=== PATIENT | female | born 1955 | race Caucasian/White ===

== ENCOUNTER 2019-02-13 09:25 | Inpatient (IN) | payer MEDICARE, MEDICAID ==
[~2019-02-13] VITALS: Ht 170.2 cm; Wt 65.0 kg
[2019-02-13] VITALS (8 sets, daily range): BP systolic 107–163; BP diastolic 56–106
[~2019-02-13 09:25] MED LIST: ALBU8.5H2 IH; BUPR200T PO; BUPR200T2 PO; DIAZ10TA3 PO; FLUT1DIS26 IH; FLUT1DIS27 INH; GABA-490 PO; GBPN300C PO; IBP800T PO; IPRA3AMP IH; LOPE2CAP PO; MILK175C PO; PRD10T PO; THIO100T PO; VILA40TA PO; VILAZODONE 40 MG PO
--- OUTSIDE RECORDS SUMMARY | 2019-02-13 09:38 | XMS REPORT ---
Author Author Migration, Doctor Organization [facility] Address Unknown Phone Unavailable Care Team Providers Care Supervisor Lead Refinery Name Role Phone Migration, Doctor Unavailable Unavailable PROBLEMS Type Condition ICD9-CM Code KIC90-XC Code Onset Dates Condition Status SNOMED Code Problem Dependence on machine for supplemental oxygen V46.2 Active 478889338087 Problem Personal history of colonic polyps V12.72 Active 789233982 Problem Bipolar depression 296.50 Active 94311411 Problem Orthostatic hypotension 458.0 Active 54025190 Problem Chronic obstructive pulmonary disease, unspecified J44.9 Active 104688656 Problem Tremor, unspecified R25.1 Active 40820739 Problem Hep C w/o coma, chronic B18.2 Active 210020818 Problem Impingement syndrome of left shoulder M75.42 Active 037557072 Problem Actinic keratosis L57.0 Active 922364350 Problem 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 163466273 Problem Inflammatory polyneuropathy, unspecified G61.9 Active 55723378 Problem COPD exacerbation J44.1 Active 559516447 Problem Chronic hepatitis C without hepatic coma B18.2 Active 015764544 Problem Nasal congestion R09.81 Active 46242273 Problem Pain in right shoulder M25.511 Active 44571632 Problem 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 Active 384317444 Problem Bipolar depression F31.30 Active 06586408 Problem Cervicalgia M54.2 Active 17396909 Problem Irritable bowel syndrome with both constipation and diarrhea K58.2 Active 84829371 ALLERGIES No Information ENCOUNTERS Encounter Location Date Diagnosis [place] [address] [facility] [address] [id number] [place] [id number] Jan, Chronic obstructive pulmonary disease, unspecified J44.9 ; Irritable bowel syndrome with both constipation and diarrhea K58.2 and Neck muscle spasm M62.838 [facility] [address] [id number] [place] [id number] Dec, COPD exacerbation J44.1 and Irritable bowel syndrome with both constipation and diarrhea K58.2 [facility] [id number] [place] [address] [id number] Nov, COPD exacerbation J44.1 ; Chronic obstructive pulmonary disease, unspecified J44.9 ; Cough R05 and Fever, unspecified fever cause R50.9 [facility] [id number] [place] [address] [id number] Nov, [facility] [address] [id number] Oct, Nasal congestion R09.81 [facility] [id number] [place] [address] [id number] Sep, COPD exacerbation J44.1 ; Tremor, unspecified R25.1 and Nasal congestion R09.81 [facility] [id number] [place] [address] [id number] Sep, [facility] [id number] [place] [address] [id number] Sep, Acute hemorrhoid K64.9 [facility] [id number] [place] [address] [id number] Sep, [facility] [id number] [place] [address] [id number] Sep, [facility] [id number] [place] [address] [id number] Aug, Generalized abdominal pain R10.84 [facility] [address]00565[address] [address] Jul, Tremor, unspecified R25.1 [facility] [id number] [place] [address] [id number] Jul, Nasal congestion R09.81 [facility] [id number] [place] [address] [id number] Jun, COPD exacerbation J44.1 ; Acute nasopharyngitis J00 and Cervicalgia M54.2 [facility] [id number] [place] [address] [id number] May, Chronic obstructive pulmonary disease, unspecified J44.9 [facility] [place] [address] [id number] February, Chronic obstructive pulmonary disease, unspecified J44.9 [place] [id number] [place] [address] [id number] February, Tremor, unspecified R25.1 ; Chronic obstructive pulmonary disease, unspecified J44.9 ; Cervicalgia M54.2 and Irritable bowel syndrome with both constipation and diarrhea K58.2 [place] [id number] [place] [address] [id number] Dec, Chronic obstructive pulmonary disease, unspecified J44.9 ; Cervicalgia M54.2 and Irritable bowel syndrome with both constipation and diarrhea K58.2 [place] [id number] [place] [address] [id number] Nov, Chronic obstructive pulmonary disease, unspecified J44.9 and Cervicalgia M54.2 [place] [id number] [place] [address] [id number] Jul, Chronic obstructive pulmonary disease, unspecified J44.9 ; Impingement syndrome of left shoulder M75.42 and Tremor, unspecified R25.[address] [id number] [place] [address] Jun, Diarrhea, unspecified type R19.7 [place] [id number] [place] [address] [id number] Jun, Chronic obstructive pulmonary disease, unspecified J44.9 ; Encounter for immunization Z23 ; Tremor, unspecified R25.1 ; Diarrhea, unspecified type R19.7 ; Acute seasonal allergic rhinitis due to pollen J30.1 and Urinary frequency R35.0 [address] [place] [address] [id number] Jun, [place] [id number] [place] [address] [phone] Jun, [place] [address] [place] [address] [id number] May, Chronic obstructive pulmonary disease, unspecified J44.9 ; Tremor, unspecified R25.1 ; Hep C w/o coma, chronic B18.2 ; Bipolar depression F31.30 and 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 [facility] [id number] [place] [id number] May, [facility] [address]00565[address] [address] Apr, Hep C w/o coma, chronic B18.2 [facility] [place] [id number] [place] [phone] Jan, Chronic obstructive pulmonary disease, unspecified J44.9 ; 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 ; Tremor, unspecified R25.1 and 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 [facility] [address] [id number] [place] [address] Jan, [facility] [place] [id number] [place] [address] Dec, Chronic obstructive pulmonary disease, unspecified J44.9 [facility] [address] [id number] [place] [address] Dec, Hep C w/o coma, chronic B18.2 ; Chronic obstructive pulmonary disease, unspecified J44.9 ; Muscle weakness (generalized) M62.81 ; Inflammatory polyneuropathy, unspecified G61.9 and 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 [facility] [place] [id number] [place] [id number] Dec, Chronic hepatitis C without hepatic coma B18.2 [facility] [id number] [place] [id number] Nov, [facility] [place] [id number] [place] [address] Oct, Actinic keratosis L57.0 [facility] [id number] [place] [address] Oct, [facility] [id number] [place] [id number] Oct, Chronic obstructive pulmonary disease, unspecified J44.9 and Chronic hepatitis C without hepatic coma B18.2 [facility] [address] [id number] [place] [id number] Oct, Hep C w/o coma, chronic B18.2 [facility] [address]00565100[place] [address]- [address]88 Sep, Hep C w/o coma, chronic B18.2 [facility] [address]00565100[place], [place] [address] 2079 Sep, [facility] [id number] [place] [address] 40892- 8965 Sep, [facility] [address] [place] [address] [id number] [place] [address] [id number] Sep, Chronic hepatitis C without hepatic coma B18.2 and Encounter for immunization Z23 [facility] [id number] [place] [address] 39816- 7131 Aug, [facility] [address] [place] [address] AVE [id number] [place] [id number] Aug, Hep C w/o coma, chronic B18.2 [facility] [id number] [place] [address] 99525- 3018 Aug, Chronic hepatitis C without hepatic coma B18.2 [facility] [address] [place] [address] 27038- 2966 Jul, [facility] [id number] [place] [address] 92742- 3391 Jul, [facility] [id number] [place] [address] [id number] Jul, Hep C w/o coma, chronic B18.2 ; Chronic obstructive pulmonary disease, unspecified J44.9 and Pain in right shoulder M25.511 [facility] [id number] [place] [address] [id number] Jun, Chronic obstructive pulmonary disease, unspecified J44.9 [facility] [id number] [place] [address] [id number] Mar, Hep C w/o coma, chronic B18.2 and Chronic obstructive pulmonary disease, unspecified J44.9 [address] [place] [address] [id number] Mar, Chronic obstructive pulmonary disease, unspecified J44.9 ; Impingement syndrome of left shoulder M75.42 and Hep C w/o coma, chronic B18.2 [address] [place] [address] [id number] Dec, Chronic obstructive pulmonary disease, unspecified J44.9 and Impingement syndrome of left shoulder M75.42 [place] [id number] [place] [address] [id number] Sep, Chronic obstructive pulmonary disease, unspecified J44.9 ; Encounter for immunization Z23 and Tremor, unspecified R25.1 [place] [id number] [place] [address] [id number] Aug, Tremor, unspecified R25.1 and Chronic obstructive pulmonary disease, unspecified J44.9 [place] [address] [place] [address] [id number] Jul, Tremor 781.0 and COPD 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 [place] [address] [id number] Jun, COPD 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 and Tremor 781.0 [address] [place] [address] [id number] May, [place] [id number] [place] [address] [id number] May, Sinusitis 473.9 [facility] [place] [address] [facility] [id number] [place] [id number] May, Sinusitis 473.9 ; Tobacco abuse 305.1 ; Irregular heart rhythm 427.9 and Cough 786.2 [facility] [address]00565[address] [id number] May, [address] [place] [address] [id number] Apr, [place] [id number] [place] [address] [id number] Apr, COPD 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 [facility] [place] [address] [facility] [id number] [place] [id number] Apr, Respiratory distress 786.09 [facility] [place] [id number] [place] [id number] Mar, COPD 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 and Verruca 078.10 [facility] [id number] [place] [address] 19041- 6406 Mar, [facility] [place] [id number] [place] [address] [id number] Jan, [place] 078.10 and [place] (actinic keratosis) 702.0 [facility] [place] [id number] [place] [address] [id number] Jan, [facility] [address] [place] [address] 45538- 0346 Jan, [facility] [address] [place] [address] 80727- 1598 Jan, [facility] [place] [id number] [place] [address] [id number] Dec, [facility] [address] [place] [address] [id number]- 2070 Dec, [facility] [place] [address]00565100[place] [id number] Nov, [facility] [id number] [place] [address] 21016- 0826 Nov, [facility] [address] [place] [address] 09514- 8803 Nov, [facility] [place] [address] [place] [address] [id number] Oct, [facility] [address] [place] [address] 594924- 7687 Oct, [facility] [id number] [place] [address] 19491- 3321 Oct, [facility] [place] [address] [id number] [place] [id number] Oct, [facility] [place] [facility] [address] [id number] [place] [address]- 7160 Oct, [facility] [place] [address] [id number] [place] [id number] Oct, [facility] [place] [facility] [address] [facility] [id number] [address]- 3014 Oct, [facility] [place] [address] [id number] [place] [id number] Sep, [facility] [place] [facility] [address] [id number] [address]- 5717 Sep, [facility] [place] [address] [id number] [place] [id number] Aug, [facility] [place] [address] [id number] [place] [id number] Aug, [facility] [place] [facility] [address] [facility] [id number], [place] [address]- 1191 Aug, [facility] [place] [facility] [address] [facility] [id number], [place] [address]- 0054 Aug, [facility] [place] [address] [facility] [id number] [place] [id number] Jul, [facility] [place] [facility] [address] [facility] [id number], [place] [address]- 6300 Jul, [facility] [place] [address] [facility] [id number] [place] [id number] Apr, [facility] [place] [facility] [address] [facility] [id number] [place] [address]- 1124 Apr, [facility] [place] [facility] [address] [facility] [id number] [place] [address]- 5442 Apr, [facility] [place] [facility] [address] [facility] [id number], [place] [address]- 4491 Apr, [facility] [place] [address] [facility] [id number] [place] [id number] Apr, [facility] [place] [address] [id number] [place] [id number] Mar, [facility] [place] [facility] [address] [id number] [place] [address]- 2546 Mar, [facility] [place] [address] [id number] [place] [id number] February, [facility] [place] [facility] [address] [id number] [place] [address]- 2226 February, [facility] [place] [address] [id number] [place] [id number] February, [facility] [address] [id number] [place] [address]- 1286 February, [facility] [place] [address] [id number] [id number] February, [facility] [place] [facility] [address] [id number] [place] [address]- 7846 February, [facility] [place] [facility] [address] [id number] [place] [address]- 1142 February, [facility] [place] [facility] [address] [id number] [place] [address]- 8900 February, [facility] [place] [facility] [address] [id number] [place] [address]- 2942 February, [facility] [place] [facility] [address] [id number] [place] [address]- 1166 February, [facility] [place] [facility] [address] [id number] [place] [address]- 4956 February, [facility] [place] [facility] [address] [id number] [place] [address]- 1816 February, [facility] [place] [facility] [address] [id number] [place] [address]- 4816 Jan, [facility] [place] [facility] [address] [id number] [place] [address]- 7326 Jan, [facility] [place] [address] [id number] [place] [id number] Dec, [facility] [address] [facility] [id number][place] [address]- 8416 Dec, [facility] [place] [address] [id number] [place] [id number] Dec, [facility] [address] [facility] [id number], [place] [address]- 5500 Dec, [facility] [place] [address] [id number] [place] [id number] Nov, [facility] [address] [facility] [id number], [place] [address]- 7711 Nov, [facility] [place] [address] [facility] [id number] [place] 716422409 Sep, [facility] [address]00565[address], [place] [address]- 6055 Sep, [facility] [place] [address] [facility] [id number] [place] [id number] Sep, [facility] [address] [facility] [id number], [place] [address]- 4790 Sep, [facility] [place] [address] [facility] [id number] [place] [id number] Jul, [facility] [address] [facility] [id number], [place] [address]- 7114 Jul, [facility] [place] [address] [id number] [place] [id number] Jul, [facility] [place] [facility] [address] [facility] [id number], [place] [address]- 0576 Jul, [facility] [place] [address] [id number] [place] [id number] May, [facility] [place] [address] [id number] [place] [id number] Apr, [facility] [place] [address] [id number] [place] 597459475 Apr, [facility] [place] [address] [id number] [id number] Mar, [facility] [place] [address] [id number] [place] [id number] Mar, [facility] [place] [address] [id number] [place] [id number] February, [facility] [place] [address] [id number] [place] [id number] Jan, [facility] [place] [address] [id number] [place] 5508979[place] Dec, [facility] [place] [address] [id number] [place] [id number] Oct, [facility] [place] [address] [id number] [id number] Oct, [facility] [place] [address] [id number] [place] [address]37[address] Sep, [facility] [address]00565100[place], [place] [address]- 2406 Sep, [facility] [place] [address] [id number] [place] [id number] Aug, [facility] [address]00565100[place], [place] [address]- 3716 Aug, [facility] [place] [address] [id number] [place] [id number] Aug, [facility] [address]00565[address], [place] [address]- 9626 Aug, [facility] [place] [facility] [address] [facility] [id number], [place] [address]- 2546 May, [facility] [place] [address] [id number] [place] [id number] May, [facility] [place] [facility] [address] [id number], [place] [address]- 2546 Apr, [facility] [place] [facility] [address]00565100[place], [place] [address]- 4723 Mar, [facility] [place] [facility] [id number] [place] [address] [place] [address]- 2546 Mar, [facility] [place] [address] [id number] [place] [id number] Mar, [facility] [place] [address] [id number] [place] [id number] Jan, [facility] [place] [address] [id number] [place] 040945666 Dec, [facility] [place] [facility] [address] [facility] [id number] [place] [address] 87875- 2546 Nov, [facility] [place] [address] [id number] [place] [id number] Nov, [facility] [place] [facility] [id number] [place] [address] 58755- 5116 Sep, [facility] [place] [facility] [address] [id number] [address]- 5732 Sep, [facility] [place] [facility] [id number] [place] [address] 26690- 8018 Aug, [facility] [place] [facility] [address]00565100[place], [place] [address]- 9219 Jul, [facility] [place] [facility] [address] [place] [address] 32989- 8895 Jul, [facility] [place] [facility] [address]00565100[place], [place] [address]- 6800 Jul, [facility] [place] [facility] [address] [id number], [place] [address]- 8716 Jul, [facility] [place] [facility] [address] [facility] [id number], [place] [address]- 5743 Jun, [facility] [place] [facility] [address] [id number], [place] [address]- 9736 May, [facility] [place] [facility] [address] [facility] [id number], [place] [address]- 2546 Apr, [facility] [place] [facility] [address]00565[address], [place] [address]- 6256 February, [facility] [address] [id number], [place] [address]- 0285 Dec, [facility] [address]00565100[place], [place] [address]- 0406 Oct, [facility] [address]00565100[place], [place] [address]- 8738 Sep, [facility] [address]00565100[place], [place] [address]- 3301 Aug, [facility] [address]00565100[place], [place] [address]- 7053 Aug, [facility] [id number] [place] [address] 64420- 1779 Sep, [facility] [address] [place] [address] 98562- 4914 Sep, [facility] [address]00565100[place], [place] [address]- 7493 Aug, [facility] [address]00565[address], [place] 4196[place]- 2798 Aug, [facility] [address]00565100[place], [place] [address] Aug, [facility] [address] [id number], [place] [address] Aug, IMMUNIZATIONS No Known Immunizations SOCIAL HISTORY Never Assessed REASON FOR VISIT [facility] PLAN OF CARE VITAL SIGNS MEDICATIONS No Known Medications RESULTS No Results PROCEDURES No Known procedures INSTRUCTIONS MEDICATIONS ADMINISTERED No Known Medications MEDICAL (GENERAL) HISTORY Type Description Date Medical History chronic obstructive pulmonary disease (COPD)--DX: 2007 Medical History Arthritis Medical History mouth cancer--roof of mouth (2000) Medical History hepatitis C Medical History chronic pain Medical History bipolar disorder Medical History social anxiety disorder Medical History bowel disorders-due to Hepatitis Medical History emphysema (DX-02/28) Surgical History tonsillectomy age 3 Surgical History tubal ligation age 23 Surgical History Back surgery dissection & removal of L4 and L5 1986 Hospitalization History Syncope ([facility]) 02/2014 Hospitalization History was at [facility] for falling and confusion/ then went to a snf for 21days 04/2017
--- OUTSIDE RECORDS SUMMARY | 2019-02-13 09:38 | XMS REPORT ---
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 Name Role Phone Migration, Doctor Unavailable Unavailable PROBLEMS Type Condition ICD9-CM Code KAJ09-SM Code Onset Dates Condition Status SNOMED Code Problem Dependence on machine for supplemental oxygen V46.2 Active 345501681484 Problem Personal history of colonic polyps V12.72 Active 867610780 Problem Bipolar depression 296.50 Active 20713087 Problem Orthostatic hypotension 458.0 Active 79756376 Problem Chronic obstructive pulmonary disease, unspecified J44.9 Active 898377881 Problem Tremor, unspecified R25.1 Active 14302873 Problem Hep C w/o coma, chronic B18.2 Active 535238752 Problem Impingement syndrome of left shoulder M75.42 Active 058250868 Problem Actinic keratosis L57.0 Active 558629812 Problem 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 291570408 Problem Inflammatory polyneuropathy, unspecified G61.9 Active 59803635 Problem COPD exacerbation J44.1 Active 673480148 Problem Chronic hepatitis C without hepatic coma B18.2 Active 013895082 Problem Nasal congestion R09.81 Active 81839211 Problem Pain in right shoulder M25.511 Active 11752087 Problem 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 Active 655190925 Problem Bipolar depression F31.30 Active 40808060 Problem Cervicalgia M54.2 Active 69818978 Problem Irritable bowel syndrome with both constipation and diarrhea K58.2 Active [id number] ALLERGIES No Information ENCOUNTERS Encounter Location Date Diagnosis [facility] [place] [facility] Madeline0 [facility] [id number] [place] [id number] Jan, [facility] [place] [address] [id number] [place] [id number] Dec, COPD exacerbation J44.1 and Irritable bowel syndrome with both constipation and diarrhea K58.2 [facility] [address] [id number][place] [id number] Nov, COPD exacerbation J44.1 ; Chronic obstructive pulmonary disease, unspecified J44.9 ; Cough R05 and Fever, unspecified fever cause R50.9 [facility] [id number] [place] [address] [id number] Nov, [facility] [id number] [place] [address] [id number] Oct, Nasal congestion R09.81 [facility] [id number] [place] [address] [id number] Sep, COPD exacerbation J44.1 ; Tremor, unspecified R25.1 and Nasal congestion R09.81 [facility] [id number] [place] [address] [id number] Sep, [facility] [id number] [place] [address] [id number] Sep, Acute hemorrhoid K64.9 [facility] [id number] [place] [address] [id number] Sep, [facility] [id number] [place] [address] [phone] Sep, [facility] [id number] [place] [address] [id number] Aug, Generalized abdominal pain R10.84 [facility] [address]005[address] [address] Jul, Tremor, unspecified R25.1 [facility] [id number] [place] [address] [id number] Jul, Nasal congestion R09.81 [facility] [id number] [place] [address] [id number] Jun, COPD exacerbation J44.1 ; Acute nasopharyngitis J00 and Cervicalgia M54.2 [facility] [id number] [place] [address] [phone] May, Chronic obstructive pulmonary disease, unspecified J44.9 [facility] [id number] [place] [address] [id number] February, Chronic obstructive pulmonary disease, unspecified J44.9 [facility] [id number], [place] [id number] February, Tremor, unspecified R25.1 ; Chronic obstructive pulmonary disease, unspecified J44.9 ; Cervicalgia M54.2 and Irritable bowel syndrome with both constipation and diarrhea K58.2 [place] [id number] [place] [address] [id number] Dec, Chronic obstructive pulmonary disease, unspecified J44.9 ; Cervicalgia M54.2 and Irritable bowel syndrome with both constipation and diarrhea K58.2 [address] [place] [address] [id number] Nov, Chronic obstructive pulmonary disease, unspecified J44.9 and Cervicalgia M54.2 [place] [id number] [place] [address] [id number] Jul, Chronic obstructive pulmonary disease, unspecified J44.9 ; Impingement syndrome of left shoulder M75.42 and Tremor, unspecified R25.[address] [id number] [place] 24967[address] Jun, Diarrhea, unspecified type R19.7 [address] [place] [address] [id number] Jun, Chronic obstructive pulmonary disease, unspecified J44.9 ; Encounter for immunization Z23 ; Tremor, unspecified R25.1 ; Diarrhea, unspecified type R19.7 ; Acute seasonal allergic rhinitis due to pollen J30.1 and Urinary frequency R35.0 [address] [place] [address] [id number] Jun, [address] [place] [address] [id number] Jun, [address] [place] [address] [id number] May, Chronic obstructive pulmonary disease, unspecified J44.9 ; Tremor, unspecified R25.1 ; Hep C w/o coma, chronic B18.2 ; Bipolar depression F31.30 and 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 [place] [id number] [place] [address] [id number] May, [facility] [address] [id number] [address] Apr, Hep C w/o coma, chronic B18.2 [facility] [id number], [place] [id number] Jan, Chronic obstructive pulmonary disease, unspecified J44.9 ; 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 ; Tremor, unspecified R25.1 and 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 [facility] [address] [id number] [place] [id number] Jan, [facility] [id number], [place] [id number] Dec, Chronic obstructive pulmonary disease, unspecified J44.9 [facility] [address] [id number] [place] 56487[address] Dec, Hep C w/o coma, chronic B18.2 ; Chronic obstructive pulmonary disease, unspecified J44.9 ; Muscle weakness (generalized) M62.81 ; Inflammatory polyneuropathy, unspecified G61.9 and 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 [facility] [place] [id number], [place] [id number] Dec, Chronic hepatitis C without hepatic coma B18.2 [facility] [id number], [place] [id number] Nov, [facility] [id number], [place] [id number] Oct, Actinic keratosis L57.0 [facility] [id number], [place] [id number] Oct, [facility] [place] [id number], [place] [id number] Oct, Chronic obstructive pulmonary disease, unspecified J44.9 and Chronic hepatitis C without hepatic coma B18.2 [facility] [address] [id number] [place] [address]39[address]33[address] Oct, Hep C w/o coma, chronic B18.2 [facility] [place] [facility] [address]00565100[place], [place] [address] Sep, Hep C w/o coma, chronic B18.2 [facility] [address] [place] [address] 23954- 3777 Sep, [facility] [id number] [place] [address] 08096- 1429 Sep, [facility] [place] [address] [id number] [place] 4459[address]164 Sep, Chronic hepatitis C without hepatic coma B18.2 and Encounter for immunization Z23 [facility] [id number] [place] [address] 20532- 2830 Aug, [facility] [place] [facility] [address] [id number] [place] [id number] Aug, Hep C w/o coma, chronic B18.2 [facility] [id number] [place] [address] 70798- 6299 Aug, Chronic hepatitis C without hepatic coma B18.2 [facility] [id number] [place] [address] 33292- 1558 Jul, [facility] [id number] [place] [address] 89671- 5771 Jul, [address] [place] [address] [id number] Jul, Hep C w/o coma, chronic B18.2 ; Chronic obstructive pulmonary disease, unspecified J44.9 and Pain in right shoulder M25.511 [place] [id number] [place] [address] [id number] Jun, Chronic obstructive pulmonary disease, unspecified J44.9 [place] [id number] [place] [address] [id number] Mar, Hep C w/o coma, chronic B18.2 and Chronic obstructive pulmonary disease, unspecified J44.9 [place] [id number] [place] [address] [id number] Mar, Chronic obstructive pulmonary disease, unspecified J44.9 ; Impingement syndrome of left shoulder M75.42 and Hep C w/o coma, chronic B18.2 [place] [id number] [place] [address] [id number] Dec, Chronic obstructive pulmonary disease, unspecified J44.9 and Impingement syndrome of left shoulder M75.42 [facility] [place] [id number] [place] [address] [id number] Sep, Chronic obstructive pulmonary disease, unspecified J44.9 ; Encounter for immunization Z23 and Tremor, unspecified R25.[address] [id number] Aug, Tremor, unspecified R25.1 and Chronic obstructive pulmonary disease, unspecified J44.9 [place] [id number] [place] [address] [id number] Jul, Tremor 781.0 and COPD 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 [place] [address] [id number] Jun, COPD 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 and Tremor 781.0 [place] [id number] [place] [address] [id number] May, [place] [id number] [place] [address] [id number] May, Sinusitis 473.9 [facility] [address] [place] [address] AVE [id number] [place] [id number] May, Sinusitis 473.9 ; Tobacco abuse 305.1 ; Irregular heart rhythm 427.9 and Cough 786.2 [facility] [place] [address]00565100[place] [id number] May, [address] [place] [address] [id number] Apr, [address] [place] [address] [id number] Apr, COPD 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 [facility] [id number] [place] [address] [phone] Apr, Respiratory distress 786.09 [facility] [id number], [place] [id number] Mar, COPD 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 and Verruca 078.10 [facility] [id number] [place] [address] 04960- 8736 Mar, [facility] [id number] [place] [address] [id number] Jan, Verruca 078.10 and [place] (actinic keratosis) 702.0 [facility] [id number] [place] [address] [id number] Jan, [facility] [id number] [place] [address] 51200- 8546 Jan, [facility] [id number] [place] [address] 24087- 0803 Jan, [facility] [id number] [place] [address] [id number] Dec, [facility] [id number] [place] [address] [id number] 9828 Dec, [facility] [id number] [place] [address] [id number] Nov, [facility] [id number] [place] [address] [id number]- 2767 Nov, [facility] [id number] [place] [address] 72502- 7801 Nov, [facility] [id number], [place] [id number] Oct, [facility] [id number] [place] [address] 45922- 5123 Oct, [facility] [id number] [place] [address] 42043- 7401 Oct, [facility] [id number] [place] [address] [id number] Oct, [facility] [place] [facility] [address] [id number] [address] 1991 Oct, [facility] [address] [id number] [place] [id number] Oct, [facility] [place] [facility] [address] [id number] [address]- 2546 Oct, [facility] [address] [id number] [place] [id number] Sep, [facility] [place] [facility] [address] [id number] [address]- 6116 Sep, [facility] [address] [id number] [place] [id number] Aug, [facility] [address] [id number] [place] [id number] Aug, [facility] [place] [facility] [address] [facility] [id number], [place] [address]- 4411 Aug, [facility] [place] [facility] [address] [facility] [id number] [address]- 2388 Aug, [facility] [address] [id number], [place] [id number] Jul, [facility] [place] [facility] [address] [facility] [id number], [place] [address]- 6294 Jul, [facility] [address] [facility] [id number], [place] [id number] Apr, [facility] [place] [facility] [address] [facility] [id number], [place] [address]- 0352 Apr, [facility] [place] [facility] [address] [facility] [id number], [place] [address]- 5513 Apr, [facility] [place] [facility] [address] [facility] [id number], [place] [address]- 9036 Apr, [facility] [address] [id number] [place] [id number] Apr, [facility] [address] [id number], [place] [id number] Mar, [facility] [place] [facility] [address] [id number] [place] [address]- 3106 Mar, [facility] [address] [id number] [place] [id number] February, [facility] [place] [facility] [address] [id number] [place] [address]- 7266 February, [facility] [address] [id number] [place] [id number] February, [facility] [place] [facility] [address] [id number] [place] [address]- 6226 February, [facility] [address] [id number] [place] [id number] February, [facility] [place] [facility] [address] [id number] [place] [address]- 0966 February, [facility] [place] [facility] [address] [id number] [place] [address]- 2726 February, [facility] [place] [facility] [address] [id number] [place] [address]- 6916 February, [facility] [place] [facility] [address] [id number] [place] [address]- 5906 February, [facility] [place] [facility] [address] [id number] [place] [address]- 2816 February, [facility] [place] [facility] [address] [id number] [place] [address]- 8986 February, [facility] [place] [facility] [address] [id number] [place] [address]- 2626 February, [facility] [place] [facility] [address] [id number] [place] [address]- 8726 Jan, [facility] [place] [facility] [address] [id number] [place] [address]- 9026 Jan, [facility] [address] [id number] [place] [id number] Dec, [facility] [place] [facility] [address] [id number], [place] [address]- 0075 Dec, [facility] [address] [id number] [place] [id number] Dec, [facility] [address] [facility] [id number], [place] [address]- 1171 Dec, [facility] [address] [id number] [place] [id number] Nov, [facility] [address] [facility] [id number], [place] [address]- 8108 Nov, [facility] [address] [id number], [place] 140223861 Sep, [facility] [address] [facility] [id number], [place] [address]- 6911 Sep, [facility] [address] [id number], [place] [id number] Sep, [facility] [address] [facility] [id number], [place] [address]- 2475 Sep, [facility] [address] [id number], [place] [id number] Jul, [facility] [address] [facility] [id number], [place] [address]- 8486 Jul, [facility] [address] [id number], [place] 069891430 Jul, [facility] [address] [facility] [id number], [place] [address]- 7064 Jul, [facility] [address] [id number] [place] [id number] May, [facility] [address] [id number] [place] [id number] Apr, [facility] [address] [id number] [place] [id number] Apr, [facility] [address] [id number] [place] [id number] Mar, [facility] [address] [id number] [place] [id number] Mar, [facility] [address] [id number] [place] [id number] February, [facility] [address] [id number] [place] [id number] Jan, [facility] [address] [id number] [place] [id number] Dec, [facility] [address] [id number] [place] [id number] Oct, [facility] [address] [id number] [place] [id number] Oct, [facility] [address] [id number] [place] [id number] Sep, [facility] [place] [facility] [address] [facility] [id number], [place] [address]- 3086 Sep, [facility] [address] [id number] [place] [id number] Aug, [facility] [place] [facility] [address]00565100[place], [place] [address]- 7098 Aug, [facility] [address] [facility] [id number], [place] [id number] Aug, [facility] [place] [facility] [address]00565100[place], [place] [address]- 6608 Aug, [facility] [place] [facility] [address]00565100[place], [place] [address]- 1986 May, [facility] [address] [facility] [id number], [place] [id number] May, [facility] [place] [facility] [address] [facility] [id number], [place] [address]- 8029 Apr, [facility] [place] [facility] [address] [facility] [id number], [place] [address]- 0616 Mar, [facility] [place] [facility] [address] [facility] [id number], [place] [address]- 5887 Mar, [facility] [address] [facility] [id number], [place] [id number] Mar, [facility] [address] [facility] [id number] [place] [id number] Jan, [facility] [address] [facility] [id number] [place] [id number] Dec, [facility] [place] [facility] [address] [id number] [place] [address]- 2546 Nov, [facility] [address] [facility] [id number] [place] [id number] Nov, [facility] [place] [facility] [address] [id number] [place] [address]- 6657 Sep, [facility] [place] [facility] [id number] [place] [address], [place] [address]- 0482 Sep, [facility] [place] [facility] [address] [facility] [id number] [place] [address]- 9651 Aug, [facility] [place] [facility] [address] [id number] [place] [address]- 1657 Jul, [facility] [place] [facility] [address] [facility] [id number] [place] 8206 Jul, [facility] [place] [facility] [address] [facility] [id number], [place] 411763- 1309 Jul, [facility] [place] [facility] [address] [facility] [id number], [place] 945814- 0962 Jul, [facility] [place] [facility] [address] [facility] [id number], [place] [address]- 0353 Jun, [facility] [place] [facility] [address] [id number], [place] [address]- 5116 May, [facility] [place] [facility] [address] [facility] [id number] [place] [address]- 4696 Apr, [facility] [place] [facility] [address] [facility] [id number], [place] [address]- 4113 February, [facility] [place] [facility] [address] [facility] [id number], [place] [address]- 4584 Dec, [facility] [address] [id number], [place] [address]- 1984 Oct, [facility] [address]00565100[place], [place] [address]- 8576 Sep, [facility] [address]00565100[place], [place] [address]- 1044 Aug, [facility] [address]00565100[place], [place] [address]- 8885 Aug, [facility] [address]00565100[place], [place] [address]- 7331 Sep, [facility] [id number] [place] [address] 25132- 9876 Sep, [facility] [id number] [place] [address] 84596- 6757 Aug, [facility] [address]00565100[place], [place] [address]- 9944 Aug, [facility] [address]00565100[place], [place] [address]- 5069 Aug, [facility] [address], [place] [address] Aug, IMMUNIZATIONS No Known Immunizations SOCIAL HISTORY Never Assessed REASON FOR VISIT EMR-[facility] [place] PLAN OF CARE VITAL SIGNS MEDICATIONS Unknown Medications RESULTS No Results PROCEDURES No Known [...] L4 and L5 1986 Hospitalization History Syncope ([place]) 02/2014 Hospitalization History was at [place] for falling and confusion/ then went to a [facility] for 21days 04/2017
--- OUTSIDE RECORDS SUMMARY | 2019-02-13 09:39 | XMS REPORT ---
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 Name Role Phone Migration, Doctor Unavailable Unavailable PROBLEMS Type Condition ICD9-CM Code LWA69-VW Code Onset Dates Condition Status SNOMED Code Problem Dependence on machine for supplemental oxygen V46.2 Active [id number] Problem Personal history of colonic polyps V12.72 Active 991006298 Problem Bipolar depression 296.50 Active 15677506 Problem Orthostatic hypotension 458.0 Active 52496222 Problem Chronic obstructive pulmonary disease, unspecified J44.9 Active 256557724 Problem Tremor, unspecified R25.1 Active 74004413 Problem Hep C w/o coma, chronic B18.2 Active 264889606 Problem Impingement syndrome of left shoulder M75.42 Active 975141093 Problem Actinic keratosis L57.0 Active 741393570 Problem 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 021710416 Problem Inflammatory polyneuropathy, unspecified G61.9 Active 20677250 Problem COPD exacerbation J44.1 Active 744550456 Problem Chronic hepatitis C without hepatic coma B18.2 Active 766336781 Problem Nasal congestion R09.81 Active 20805327 Problem Pain in right shoulder M25.511 Active 50802154 Problem 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 Active 383091226 Problem Bipolar depression F31.30 Active 94321057 Problem Cervicalgia M54.2 Active 90774736 Problem Irritable bowel syndrome with both constipation and diarrhea K58.2 Active 58506847 ALLERGIES No Information ENCOUNTERS Encounter Location Date Diagnosis [facility] Madeline[address] [facility] [id number] [id number] Jan, [facility] [id number] [id number] Dec, COPD exacerbation J44.1 and Irritable bowel syndrome with both constipation and diarrhea K58.2 [facility] [address] [id number][place] [id number] Nov, COPD exacerbation J44.1 ; Chronic obstructive pulmonary disease, unspecified J44.9 ; Cough R05 and Fever, unspecified fever cause R50.9 [facility] [id number] [place] [address] [id number] Nov, [facility] [id number] [place] [address] [id number] Oct, Nasal congestion R09.81 [facility] [id number] [place] [address] [id number] Sep, COPD exacerbation J44.1 ; Tremor, unspecified R25.1 and Nasal congestion R09.81 [facility] [id number] [place] [address] [id number] Sep, [facility] [id number] [place] [address] [id number] Sep, Acute hemorrhoid K64.9 [facility] [id number] [place] [address] [id number] Sep, [facility] [id number] [place] [address] [phone] Sep, [facility] [id number] [place] [address] [id number] Aug, Generalized abdominal pain R10.84 [facility] [address]00565100[place], [place] [address] Jul, Tremor, unspecified R25.1 [facility] [id number] [place] [address] [id number] Jul, Nasal congestion R09.81 [facility] [id number] [place] [address] [id number] Jun, COPD exacerbation J44.1 ; Acute nasopharyngitis J00 and Cervicalgia M54.2 [facility] [id number] [place] [address] [id number] May, Chronic obstructive pulmonary disease, unspecified J44.9 [facility] [id number] [place] [address] [id number] February, Chronic obstructive pulmonary disease, unspecified J44.9 [facility] [id number], [place] [id number] February, Tremor, unspecified R25.1 ; Chronic obstructive pulmonary disease, unspecified J44.9 ; Cervicalgia M54.2 and Irritable bowel syndrome with both constipation and diarrhea K58.2 [place] [id number] [place] [address] [id number] Dec, Chronic obstructive pulmonary disease, unspecified J44.9 ; Cervicalgia M54.2 and Irritable bowel syndrome with both constipation and diarrhea K58.2 [address] [place] [address] [id number] Nov, Chronic obstructive pulmonary disease, unspecified J44.9 and Cervicalgia M54.2 [place] [id number] [place] [address] [id number] Jul, Chronic obstructive pulmonary disease, unspecified J44.9 ; Impingement syndrome of left shoulder M75.42 and Tremor, unspecified R25.[address] [id number][place] [id number] Jun, Diarrhea, unspecified type R19.7 [address] [place] [address] [id number] Jun, Chronic obstructive pulmonary disease, unspecified J44.9 ; Encounter for immunization Z23 ; Tremor, unspecified R25.1 ; Diarrhea, unspecified type R19.7 ; Acute seasonal allergic rhinitis due to pollen J30.1 and Urinary frequency R35.0 [address] [place] [address] [id number] Jun, [address] [place] [address] [id number] Jun, [address] [place] [address] [id number] May, Chronic obstructive pulmonary disease, unspecified J44.9 ; Tremor, unspecified R25.1 ; Hep C w/o coma, chronic B18.2 ; Bipolar depression F31.30 and 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 [place] [id number] [place] [address] [id number] May, [facility] [address] [id number] [address] Apr, Hep C w/o coma, chronic B18.2 [facility] [id number], [place] [id number] Jan, Chronic obstructive pulmonary disease, unspecified J44.9 ; 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 ; Tremor, unspecified R25.1 and 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 [facility] [address] [id number][place] [id number] Jan, [facility] [id number], [place] [id number] Dec, Chronic obstructive pulmonary disease, unspecified J44.9 [facility] [address] [facility] [address] [id number], [place] [id number] Dec, Hep C w/o coma, chronic B18.2 ; Chronic obstructive pulmonary disease, unspecified J44.9 ; Muscle weakness (generalized) M62.81 ; Inflammatory polyneuropathy, unspecified G61.9 and 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 [facility] [place] [id number], [place] [id number] Dec, Chronic hepatitis C without hepatic coma B18.2 [facility] [id number], [place] [id number] Nov, [facility] [id number], [place] [id number] Oct, Actinic keratosis L57.0 [facility] [id number], [place] [id number] Oct, [facility] [place] [id number], [place] [id number] Oct, Chronic obstructive pulmonary disease, unspecified J44.9 and Chronic hepatitis C without hepatic coma B18.2 [facility] [address] [id number], [place] [id number] Oct, Hep C w/o coma, chronic B18.2 [facility] [place] [facility] [address]00565100[place], [place] [address] Sep, Hep C w/o coma, chronic B18.2 [facility] [address] [place] [address]- 3930 Sep, [facility] [id number] [place] [address]- 8552 Sep, [facility] [address] [id number], [place] [id number] Sep, Chronic hepatitis C without hepatic coma B18.2 and Encounter for immunization Z23 [facility] [id number] [place] [address] 12796- 3276 Aug, [facility] [address] [facility] [address] [id number], [place] [id number] Aug, Hep C w/o coma, chronic B18.2 [facility] [id number] [place] [address] 30004- 6766 Aug, Chronic hepatitis C without hepatic coma B18.2 [facility] [id number] [place] [address] 57277- 0671 Jul, [facility] [id number] [place] [address] 72614- 2617 Jul, [address] [place] [address] [id number] Jul, Hep C w/o coma, chronic B18.2 ; Chronic obstructive pulmonary disease, unspecified J44.9 and Pain in right shoulder M25.511 [place] [id number] [place] [address] [id number] Jun, Chronic obstructive pulmonary disease, unspecified J44.9 [place] [id number] [place] [address] [id number] Mar, Hep C w/o coma, chronic B18.2 and Chronic obstructive pulmonary disease, unspecified J44.9 [place] [id number] [place] [address] [id number] Mar, Chronic obstructive pulmonary disease, unspecified J44.9 ; Impingement syndrome of left shoulder M75.42 and Hep C w/o coma, chronic B18.2 [place] [id number] [place] [address] [id number] Dec, Chronic obstructive pulmonary disease, unspecified J44.9 and Impingement syndrome of left shoulder M75.42 [facility] [place] [id number] [place] [address] [id number] Sep, Chronic obstructive pulmonary disease, unspecified J44.9 ; Encounter for immunization Z23 and Tremor, unspecified R25.[address] [id number] Aug, Tremor, unspecified R25.1 and Chronic obstructive pulmonary disease, unspecified J44.9 [place] [id number] [place] [address] [id number] Jul, Tremor 781.0 and COPD 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 [place] [address] [id number] Jun, COPD 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 and Tremor 781.0 [address] [id number] [place] [address] [id number] May, [place] [id number] [place] [address] [id number] May, Sinusitis 473.9 [facility] [address] [place] [address] AVE [id number], [place] [id number] May, Sinusitis 473.9 ; Tobacco abuse 305.1 ; Irregular heart rhythm 427.9 and Cough 786.2 [facility] [place] [address]00565[address] [id number] May, [address] [place] [address] [id number] Apr, [address] [place] [address] [id number] Apr, COPD 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 [facility] [id number] [place] [address] [id number] Apr, Respiratory distress 786.09 [facility] [id number], [place] [id number] Mar, COPD 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 and Verruca 078.10 [facility] [id number] [place] [address] 93228- 0216 Mar, [facility] [id number] [place] [address] [id number] Jan, Verruca 078.10 and [place] (actinic keratosis) 702.0 [facility] [id number] [place] [address] [id number] Jan, [facility] [id number] [place] [address] 10082- 1786 Jan, [facility] [id number] [place] [address] 22236- 4011 Jan, [facility] [id number] [place] [address] [id number] Dec, [facility] [id number] [place] [address] [id number] 0192 Dec, [facility] [id number] [place] [address] [id number] Nov, [facility] [id number] [place] [address] [id number] Nov, [facility] [id number] [place] [address] 07678- 8608 Nov, [facility] [id number], [place] [id number] Oct, [facility] [id number] [place] [address] 22952- 5731 Oct, [facility] [id number] [place] [address] 92458- 6993 Oct, [facility] [id number] [place] [address] [id number] Oct, [facility] [place] [facility] [address] [id number], [place] [address] Oct, [facility] [address] [id number] [place] [id number] Oct, [facility] [place] [facility] [address] [id number] [place] [address]- 2546 Oct, [facility] [address] [id number] [place] [id number] Sep, [facility] [place] [facility] [address] [id number] [place] [address]- 5766 Sep, [facility] [address] [id number] [place] [id number] Aug, [facility] [address] [id number] [place] [id number] Aug, [facility] [place] [facility] [address] [facility] [id number], [place] [address]- [address] Aug, [facility] [place] [facility] [address] [facility] [id number], [place] [address]- 0015 Aug, [facility] [address] [id number], [place] [id number] Jul, [facility] [place] [facility] [address] [facility] [id number], [place] [address]- 3441 Jul, [facility] [address] [facility] [id number][place] [id number] Apr, [facility] [place] [facility] [address] [facility] [id number], [place] [address]- 2389 Apr, [facility] [place] [facility] [address] [facility] [id number], [place] [address]- 4737 Apr, [facility] [place] [facility] [address] [facility] [id number], [place] [address]- 2466 Apr, [facility] [address] [id number] [place] [id number] Apr, [facility] [address] [id number], [place] [id number] Mar, [facility] [place] [facility] [address] [id number] [place] [address]- 2906 Mar, [facility] [address] [id number] [place] [id number] February, [facility] [place] [facility] [address] [id number] [place] [address]- 5946 February, [facility] [address] [id number] [place] 8741970[address] February, [facility] [place] [facility] [address] [id number] [place] [address]- 9846 February, [facility] [address] [id number] [place] [id number] February, [facility] [place] [facility] [address] [id number] [place] [address]- 8336 February, [facility] [place] [facility] [address] [id number] [place] [address]- 8036 February, [facility] [place] [facility] [address] [id number] [place] [address]- 0156 February, [facility] [place] [facility] [address] [id number] [place] [address]- 1546 February, [facility] [place] [facility] [address] [id number] [place] [address]- 1766 February, [facility] [place] [facility] [address] [id number] [place] [address]- 2426 February, [facility] [place] [facility] [address] [id number] [place] [address]- 1096 February, [facility] [place] [facility] [address] [id number] [place] [address]- 4146 Jan, [facility] [place] [facility] [address] [id number] [place] [address]- 0306 Jan, [facility] [address] [id number] [place] [id number] Dec, [facility] [place] [facility] [address] [id number], [place] [address]- 6004 Dec, [facility] [address] [id number] [place] [id number] Dec, [facility] [address] [facility] [id number], [place] [address]- 8748 Dec, [facility] [address] [id number] [place] [id number] Nov, [facility] [address] [facility] [id number], [place] [address]- 0723 Nov, [facility] [address] [id number], [place] [id number] Sep, [facility] [address] [facility] [id number], [place] [address]- 1253 Sep, [facility] [address] [id number], [place] [id number] Sep, [facility] [address] [facility] [id number], [place] [address]- 5610 Sep, [facility] [address] [id number], [place] [id number] Jul, [facility] [address] [facility] [id number], [place] [address]- 4846 Jul, [facility] [address] [id number], [place] 411692059 Jul, [facility] [address] [facility] [id number], [place] [address]- 2453 Jul, [facility] [address] [id number] [place] [id number] May, [facility] [address] [id number] [place] 6154286[address] Apr, [facility] [address] [id number] [place] 137443090 Apr, [facility] [address] [id number] [place] [id number] Mar, [facility] [address] [id number] [place] 585[address]152 Mar, [facility] [address] [id number] [place] 12687[address] February, [facility] [address] [id number] [place] 229875563 Jan, [facility] [address] [id number] [place] 492251338 Dec, [facility] [address] [id number] [place] [id number] Oct, [facility] [address] [id number] [place] 988599706 Oct, [facility] [address] [id number] [place] [id number] Sep, [facility] [place] [facility] [address] [facility] [id number], [place] [address]- 8866 Sep, [facility] [address] [id number] [place] [id number] Aug, [facility] [place] [facility] [address]005[address]100[place], [place] [address]- 2683 Aug, [facility] [address] [facility] [id number], [place] [id number] Aug, [facility] [place] [facility] [address], [place] [address]- 8887 Aug, [facility] [place] [facility] [address], [place] [address]- 6156 May, [facility] [address] [facility] [id number], [place] [id number] May, [facility] [place] [facility] [address] [facility] [id number], [place] [address]- 2531 Apr, [facility] [place] [facility] [address] [facility] [id number], [place] [address]- 7916 Mar, [facility] [place] [facility] [address] [facility] [id number], [place] [address]- 9004 Mar, [facility] [address] [facility] [id number], [place] 647987990 Mar, [facility] [address] [facility] [id number] [place] 715869758 Jan, [facility] [address] [facility] [id number] [place] [id number] Dec, [facility] [place] [facility] [address] [id number] [place] [address]- 2546 Nov, [facility] [address] [facility] [id number] [place] [id number] Nov, [facility] [place] [facility] [address] [id number] [place] [address]- 1953 Sep, [facility] [place] [facility] [id number] [place] [address], [place] [address]- 6215 Sep, [facility] [place] [facility] [address] [facility] [id number] [place] [address]- 8102 Aug, [facility] [place] [facility] [address] [id number] [place] [address]- 0889 Jul, [facility] [place] [facility] [address] [facility] [id number] [place] 0458 Jul, [facility] [place] [facility] [address] [facility] [id number], [place] 985522- 5815 Jul, [facility] [place] [facility] [address] [facility] [id number], [place] 883813- 0773 Jul, [facility] [place] [facility] [address] [facility] [id number], [place] [address]- 3765 Jun, [facility] [place] [facility] [address] [id number], [place] [address]- 9601 May, [facility] [place] [facility] [address] [facility] [id number] [place] [address]- 7976 Apr, [facility] [place] [facility] [address] [facility] [id number], [place] [address]- 1810 February, [facility] [place] [facility] [address] [facility] [id number], [place] [address]- 2388 Dec, [facility] [address] [id number], [place] [address]- 6373 Oct, [facility] [address]00565100[place], [place] [address]- 4336 Sep, [facility] [address]00565100[place], [place] [address]- 0883 Aug, [facility] [address]00565100[place], [place] [address]- 1238 Aug, [facility] [address]00565100[place], [place] [address]- 4058 Sep, [facility] [id number] [place] [address] 81056- 7252 Sep, [facility] [id number] [place] [address] 14605- 4209 Aug, [facility] [id number] [address] Aug, [facility] [id number] [address] Aug, [facility] [id number] [address] Aug, IMMUNIZATIONS No Known Immunizations SOCIAL HISTORY Never Assessed REASON FOR VISIT [facility] [place] VITAL SIGNS MEDICATIONS Unknown [...] L4 and L5 1986 Hospitalization History [facility] ([facility]) 02/2014 Hospitalization History was at [facility] for falling and confusion/ then went to a assisted for 21days 04/2017
--- OUTSIDE RECORDS SUMMARY | 2019-02-13 09:39 | XMS REPORT ---
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 Care Personal Development Coach Name Role Phone Migration, Doctor Unavailable Unavailable PROBLEMS Type Condition ICD9-CM Code FSQ40-VU Code Onset Dates Condition Status SNOMED Code Problem Dependence on machine for supplemental oxygen V46.2 Active 613579282252 Problem Personal history of colonic polyps V12.72 Active 296493906 Problem Bipolar depression 296.50 Active 46813936 Problem Orthostatic hypotension 458.0 Active 88068466 Problem Chronic obstructive pulmonary disease, unspecified J44.9 Active 514492511 Problem Tremor, unspecified R25.1 Active 62793327 Problem Hep C w/o coma, chronic B18.2 Active 221184423 Problem Impingement syndrome of left shoulder M75.42 Active 695009905 Problem Actinic keratosis L57.0 Active 651088504 Problem 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 334710750 Problem Inflammatory polyneuropathy, unspecified G61.9 Active 71069088 Problem COPD exacerbation J44.1 Active 362792311 Problem Chronic hepatitis C without hepatic coma B18.2 Active 069911956 Problem Nasal congestion R09.81 Active 25193282 Problem Pain in right shoulder M25.511 Active 90950118 Problem 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 Active 676170025 Problem Bipolar depression F31.30 Active 30321078 Problem Cervicalgia M54.2 Active 11191279 Problem Irritable bowel syndrome with both constipation and diarrhea K58.2 Active 22205941 ALLERGIES No Information ENCOUNTERS Encounter Location Date Diagnosis [facility] Madeline0 [facility] [id number] [id number] Jan, [facility] [id number][place] [id number] Dec, COPD exacerbation J44.1 and Irritable bowel syndrome with both constipation and diarrhea K58.2 [facility] [address] [id number][place] [id number] Nov, COPD exacerbation J44.1 ; Chronic obstructive pulmonary disease, unspecified J44.9 ; Cough R05 and Fever, unspecified fever cause R50.9 [facility] [id number] [place] [address] [id number] Nov, [facility] [id number] [place] [address] [phone] Oct, Nasal congestion R09.81 [facility] [id number] [place] [address] [id number] Sep, COPD exacerbation J44.1 ; Tremor, unspecified R25.1 and Nasal congestion R09.81 [facility] [id number] [place] [address] [id number] Sep, [facility] [id number] [place] [address] [phone] Sep, Acute hemorrhoid K64.9 [facility] [id number] [place] [address] [id number] Sep, [facility] [id number] [place] [address] [phone] Sep, [facility] [id number] [place] [address] [id number] Aug, Generalized abdominal pain R10.84 [facility] [address]00565100[place], [place] [address] Jul, Tremor, unspecified R25.1 [facility] [id number] [place] [address] [id number] Jul, Nasal congestion R09.81 [facility] [id number] [place] [address] [id number] Jun, COPD exacerbation J44.1 ; Acute nasopharyngitis J00 and Cervicalgia M54.2 [facility] [id number] [place] [address] [id number] May, Chronic obstructive pulmonary disease, unspecified J44.9 [facility] [id number] [place] [address] [phone] February, Chronic obstructive pulmonary disease, unspecified J44.9 [facility] [id number], [place] [id number] February, Tremor, unspecified R25.1 ; Chronic obstructive pulmonary disease, unspecified J44.9 ; Cervicalgia M54.2 and Irritable bowel syndrome with both constipation and diarrhea K58.2 [place] [id number] [place] [address] [phone] Dec, Chronic obstructive pulmonary disease, unspecified J44.9 ; Cervicalgia M54.2 and Irritable bowel syndrome with both constipation and diarrhea K58.2 [address] [place] [address] [phone] Nov, Chronic obstructive pulmonary disease, unspecified J44.9 and Cervicalgia M54.2 [place] [id number] [place] [address] [id number] Jul, Chronic obstructive pulmonary disease, unspecified J44.9 ; Impingement syndrome of left shoulder M75.42 and Tremor, unspecified R25.[address] [id number], [place] [id number] Jun, Diarrhea, unspecified type R19.7 [address] [place] [address] [id number] Jun, Chronic obstructive pulmonary disease, unspecified J44.9 ; Encounter for immunization Z23 ; Tremor, unspecified R25.1 ; Diarrhea, unspecified type R19.7 ; Acute seasonal allergic rhinitis due to pollen J30.1 and Urinary frequency R35.0 [address] [place] [address] [id number] Jun, [address] [place] [address] [id number] Jun, [address] [place] [address] [id number] May, Chronic obstructive pulmonary disease, unspecified J44.9 ; Tremor, unspecified R25.1 ; Hep C w/o coma, chronic B18.2 ; Bipolar depression F31.30 and 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 [place] [id number] [place] [address] [id number] May, [facility] [address] [id number] 54927[address]- [address]90 Apr, Hep C w/o coma, chronic B18.2 [facility] [place] [id number], [place] [id number] Jan, Chronic obstructive pulmonary disease, unspecified J44.9 ; 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 ; Tremor, unspecified R25.1 and 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 [facility] [address] [address] [id number], [place] [id number] Jan, [facility] [place] [id number], [place] [id number] Dec, Chronic obstructive pulmonary disease, unspecified J44.9 [facility] [address] [facility] [address] [id number], [place] [id number] Dec, Hep C w/o coma, chronic B18.2 ; Chronic obstructive pulmonary disease, unspecified J44.9 ; Muscle weakness (generalized) M62.81 ; Inflammatory polyneuropathy, unspecified G61.9 and 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 [facility] [place] [id number], [place] [id number] Dec, Chronic hepatitis C without hepatic coma B18.2 [facility] [place] [id number], [place] [id number] Nov, [facility] [place] [id number], [place] [id number] Oct, Actinic keratosis L57.0 [facility] [place] [id number], [place] [id number] Oct, [facility] [place] [id number], [place] [id number] Oct, Chronic obstructive pulmonary disease, unspecified J44.9 and Chronic hepatitis C without hepatic coma B18.2 [facility] [address] [id number], [place] [id number] Oct, Hep C w/o coma, chronic B18.2 [facility] [place] [facility] [address]00565100[place], [place] [address] 65[address] Sep, Hep C w/o coma, chronic B18.2 [facility] [address] [place] [address] 16243- 9145 Sep, [facility] [id number] [place] [address] 72530- 3795 Sep, [facility] [address] [id number], [place] [address]00587 Sep, Chronic hepatitis C without hepatic coma B18.2 and Encounter for immunization Z23 [facility] [id number] [place] [address] 55621- 9734 Aug, [facility] [address] [facility] [address] [id number], [place] [id number] Aug, Hep C w/o coma, chronic B18.2 [facility] [id number] [place] [address] 77795- 7308 Aug, Chronic hepatitis C without hepatic coma B18.2 [facility] [id number] [place] [address] 45253- 6906 Jul, [facility] [id number] [place] [address] 97072- 6630 Jul, [address] [place] [address] [id number] Jul, Hep C w/o coma, chronic B18.2 ; Chronic obstructive pulmonary disease, unspecified J44.9 and Pain in right shoulder M25.511 [place] [id number] [place] [address] [id number] Jun, Chronic obstructive pulmonary disease, unspecified J44.9 [place] [id number] [place] [address] [id number] Mar, Hep C w/o coma, chronic B18.2 and Chronic obstructive pulmonary disease, unspecified J44.9 [place] [id number] [place] [address] [phone] Mar, Chronic obstructive pulmonary disease, unspecified J44.9 ; Impingement syndrome of left shoulder M75.42 and Hep C w/o coma, chronic B18.2 [place] [id number] [place] [address] [id number] Dec, Chronic obstructive pulmonary disease, unspecified J44.9 and Impingement syndrome of left shoulder M75.42 [facility] [place] [id number] [place] [address] [id number] Sep, Chronic obstructive pulmonary disease, unspecified J44.9 ; Encounter for immunization Z23 and Tremor, unspecified R25.[address] [id number] Aug, Tremor, unspecified R25.1 and Chronic obstructive pulmonary disease, unspecified J44.9 [place] [id number] [place] [address] [id number] Jul, Tremor 781.0 and COPD 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 [place] [address] [id number] Jun, COPD 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 and Tremor 781.0 [place] [id number] [place] [address] [id number] May, [place] [id number] [place] [address] [id number] May, Sinusitis 473.9 [facility] [address] [place] [address] AVE [id number], [place] [phone] May, Sinusitis 473.9 ; Tobacco abuse 305.1 ; Irregular heart rhythm 427.9 and Cough 786.2 [facility] [place] [address]00565100[place] [id number] May, [address] [place] [address] [id number] Apr, [address] [place] [address] [id number] Apr, COPD 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 [facility] [id number] [place] [address] [id number] Apr, Respiratory distress 786.09 [facility] [place] [place] [id number], [place] [id number] Mar, COPD 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 and Verruca 078.10 [facility] [id number] [place] [address] 68767- 6506 Mar, [facility] [place] [id number] [place] [address] [phone] Jan, Verruca 078.10 and [place] (actinic keratosis) 702.0 [facility] [place] [id number] [place] [address] [phone] Jan, [facility] [id number] [place] [address] 82846- 2666 Jan, [facility] [id number] [place] [address] 24691- 4517 Jan, [facility] [place] [place] [id number] [place] [address] [id number] Dec, [facility] [id number] [place] [address] [id number] Dec, [facility] [place] [id number] [place] [address] [id number] Nov, [facility] [id number] [place] [address] [id number]- 1679 Nov, [facility] [id number] [place] [address] 93183- 8381 Nov, [facility] [place] [id number], [place] [id number] Oct, [facility] [id number] [place] [address] 66651- 2993 Oct, [facility] [id number] [place] [address] 28897- 1787 Oct, [facility] [place] [id number] [place] [address] [id number] Oct, [facility] [place] [facility] [address] [id number], [place] [address]- 8671 Oct, [facility] [address] [id number] [place] [id number] Oct, [facility] [place] [facility] [address] [id number] [place] [address]- 2546 Oct, [facility] [address] [id number] [place] 050783920 Sep, [facility] [place] [facility] [address] [id number] [place] [address]- 1816 Sep, [facility] [address] [id number] [place] [id number] Aug, [facility] [address] [id number] [place] [id number] Aug, [facility] [place] [facility] [address] [facility] [id number][place] [address]- 2619 Aug, [facility] [place] [facility] [address] [facility] [id number], [place] [address]- 3694 Aug, [facility] [address] [id number], [place] [id number] Jul, [facility] [place] [facility] [address] [facility] [id number], [place] [address]- 6646 Jul, [facility] [address] [facility] [id number], [place] [id number] Apr, [facility] [place] [facility] [address] [facility] [id number], [place] [address]- 6202 Apr, [facility] [place] [facility] [address] [facility] [id number], [place] [address]- 9056 Apr, [facility] [place] [facility] [address] [facility] [id number], [place] [address]- 8016 Apr, [facility] [address] [id number] [place] [id number] Apr, [facility] [address] [id number], [place] [id number] Mar, [facility] [place] [facility] [address] [id number] [place] [address]- 2396 Mar, [facility] [address] [id number] [place] [id number] February, [facility] [place] [facility] [address] [id number] [place] [address]- 4946 February, [facility] [place] [address] [id number] [place] [id number] February, [facility] [place] [facility] [address] [id number] [place] [address]- 9576 February, [facility] [address] [id number] [place] [id number] February, [facility] [place] [facility] [address] [id number] [place] [address]- 0276 February, [facility] [place] [facility] [address] [id number] [place] [address]- 0416 February, [facility] [place] [facility] [address] [id number] [place] [address]- 6766 February, [facility] [place] [facility] [address] [id number] [place] [address]- 9726 February, [facility] [place] [facility] [address] [id number] [place] [address]- 1746 February, [facility] [place] [facility] [address] [id number] [place] [address]- 0686 February, [facility] [place] [facility] [address] [id number] [place] [address]- 3006 February, [facility] [place] [facility] [address] [id number] [place] [address]- 9416 Jan, [facility] [place] [facility] [address] [id number] [place] [address]- 6416 Jan, [facility] [address] [id number] [place] 987[place]209 Dec, [facility] [place] [facility] [address] [id number], [place] [address]- 2849 Dec, [facility] [address] [id number] [place] 147421384 Dec, [facility] [address] [facility] [id number] [address]- 7736 Dec, [facility] [address] [id number] [place] [id number] Nov, [facility] [address] [facility] [id number], [place] [address]- 8430 Nov, [facility] [address] [id number], [place] 179821148 Sep, [facility] [address] [facility] [id number], [place] [address]- 4141 Sep, [facility] [address] [id number], [place] 210352420 Sep, [facility] [address] [facility] [id number], [place] [address]- 4475 Sep, [facility] [address] [id number], [place] [id number] Jul, [facility] [address] [facility] [id number], [place] [address]- 5548 Jul, [facility] [address] [id number], [place] 706762776 Jul, [facility] [address] [facility] [id number], [place] [address]- 3549 Jul, [facility] [address] [id number] [place] 489632383 May, [facility] [address] [id number] [place] 102118261 Apr, [facility] [address] [id number] [place] [id number] Apr, [facility] [address] [id number] [place] 221264455 Mar, [facility] [address] [id number] [place] 566275782 Mar, [facility] [address] [id number] [place] 410593373 February, [facility] [address] [id number] [place] 100223147 Jan, [facility] [address] [id number] [place] 620416036 Dec, [facility] [address] [id number] [place] 847795951 Oct, [facility] [address] [id number] [place] 7040[place] Oct, [facility] [address] [id number] [place] 611830500 Sep, [facility] [place] [facility] [address] [facility] [id number], [place] [address]- 5876 Sep, [facility] [address] [id number] [place] 542267228 Aug, [facility] [place] [facility] [address]00565100[place], [place] [address]- 6072 Aug, [facility] [address] [facility] [id number], [place] 809795365 Aug, [facility] [place] [facility] [address]00565100[place], [place] [address]- 5089 Aug, [facility] [place] [facility] [address]100[place], [place] [address]- 5596 May, [facility] [address] [facility] [id number], [place] 309459266 May, [facility] [place] [facility] [address] [facility] [id number], [place] [address]- 4094 Apr, [facility] [place] [facility] [address] [facility] [id number], [place] [address]- 0886 Mar, [facility] [place] [facility] [address] [facility] [id number], [place] [address]- 2927 Mar, [facility] [address] [facility] [id number], [place] [id number] Mar, [facility] [address] [facility] [id number] [place] 048383518 Jan, [facility] [address] [facility] [id number] [place] 844432354 Dec, [facility] [place] [facility] [address] [id number] [place] [address]- 2546 Nov, [facility] [address] [facility] [id number] [place] 273295153 Nov, [facility] [place] [facility] [address] [id number] [place] [address]- 4257 Sep, [facility] [place] [facility] [id number] [place] [address], [place] [address]- 5601 Sep, [facility] [place] [facility] [address] [facility] [id number] [place] [address]- 7566 Aug, [facility] [place] [facility] [address] [id number] [place] [address]- 7954 Jul, [facility] [place] [facility] [address] [facility] [id number] [place]- 9817 Jul, [facility] [place] [facility] [address] [facility] [id number], [place] 267234- 4710 Jul, [facility] [place] [facility] [address] [facility] [id number], [place] 863269- 3085 Jul, [facility] [place] [facility] [address] [facility] [id number], [place] [address]- 7294 Jun, [facility] [place] [facility] [address] [id number], [place] [address]- 1284 May, [facility] [place] [facility] [address] [facility] [id number] [place] [address]- 6006 Apr, [facility] [place] [facility] [address] [facility] [id number], [place] [address]- 1140 February, [facility] [place] [facility] [address] [facility] [id number], [place] [address]- 4954 Dec, [facility] [address] [id number], [place] [address]- 9987 Oct, [facility] [address]00565100[place], [place] [address]- 7596 Sep, [facility] [address]00565100[place], [place] [address]- 1158 Aug, [facility] [address]00565100[place], [place] [address]- 8752 Aug, [facility] [address]00565100[place], [place] [address]- 4287 Sep, [facility] [address]00565100[place], [place] 567[place]- 8533 Sep, [facility] [address]00565100[place], [place] [address]- 1598 Aug, [facility] [address]00565100[place], [place] [address]- 6035 Aug, [facility] [address]00565100[place], [place] [address]- 8432 Aug, [facility] [address] [id number], [place] [address] Aug, IMMUNIZATIONS No Known Immunizations SOCIAL HISTORY Never Assessed REASON FOR VISIT EMR-[facility] [place] PLAN OF CARE VITAL SIGNS MEDICATIONS Medication Instructions Dosage Frequency Start Date End Date Duration Status cetirizine 10 mg 1 tablet by Oral route 1 daily February, Active Advair Diskus 500-50 mcg/dose 1 puffs by Inhalation route 2 times per day February, Active Viibryd 40 mg take 1 tablet (40 mg) by oral route once daily with food Mar, Active Augmentin 875-125 mg 1 tablet by Oral route 2 times per day for 10 day(s) February, Active PredniSONE 20 mg 2 tablet by Oral route 1 time per day for 5 days Jan, Active Wellbutrin 1 Tablet by Oral route 1 time per dayin the morning Oct, Active Polytrim 0.1-10,000 %-unit/mL 1 drop by Ophthalmic route every 4 hours for 7 day(s) Aug, Active DuoNeb 0.5 mg-3 mg(2.5 mg base)/3 mL 3 mL by Inhalation route 4 times per day PRN DX: 496 Sep, Active Albuterol Sulfate 90 mcg/actuation 2 puffs by Inhalation route every 4-6 hours as needed PRN cough or wheezing Sep, Active Gabapentin 400 mg 1 Capsule 3 times per day DX: Neuropathy Jul, Active Doxycycline Hyclate 100 mg take 1 tablet (100 mg) by oral route 2 times per day for 10 days Jan, Active Ibuprofen 800 mg take 1 tablet (800 mg) by oral route 3 times per day with food PRN Mar, Active Nicoderm 21 mg/24 hr 1 PATCH by Transdermal route 1 time per day for 6 week (s) Jan, Active Levaquin 500 mg 1 tablet by Oral route every 24 hours for 10 days Mar, Active Walker use for walking don 99 dx: 728.87 780. 16 Mar, 2014 Active RESULTS No Results PROCEDURES No Known procedures [...] L4 and L5 1986 Hospitalization History Syncope ([facility]) 02/2014 Hospitalization History was at [facility] for falling and confusion/ then went to a [facility] for 21days 04/2017
--- OUTSIDE RECORDS SUMMARY | 2019-02-13 09:40 | XMS REPORT ---
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 790928954 Problem Nasal congestion R09.81 Active 50626367 Problem COPD exacerbation J44.1 Active 708746510 Problem Bipolar depression F31.30 Active 08807746 Problem 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 Active 321712200 Problem Irritable bowel syndrome with both constipation and diarrhea K58.2 Active 88149525 Problem Cervicalgia M54.2 Active 92483348 Problem Orthostatic hypotension 458.0 Active 50250421 Problem Bipolar depression 296.50 Active 65560502 Problem Personal history of colonic polyps V12.72 Active 614013712 Problem Dependence on machine for supplemental oxygen V46.2 Active 887059288120 Problem Impingement syndrome of left shoulder M75.42 Active 624241798 Problem Hep C w/o coma, chronic B18.2 Active 512614667 Problem Tremor, unspecified R25.1 Active 63725851 Problem Pain in right shoulder M25.511 Active 36742379 Problem Chronic obstructive pulmonary disease, unspecified J44.9 Active 752611253 Problem Chronic hepatitis C without hepatic coma B18.2 Active 100436428 ALLERGIES No Information ENCOUNTERS Encounter Location Date Diagnosis [facility] [id number] [id number] Sep, [facility] [address] [facility] [id number][place] [id number] Sep, [facility] [id number], [place] [id number] Sep, [facility] [address] [facility] [id number][place] [address] Aug, Generalized abdominal pain R10.84 [facility] [address]005[address] [address] Jul, Tremor, unspecified R25.1 [facility] [id number], [place] [id number] Jul, Nasal congestion R09.81 [place] [id number], [place] [id number] Jun, COPD exacerbation J44.1 ; Acute nasopharyngitis J00 and Cervicalgia M54.2 [place] [id number] [place] [id number] May, Chronic obstructive pulmonary disease, unspecified J44.9 [place] [id number], [place] [id number] February, Chronic obstructive pulmonary disease, unspecified J44.9 [place] [id number], [place] [address] February, Tremor, unspecified R25.1 ; Chronic obstructive pulmonary disease, unspecified J44.9 ; Cervicalgia M54.2 and Irritable bowel syndrome with both constipation and diarrhea K58.2 [place] [id number], [place] [address] Dec, Chronic obstructive pulmonary disease, unspecified J44.9 ; Cervicalgia M54.2 and Irritable bowel syndrome with both constipation and diarrhea K58.2 [place] [id number], [place] [address] Nov, Chronic obstructive pulmonary disease, unspecified J44.9 and Cervicalgia M54.2 [address]00565100[place] [address] Jul, Chronic obstructive pulmonary disease, unspecified J44.9 ; Impingement syndrome of left shoulder M75.42 and Tremor, unspecified R25.[address] [id number], [place] [address] Jun, Diarrhea, unspecified type R19.7 [address]00565100[place] [address] Jun, Chronic obstructive pulmonary disease, unspecified J44.9 ; Encounter for immunization Z23 ; Tremor, unspecified R25.1 ; Diarrhea, unspecified type R19.7 ; Acute seasonal allergic rhinitis due to pollen J30.1 and Urinary frequency R35.0 [address] [place] [address] [id number] Jun, [place] [id number] [place] [address] [id number] Jun, [address] [place] [address] [id number] May, Chronic obstructive pulmonary disease, unspecified J44.9 ; Tremor, unspecified R25.1 ; Hep C w/o coma, chronic B18.2 ; Bipolar depression F31.30 and 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 [address] [place] [address] [id number] May, [facility] [address]00565100[place] [address] Apr, Hep C w/o coma, chronic B18.2 [address] [place] [address] [id number] Jan, Chronic obstructive pulmonary disease, unspecified J44.9 ; 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 ; Tremor, unspecified R25.1 and 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 [id number], [place] [address] Jan, [place] [id number] [address] Dec, Chronic obstructive pulmonary disease, unspecified J44.9 [facility] [address] [place] [address] [id number], [place] [address] Dec, Hep C w/o coma, chronic B18.2 ; Chronic obstructive pulmonary disease, unspecified J44.9 ; Muscle weakness (generalized) M62.81 ; Inflammatory polyneuropathy, unspecified G61.9 and 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 [facility] [place] [address] [place] [id number], [place] [address] Dec, Chronic hepatitis C without hepatic coma B18.2 [facility] [place] [address] [id number], [place] [address] Nov, [facility] [place] [id number], [place] [id number] Oct, Actinic keratosis L57.0 [facility] [place] [address] [facility] [id number] [place] [address] [id number] Oct, [facility] [place] [address] [place] [id number] [place] [address] [id number] Oct, Chronic obstructive pulmonary disease, unspecified J44.9 and Chronic hepatitis C without hepatic coma B18.2 [facility] [address] [facility] [address] [id number], [place] [id number] Oct, Hep C w/o coma, chronic B18.2 [facility] [address] [place] [id number] [place] [address] Sep, Hep C w/o coma, chronic B18.2 [facility] [facility] [address] [place] [address] [id number] [place] [address]- 4832 Sep, [facility] [facility] [address] [place] [address] [id number] [place] [address]- [address]177 Sep, [facility] [address] [id number], [place] [address]4058 Sep, Chronic hepatitis C without hepatic coma B18.2 and Encounter for immunization Z23 [facility] [address] [place] [id number] [place] [address]- 2730 Aug, [facility] [address] [id number], [place] [id number] Aug, Hep C w/o coma, chronic B18.2 [facility] [address] [place] [address] [id number] [place] [address] [id number]- 3046 Aug, Chronic hepatitis C without hepatic coma B18.2 [facility] [facility] [address]00565100[place] [address] Jul, [facility] [address]00565100[place] [address] Jul, [place] [id number] [place] [address] [id number] Jul, Hep C w/o coma, chronic B18.2 ; Chronic obstructive pulmonary disease, unspecified J44.9 and Pain in right shoulder M25.511 [place] [id number] [place] [address] [id number] Jun, Chronic obstructive pulmonary disease, unspecified J44.9 [place] [id number] [place] [address] [id number] Mar, Hep C w/o coma, chronic B18.2 and Chronic obstructive pulmonary disease, unspecified J44.9 [place] [id number] [place] [address] [id number] Mar, Chronic obstructive pulmonary disease, unspecified J44.9 ; Impingement syndrome of left shoulder M75.42 and Hep C w/o coma, chronic B18.2 [place] [id number] [place] [address] [id number] Dec, Chronic obstructive pulmonary disease, unspecified J44.9 and Impingement syndrome of left shoulder M75.42 [place] [id number] [place] [address] [id number] Sep, Chronic obstructive pulmonary disease, unspecified J44.9 ; Encounter for immunization Z23 and Tremor, unspecified R25.1 [place] [id number] [place] [address] [id number] Aug, Tremor, unspecified R25.1 and Chronic obstructive pulmonary disease, unspecified J44.9 [place] [id number] [place] [address] [id number] Jul, Tremor 781.0 and COPD 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 [place] [id number] [place] [address] [id number] Jun, COPD 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 and Tremor 781.0 [facility] [address]00565100[place], [place] [id number] May, [facility] [address]00565100[place], [place] [id number] May, Sinusitis 473.9 [facility] [address] [id number][place] [id number] May, Sinusitis 473.9 ; Tobacco abuse 305.1 ; Irregular heart rhythm 427.9 and Cough 786.[address] [address] [id number][place] [address] May, [facility] [address] [place] [address] [id number] Apr, [facility] [address]00565100[place] [id number] Apr, COPD 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 [facility] [address] [facility] [address] [id number], [place] 090457852 Apr, Respiratory distress 786.09 [facility] [address]00565100[place], [place] [address]2590 Mar, COPD 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 and Verruca 078.10 [facility] [address]00565100[place] [address] 8[address] Mar, [facility] [address]00565100[place] [address] Jan, Verruca 078.10 and [place] (actinic keratosis) 702.0 [facility] [address]00565100[place] [id number] Jan, [facility] [address] [place] [id number] [place] [address]9938- 6355 Jan, [facility] [id number] [place] [address] [id number]- 5439 Jan, [facility] [address]00565100[place], [place] [id number] Dec, [facility] [address] [place] [address] [id number] [address]- 5427 Dec, [facility] [address] [id number] [place] [id number] Nov, [facility] [address] [facility] [id number] [place] [address] Nov, [facility] [place] [facility] [address] [facility] [id number] [address]- 8516 Nov, [facility] [address] [id number], [place] [id number] Oct, [facility] [place] [facility] [address] [facility] [id number] [place] [address]- 4228 Oct, [facility] [place] [facility] [address] [facility] [id number] [address]- 9484 Oct, [facility] [address] [facility] [id number][place] [id number] Oct, [facility] [place] [facility] [address] [facility] [id number] [place] [address]- 6370 Oct, [facility] [address] [id number] [place] [id number] Oct, [facility] [place] [facility] [address] [facility] [id number] [address]- 7699 Oct, [facility] [address] [facility] [id number], [place] [id number] Sep, [facility] [place] [facility] [address] [facility] [id number] [place] [address]- 7442 Sep, [facility] [address] [id number], [place] [id number] Aug, [facility] [address] [facility] [id number] [place] [id number] Aug, [facility] [place] [facility] [address] [facility] [id number] [place] [address]- 4132 Aug, [facility] [place] [facility] [address] [facility] [id number] [place] [address]- 9357 Aug, [facility] [address] [id number] [place] [id number] Jul, [facility] [place] [facility] [address] [id number] [place] [address]- 9596 Jul, [facility] [address] [id number] [place] [id number] Apr, [facility] [place] [facility] [address] [facility] [id number] [place] [address]- 8292 Apr, [facility] [place] [facility] [address] [id number] [place] [address]- 8376 Apr, [facility] [place] [facility] [address] [facility] [id number] [place] [address]- 6354 Apr, [facility] [address] [id number] [place] [id number] Apr, [facility] [address] [facility] [id number] [place] [id number] Mar, [facility] [place] [facility] [address] [facility] [id number] [place] [address]- 8177 Mar, [facility] [address] [facility] [id number] [place] [id number] February, [facility] [place] [facility] [address] [facility] [id number] [address]- 4462 February, [facility] [address] [facility] [id number] [place] [id number] February, [facility] [place] [facility] [address] [facility] [id number] [place] [address]- 0562 February, [facility] [address] [facility] [id number] [place] [id number] February, [facility] [place] [facility] [address] [facility] [id number] [place] [address]- 3976 February, [facility] [place] [facility] [address] [facility] [id number] [address]- 8792 February, [facility] [place] [facility] [address] [facility] [id number] [address]- 2268 February, [facility] [address] [id number] [place] [address]- 3699 February, [facility] [place] [facility] [address] [id number] [place] [address]- 0116 February, [facility] [address] [facility] [id number] [place] [address]- 3386 February, [facility] [place] [facility] [address] [id number] [place] [address]- 0676 February, [facility] [address] [id number] [place] [address]- 9366 Jan, [facility] [place] [facility] [address] [facility] [id number] [place] [address]- 6096 Jan, [facility] [address] [facility] [id number], [place] 927368897 Dec, [facility] [address] [facility] [id number] [place] [address]- 4586 Dec, [facility] [address] [facility] [id number], [place] 467881661 Dec, [facility] [address] [facility] [id number] [place] [address]- 5756 Dec, [facility] [address] [facility] [id number], [place] 045329872 Nov, [facility] [address] [id number] [address]- 2546 Nov, [facility] [address] [id number], [place] [id number] Sep, [facility] [place] [facility] [address] [id number] [place] [address]- 2546 Sep, [facility] [address] [facility] [id number], [place] 082716691 Sep, [facility] [address] [facility] [id number] [address]- 2546 Sep, [facility] [address] [id number] [place] [id number] Jul, [facility] [address] [facility] [id number] [place] [address]- 1671 Jul, [facility] [address] [id number] [place] 177207781 Jul, [facility] [address] [facility] [id number] [place] [address]- 0344 Jul, [facility] [address] [id number] [place] 535732768 May, [facility] [address] [id number] [place] [id number] Apr, [facility] [address] [id number] [place] 947778244 Apr, [facility] [address] [id number] [place] 770271115 Mar, [facility] [address] [id number] [place] [id number] Mar, [facility] [address] [id number] [place] 233728340 February, [facility] [address] [id number] [place] 047191494 Jan, [facility] [address] [id number] [place] 957054824 Dec, [facility] [address] [id number] [place] [id number] Oct, [facility] [address] [id number] [place] 729635490 Oct, [facility] [address] [id number] [place] [id number] Sep, [facility] [address] [facility] [id number] [address]- 5051 Sep, [facility] [address] [id number] [place] [id number] Aug, [facility] [address] [facility] [id number] [address]- 8550 Aug, [facility] [address] [id number] [place] 540591288 Aug, [facility] [place] [facility] [address] [facility] [id number] [place] [address]- 2546 Aug, [facility] [place] [facility] [address] [facility] [id number] [place] [address]- 2546 May, [facility] [address] [id number] [place] 659286414 May, [facility] [place] [facility] [address] [facility] [id number] [place] [address]- 1286 Apr, [facility] [place] [facility] [id number] [place] [address]- 1616 Mar, [facility] [place] [facility] [address] [place] [address] [id number] [address]- 0556 Mar, [facility] [address] [id number] [place] [id number] Mar, [facility] [address] [id number], [place] [id number] Jan, [facility] [address] [facility] [id number] [place] [id number] Dec, [facility] [place] [facility] [address]00565100[place] [address]- 6376 Nov, [facility] [address] [facility] [id number], [place] 752344471 Nov, [facility] [place] [facility] [address] [facility] [id number] [place] [address]- 7606 Sep, [facility] [place] [facility] [address] [facility] [id number] [address]- 0613 Sep, [facility] [place] [facility] [address] [facility] [id number] [place] [address]- 4595 Aug, [facility] [place] [facility] [address] [id number] [address]- 2137 Jul, [facility] [place] [facility] [id number] [place] [address]- 0713 19 Jul, 2011 [facility] [address] [id number] [place] [address]- 6889 17 Jul, 2011 [facility] [place] [facility] [address] [id number] [place] [address]- 8137 17 Jul, 2011 [facility] [place] [facility] [address] [id number] [place] [address]- 3669 14 Jun, 2011 [facility] [place] [facility] [address] [id number] [place] [address]- 9204 10 May, 2011 [facility] [place] [facility] [address] [id number] [place] [address]- 1455 13 Apr, 2011 [facility] [place] [facility] [address] [id number] [place] [address]- 7216 February, [facility] [address] [id number] [place] [address]- 2153 17 Dec, 2010 [facility] [place] [facility] [address] [id number] [place] [address]- 5683 17 Oct, 2010 [facility] [place] [facility] [address] [id number] [place] [address]- 4449 06 Sep, 2010 [facility] [place] [facility] [address] [id number] [place] [address]- 2653 15 Aug, 2010 [facility] [place] [facility] [address] [id number] [place] [address]- 9751 08 Aug, 2010 [facility] [place] [facility] [address] [id number] [place] [address]- 3023 Sep, [facility] [place] [facility] [address] [id number] [place] [address]- 4161 Sep, [facility] [place] [facility] [address] [id number] [place] [address] 24 Aug, 2009 [facility] [place] [facility] [address] [id number] [place] [address] Aug, [facility] [place] [facility] [address] [facility] [id number] [place] [address] Aug, [facility] [place] [facility] [address] [facility] [id number] [place] [address] Aug, IMMUNIZATIONS No Known Immunizations SOCIAL HISTORY Never Assessed REASON FOR VISIT PLAN OF CARE VITAL SIGNS MEDICATIONS Unknown [...] L4 and L5 1986 Hospitalization History [facility] ([facility]) 02/2014 Hospitalization History [facility]/ then went to a [facility] living for 21days 04/2017
--- OUTSIDE RECORDS SUMMARY | 2019-02-13 09:40 | XMS REPORT ---
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 446551328 Problem Nasal congestion R09.81 Active 13515561 Problem COPD exacerbation J44.1 Active 742453964 Problem Bipolar depression F31.30 Active 06827408 Problem 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 Active 347975187 Problem Irritable bowel syndrome with both constipation and diarrhea K58.2 Active 45526169 Problem Cervicalgia M54.2 Active 69973330 Problem Orthostatic hypotension 458.0 Active 38200049 Problem Bipolar depression 296.50 Active 90780509 Problem Personal history of colonic polyps V12.72 Active 933881132 Problem Dependence on machine for supplemental oxygen V46.2 Active 278408746264 Problem Impingement syndrome of left shoulder M75.42 Active 934876838 Problem Hep C w/o coma, chronic B18.2 Active 287750317 Problem Tremor, unspecified R25.1 Active 41130510 Problem Pain in right shoulder M25.511 Active 35296200 Problem Chronic obstructive pulmonary disease, unspecified J44.9 Active 812427590 Problem Chronic hepatitis C without hepatic coma B18.2 Active 770319058 ALLERGIES No Information ENCOUNTERS Encounter Location Date Diagnosis [facility] [id number], [place] [id number] Sep, [place] [id number], [place] [id number] Sep, Acute hemorrhoid K64.9 [facility] [id number] [place] [address] [id number] Sep, [facility] [address] [id number] [id number] Sep, [facility] [id number] [place] [address] [id number] Aug, Generalized abdominal pain R10.84 [facility] [address]00565100[place] [address] Jul, Tremor, unspecified R25.1 [facility] [id number], [place] [id number] Jul, Nasal congestion R09.81 [facility] [id number] [place] [address] [id number] Jun, COPD exacerbation J44.1 ; Acute nasopharyngitis J00 and Cervicalgia M54.2 [facility] [id number], [place] [id number] May, Chronic obstructive pulmonary disease, unspecified J44.9 [facility] [id number], [place] [id number] February, Chronic obstructive pulmonary disease, unspecified J44.9 [facility] [id number] [place] [address] [id number] February, Tremor, unspecified R25.1 ; Chronic obstructive pulmonary disease, unspecified J44.9 ; Cervicalgia M54.2 and Irritable bowel syndrome with both constipation and diarrhea K58.2 [facility] [id number], [place] [id number] Dec, Chronic obstructive pulmonary disease, unspecified J44.9 ; Cervicalgia M54.2 and Irritable bowel syndrome with both constipation and diarrhea K58.2 [facility] [id number], [place] [address] Nov, Chronic obstructive pulmonary disease, unspecified J44.9 and Cervicalgia M54.2 [facility] [id number], [place] [id number] Jul, Chronic obstructive pulmonary disease, unspecified J44.9 ; Impingement syndrome of left shoulder M75.42 and Tremor, unspecified R25.1 [facility] [address] [facility] [address] [id number] [id number] Jun, Diarrhea, unspecified type R19.7 [address] [place] [address] [id number] Jun, Chronic obstructive pulmonary disease, unspecified J44.9 ; Encounter for immunization Z23 ; Tremor, unspecified R25.1 ; Diarrhea, unspecified type R19.7 ; Acute seasonal allergic rhinitis due to pollen J30.1 and Urinary frequency R35.[address] [place] [address] [id number] Jun, [place] [id number] [place] [address] [id number] Jun, [place] [id number] [place] [address] [id number] May, Chronic obstructive pulmonary disease, unspecified J44.9 ; Tremor, unspecified R25.1 ; Hep C w/o coma, chronic B18.2 ; Bipolar depression F31.30 and 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 [address]00565100[place] [id number] May, [facility] [address]00565100[place] [address]- [address] Apr, Hep C w/o coma, chronic B18.2 [address] [place] [address] [id number] Jan, Chronic obstructive pulmonary disease, unspecified J44.9 ; 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 ; Tremor, unspecified R25.1 and 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 [facility] [place] [address] [facility] [address] [id number], [place] [id number] Jan, [address]00565100[place] [id number] Dec, Chronic obstructive pulmonary disease, unspecified J44.9 [facility] [address] [place] [address] AVE [id number][place] [id number] Dec, Hep C w/o coma, chronic B18.2 ; Chronic obstructive pulmonary disease, unspecified J44.9 ; Muscle weakness (generalized) M62.81 ; Inflammatory polyneuropathy, unspecified G61.9 and 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 [facility] [place] [id number], [place] [id number] Dec, Chronic hepatitis C without hepatic coma B18.2 [facility] [id number], [place] [id number] Nov, [facility] [place] [id number] [place] [address] [id number] Oct, Actinic keratosis L57.0 [facility] [place] [id number] [place] [address] [id number] Oct, [facility] [place] [address] [id number] Oct, Chronic obstructive pulmonary disease, unspecified J44.9 and Chronic hepatitis C without hepatic coma B18.2 [facility] [address] [id number][place] [id number] Oct, Hep C w/o coma, chronic B18.2 [place] [address] [place] [id number] [place] [address]- [address] Sep, Hep C w/o coma, chronic B18.2 [facility] [address] [id number] [place] [address] 8[address]- 6520 Sep, [facility] [address] [place] [address] [id number] [place] [address]- 4543 Sep, [facility] [address] [id number][place] [address] Sep, Chronic hepatitis C without hepatic coma B18.2 and Encounter for immunization Z23 [facility] [address] [place] [address] [id number]- 5201 Aug, [facility] [address] [id number][place] [id number] Aug, Hep C w/o coma, chronic B18.2 [facility] [address] [place] [id number] [place] [address]- 8928 Aug, Chronic hepatitis C without hepatic coma B18.2 [facility] [address] [place] [id number] [place] [address] 99533- 3718 Jul, [facility] [address] [place] [id number] [place] [address] 79[address]- 1175 Jul, [place] [id number] [place] [address] [id number] Jul, Hep C w/o coma, chronic B18.2 ; Chronic obstructive pulmonary disease, unspecified J44.9 and Pain in right shoulder M25.[address] [id number] Jun, Chronic obstructive pulmonary disease, unspecified J44.[address] [id number] Mar, Hep C w/o coma, chronic B18.2 and Chronic obstructive pulmonary disease, unspecified J44.[address] [id number] Mar, Chronic obstructive pulmonary disease, unspecified J44.9 ; Impingement syndrome of left shoulder M75.42 and Hep C w/o coma, chronic B18.2 [place] [id number] [place] [address] [id number] Dec, Chronic obstructive pulmonary disease, unspecified J44.9 and Impingement syndrome of left shoulder M75.[address] [id number] Sep, Chronic obstructive pulmonary disease, unspecified J44.9 ; Encounter for immunization Z23 and Tremor, unspecified R25.[address] [id number] Aug, Tremor, unspecified R25.1 and Chronic obstructive pulmonary disease, unspecified J44.9 [place] [id number] [place] [address] [id number] Jul, Tremor 781.0 and COPD 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 [facility] [address]00565100[place] [address] Jun, COPD 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 and Tremor 781.0 [facility] [address]00565100[place] [id number] May, [facility] [address] [place] [address] [id number] May, Sinusitis 473.[address] [facility] [address] [id number], [place] 1967[address]198 May, Sinusitis 473.9 ; Tobacco abuse 305.1 ; Irregular heart rhythm 427.9 and Cough 786.2 [facility] [address]00565100[place] [id number] May, [facility] [address] [place] [address] [id number] Apr, [facility] [place] [id number] [place] [address] [id number] Apr, COPD 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 [facility] [address] [facility] [address] [id number][place] [id number] Apr, Respiratory distress 786.09 [facility] [place] [id number] [place] [address] [id number] Mar, COPD 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 and Verruca 078.10 [facility] [address] [place] [address] 67185- 1542 Mar, [facility] [place] [id number] [place] [address] [id number] Jan, Verruca 078.10 and [place] (actinic keratosis) 702.0 [facility] [address] [place] [address] [id number] Jan, [facility] [address] [place] [id number] [place] [address] [id number]- 6909 Jan, [facility] [address] [place] [id number] [place] [address] [id number]- 1294 Jan, [facility] [place] [id number] [place] [id number] Dec, [facility] [place] [facility] [address] [facility] [id number] [address]- 4[address] Dec, [facility] [address] [facility] [id number] [place] [id number] Nov, [facility] [place] [facility] [address] [facility] [id number] [place] [address]- 7794 Nov, [facility] [place] [facility] [address] [facility] [id number] [address]- 5942 Nov, [facility] [address] [facility] [id number], [place] [id number] Oct, [facility] [place] [facility] [address] [place] [id number] [address]- 2467 Oct, [facility] [place] [facility] [address]00565100[place] [address]- 7337 Oct, [facility] [address] [facility] [id number], [place] [id number] Oct, [facility] [place] [facility] [address] [facility] [id number] [place]37[place]- 8661 Oct, [facility] [address] [facility] [id number], [place] [id number] Oct, [facility] [place] [facility] [address] [facility] [id number] [place] [address]- 5119 Oct, [facility] [address] [facility] [id number], [place] [id number] Sep, [facility] [place] [facility] [address] [facility] [id number] [place] [address]- 1481 Sep, [facility] [address] [facility] [id number] [place] [id number] Aug, [facility] [address] [facility] [id number] [place] [id number] Aug, [facility] [place] [facility] [address] [place] [id number] [address]- 6[address] Aug, [facility] [place] [facility] [address] [id number] [place] [address]- 2546 Aug, [facility] [address] [facility] [id number] [place] [id number] Jul, [facility] [place] [facility] [address] [facility] [id number] [place] [address]- 2546 Jul, [facility] [address] [facility] [id number] [place] [id number] Apr, [facility] [place] [facility] [address] [id number] [place] [address]- 2546 Apr, [facility] [place] [facility] [address] [facility] [id number] [place] [address]- 6966 Apr, [facility] [place] [facility] [address] [facility] [id number] [place] [address]- 4906 Apr, [facility] [address] [facility] [id number], [place] [id number] Apr, [facility] [address] [facility] [id number], [place] [id number] Mar, [facility] [place] [facility] [address] [facility] [id number] [place] [address]- 6886 Mar, [facility] [address] [facility] [id number], [place] 848631252 February, [facility] [place] [facility] [address] [facility] [id number] [place] [address]- 9016 February, [facility] [address] [facility] [id number], [place] [id number] February, [facility] [place] [facility] [address] [facility] [id number] [place] [address]- 2546 February, [facility] [address] [facility] [id number], [place] [id number] February, [facility] [place] [facility] [address] [facility] [id number] [place] [address]- 1276 February, [facility] [place] [facility] [address] [facility] [id number] [place] [address]- 5116 February, [facility] [place] [facility] [address] [id number] [place] [address]- 9136 February, [facility] [place] [facility] [address] [facility] [id number] [place] [address]- 6906 February, [facility] [place] [facility] [address] [facility] [id number] [place] [address]- 1606 February, [facility] [place] [facility] [address] [id number] [place] [address]- 1576 February, [facility] [place] [facility] [address] [id number] [place] [address]- 7576 February, [facility] [place] [facility] [address] [facility] [id number] [place] [address]- 2096 Jan, [facility] [place] [facility] [address] [facility] [id number] [place] [address]- 3196 Jan, [facility] [address] [facility] [id number], [place] [id number] Dec, [facility] [place] [facility] [address] [facility] [id number] [place] [address]- 3576 Dec, [facility] [address] [facility] [id number], [place] [id number] Dec, [facility] [place] [facility] [address] [facility] [id number] [place] [address]- 2546 Dec, [facility] [address] [facility] [id number], [place] [id number] Nov, [facility] [place] [facility] [address] [facility] [id number] [place] [address]- 2546 Nov, [facility] [address] [facility] [id number], [place] [id number] Sep, [facility] [place] [facility] [address] [facility] [id number] [place] [address]- 2546 Sep, [facility] [address] [facility] [id number], [place] [id number] Sep, [facility] [place] [facility] [address] [facility] [id number] [place] [address]- 1078 Sep, [facility] [address] [id number] [place] [id number] Jul, [facility] [address] [facility] [id number] [place] [address]- 3648 Jul, [facility] [address] [id number] [place] [id number] Jul, [facility] [address] [facility] [id number] [place] 41352425- 8498 Jul, [facility] [address] [id number] [place] [id number] May, [facility] [address] [id number] [place] [id number] Apr, [facility] [address] [id number] [place] [id number] Apr, [facility] [address] [id number] [place] [id number] Mar, [facility] [address] [id number] [place] 977846051 Mar, [facility] [address] [id number] [place] [id number] February, [facility] [address] [id number] [place] [id number] Jan, [facility] [address] [id number] [place] 845737303 Dec, [facility] [address] [id number] [place] 060686849 Oct, [facility] [address] [id number] [place] [id number] Oct, [facility] [address] [id number] [place] [id number] Sep, [facility] [address] [facility] [id number] [address]- 6996 Sep, [facility] [address] [id number] [place] [id number] Aug, [facility] [place] [facility] [address] [id number] [place] [address]- 2546 Aug, [facility] [address] [id number] [place] [id number] Aug, [facility] [place] [facility] [address] [facility] [id number] [place] [address]- 2546 Aug, [facility] [place] [facility] [address] [facility] [id number] [place] [address]- 2546 May, [facility] [address] [id number] [place] [id number] May, [facility] [place] [facility] [address] [facility] [id number] [place] [address]- 5976 Apr, [facility] [place] [facility] [address] [place] [id number] [place] [address]- 6056 Mar, [facility] [place] [facility] [address] [place] [address] [id number] [address]- 2546 Mar, [facility] [address] [id number] [place] [id number] Mar, [facility] [address] [id number] [place] [id number] Jan, [facility] [address] [facility] [id number] [place] [id number] Dec, [facility] [place] [facility] [address] [place] [address] [id number] [address]- 1966 Nov, [facility] [address] [facility] [id number], [place] [id number] Nov, [facility] [place] [facility] [address] [facility] [id number] [place] [address]- 6438 Sep, [facility] [place] [facility] [address] [facility] [id number] [place] [address]- 2136 Sep, [facility] [place] [facility] [address] [address] [id number] [address]- 9093 Aug, [facility] [place] [facility] [address] [facility] [id number] [place] [address]- 2167 19 Jul, 2011 [facility] [address] [id number] [place] [address]- 9186 19 Jul, 2011 [facility] [address] [id number] [place] [address] 2546 17 Jul, 2011 [facility] [address] [id number] [place] [address]- 0858 17 Jul, 2011 [facility] [address] [id number] [place] [address]- 0068 14 Jun, 2011 [facility] [address] [id number] [place] [address], [place] [address]- 1721 10 May, 2011 [facility] [address] [id number] [place] [address]- 2474 Apr, [facility] [address] [id number] [place] [address]- 4063 February, [facility] [address] [id number] [place] [address]- 2979 Dec, [facility] [address] [id number] [place] [address]- 9296 Oct, [facility] [address] [id number] [place] [address]- 9738 Sep, [facility] [place] [facility] [address] [id number] [place] [address]- 3882 15 Aug, 2010 [facility] [address] [id number] [place] [address]- 2542 Aug, [facility] [place] [facility] [address] [id number] [place] [address]- 4883 Sep, [facility] [place] [facility] [address] [id number] [place] [address]- 2546 Sep, [facility] [place] [facility] [address] [id number] [place] [address]- 0034 Aug, [facility] [address] [facility] [id number] [place] [address]- 5908 Aug, [facility] [address] [facility] [id number] [place] [address]- 5756 Aug, [facility] [address] [facility] [id number] [place] [address]- 0639 Aug, IMMUNIZATIONS No Known Immunizations SOCIAL HISTORY Never Assessed REASON FOR VISIT Medication question PLAN OF CARE VITAL SIGNS MEDICATIONS Unknown [...] L4 and L5 1986 Hospitalization History Syncope ([facility]) 02/2014 Hospitalization History was at [facility] for falling and confusion/ then went to a jail for 21days 04/2017
--- OUTSIDE RECORDS SUMMARY | 2019-02-13 09:41 | XMS REPORT ---
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 789068164 Problem Nasal congestion R09.81 Active 69646283 Problem COPD exacerbation J44.1 Active 699507627 Problem Bipolar depression F31.30 Active 79088597 Problem 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 Active 563755997 Problem Irritable bowel syndrome with both constipation and diarrhea K58.2 Active 71405808 Problem Cervicalgia M54.2 Active 81084785 Problem Orthostatic hypotension 458.0 Active 86999647 Problem Bipolar depression 296.50 Active 26441585 Problem Personal history of colonic polyps V12.72 Active 198913761 Problem Dependence on machine for supplemental oxygen V46.2 Active 774926696541 Problem Impingement syndrome of left shoulder M75.42 Active 337459313 Problem Hep C w/o coma, chronic B18.2 Active 328799539 Problem Tremor, unspecified R25.1 Active 40661388 Problem Pain in right shoulder M25.511 Active 76514189 Problem Chronic obstructive pulmonary disease, unspecified J44.9 Active 933845814 Problem Chronic hepatitis C without hepatic coma B18.2 Active 044763383 ALLERGIES Substance Reaction Event Type Date Status Spiriva HandiHaler dec urination Drug Allergy Aug, Active Lomotil nausea Drug Allergy Aug, Active ENCOUNTERS Encounter Location Date Diagnosis [facility] [address] [facility] [id number] [id number] Aug, Generalized abdominal pain R10.84 [facility] [address] [id number] [address] Jul, Tremor, unspecified R25.1 [place] [id number] [place] [address] [id number] Jul, Nasal congestion R09.81 [place] [id number] [place] [address] [id number] Jun, COPD exacerbation J44.1 ; Acute nasopharyngitis J00 and Cervicalgia M54.2 [id number] [place] [address] [id number] May, Chronic obstructive pulmonary disease, unspecified J44.9 [place] [id number] [place] [address] [id number] February, Chronic obstructive pulmonary disease, unspecified J44.9 [place] [address] [id number] [place] [address] [id number] February, Tremor, unspecified R25.1 ; Chronic obstructive pulmonary disease, unspecified J44.9 ; Cervicalgia M54.2 and Irritable bowel syndrome with both constipation and diarrhea K58.2 [address] [place] [address] [id number] Dec, Chronic obstructive pulmonary disease, unspecified J44.9 ; Cervicalgia M54.2 and Irritable bowel syndrome with both constipation and diarrhea K58.2 [address] [place] [address] [id number] Nov, Chronic obstructive pulmonary disease, unspecified J44.9 and Cervicalgia M54.2 [address] [place] [address] [id number] Jul, Chronic obstructive pulmonary disease, unspecified J44.9 ; Impingement syndrome of left shoulder M75.42 and Tremor, unspecified R25.1 [facility] [address] [address] [facility] [address] [id number] [place] [id number] Jun, Diarrhea, unspecified type R19.7 [address] [id number] Jun, Chronic obstructive pulmonary disease, unspecified J44.9 ; Encounter for immunization Z23 ; Tremor, unspecified R25.1 ; Diarrhea, unspecified type R19.7 ; Acute seasonal allergic rhinitis due to pollen J30.1 and Urinary frequency R35.0 [address] [place] [address] [id number] Jun, [address] [place] [address] [id number] Jun, [place] [id number] [place] [address] [id number] May, Chronic obstructive pulmonary disease, unspecified J44.9 ; Tremor, unspecified R25.1 ; Hep C w/o coma, chronic B18.2 ; Bipolar depression F31.30 and 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 [id number] [place] [address] [id number] May, [facility] [address] [id number] [address] Apr, Hep C w/o coma, chronic B18.2 [place] [id number] [place] [address] [id number] Jan, Chronic obstructive pulmonary disease, unspecified J44.9 ; 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 ; Tremor, unspecified R25.1 and 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 [facility][1] [address] [facility] [address] [id number] [id number] Jan, [address] [place] [address] [id number] Dec, Chronic obstructive pulmonary disease, unspecified J44.9 [facility] [address] [id number] [id number] Dec, Hep C w/o coma, chronic B18.2 ; Chronic obstructive pulmonary disease, unspecified J44.9 ; Muscle weakness (generalized) M62.81 ; Inflammatory polyneuropathy, unspecified G61.9 and 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 [address] [place] [address] [id number] Dec, Chronic hepatitis C without hepatic coma B18.2 [facility] [place] [address] [facility] [id number][place] [id number] Nov, [facility] [place] [address] [facility] [id number][place] [id number] Oct, Actinic keratosis L57.0 [facility] [place] [address] [facility] [id number][place] [id number] Oct, [facility] [place] [address] [facility] [id number][place] [id number] Oct, Chronic obstructive pulmonary disease, unspecified J44.9 and Chronic hepatitis C without hepatic coma B18.2 [facility] [address] [id number][place] [id number] Oct, Hep C w/o coma, chronic B18.2 [facility] [id number] [place] [address] Sep, Hep C w/o coma, chronic B18.2 [facility] [address]00565100[place] [address] Sep, [facility] [id number] [place] [address] Sep, [facility] [place] [address] [facility] [address] [id number], [place] [id number] Sep, Chronic hepatitis C without hepatic coma B18.2 and Encounter for immunization Z23 [facility] [id number] [place] [address] Aug, [facility] [address] [id number][place] [id number] Aug, Hep C w/o coma, chronic B18.2 [facility] [address] [address] Aug, Chronic hepatitis C without hepatic coma B18.2 [facility] [address] [address] Jul, [facility] [address] [address] Jul, [place] [id number] [place] [address] [id number] Jul, Hep C w/o coma, chronic B18.2 ; Chronic obstructive pulmonary disease, unspecified J44.9 and Pain in right shoulder M25.511 [facility] [id number] [place] [address] [id number] Jun, Chronic obstructive pulmonary disease, unspecified J44.9 [facility] [address] [address] [id number] [place] [address] [id number] Mar, Hep C w/o coma, chronic B18.2 and Chronic obstructive pulmonary disease, unspecified J44.9 [place] [id number] [place] [address] [id number] Mar, Chronic obstructive pulmonary disease, unspecified J44.9 ; Impingement syndrome of left shoulder M75.42 and Hep C w/o coma, chronic B18.2 [place] [id number] [place] [address] [id number] Dec, Chronic obstructive pulmonary disease, unspecified J44.9 and Impingement syndrome of left shoulder M75.42 [place] [id number] [place] [address] [id number] Sep, Chronic obstructive pulmonary disease, unspecified J44.9 ; Encounter for immunization Z23 and Tremor, unspecified R25.1 [address] [place] [address] [id number] Aug, Tremor, unspecified R25.1 and Chronic obstructive pulmonary disease, unspecified J44.9 [address] [place] [address] [id number] Jul, Tremor 781.0 and COPD 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 [facility], [place] [address] [id number] [place] [address] [id number] Jun, COPD 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 and Tremor 781.0 [place] [id number] [place] [address] [id number] May, [place] [id number] [place] [address] [id number] May, Sinusitis 473.9 [facility] [place] [address] [facility] [address] [id number][place] [id number] May, Sinusitis 473.9 ; Tobacco abuse 305.1 ; Irregular heart rhythm 427.9 and Cough 786.2 pankajzDESEAN JONES [address] [id number] [id number] May, [facility] [place] [id number] [place] [address] [id number] Apr, [facility] [place] [address] [id number][place] [id number] Apr, COPD 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 [facility] [place] [address] [facility] [address] [id number], [place] [id number] Apr, Respiratory distress 786.09 [facility] [place] [address] [place] [address] [id number] Mar, COPD 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 and Verruca 078.10 [facility] [id number] [place] [address]- [address] Mar, [facility] [place] [id number] [place] [address] [id number] Jan, Verruca 078.10 and [place] (actinic keratosis) 702.0 [facility] [place] [id number] [place] [address] [id number] Jan, [facility] [id number] [place] [address]- [address] Jan, [facility] [id number] [place] [address]- 8[address] Jan, [facility] [id number] [place] [address] [id number] Dec, [facility] [id number] [place] [address]63- 4596 Dec, [facility] [address] [place] [address] [id number] Nov, [facility] [place] [facility] [address] [id number] [address] Nov, [facility] [place] [facility] [address] [id number] [place] [address] Nov, [facility] [place] [address] [facility] [id number], [place] [id number] Oct, [facility] [place] [facility] [address] [id number] [place] [address] Oct, [facility] [place] [facility] [address] [id number] [place] [address]- 7[address] Oct, [facility] [place] [address] [facility] [id number], [place] [id number] Oct, [facility] [place] [facility] [address] [id number] [address] Oct, [facility] [place] [address] [facility] [id number], [place] [id number] Oct, [facility] [place] [facility] [address] [id number] [place] [address]- [address] Oct, [facility] [place] [address] [facility] [id number], [place] [id number] Sep, [facility] [place] [facility] [address] [id number] [place] [address] Sep, [facility] [place] [address] [id number], [place] [id number] Aug, [facility] [place] [address] [facility] [id number], [place] [id number] Aug, [facility] [place] [facility] [address] [id number] [place] [address]- 4[address] Aug, [facility] [place] [facility] [address] [id number] [place] [address]- 8[address] Aug, [facility] [place] [address] [facility] [id number], [place] [id number] Jul, [facility] [place] [facility] [address] [id number] [place] [address]- 12[address] Jul, [facility] [place] [address] [id number] [place] [id number] Apr, [facility] [place] [facility] [address] [id number] [address]- 2546 Apr, [facility] [place] [facility] [address] [id number] [place] [address]- 2546 Apr, [facility] [place] [facility] [address] [id number] [place] [address]- 2546 Apr, [facility] [place] [address] [id number] [place] [id number] Apr, [facility] [place] [address] [id number] [place] [id number] Mar, [facility] [place] [facility] [address] [id number] [place] [address]- 4706 Mar, [facility] [place] [address] [id number] [place] [id number] February, [facility] [place] [facility] [address] [id number] [place] [address]- 8926 February, [facility] [place] [address] [id number] [place] [id number] February, [facility] [place] [facility] [address] [id number] [place] [address]- 4826 February, [facility] [place] [address] [id number] [place] [id number] February, [facility] [place] [facility] [address] [id number] [place] [address]- 7596 February, [facility] [place] [facility] [address] [id number] [place] [address]- 7366 February, [facility] [place] [facility] [address] [id number] [place] [address]- 4956 February, [facility] [place] [facility] [address] [id number] [place] [address]- 2256 February, [facility] [place] [facility] [address] [id number] [place] [address]- 2546 February, [facility] [place] [facility] [address] [id number] [place] [address]- 28[address] February, [facility] [place] [facility] [address] [id number] [place] [address]- 2546 February, [facility] [place] [facility] [address] [id number] [place] [address]- 1146 Jan, [facility] [place] [facility] [address] [id number] [place] [address]- 2546 Jan, [facility] [place] [address] [facility] [id number], [place] [id number] Dec, [facility] [place] [facility] [address] [id number] [place] [address]- 2546 Dec, [facility] [place] [address] [id number], [place] [id number] Dec, [facility] [place] [facility] [address] [id number] [place] [address]- 6046 Dec, [facility] [place] [address] [facility] [id number], [place] [id number] Nov, [facility] [place] [facility] [address] [id number] [place] [address] 2546 Nov, [facility] [place] [address] [facility] [id number], [place] 080583430 Sep, [facility] [place] [facility] [address] [id number] [place] [address]- 2546 Sep, [facility] [place] [address] [facility] [id number], [place] [id number] Sep, [facility] [place] [facility] [address] [id number] [place] [address]- 2546 Sep, [facility] [address] [facility] [id number], [place] [id number] Jul, [facility] [place] [facility] [address] [id number] [place] [address]- 6[address] Jul, [facility] [place] [address] [id number] [place] [id number] Jul, [facility] [address] [id number] [place] [address]- 1505 Jul, [facility] [place] [address] [id number] [place] [id number] May, [facility] [place] [address] [id number] [place] [id number] Apr, [facility] [place] [address] [id number] [place] [id number] Apr, [facility] [place] [address] [id number] [place] [id number] Mar, [facility] [place] [address] [id number] [place] [id number] Mar, [facility] [place] [address] [id number] [place] [id number] February, [facility] [place] [address] [id number] [place] [id number] Jan, [facility] [address] [id number] [place] 3347[address] Dec, [facility] [address] [id number] [place] [id number] Oct, [facility] [place] [address] [id number] [place] 789176846 Oct, [facility] [place] [address] [id number] [place] [id number] Sep, [facility] [address] [id number] [place] [address]- [address] Sep, [facility] [place] [address] [id number] [place] [id number] Aug, [facility] [address] [id number] [place] 16585676- [address]90 Aug, [facility] [place] [address] [id number] [place] [id number] Aug, [facility] [address]100[place] [address]- 75[address] Aug, [facility] [place] [facility] [address] [id number] [place] [address]- 0186 May, [facility] [address] [id number] [place] [id number] May, [facility] [place] [facility] [address] [id number] [place] [address]- 2702 Apr, [facility] [place] [facility] [address] [id number] [place] [address]- 9266 Mar, [facility] [place] [facility] [address] [id number] [place] [address]- 4916 Mar, [facility] [address] [id number] [place] [id number] Mar, [facility] [address] [id number] [place] [id number] Jan, [facility] [address] [id number] [place] [id number] Dec, [facility] [address] [id number] [place] [address]- 9160 Nov, [facility] [address] [facility] [id number] [place] [id number] Nov, [facility] [address] [id number] [place] [address]- 9820 Sep, [facility] [place] [facility] [address] [place] [address]- 4021 Sep, [facility] [place] [facility] [address] [id number] [place] [address]- 3667 Aug, [facility] [place] [facility] [address] [id number] [place] [address]- 6571 Jul, [facility] [place] [facility] [address] [id number] [place] [address]- 3592 Jul, [facility] [place] [facility] [address] [id number] [place] [address]- 3955 Jul, [facility] [place] [facility] [address] [id number] [place] [address] 2543 17 Jul, 2011 [facility] [address] [id number] [place] [address]- 2546 14 Jun, 2011 [facility] [address] [id number] [place] [address]- 2546 10 May, 2011 [facility] [place] [facility] [address] [id number] [place] [address]- 2546 13 Apr, 2011 [facility] [address] [id number] [place] [address]- 4460 February, [facility] [address] [id number] [place] [address]- 2546 Dec, [facility] [address] [id number] [place] [address]- 2546 17 Oct, 2010 [facility] [address] [id number] [place] [address]- 9176 Sep, [facility] [address] [id number] [place] [address]- 2532 15 Aug, 2010 [facility] [address] [id number] [place] [address]- 7802 Aug, [facility] [address] [id number] [place] [address]- 5453 Sep, [facility] [address] [id number] [place] [address]- 2546 Sep, [facility] [place] [facility] [address] [id number] [place] [address]- 8917 24 Aug, 2009 [facility] [place] [facility] [address] [id number] [place] [address]- 8996 18 Aug, 2009 [facility] [place] [facility] [address] [id number] [place] [address]- 2547 12 Aug, 2009 [facility] [place] [facility] [address] [id number] [place] [address]- 0220 Aug, IMMUNIZATIONS No Known Immunizations SOCIAL HISTORY Never Assessed REASON FOR VISIT Wanting Referral for a colonoscopy [facility] RN PLAN OF CARE Activity Details Follow Up prn Reason:after ct Pending Test CT Scan : Abdomen & Pelvis w/o Contrast VITAL SIGNS Height 68 in 2018-09-07 Weight 149 lbs 2018-09-07 Temperature 97.4 degrees Fahrenheit 2018-09-07 Heart Rate 72 bpm 2018-09-07 Respiratory Rate 22 2018-09-07 Oximetry w/ oxygen:98 % 2018-09-07 BMI 22.65 kg/m2 2018-09-07 Blood pressure systolic 150 mmHg 2018-09-07 Blood pressure diastolic 86 mmHg 2018-09-07 MEDICATIONS Medication Instructions Dosage Frequency Start Date End Date Duration Status Valium 5 mg Orally Once a day at night 2 tablet Active Ipratropium-Albuterol 0.5-2.5 (3) MG/3ML Inhalation Four times a day USE ONE VIAL VIA NEBULIZER 6h Active Nina-D 12 Hour 60 mg Orally Twice a day 1 tablet as needed 12h 10 Jun, 2018 Active ProAir HFA 108 (90 Base) MCG/ACT Inhalation every 4 hrs 2 puffs as needed 4h 08 Mar, 2015 Active Advair Diskus 500-50 MCG/DOSE Inhalation Twice a day 1 puff 12h 30 Active Primidone 50 mg Orally Once a day 1 tablet 24h Jan, 30 days Active Albuterol Sulfate (2.5 MG/3ML) 0.083% Inhalation Three times a day 3 ml as needed 8h 10 Jun, 2018 Active Seroquel 300 MG Orally twice a day 1/2 tab am 1 10/19 tab hs 12h Active Zoloft 50 MG Orally Once a day 1 tablet 24h Active Oxygen 3 by inhalation route 10/05 3 -4L w portable O2 and conserving device Jun, Active Spiriva HandiHaler 18 MCG Inhalation Once a day as directed 24h Oct, Active MiraLax - Orally Once a day 17 gm 24h Dec, Active Loperamide HCl 2 MG Orally 2 times a day 1 tablet as needed 12h Active RESULTS No Results PROCEDURES Procedure Date Ordered Result Body Site [facility] ESTABLISHED PATIENT Sep 07, 2018 INSTRUCTIONS MEDICATIONS ADMINISTERED No Known Medications MEDICAL [...] L4 and L5 1986 Hospitalization History Syncope ([place]) 02/2014 Hospitalization History was at [facility] for falling and confusion/ then [facility] for 21days 04/2017
--- OUTSIDE RECORDS SUMMARY | 2019-02-13 09:41 | XMS REPORT ---
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 233168796 Problem Nasal congestion R09.81 Active 13679519 Problem COPD exacerbation J44.1 Active 597606235 Problem Bipolar depression F31.30 Active 44053172 Problem 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 Active 762690477 Problem Irritable bowel syndrome with both constipation and diarrhea K58.2 Active 89057278 Problem Cervicalgia M54.2 Active 98935266 Problem Orthostatic hypotension 458.0 Active 97639538 Problem Bipolar depression 296.50 Active 46804549 Problem Personal history of colonic polyps V12.72 Active 384210189 Problem Dependence on machine for supplemental oxygen V46.2 Active 643961596289 Problem Impingement syndrome of left shoulder M75.42 Active 672232382 Problem Hep C w/o coma, chronic B18.2 Active 319719705 Problem Tremor, unspecified R25.1 Active 81249815 Problem Pain in right shoulder M25.511 Active 00936442 Problem Chronic obstructive pulmonary disease, unspecified J44.9 Active 833991020 Problem Chronic hepatitis C without hepatic coma B18.2 Active 390694553 ALLERGIES No Information ENCOUNTERS Encounter Location Date Diagnosis [facility] [address] [id number] [address] Jul, Tremor, unspecified R25.1 [facility] [address] [facility] [id number] [place] [id number] Jul, Nasal congestion R09.81 [facility] [id number] [place] [address] [id number] Jun, COPD exacerbation J44.1 ; Acute nasopharyngitis J00 and Cervicalgia M54.[id number] [place] [address] [id number] May, Chronic obstructive pulmonary disease, unspecified J44.9 [place] [id number] [place] [address] [id number] February, Chronic obstructive pulmonary disease, unspecified J44.9 [place] [id number] [place] [address] [id number] February, Tremor, unspecified R25.1 ; Chronic obstructive pulmonary disease, unspecified J44.9 ; Cervicalgia M54.2 and Irritable bowel syndrome with both constipation and diarrhea K58.2 [place] [id number] [place] [address] [id number] Dec, Chronic obstructive pulmonary disease, unspecified J44.9 ; Cervicalgia M54.2 and Irritable bowel syndrome with both constipation and diarrhea K58.2 [id number] [place] [address] [id number] Nov, Chronic obstructive pulmonary disease, unspecified J44.9 and Cervicalgia M54.2 [place] [id number] [place] [address] [id number] Jul, Chronic obstructive pulmonary disease, unspecified J44.9 ; Impingement syndrome of left shoulder M75.42 and Tremor, unspecified R25.[address] [id number] [id number] Jun, Diarrhea, unspecified type R19.7 [id number] [place] [address] [id number] Jun, Chronic obstructive pulmonary disease, unspecified J44.9 ; Encounter for immunization Z23 ; Tremor, unspecified R25.1 ; Diarrhea, unspecified type R19.7 ; Acute seasonal allergic rhinitis due to pollen J30.1 and Urinary frequency R35.0 [id number] [place] [address] [id number] Jun, [address] [id number][place] [id number] Jun, [facility] [address]00565[place] [id number] May, Chronic obstructive pulmonary disease, unspecified J44.9 ; Tremor, unspecified R25.1 ; Hep C w/o coma, chronic B18.2 ; Bipolar depression F31.30 and 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 [facility] [place] [id number][place] [id number] May, [facility] [place] [address]005[address] [address] Apr, Hep C w/o coma, chronic B18.2 [facility] [place] [id number], [place] [id number] Jan, Chronic obstructive pulmonary disease, unspecified J44.9 ; 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 ; Tremor, unspecified R25.1 and 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 [facility] [address] [id number][place] [id number] Jan, [facility] [id number] [place] [address] [id number] Dec, Chronic obstructive pulmonary disease, unspecified J44.[address] [facility] [address] [id number], [place] [id number] Dec, Hep C w/o coma, chronic B18.2 ; Chronic obstructive pulmonary disease, unspecified J44.9 ; Muscle weakness (generalized) M62.81 ; Inflammatory polyneuropathy, unspecified G61.9 and 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 [facility] [place] [id number] [id number] Dec, Chronic hepatitis C without hepatic coma B18.2 [facility] [place] [id number], [place] [id number] Nov, [facility] [place] [id number] [id number] Oct, Actinic keratosis L57.0 [facility] [address] [facility] [id number][place] [id number] Oct, [facility] [id number] [place] [address] [id number] Oct, Chronic obstructive pulmonary disease, unspecified J44.9 and Chronic hepatitis C without hepatic coma B18.[address] [facility] [address] [id number], [place] [id number] Oct, Hep C w/o coma, chronic B18.2 [facility] [address] [id number], [place] [address] Sep, Hep C w/o coma, chronic B18.2 [facility] [id number] [place] [address] 62841- 0880 Sep, [facility] [id number] [place] [address] 08279- 1040 Sep, [facility] [address] [facility] [address] [id number][place] [id number] Sep, Chronic hepatitis C without hepatic coma B18.2 and Encounter for immunization Z23 [facility] [id number] [place] [address] 31874- 4305 Aug, [facility] [address] [facility] [address] [id number], [place] [id number] Aug, Hep C w/o coma, chronic B18.2 [facility] [address] [place] [address] 76858- 7627 Aug, Chronic hepatitis C without hepatic coma B18.2 [facility] [address] [place] [address] 24191- 8230 Jul, [facility] [id number] [place] [address] 40622- 6873 Jul, [facility] [address] [place] [id number][place] [id number] Jul, Hep C w/o coma, chronic B18.2 ; Chronic obstructive pulmonary disease, unspecified J44.9 and Pain in right shoulder M25.511 [place] [id number] [place] [address] [id number] Jun, Chronic obstructive pulmonary disease, unspecified J44.9 [place] [id number] [place] [address] [id number] Mar, Hep C w/o coma, chronic B18.2 and Chronic obstructive pulmonary disease, unspecified J44.9 [place] [id number] [place] [address] [id number] Mar, Chronic obstructive pulmonary disease, unspecified J44.9 ; Impingement syndrome of left shoulder M75.42 and Hep C w/o coma, chronic B18.2 [place] [id number] [place] [address] [id number] Dec, Chronic obstructive pulmonary disease, unspecified J44.9 and Impingement syndrome of left shoulder M75.[address] [id number] Sep, Chronic obstructive pulmonary disease, unspecified J44.9 ; Encounter for immunization Z23 and Tremor, unspecified R25.1 [place] [id number] [place] [address] [id number] Aug, Tremor, unspecified R25.1 and Chronic obstructive pulmonary disease, unspecified J44.9 [place] [id number] [place] [address] [id number] Jul, Tremor 781.0 and COPD 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 [place] [address] [id number] Jun, COPD 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 and Tremor 781.0 [id number] [place] [address] [id number] May, [place] [id number] [place] [address] [id number] May, Sinusitis 473.[address] [place] [address] [facility] [id number][place] [id number] May, Sinusitis 473.9 ; Tobacco abuse 305.1 ; Irregular heart rhythm 427.9 and Cough 786.2 [facility] [place] [id number], [place] [id number] May, [facility] [place] [id number] [place] [address] [id number] Apr, [facility] [place] [id number], [place] [id number] Apr, COPD 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 [facility] [address] [id number], [place] [id number] Apr, Respiratory distress 786.09 [facility] [place] [id number] [place] [address] [id number] Mar, COPD 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 and Verruca 078.10 [facility] [id number] [place] [address] 00177- 3484 Mar, [facility] [place] [id number] [place] [address] [id number] Jan, Verruca 078.10 and [place] (actinic keratosis) 702.0 [facility] [place] [id number] [place] [address] [id number] Jan, [facility] [id number] [place] [address] 915685- 8189 Jan, [facility] [id number] [place] [address] 14917- 1776 Jan, [facility] [id number] [place] [address] [id number] Dec, [facility] [id number] [place] [address] [id number]- 5315 Dec, [facility] [id number] [place] [address] [id number] Nov, [facility] [id number] [place] [address] [id number]- 7638 Nov, [facility] [id number] [place] [address] 37347- 1471 Nov, [facility] [address] [id number] [place] [id number] Oct, [facility] [place] [facility] [address] [facility] [id number] [place] [address]- 0957 Oct, [facility] [place] [facility] [address] [facility] [id number] [place] [address]- 7540 Oct, [facility] [address] [facility] [id number][place] [id number] Oct, [facility] [place] [facility] [address] [facility] [id number], [place] [address]- 0963 Oct, [facility] [address] [id number] [place] [id number] Oct, [facility] [place] [facility] [address] [facility] [id number], [place] [address]- 8136 Oct, [facility] [address] [facility] [id number], [place] [id number] Sep, [facility] [place] [facility] [address] [facility] [id number], [place] [address]- 1294 Sep, [facility] [address] [id number] [place] 4298[place] Aug, [facility] [address] [facility] [id number], [place] [id number] Aug, [facility] [place] [facility] [address] [facility] [id number], [place] [address]- 1559 Aug, [facility] [place] [facility] [address] [facility] [id number], [place] [address]- 3986 Aug, [facility] [place] [address] [facility] [id number], [place] [id number] Jul, [facility] [place] [facility] [address] [facility] [id number], [place] [address]- 2556 Jul, [facility] [place] [address] [facility] [id number], [place] [id number] Apr, [facility] [place] [facility] [address] [facility] [id number], [place] [address]- 3384 Apr, [facility] [place] [facility] [address] [id number] [place] [address]- 4088 Apr, [facility] [place] [facility] [address] [id number] [place] [address]- 2546 Apr, [facility] [address] [id number] [place] [id number] Apr, [facility] [address] [id number] [place] [id number] Mar, [facility] [place] [facility] [address] [id number] [place] [address]- 2546 Mar, [facility] [place] [address] [id number] [place] [id number] February, [facility] [place] [facility] [address] [id number] [place] [address]- 3286 February, [facility] [place] [address] [id number] [place] 839[place] February, [facility] [place] [facility] [address] [id number] [place] [address]- 9487 February, [facility] [address] [id number] [place] 716147869 February, [facility] [place] [facility] [address] [id number] [place] [address]- 2675 February, [facility] [place] [facility] [address] [id number] [place] [address]- 7012 February, [facility] [place] [facility] [address] [id number] [place] [address]- 2647 February, [facility] [place] [facility] [address] [id number] [place] [address]- 3705 February, [facility] [place] [facility] [address] [id number] [place] [address]- 2343 February, [facility] [place] [facility] [address] [id number] [place] [address]- 6310 February, [facility] [place] [facility] [address] [facility] [id number], [place] [address]- 7816 February, [facility] [place] [facility] [address] [facility] [id number], [place] [address]- 6836 Jan, [facility] [place] [facility] [address] [facility] [id number], [place] [address] 2546 Jan, [facility] [place] [address] [facility] [id number], [place] [id number] Dec, [facility] [place] [facility] [address] [facility] [id number], [place] [address] 2546 Dec, [facility] [address] [facility] [id number] [place] [id number] Dec, [facility] [place] [facility] [address] [facility] [id number], [place] [address]- 1606 Dec, [facility] [place] [address] [facility] [id number], [place] 044922369 Nov, [facility] [place] [facility] [address] [facility] [id number], [place] [address]- 7102 Nov, [facility] [address] [facility] [id number] [place] [id number] Sep, [facility] [place] [facility] [address] [facility] [id number], [place] [address]- 1436 Sep, [facility] [address] [facility] [id number], [place] [id number] Sep, [facility] [place] [facility] [address] [facility] [id number], [place] [address]- 2546 Sep, [facility] [address] [facility] [id number], [place] [id number] Jul, [facility] [place] [facility] [address] [facility] [id number], [place] [address] 2546 Jul, [facility] [address] [facility] [id number], [place] 666631255 Jul, [facility] [place] [facility] [address] [facility] [id number], [place] [address] 2546 Jul, [facility] [address] [id number] [place] [address] May, [facility] [place] [address] [id number] [place] [id number] Apr, [facility] [place] [address] [id number] [place] [id number] Apr, [facility] [place] [address] [id number] [place] [id number] Mar, [facility] [place] [address] [id number] [place] 1277[place]344 Mar, [facility] [place] [address] [id number] [place] [id number] February, [facility] [place] [address] [id number] [place] 37[place] Jan, [facility] [address] [id number] [place] 7711[address]287 Dec, [facility] [address] [id number] [place] 031778838 Oct, [facility] [address] [id number] [place] [id number] Oct, [facility] [address] [id number] [place] 580764395 Sep, [facility] [address] [facility] [id number], [place] [address]- 2706 Sep, [facility] [address] [id number] [place] 439951870 Aug, [facility] [address]00565100[place], [place] [address]- 1018 Aug, [facility] [address] [id number], [place] 438405166 Aug, [facility] [address] [facility] [id number], [place] [address]- 5145 Aug, [facility] [address] [facility] [id number], [place] [address]- 3312 May, [facility] [address] [id number] [place] 445238812 May, [facility] [place] [facility] [address] [facility] [id number], [place] [address]- 7170 Apr, [facility] [place] [facility] [address] [facility] [id number] [place] [address]- 2546 Mar, [facility] [place] [facility] [address] [facility] [id number], [place] [address]- 2546 Mar, [facility] [address] [facility] [id number] [place] [id number] Mar, [facility] [place] [address] [facility] [id number] [place] [id number] Jan, [facility] [address] [id number] [place] [id number] Dec, [facility] [place] [facility] [address]00565100[place], [place] [address]- 2546 Nov, [facility] [id number] [place] [address] [id number] Nov, [facility] [place] [facility] [address]00565100[place], [place] [address]- 7986 Sep, [facility] [place] [facility] [address] [id number] [place] [address]- 4311 Sep, [facility] [place] [facility] [address]00565100[place], [place] [address]- 0816 Aug, [facility] [place] [facility] [address] [place] [address]- 6566 Jul, [facility] [place] [facility] [address] [id number], [place] [address]- 2546 Jul, [facility] [place] [facility] [address] [id number], [place] [address]- 4176 Jul, [facility] [place] [facility] [address] [facility] [id number], [place] [address]- 2546 Jul, [facility] [place] [facility] [address] [id number], [place] [address]- 2546 14 Jun, 2011 [facility] [address] [facility] [id number], [place] [address] 2546 May, [facility] [address] [facility] [id number], [place] [address]- 3646 Apr, [facility] [address]00565100[place], [place] [address]- 2546 February, [facility] [id number] [place] [address] 26085- 9806 Dec, [facility] [address] [facility] [id number], [place] [address]- 7409 Oct, [facility] [address]00565100[place], [place] [address]- 3466 Sep, [facility] [address]00565100[place], [place] [address]- 9341 Aug, [facility] [address]00565100[place], [place] [address]- 8650 Aug, [facility] [address]00565100[place], [place] [address]- 0664 Sep, [facility] [address]00565100[place], [place] [address]- 0466 Sep, [facility] [address]00565100[place], [place] [address]- 3859 Aug, [facility] [address]00565100[place], [place] [address]- 4006 Aug, [facility] [address] [id number], [place] [address]- 5723 Aug, [facility] [address]00565100[place], [place] [address]- 1016 Aug, IMMUNIZATIONS No Known Immunizations SOCIAL HISTORY Never Assessed REASON FOR VISIT Refill request PLAN OF CARE VITAL SIGNS MEDICATIONS Medication Instructions Dosage Frequency Start Date End Date Duration Status Primidone 50 mg Orally Once a day 1.5 tablet 24h Jan, 30 days Active RESULTS No Results PROCEDURES No Known [...] L4 and L5 1986 Hospitalization History Syncope ([facility]) 02/2014 Hospitalization History was at [facility] for falling and confusion/ then went to a custodial for 21days 04/2017
--- OUTSIDE RECORDS SUMMARY | 2019-02-13 09:41 | XMS REPORT ---
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 304117977 Problem Nasal congestion R09.81 Active 75699940 Problem COPD exacerbation J44.1 Active 866774152 Problem Bipolar depression F31.30 Active 04968030 Problem 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 Active 390878585 Problem Irritable bowel syndrome with both constipation and diarrhea K58.2 Active 27805563 Problem Cervicalgia M54.2 Active 16164092 Problem Orthostatic hypotension 458.0 Active 01409895 Problem Bipolar depression 296.50 Active 65393994 Problem Personal history of colonic polyps V12.72 Active 510846256 Problem Dependence on machine for supplemental oxygen V46.2 Active 842886734983 Problem Impingement syndrome of left shoulder M75.42 Active 664839687 Problem Hep C w/o coma, chronic B18.2 Active 423674927 Problem Tremor, unspecified R25.1 Active 21565666 Problem Pain in right shoulder M25.511 Active 43524665 Problem Chronic obstructive pulmonary disease, unspecified J44.9 Active 255265331 Problem Chronic hepatitis C without hepatic coma B18.2 Active 360559251 ALLERGIES No Information ENCOUNTERS Encounter Location Date Diagnosis [facility] [address] [facility] [id number] [id number] Sep, [facility] [address] [id number] [id number] Aug, Generalized abdominal pain R10.84 [facility] [address]005[address] [address] Jul, Tremor, unspecified R25.1 [facility] [id number][place] [id number] Jul, Nasal congestion R09.81 [place] [id number] [place] [address] [id number] Jun, COPD exacerbation J44.1 ; Acute nasopharyngitis J00 and Cervicalgia M54.2 [place] [id number] [place] [address] [id number] May, Chronic obstructive pulmonary disease, unspecified J44.9 [place] [id number] [place] [address] [id number] February, Chronic obstructive pulmonary disease, unspecified J44.9 [place] [id number] [place] [address] [id number] February, Tremor, unspecified R25.1 ; Chronic obstructive pulmonary disease, unspecified J44.9 ; Cervicalgia M54.2 and Irritable bowel syndrome with both constipation and diarrhea K58.[address] [place] [address] [id number] Dec, Chronic obstructive pulmonary disease, unspecified J44.9 ; Cervicalgia M54.2 and Irritable bowel syndrome with both constipation and diarrhea K58.2 [address]00565[address] [address] Nov, Chronic obstructive pulmonary disease, unspecified J44.9 and Cervicalgia M54.2 [address]65[address] [address] Jul, Chronic obstructive pulmonary disease, unspecified J44.9 ; Impingement syndrome of left shoulder M75.42 and Tremor, unspecified R25.[address] [id number][place] [address] Jun, Diarrhea, unspecified type R19.[address] [id number], [place] 446195880 Jun, Chronic obstructive pulmonary disease, unspecified J44.9 ; Encounter for immunization Z23 ; Tremor, unspecified R25.1 ; Diarrhea, unspecified type R19.7 ; Acute seasonal allergic rhinitis due to pollen J30.1 and Urinary frequency R35.0 [address]00565100[place] [address] Jun, [address] [place] [address] [id number] Jun, [address] [place] [address] [id number] May, Chronic obstructive pulmonary disease, unspecified J44.9 ; Tremor, unspecified R25.1 ; Hep C w/o coma, chronic B18.2 ; Bipolar depression F31.30 and 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 [place] [address] [id number] May, [facility] [address]005[address] [address] Apr, Hep C w/o coma, chronic B18.2 [place] [id number] [place] [address] [id number] Jan, Chronic obstructive pulmonary disease, unspecified J44.9 ; 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 ; Tremor, unspecified R25.1 and 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 [place] [address] [facility] [address] [id number][place] [id number] Jan, [address]00565100[place] [address] Dec, Chronic obstructive pulmonary disease, unspecified J44.9 [facility] [address] [id number], [place] [id number] Dec, Hep C w/o coma, chronic B18.2 ; Chronic obstructive pulmonary disease, unspecified J44.9 ; Muscle weakness (generalized) M62.81 ; Inflammatory polyneuropathy, unspecified G61.9 and 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 [place] [address] [id number] Dec, Chronic hepatitis C without hepatic coma B18.2 [facility] [address] [facility] [id number], [place] [address] Nov, [facility] [address] [facility] [id number][place] [address] Oct, Actinic keratosis L57.0 [facility] [address] [id number], [place] [id number] Oct, [facility] [address] [id number], [place] [address]687[address]361 Oct, Chronic obstructive pulmonary disease, unspecified J44.9 and Chronic hepatitis C without hepatic coma B18.2 [facility] [place] [address] [facility] [address] [id number], [place] [id number] Oct, Hep C w/o coma, chronic B18.2 [facility] [address]00565100[place], [place] [address] Sep, Hep C w/o coma, chronic B18.2 [facility] [id number] [place] [address] Sep, [facility] [id number] [place] [address] Sep, [facility] [place] [address] [facility] [address] [id number], [place] [address] Sep, Chronic hepatitis C without hepatic coma B18.2 and Encounter for immunization Z23 [facility] [address]00565100[place], [place] [address] Aug, [facility] [address] [id number], [place] [address]76 Aug, Hep C w/o coma, chronic B18.2 [facility] [id number] [place] [address] Aug, Chronic hepatitis C without hepatic coma B18.2 [facility] [address], [place] [address] Jul, [facility] [address] [id number], [place] [address] Jul, [place] [id number] [place] [address] [id number] Jul, Hep C w/o coma, chronic B18.2 ; Chronic obstructive pulmonary disease, unspecified J44.9 and Pain in right shoulder M25.511 [place] [id number] [place] [address] [id number] Jun, Chronic obstructive pulmonary disease, unspecified J44.9 [place] [id number] [place] [address] [id number] Mar, Hep C w/o coma, chronic B18.2 and Chronic obstructive pulmonary disease, unspecified J44.9 [place] [id number] [place] [address] [id number] Mar, Chronic obstructive pulmonary disease, unspecified J44.9 ; Impingement syndrome of left shoulder M75.42 and Hep C w/o coma, chronic B18.2 [place] [id number] [place] [address] [id number] Dec, Chronic obstructive pulmonary disease, unspecified J44.9 and Impingement syndrome of left shoulder M75.42 [place] [id number] [place] [address] [id number] Sep, Chronic obstructive pulmonary disease, unspecified J44.9 ; Encounter for immunization Z23 and Tremor, unspecified R25.1 [place] [id number] [place] [address] [id number] Aug, Tremor, unspecified R25.1 and Chronic obstructive pulmonary disease, unspecified J44.9 [place] [id number] [place] [address] [id number] Jul, Tremor 781.0 and COPD 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 [id number] Jun, COPD 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 and Tremor 781.0 [place] [id number] [place] [address] [id number] May, [address] [id number] May, Sinusitis 473.9 [facility] [place] [address] [facility] [address] [id number][place] 497005472 May, Sinusitis 473.9 ; Tobacco abuse 305.1 ; Irregular heart rhythm 427.9 and Cough 786.2 [facility] [address] [id number] [place] [address] May, [facility] [id number], [place] [id number] Apr, [facility] [address]00565100[place] [address] Apr, COPD 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 [facility] [place] [address] [facility] [address] [id number], [place] [id number] Apr, Respiratory distress 786.09 [facility] [place] [address] [place] [address] [id number] Mar, COPD 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 and Verruca 078.10 [facility] [address]005[address], [place] [address] Mar, [facility] [place] [address] [place] [address] [id number] Jan, Verruca 078.10 and [place] (actinic keratosis) 702.0 [facility] [place] [address] [place] [address] [id number] Jan, [facility] [id number] [place] [address] 2546 Jan, [facility] [address]00565[address], [place] [address] Jan, [facility] [address] [place] [address] [id number] Dec, [facility] [id number] [place] [address]- [address] Dec, [facility] [address] [place] [address] [id number] Nov, [facility] [address] [id number], [place] [address] Nov, [facility] [place] [facility] [address] [facility] [id number], [place] [address]- [address] Nov, [facility] [place] [address] [facility] [id number] [address] Oct, [facility] [place] [facility] [address] [facility] [id number], [place] [address]- [address] Oct, [facility] [place] [facility] [address] [facility] [id number], [place] [address]- 4698 Oct, [facility] [place] [address] [facility] [id number], [place] [id number] Oct, [facility] [place] [facility] [address] [facility] [id number], [place] [address]- [address] Oct, [facility] [place] [address] [id number], [place] 551[address]10 Oct, [facility] [place] [facility] [address] [facility] [id number], [place] [address]- 5[address] Oct, [facility] [place] [address] [facility] [id number], [place] [id number] Sep, [facility] [place] [facility] [address] [facility] [id number], [place] [address]- 8[address] Sep, [facility] [place] [address] [facility] [id number], [place] 140394501 Aug, [facility] [place] [address] [facility] [id number], [place] 896339812 Aug, [facility] [place] [facility] [address] [facility] [id number], [place] [address]- 244[address] Aug, [facility] [place] [facility] [address] [facility] [id number], [place] [address]- 95[address] Aug, [facility] [place] [address] [facility] [id number], [place] [id number] Jul, [facility] [place] [facility] [address] [facility] [id number], [place] [address]- [address] Jul, [facility] [place] [address] [id number] [place] [id number] Apr, [facility] [place] [facility] [address] [id number] [place] [address]- 6[address] Apr, [facility] [place] [facility] [address] [id number] [place] [address]- 2546 Apr, [facility] [place] [facility] [address] [id number] [place] [address]- 2546 Apr, [facility] [place] [address] [id number] [place] [id number] Apr, [facility] [place] [address] [id number] [place] [id number] Mar, [facility] [place] [facility] [address] [id number] [place] [address]- 1186 Mar, [facility] [place] [address] [id number] [place] [id number] February, [facility] [place] [facility] [address] [id number] [place] [address]- 6[address] February, [facility] [place] [address] [id number] [place] [id number] February, [facility] [place] [facility] [address] [id number] [place] [address]- 7876 February, [facility] [place] [address] [id number] [place] [id number] February, [facility] [place] [facility] [address] [id number] [place] [address]- 3636 February, [facility] [place] [facility] [address] [id number] [place] [address]- 1654 February, [facility] [place] [facility] [address] [id number] [place] [address]- 0999 February, [facility] [place] [facility] [address] [id number] [place] [address]- 1017 February, [facility] [place] [facility] [address] [facility] [id number] [address]- 0746 February, [facility] [place] [facility] [address] [facility] [id number] [place] [address]- 2146 February, [facility] [place] [facility] [address] [facility] [id number] [place] [address] 2546 February, [facility] [place] [facility] [address] [facility] [id number] [place] [address] 2546 Jan, [facility] [place] [facility] [address] [facility] [id number] [place] [address]- 2546 Jan, [facility] [place] [address] [facility] [id number], [place] [id number] Dec, [facility] [place] [facility] [address] [facility] [id number], [place] [address] 2546 Dec, [facility] [place] [address] [id number], [place] 573103372 Dec, [facility] [place] [facility] [address] [facility] [id number], [place] [address]- 9096 Dec, [facility] [place] [address] [facility] [id number], [place] 346077702 Nov, [facility] [place] [facility] [address] [facility] [id number], [place] [address]- 8646 Nov, [facility] [place] [address] [facility] [id number], [place] 159153258 Sep, [facility] [place] [facility] [address] [facility] [id number], [place] [address]- 2546 Sep, [facility] [place] [address] [facility] [id number], [place] 765409564 Sep, [facility] [place] [facility] [address] [facility] [id number] [place] [address]- 2546 Sep, [facility] [place] [address] [facility] [id number] [place] [id number] Jul, [facility] [place] [facility] [address] [facility] [id number], [place] [address]- 2546 Jul, [facility] [place] [address] [id number] [place] [id number] Jul, [facility] [address] [facility] [id number], [place] [address] Jul, [facility] [place] [address] [id number] [place] [id number] May, [facility] [place] [address] [id number] [place] 14[place]129 Apr, [facility] [place] [address] [id number] [place] [id number] Apr, [facility] [place] [address] [id number] [place] Mar, [facility] [place] [address] [id number] [place]204 Mar, [facility] [place] [address] [id number] [place] 6168927[address] February, [facility] [address] [id number] [place] [id number] Jan, [facility] [address] [id number] [place] 3[place] Dec, [facility] [address] [id number] [place] 6256279[address] Oct, [facility] [address] [id number] [place] [id number] Oct, [facility] [address] [id number] [place] [id number] Sep, [facility] [address] [facility] [id number], [place] [address]- 6027 Sep, [facility] [address] [id number] [place] 799397042 Aug, [facility] [address] [facility] [id number], [place] [address]- 0941 Aug, [facility] [address] [id number] [place] [id number] Aug, [facility] [address]005[address], [place] [address]- 1381 Aug, [facility] [place] [facility] [address] [facility] [id number], [place] [address]- 2546 May, [facility] [address] [facility] [id number] [place] [id number] May, [facility] [place] [facility] [address] [facility] [id number][place] [address]- 1476 Apr, [facility] [place] [facility] [id number] [place] [address]- 2546 Mar, [facility] [place] [facility] [address] [facility] [id number], [place] [address]- 2546 Mar, [facility] [address] [id number] [place] [id number] Mar, [facility] [address] [facility] [id number] [place] [id number] Jan, [facility] [address] [id number] [place] [id number] Dec, [facility] [address] [id number], [place] [address]- 9576 Nov, [facility] [address] [id number] [place] [id number] Nov, [facility] [place] [facility] [address]005[address], [place] [address] 2546 Sep, [facility] [place] [facility] [address]005[address], [place] [address]- 5546 Sep, [facility] [place] [facility] [address] [facility] [id number], [place] [address]- 5319 Aug, [facility] [place] [facility] [address] [facility] [id number], [place] [address]- 3117 Jul, [facility] [place] [facility] [address] [id number], [place] [address]- 5836 Jul, [facility] [place] [facility] [address] [id number], [place] [address]- 6305 Jul, [facility] [place] [facility] [address] [id number] [place] [address]- 2329 17 Jul, 2011 [facility] [place] [facility] [address] [id number] [place] [address]- 2813 14 Jun, 2011 [facility] [place] [facility] [address] [id number] [place] [address]- 2546 10 May, 2011 [facility] [place] [facility] [address] [id number] [place] [address]- 6614 13 Apr, 2011 [facility] [place] [facility] [address] [id number] [place] [address]- 8440 February, [facility] [place] [facility] [address] [id number] [place] [address]- 1381 17 Dec, 2010 [facility] [place] [facility] [address] [id number] [place] [address]- 0591 17 Oct, 2010 [facility] [place] [facility] [address] [id number] [place] [address]- 3416 06 Sep, 2010 [facility] [place] [facility] [address] [id number] [place] [address]- 0366 15 Aug, 2010 [facility] [place] [facility] [address] [id number] [place] [address]- 3906 08 Aug, 2010 [facility] [place] [facility] [address] [id number] [place] [address]- 4577 Sep, [facility] [place] [facility] [address] [id number] [place] [address]- 3949 Sep, [facility] [place] [facility] [address] [id number] [place] [address]- 8172 24 Aug, 2009 [facility] [place] [facility] [address] [id number] [place] [address]- 7935 18 Aug, 2009 [facility] [place] [facility] [address] [id number] [place] [address]- 2448 12 Aug, 2009 [facility] [place] [facility] [address] [id number] [place] [address]- 3355 Aug, IMMUNIZATIONS No Known Immunizations SOCIAL HISTORY Never Assessed REASON FOR VISIT Wanting results PLAN OF CARE VITAL SIGNS MEDICATIONS Unknown [...] L4 and L5 1986 Hospitalization History Syncope ([facility]) 02/2014 Hospitalization History was at [place] for falling and confusion/ then [facility] a [facility] for 21days 04/2017
--- OUTSIDE RECORDS SUMMARY | 2019-02-13 09:42 | XMS REPORT ---
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 992424933 Problem Nasal congestion R09.81 Active 06829224 Problem COPD exacerbation J44.1 Active 627071331 Problem Bipolar depression F31.30 Active 16798068 Problem 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 Active 359404392 Problem Irritable bowel syndrome with both constipation and diarrhea K58.2 Active 50966637 Problem Cervicalgia M54.2 Active 24579305 Problem Orthostatic hypotension 458.0 Active 62682251 Problem Bipolar depression 296.50 Active 64721153 Problem Personal history of colonic polyps V12.72 Active 768211110 Problem Dependence on machine for supplemental oxygen V46.2 Active 502196197653 Problem Impingement syndrome of left shoulder M75.42 Active 343880293 Problem Hep C w/o coma, chronic B18.2 Active 167119102 Problem Tremor, unspecified R25.1 Active 85349726 Problem Pain in right shoulder M25.511 Active 70842201 Problem Chronic obstructive pulmonary disease, unspecified J44.9 Active 938576762 Problem Chronic hepatitis C without hepatic coma B18.2 Active 422946623 ALLERGIES Substance Reaction Event Type Date Status Spiriva HandiHaler dec urination Drug Allergy Jun, Active Lomotil nausea Drug Allergy Jun, Active ENCOUNTERS Encounter Location Date Diagnosis [facility] [address] [facility] [id number] [id number] Jul, Nasal congestion R09.81 [facility] [address] [id number] [id number] Jun, COPD exacerbation J44.1 ; Acute nasopharyngitis J00 and Cervicalgia M54.[id number] [place] [address] [id number] May, Chronic obstructive pulmonary disease, unspecified J44.[address] [place] [address] [id number] February, Chronic obstructive pulmonary disease, unspecified J44.9 [place] [id number] [place] [address] [id number] February, Tremor, unspecified R25.1 ; Chronic obstructive pulmonary disease, unspecified J44.9 ; Cervicalgia M54.2 and Irritable bowel syndrome with both constipation and diarrhea K58.2 [place] [id number] [place] [address] [id number] Dec, Chronic obstructive pulmonary disease, unspecified J44.9 ; Cervicalgia M54.2 and Irritable bowel syndrome with both constipation and diarrhea K58.[address] [place] [address] [id number] Nov, Chronic obstructive pulmonary disease, unspecified J44.9 and Cervicalgia M54.2 [place] [id number] [place] [address] [id number] Jul, Chronic obstructive pulmonary disease, unspecified J44.9 ; Impingement syndrome of left shoulder M75.42 and Tremor, unspecified R25.[address] [id number] [id number] Jun, Diarrhea, unspecified type R19.7 [address] [address] Jun, Chronic obstructive pulmonary disease, unspecified J44.9 ; Encounter for immunization Z23 ; Tremor, unspecified R25.1 ; Diarrhea, unspecified type R19.7 ; Acute seasonal allergic rhinitis due to pollen J30.1 and Urinary frequency R35.[address] [place] [address] [id number] Jun, [id number] [id number] Jun, [facility] [place] [address] [id number][place] [address] May, Chronic obstructive pulmonary disease, unspecified J44.9 ; Tremor, unspecified R25.1 ; Hep C w/o coma, chronic B18.2 ; Bipolar depression F31.30 and 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 [facility] [place] [id number], [place] [id number] May, [facility] [address]00565[address] [address] Apr, Hep C w/o coma, chronic B18.2 [facility] [address] [place] [address] [id number] Jan, Chronic obstructive pulmonary disease, unspecified J44.9 ; 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 ; Tremor, unspecified R25.1 and 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 [facility] [address] [id number][place] [address] Jan, [facility] [address]00565100[place] [id number] Dec, Chronic obstructive pulmonary disease, unspecified J44.[address] [id number], [place] [id number] Dec, Hep C w/o coma, chronic B18.2 ; Chronic obstructive pulmonary disease, unspecified J44.9 ; Muscle weakness (generalized) M62.81 ; Inflammatory polyneuropathy, unspecified G61.9 and 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 [facility] [place] [id number] [address] Dec, Chronic hepatitis C without hepatic coma B18.2 [facility] [place] [id number], [place] [id number] Nov, [facility] [place] [id number] [id number] Oct, Actinic keratosis L57.0 [facility]00565[address] [id number] Oct, [facility] [id number], [place] [id number] Oct, Chronic obstructive pulmonary disease, unspecified J44.9 and Chronic hepatitis C without hepatic coma B18.2 [facility] [place] [address] [facility] [address] [id number], [place] [id number] Oct, Hep C w/o coma, chronic B18.2 [facility] [address] [id number], [place] [address] Sep, Hep C w/o coma, chronic B18.2 [facility] [id number] [place] [address]4941- 0101 Sep, [facility] [id number] [place] [address] 34141- 0994 Sep, [facility] [address] [facility] [address] [id number], [place] [id number] Sep, Chronic hepatitis C without hepatic coma B18.2 and Encounter for immunization Z23 [facility] [address] [place] [address] 32665- 9160 Aug, [facility] [address] [facility] [address] [id number], [place] [id number] Aug, Hep C w/o coma, chronic B18.2 [facility] [id number] [place] [address] 59998- 5771 Aug, Chronic hepatitis C without hepatic coma B18.2 [facility] [address]00565100[place], [place] [address] 9686 Jul, [facility] [id number] [place] [address] 62277- 0605 Jul, [facility] [address] [id number], [place] [id number] Jul, Hep C w/o coma, chronic B18.2 ; Chronic obstructive pulmonary disease, unspecified J44.9 and Pain in right shoulder M25.[address] [place] [address] [id number] Jun, Chronic obstructive pulmonary disease, unspecified J44.9 [place] [id number] [place] [address] [id number] Mar, Hep C w/o coma, chronic B18.2 and Chronic obstructive pulmonary disease, unspecified J44.9 [place] [id number] [place] [address] [id number] Mar, Chronic obstructive pulmonary disease, unspecified J44.9 ; Impingement syndrome of left shoulder M75.42 and Hep C w/o coma, chronic B18.2 [place] [id number] [place] [address] [id number] Dec, Chronic obstructive pulmonary disease, unspecified J44.9 and Impingement syndrome of left shoulder M75.42 [place] [id number] [place] [address] [id number] Sep, Chronic obstructive pulmonary disease, unspecified J44.9 ; Encounter for immunization Z23 and Tremor, unspecified R25.1 [place] [id number] [place] [address] [phone] Aug, Tremor, unspecified R25.1 and Chronic obstructive pulmonary disease, unspecified J44.9 [place] [id number] [place] [address] [id number] Jul, Tremor 781.0 and COPD 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 [facility] [address] [place] [address] [id number] Jun, COPD 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 and Tremor 781.[address] [place] [address] [id number] May, [place] [id number] [place] [address] [phone] May, Sinusitis 473.9 [facility] [id number] [facility] [id number] [address] May, Sinusitis 473.9 ; Tobacco abuse 305.1 ; Irregular heart rhythm 427.9 and Cough 786.2 [facility] [address] [id number] [address] May, [facility] [place] [id number], [place] [id number] Apr, [facility] [place] [id number], [place] [address] Apr, COPD 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 [facility] [address]00565100[place] [address] Apr, Respiratory distress 786.09 [facility] [place] [id number], [place] [id number] Mar, COPD 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 and Verruca 078.10 [facility] [address] [place] [address] 05179- 4682 Mar, [facility] [place] [address] [place] [address] [id number] Jan, Verruca 078.10 and AK (actinic keratosis) 702.0 [facility] [place] [address]00565100[place], [place] [id number] Jan, [facility] [id number] [place] [address] 00536- 3083 Jan, [facility] [address] [place] [address] 01657- 9248 Jan, [facility] [place] [address]00565100[place], [place] [address] Dec, [facility] [id number] [place] [address] [id number]- 2403 Dec, [facility] [place] [address]00565100[place], [place] [id number] Nov, [facility] [id number] [place] [address] [id number]- 1350 Nov, [facility] [address] [place] [address] 164920- 1869 Nov, [facility] [place] [id number] [place] [address], [place] [id number] Oct, [facility] [place] [facility] [address] [id number] [place] [address]- 3[address] Oct, [facility] [place] [facility] [address] [facility] [id number] [place] [address]- 9673 Oct, [facility] [place] [address] [facility] [id number] [place] [id number] Oct, [facility] [place] [facility] [address] [id number], [place] [address]- 2165 Oct, [facility] [place] [address] [id number] [place] 988[place]85[place] Oct, [facility] [place] [facility] [address] [facility] [id number] [place] [address]- 7393 Oct, [facility] [place] [address] [facility] [id number] [place] [id number] Sep, [facility] [place] [facility] [address] [facility] [id number], [place] [address]- 3407 Sep, [facility] [place] [address] [id number] [place] [id number] Aug, [facility] [place] [address] [facility] [id number] [place] [id number] Aug, [facility] [place] [facility] [address] [facility] [id number], [place] [address]- 7864 Aug, [facility] [place] [facility] [address] [facility] [id number], [place] [address]- 1593 Aug, [facility] [place] [address] [facility] [id number], [place] [id number] Jul, [facility] [place] [facility] [address] [facility] [id number], [place] [address]- 0186 Jul, [facility] [place] [address] [facility] [id number] [place] [id number] Apr, [facility] [place] [facility] [address] [facility] [id number] [place] [address]- 2542 Apr, [facility] [place] [facility] [address] [id number] [place] [address]- 9396 Apr, [facility] [place] [facility] [address] [id number] [place] [address]- 9567 Apr, [facility] [place] [address] [id number] [place] [id number] Apr, [facility] [place] [address] [id number] [place] [id number] Mar, [facility] [place] [facility] [address] [id number] [place] [address]- 9390 Mar, [facility] [place] [address] [id number] [place] [id number] February, [facility] [place] [facility] [address] [id number] [place] [address]- 5914 February, [facility] [place] [address] [id number] [place] [id number] February, [facility] [place] [facility] [address] [id number] [place] [address]- 0790 February, [facility] [place] [address] [id number] [place] [id number] February, [facility] [place] [facility] [address] [id number], [place] [address]- 1204 February, [facility] [place] [facility] [address] [id number] [place] [address]- 5023 February, [facility] [place] [facility] [address] [id number], [place] [address]- 1348 February, [facility] [place] [facility] [address] [id number] [place] [address]- 6521 February, [facility] [place] [facility] [address] [id number] [place] [address]50 February, [facility] [place] [facility] [address] [id number] [place] 8173 February, [facility] [place] [facility] [address] [id number], [place] [address] 2546 February, [facility] [place] [facility] [address] [id number] [place] [address]- 2546 Jan, [facility] [place] [facility] [address] [facility] [id number], [place] [address]- 2546 Jan, [facility] [place] [address] [id number] [place] [id number] Dec, [facility] [place] [facility] [address] [facility] [id number], [place] [address]- 2546 Dec, [facility] [place] [address] [id number] [place] [id number] Dec, [facility] [place] [facility] [address] [facility] [id number], [place] [address]- 2546 Dec, [facility] [place] [address] [id number] [place] [id number] Nov, [facility] [place] [facility] [address] [facility] [id number], [place] [address]- 2546 Nov, [facility] [place] [address] [id number], [place] [id number] Sep, [facility] [place] [facility] [address] [facility] [id number], [place] [address]- 2546 Sep, [facility] [place] [address] [id number], [place] [id number] Sep, [facility] [place] [facility] [address] [facility] [id number], [place] [address]- 2546 Sep, [facility] [address] [id number], [place] 729552765 Jul, [facility] [place] [facility] [address] [facility] [id number], [place] [address]- 2546 Jul, [facility] [place] [address] [id number], [place] 767125484 Jul, [facility] [place] [facility] [address] [facility] [id number], [place] [address]- 2546 Jul, [facility] [place] [address] [id number] [id number] May, [facility] [place] [address] [id number] [place] [id number] Apr, [facility] [place] [address] [id number] [place] 0[place]141 Apr, [facility] [place] [address] [id number] [place] 055439953 Mar, [facility] [place] [address] [id number] [place] 6[place]5523 Mar, [facility] [place] [address] [id number] [place] 020[place]24[place] February, [facility] [place] [address] [id number] [place] 955457492 Jan, [facility] [place] [address] [id number] [place] [id number] Dec, [facility] [place] [address] [id number] [place] 0448026[place] Oct, [facility] [place] [address] [id number] [place] [id number] Oct, [facility] [place] [address] [id number] [place] 080580187 Sep, [facility] [address]00565100[place], [place] [address]- 3916 Sep, [facility] [place] [address] [id number] [place] [id number] Aug, [facility] [address]00565100[place], [place] [address]- 3416 Aug, [facility] [address] [id number], [place] [id number] Aug, [facility] [address] [facility] [id number], [place] [address]- 9129 Aug, [facility] [address] [facility] [id number], [place] [address]- 8106 May, [facility] [address] [id number] [place] 1207006[address] May, [facility] [place] [facility] [address] [facility] [id number], [place] [address]- 3718 Apr, [facility] [place] [facility] [address] [facility] [id number], [place] [address]- 4141 Mar, [facility] [place] [facility] [address] [facility] [id number], [place] [address]- 2546 Mar, [facility] [place] [address] [facility] [id number], [place] [id number] Mar, [facility] [place] [address] [facility] [id number], [place] 538354061 Jan, [facility] [place] [address] [id number], [place] 709241537 Dec, [facility] [place] [facility] [address] [id number], [place] [address]- 2546 Nov, [facility] [place] [id number], [place] [id number] Nov, [facility] [place] [facility] [address] [id number], [place] [address]- 7683 Sep, [facility] [place] [facility] [address] [id number], [place] [address]- 4950 Sep, [facility] [place] [facility] [address] [id number], [place] 051325- 9599 Aug, [facility] [place] [facility] [address]00565100[place], [place] [address]- 9456 Jul, [facility] [place] [facility] [address] [id number], [place] [address]- 0058 Jul, [facility] [place] [facility] [address] [facility] [id number], [place] [address]- 8812 Jul, [facility] [place] [facility] [address] [facility] [id number], [place] [address]- 9963 Jul, [facility] [place] [facility] [address] [id number], [place] [address]- 9468 14 Jun, 2011 [facility] [place] [facility] [address]00565100[place], [place] [address]- 9077 May, [facility] [address]00565100[place], [place] [address]- 3317 Apr, [facility] [address]00565100[place], [place] [address]- 4427 February, [facility] [address]00565100[place], [place] [address]- 8239 Dec, [facility] [address]00565100[place], [place] [address]- 1469 Oct, [facility] [address] [place] [address] 83951- 5340 Sep, [facility] [address]00565100[place], [place] [address]- 9915 Aug, [facility] [address] [place] [address] 47720- 9759 Aug, [facility] [address]00565100[place], [place] [address]- 3221 Sep, [facility] [address]00565100[place], [place] 889[place]- 4202 Sep, [facility] [address]00565100[place], [place] [address]- 1530 Aug, [facility] [address]00565100[place], [place]- 2714 Aug, [facility] [address] [id number], [place] [address]- 4396 Aug, [facility] [address]00565100[place], [place] [address]- 4253 Aug, IMMUNIZATIONS No Known Immunizations SOCIAL HISTORY Never Assessed REASON FOR VISIT Pt c/o runny nose, cough, feeling increased SOB, currently using 4L of 02 Bud URIARTE PLAN OF CARE Activity Details Follow Up prn worwening Reason: VITAL SIGNS Height 68 in 2018-06-27 Weight 145.4 lbs 2018-06-27 Temperature 98.8 degrees Fahrenheit 2018-06-27 Heart Rate 100 bpm 2018-06-27 Respiratory Rate 16 2018-06-27 BMI 22.11 kg/m2 2018-06-27 Blood pressure systolic 100 mmHg 2018-06-27 Blood pressure diastolic 78 mmHg 2018-06-27 MEDICATIONS Medication Instructions Dosage Frequency Start Date End Date Duration Status Seroquel 300 MG Orally twice a day 1/2 tab am 1 1/2 tab hs 12h Active Valium 5 mg Orally Once a day at night 2 tablet Active Albuterol Sulfate (2.5 MG/3ML) 0.083% Inhalation Three times a day 3 ml as needed 8h Jun, Active Spiriva HandiHaler 18 MCG Inhalation Once a day as directed 24h Oct, Active Ipratropium-Albuterol 0.5-2.5 (3) MG/3ML Inhalation Four times a day USE ONE VIAL VIA NEBULIZER 6h Active ProAir HFA 108 (90 Base) MCG/ACT Inhalation every 4 hrs 2 puffs as needed 4h Mar, Active MiraLax - Orally Once a day 17 gm 24h Dec, Active Meclizine HCl 12.5 MG Orally twice a day 1 tablets as needed for dizzinenss 12h Nov, Active Nina-D 12 Hour 60-120 MG Orally Twice a day 1 tablet as needed 12h Jun, Active Advair Diskus 500-50 MCG/DOSE Inhalation Twice a day 1 puff 12h Mar, Active Zithromax Z-Maldonado 250 mg Orally Once a day 2 tab d 1 then 1 tab qd 24h Jun, Jun, 5 days Active Traction Kit - 10 # 12h Dec, Active Loperamide HCl 2 MG Orally 2 times a day 1 tablet as needed 12h Active Albuterol Sulfate (2.5 MG/3ML) 0.083% Inhalation Three times a day 3 ml as needed 8h Jun, Active Oxygen 3 by inhalation route 10/05 3 -4L w portable O2 and conserving device Jun, Active Zoloft 50 MG Orally Once a day 1 tablet 24h Active Medrol (Maldonado) 4 mg Orally as directed as directed Jun, Active Primidone 50 mg Orally Once a day 1 tablet 24h Jan, Active Benzonatate 100 mg Orally Three times a day 1 capsule as needed 8h 10 Jun, 2018 Active RESULTS No Results PROCEDURES Procedure Date Ordered Result Body Site [facility] VISIT ESTABLISHED PATIENT Jun 27, 2018 INSTRUCTIONS MEDICATIONS ADMINISTERED No Known Medications [...] L4 and L5 1986 Hospitalization History Syncope ([facility]) 02/2014 Hospitalization History was at [facility] for falling and confusion/ then went to a group home for 21days 04/2017
--- OUTSIDE RECORDS SUMMARY | 2019-02-13 09:42 | XMS REPORT ---
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 060134602 Problem Actinic keratosis L57.0 Active 420787841 Problem COPD exacerbation J44.1 Active 866151122 Problem Irritable bowel syndrome with both constipation and diarrhea K58.2 Active 78704870 Problem 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 Active 181031856 Problem Inflammatory polyneuropathy, unspecified G61.9 Active 71441153 Problem Cervicalgia M54.2 Active 93673396 Problem Bipolar depression F31.30 Active 86929080 Problem Dependence on machine for supplemental oxygen V46.2 Active 924202258917 Problem Orthostatic hypotension 458.0 Active 03764860 Problem Personal history of colonic polyps V12.72 Active 472918196 Problem Tremor, unspecified R25.1 Active 83120621 Problem Impingement syndrome of left shoulder M75.42 Active 440999597 Problem Bipolar depression 296.50 Active 97539773 Problem Hep C w/o coma, chronic B18.2 Active 240588044 Problem Chronic obstructive pulmonary disease, unspecified J44.9 Active 435360271 Problem Pain in right shoulder M25.511 Active 90750083 ALLERGIES No Information ENCOUNTERS Encounter Location Date Diagnosis [place] [id number] [place] [id number] Jun, COPD exacerbation J44.1 ; Acute nasopharyngitis J00 and Cervicalgia M54.2 [place] [address] [place] [id number] [place] [id number] May, Chronic obstructive pulmonary disease, unspecified J44.9 [facility] [id number] [place] [address] [id number] February, Chronic obstructive pulmonary disease, unspecified J44.9 [place] [id number] [place] [address] [id number] February, Tremor, unspecified R25.1 ; Chronic obstructive pulmonary disease, unspecified J44.9 ; Cervicalgia M54.2 and Irritable bowel syndrome with both constipation and diarrhea K58.2 [place] [id number] [place] [address] [id number] Dec, Chronic obstructive pulmonary disease, unspecified J44.9 ; Cervicalgia M54.2 and Irritable bowel syndrome with both constipation and diarrhea K58.2 [place] [id number] [place] [address] [id number] Nov, Chronic obstructive pulmonary disease, unspecified J44.9 and Cervicalgia M54.2 [place] [id number] [place] [address] [id number] Jul, Chronic obstructive pulmonary disease, unspecified J44.9 ; Impingement syndrome of left shoulder M75.42 and Tremor, unspecified R25.[address] [id number] [address] Jun, Diarrhea, unspecified type R19.7 [id number] [place] [address] [id number] Jun, Chronic obstructive pulmonary disease, unspecified J44.9 ; Encounter for immunization Z23 ; Tremor, unspecified R25.1 ; Diarrhea, unspecified type R19.7 ; Acute seasonal allergic rhinitis due to pollen J30.1 and Urinary frequency R35.0 [address] [place] [address] [id number] Jun, [place] [id number] [place] [address] [id number] Jun, [place] [id number] [place] [address] [id number] May, Chronic obstructive pulmonary disease, unspecified J44.9 ; Tremor, unspecified R25.1 ; Hep C w/o coma, chronic B18.2 ; Bipolar depression F31.30 and 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 [facility] [id number] [place] [id number] May, [facility] [address]00565100[place] [address] Apr, Hep C w/o coma, chronic B18.2 [facility] [id number] [place] [id number] Jan, Chronic obstructive pulmonary disease, unspecified J44.9 ; 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 ; Tremor, unspecified R25.1 and 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 [facility] [address] [id number] [id number] Jan, [facility] [place] [id number] [place] [id number] Dec, Chronic obstructive pulmonary disease, unspecified J44.9 [facility] [address] [id number][place] [id number] Dec, Hep C w/o coma, chronic B18.2 ; Chronic obstructive pulmonary disease, unspecified J44.9 ; Muscle weakness (generalized) M62.81 ; Inflammatory polyneuropathy, unspecified G61.9 and 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 [facility] [place] [id number] [place] [id number] Dec, Chronic hepatitis C without hepatic coma B18.2 [facility] [id number] [place] [id number] Nov, [facility] [place] [id number] [place] [id number] Oct, Actinic keratosis L57.0 [facility] [id number] [place] [id number] Oct, [facility] [id number] [place] [id number] Oct, Chronic obstructive pulmonary disease, unspecified J44.9 and Chronic hepatitis C without hepatic coma B18.[address] [facility] [address] [id number][place] [id number] Oct, Hep C w/o coma, chronic B18.2 [facility] [address]00565100[place], [place] [address] 6[address] Sep, Hep C w/o coma, chronic B18.2 [facility] [address] [place] [id number] [place] [address] 16267- 6992 Sep, [facility] [address] [place] [address] [id number] [place] [address] 64883- 3461 Sep, [facility] [id number] [place] [address] [id number] Sep, Chronic hepatitis C without hepatic coma B18.2 and Encounter for immunization Z23 [facility] [address] [place] [address] 17168- 7474 Aug, [facility] [address] [id number], [place] [id number] Aug, Hep C w/o coma, chronic B18.2 [facility] [address] [place] [id number] [place] [address] 16817- 7487 Aug, Chronic hepatitis C without hepatic coma B18.2 [facility] [address] [place] [address] 45162- 4034 Jul, [facility] [address] [place] [id number] [place] [address] 19308- 0587 Jul, [facility] [id number] [place] [address] [id number] Jul, Hep C w/o coma, chronic B18.2 ; Chronic obstructive pulmonary disease, unspecified J44.9 and Pain in right shoulder M25.511 [facility] [id number] [place] [address] [id number] Jun, Chronic obstructive pulmonary disease, unspecified J44.9 [facility] [id number] [place] [address] [id number] Mar, Hep C w/o coma, chronic B18.2 and Chronic obstructive pulmonary disease, unspecified J44.9 [address] [place] [address] [id number] Mar, Chronic obstructive pulmonary disease, unspecified J44.9 ; Impingement syndrome of left shoulder M75.42 and Hep C w/o coma, chronic B18.2 [address] [place] [address] [id number] Dec, Chronic obstructive pulmonary disease, unspecified J44.9 and Impingement syndrome of left shoulder M75.42 [place] [id number] [place] [address] [id number] Sep, Chronic obstructive pulmonary disease, unspecified J44.9 ; Encounter for immunization Z23 and Tremor, unspecified R25.1 [place] [id number] [place] [address] [id number] Aug, Tremor, unspecified R25.1 and Chronic obstructive pulmonary disease, unspecified J44.9 [place] [id number] [place] [address] [id number] Jul, Tremor 781.0 and COPD 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 [place] [id number] [place] [address] [id number] Jun, COPD 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 and Tremor 781.0 [address] [place] [address] [id number] May, [place] [id number] [place] [address] [id number] May, Sinusitis 473.9 [place] [address] [facility] [id number] [id number] May, Sinusitis 473.9 ; Tobacco abuse 305.1 ; Irregular heart rhythm 427.9 and Cough 786.2 [facility] [address]00565100[place] [id number] May, [address] [place] [address] [id number] Apr, [place] [id number] [place] [address] [id number] Apr, COPD 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 [facility] [place] [address] [id number] [id number] Apr, Respiratory distress 786.09 [facility] [place] [id number] [place] [id number] Mar, COPD 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 and Verruca 078.10 [facility] [address] [place] [address] 30925- 9926 Mar, [facility] [place] [id number] [place] [id number] Jan, Verruca 078.10 and [place] (actinic keratosis) 702.0 [facility] [place] [id number] [place] [address] [id number] Jan, [facility] [address] [place] [address] 36913- 4656 Jan, [facility] [address] [place] [address] 67752- 6006 Jan, [facility] [place] [id number] [place] [address] [id number] Dec, [facility] [address] [place] [address] 26515- 8116 Dec, [facility] [place] [address]005[address]100[address] [place] [id number] Nov, [facility] [address]00565100[place], [place] [address] 9496 Nov, [facility] [address] [place] [address] 72751- 1676 Nov, [facility] [place] [id number] [place] [address] [id number] Oct, [facility] [address]005[address]100[place], [place] [address] 0[address] Oct, [facility] [address] [place] [id number] [place] [address] 98718- 8455 Oct, [facility] [place] [address] [id number] [place] [id number] Oct, [facility] [place] [facility] [address] [id number] [place] [address]- 7843 Oct, [facility] [place] [address] [id number] [place] [id number] Oct, [facility] [place] [facility] [address] [facility] [id number], [place] [address]- 5868 Oct, [facility] [place] [address] [id number] [place] [id number] Sep, [facility] [place] [facility] [address] [facility] [address] [id number], [place] [address]- 6288 Sep, [facility] [place] [address] [facility] [id number] [place] [id number] Aug, [facility] [place] [address] [facility] [id number] [place] [id number] Aug, [facility] [place] [facility] [address] [facility] [address] [id number], [place] [address]- 5596 Aug, [facility] [place] [facility] [address] [facility] [address] [id number], [place] [address]- 6923 Aug, [facility] [place] [address] [facility] [id number] [place] [id number] Jul, [facility] [place] [facility] [address] [facility] [address] [id number], [place] [address]- 8697 Jul, [facility] [place] [address] [facility] [id number] [place] [id number] Apr, [facility] [place] [facility] [address] [facility] [address] [id number], [place] [address]- 8783 Apr, [facility] [place] [facility] [address] [facility] [address] [id number], [place] [address]- 6704 Apr, [facility] [place] [facility] [address] [facility] [address] [id number], [place] [address]- 0924 Apr, [facility] [place] [address] [facility] [id number] [place] [id number] Apr, [facility] [place] [address] [id number] [place] [id number] Mar, [facility] [address] [id number] [place] [address]- 2546 Mar, [facility] [place] [address] [id number] [place] [id number] February, [facility] [place] [facility] [address] [id number] [place] [address]- 1276 February, [facility] [place] [address] [id number] [place] [id number] February, [facility] [place] [facility] [address] [id number] [place] [address]- 8766 February, [facility] [place] [address] [id number] [place] [id number] February, [facility] [place] [facility] [address] [id number] [place] [address]- 6016 February, [facility] [place] [facility] [address] [id number] [place] [address]- 8723 February, [facility] [place] [facility] [address] [id number] [place] [address]- 2440 February, [facility] [place] [facility] [address] [id number] [place] [address]- 5679 February, [facility] [place] [facility] [address] [id number] [place] [address]- 8456 February, [facility] [place] [facility] [address] [id number] [place] [address]- 8050 February, [facility] [place] [facility] [address] [id number] [place] [address]- 7125 February, [facility] [place] [facility] [address] [id number] [place] [address]- 1476 Jan, [facility] [place] [facility] [address] [id number] [place] [address]- 1377 Jan, [facility] [place] [address] [id number] [place] [id number] Dec, [facility] [address] [facility] [address] [id number], [place] [address]- 1276 Dec, [facility] [place] [address] [id number] [place] [id number] Dec, [facility] [address] [facility] [address] [id number], [place] [address]- 4782 Dec, [facility] [place] [address] [id number] [place] [id number] Nov, [facility] [address] [facility] [address] [id number], [place] [address]- 7536 Nov, [facility] [place] [address] [facility] [id number] [place] [id number] Sep, [facility] [address]005[address], [place] [address]- 5252 Sep, [facility] [place] [address] [id number] [place] [id number] Sep, [facility] [address] [facility] [address] [id number], [place] [address]- 1576 Sep, [facility] [place] [address] [facility] [id number] [place] [id number] Jul, [facility] [address] [facility] [address] [id number], [place] [address]- 9026 Jul, [facility] [place] [address] [id number] [place] [id number] Jul, [facility] [address] [facility] [address] [id number], [place] [address]- 2546 Jul, [facility] [place] [address] [id number] [place] [id number] May, [facility] [place] [address] [id number] [place] [id number] Apr, [facility] [place] [address] [id number] [place] [id number] Apr, [facility] [place] [address] [id number] [place] [id number] Mar, [facility] [place] [address] [id number] [id number] Mar, [facility] [place] [address] [id number] [place] [id number] February, [facility] [place] [address] [id number] [place] [id number] Jan, [facility] [place] [address] [id number] [id number] Dec, [facility] [place] [address] [id number] [place] [id number] Oct, [facility] [place] [address] [id number] [id number] Oct, [facility] [place] [address] [id number] [place] [address] Sep, [facility] [address]005[address], [place] [address]- 3116 Sep, [facility] [place] [address] [id number] [place] [id number] Aug, [facility] [address]005[address]100[place], [place] [address]- 4306 Aug, [facility] [place] [address] [id number] [place] [id number] Aug, [facility] [address]005[address]100[place], [place] [address] 2546 Aug, [facility] [place] [facility] [address] [facility] [address] [id number], [place] [address]- 2546 May, [facility] [address] [id number] [place] 844787398 May, [facility] [place] [facility] [address] [place] [address] [id number], [place] [address]- 2546 Apr, [facility] [place] [facility] [address]005[address], [place] [address]- 5576 Mar, [facility] [place] [facility] [address] [place] [address] [id number], [place] [address]- 2546 Mar, [facility] [place] [address] [id number] [place] 24[address] Mar, [facility] [address] [id number] [place] [id number] Jan, [facility] [address] [id number] [place] [id number] Dec, [facility] [place] [facility] [address] [facility] [id number] [place] [address] 52595- 2546 Nov, [facility] [place] [address] [id number] [place] [id number] Nov, [facility] [place] [facility] [address] [place] [address] [id number] [place] [address] 46415- 6116 Sep, [facility] [place] [facility] [address] [address] [id number], [place] [address]- 5637 Sep, [facility] [place] [facility] [address] [place] [address] [id number] [place] [address] 23264- 6912 Aug, [facility] [place] [facility] [address]005[address], [place] [address]- 7662 Jul, [facility] [place] [facility] [id number] [place] [address] 06465- 9456 Jul, [facility] [place] [facility] [address]100[place], [place] [address]- 5033 Jul, [facility] [place] [facility] [address], [place] [address]- 2126 Jul, [facility] [place] [facility] [address] [facility] [address] [id number], [place] [address]- 9919 Jun, [facility] [place] [facility] [address] [place] [id number] [place] [address] 95299- 2546 May, [facility] [place] [facility] [address] [place] [address] [id number], [place] [address]- 2546 Apr, [facility] [place] [facility] [address] [id number] [place] [address] 04013- 1276 February, [facility] [address]005[address], [place] [address]- 0569 Dec, [facility] [address]005[address], [place] [address]- 5466 Oct, [facility] [address]005[address], [place] [address]- 3667 Sep, [facility] [address], [place] [address]- 9249 Aug, [facility] [address], [place] [address]- 0119 Aug, [facility] [address] [place] [address] 41710- 4883 Sep, [facility] [address], [place] [address]- 3519 Sep, [facility] [address], [place] [address]- 0155 Aug, [facility] [address]- 9344 Aug, [facility] [address]005[address], [place] [address]- 3384 Aug, [facility] [address] [address]- 2218 Aug, IMMUNIZATIONS No Known Immunizations SOCIAL HISTORY Never Assessed REASON FOR VISIT Medication refill PLAN OF CARE VITAL SIGNS MEDICATIONS Medication Instructions Dosage Frequency Start Date End Date Duration Status ProAir HFA 108 (90 Base) MCG/ACT Inhalation every 4 hrs 2 puffs as needed 4h Mar, 0 days Active RESULTS No Results PROCEDURES No [...] L4 and L5 1986 Hospitalization History [facility] ([facility]) 02/2014 Hospitalization History was at [facility] for falling and confusion/ [facility]2017
--- OUTSIDE RECORDS SUMMARY | 2019-02-13 09:43 | XMS REPORT ---
Author Author MEGHAN QUAN Organization [facility] Address [address] [place] [address] Care Team Providers Care Body Shop Technician Name Role Phone MEGHAN QUAN Unavailable PROBLEMS Type Condition ICD9-CM Code WEW75-GD Code Onset Dates Condition Status SNOMED Code Problem Pain in right shoulder M25.511 Active 08503003 Problem Actinic keratosis L57.0 Active 607340142 Problem Chronic hepatitis C without hepatic coma B18.2 Active 554611074 Problem Irritable bowel syndrome with both constipation and diarrhea K58.2 Active 69930208 Problem Cervicalgia M54.2 Active 04756296 Problem Inflammatory polyneuropathy, unspecified G61.9 Active 51005049 Problem 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 421019891 Problem Bipolar depression F31.30 Active 95622059 Problem 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 Active 483040781 Problem Personal history of colonic polyps V12.72 Active 455819021 Problem Dependence on machine for supplemental oxygen V46.2 Active 446660021517 Problem Chronic obstructive pulmonary disease, unspecified J44.9 Active 184554032 Problem Tremor, unspecified R25.1 Active 33903605 Problem Orthostatic hypotension 458.0 Active 86484766 Problem Impingement syndrome of left shoulder M75.42 Active 711364997 Problem Bipolar depression 296.50 Active 09385942 Problem Hep C w/o coma, chronic B18.2 Active 670835056 ALLERGIES Substance Reaction Event Type Date Status Spiriva HandiHaler dec urination Drug Allergy February, Active Lomotil nausea Drug Allergy February, Active ENCOUNTERS Encounter Location Date Diagnosis [facility] [address] [facility] [id number] [id number] February, Chronic obstructive pulmonary disease, unspecified J44.9 [facility] [address] [facility] [id number] [address] February, Tremor, unspecified R25.1 ; Chronic obstructive pulmonary disease, unspecified J44.9 ; Cervicalgia M54.2 and Irritable bowel syndrome with both constipation and diarrhea K58.2 [facility] [id number] [place] [address] [id number] Dec, Chronic obstructive pulmonary disease, unspecified J44.9 ; Cervicalgia M54.2 and Irritable bowel syndrome with both constipation and diarrhea K58.2 [facility] [id number] [place] [address] [id number] Nov, Chronic obstructive pulmonary disease, unspecified J44.9 and Cervicalgia M54.2 [facility] [id number] [place] [address] [id number] Jul, Chronic obstructive pulmonary disease, unspecified J44.9 ; Impingement syndrome of left shoulder M75.42 and Tremor, unspecified R25.1 [address]005[address] [id number] Jun, Diarrhea, unspecified type R19.7 [facility] [id number] [place] [address] [id number] Jun, Chronic obstructive pulmonary disease, unspecified J44.9 ; Encounter for immunization Z23 ; Tremor, unspecified R25.1 ; Diarrhea, unspecified type R19.7 ; Acute seasonal allergic rhinitis due to pollen J30.1 and Urinary frequency R35.0 [facility] [id number] [place] [address] [id number] Jun, [place] [id number] [place] [address] [id number] Jun, [facility] [id number] [place] [address] [id number] May, Chronic obstructive pulmonary disease, unspecified J44.9 ; Tremor, unspecified R25.1 ; Hep C w/o coma, chronic B18.2 ; Bipolar depression F31.30 and 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 [facility] [address] [place] [address] [id number] May, [facility] [id number] [place] [address]40- 8294 Apr, Hep C w/o coma, chronic B18.2 [facility] [address] [id number] [id number] Jan, Chronic obstructive pulmonary disease, unspecified J44.9 ; 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 [facility] [address] [id number] [address] Dec, Chronic hepatitis C without hepatic coma B18.2 [facility] [id number] [place] [address] [id number] Nov, [facility] [address]00565100[place] [id number] Oct, Actinic keratosis L57.0 [facility] [address]00565100[place] [id number] Oct, [facility] [address] [address] [id number] [id number] Oct, Chronic obstructive pulmonary disease, unspecified J44.9 and Chronic hepatitis C without hepatic coma B18.2 [facility] [place] [address] [facility] [facility] [address] [id number] [place] [id number] Oct, Hep C w/o coma, chronic B18.2 [facility] [address] [id number] [address] Sep, Hep C w/o coma, chronic B18.2 [facility] [address]00565100[place] [address] Sep, [facility] [id number] [place] [address] 19301- 3834 Sep, [facility] [place] [address] [place] [address] AVE [id number] [place] [id number] Sep, Chronic hepatitis C without hepatic coma B18.2 and Encounter for immunization Z23 [facility] [address]00565100[place] [address] Aug, [facility] [address] [facility] [facility] [id number] [place] [address] [id number] Aug, Hep C w/o coma, chronic B18.2 [facility] [address] [place] [address] 00982- 9791 Aug, Chronic hepatitis C without hepatic coma B18.2 [facility] [address] [place] [address] 57478- 1228 Jul, [facility] [id number] [place] [address] 79703- 5001 Jul, [address] [place] [address] [id number] Jul, Hep C w/o coma, chronic B18.2 ; Chronic obstructive pulmonary disease, unspecified J44.9 and Pain in right shoulder M25.511 [facility] [id number] [place] [address] [id number] Jun, Chronic obstructive pulmonary disease, unspecified J44.9 [address] [address] [id number] [place] [address] [id number] Mar, Hep C w/o coma, chronic B18.2 and Chronic obstructive pulmonary disease, unspecified J44.9 [place] [id number] [place] [address] [id number] Mar, Chronic obstructive pulmonary disease, unspecified J44.9 ; Impingement syndrome of left shoulder M75.42 and Hep C w/o coma, chronic B18.2 [facility] [id number] [place] [address] [id number] Dec, Chronic obstructive pulmonary disease, unspecified J44.9 and Impingement syndrome of left shoulder M75.42 [facility] [id number] [place] [address] [id number] Sep, Chronic obstructive pulmonary disease, unspecified J44.9 ; Encounter for immunization Z23 and Tremor, unspecified R25.1 [facility] [id number] [place] [address] [id number] Aug, Tremor, unspecified R25.1 and Chronic obstructive pulmonary disease, unspecified J44.9 [address] [id number] [place] [address] [id number] Jul, Tremor 781.0 and COPD 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 [place] [address] [phone] Jun, COPD 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 and Tremor 781.0 [place] [address] [id number] [place] [address] [id number] May, [place] [address] [id number] [place] [address] [id number] May, Sinusitis 473.9 [place] [address] [place] [address] [id number] May, Sinusitis 473.9 ; Tobacco abuse 305.1 ; Irregular heart rhythm 427.9 and Cough 786.[address]00565[address] [id number] May, [address] [place] [address] [id number] Apr, [place] [address] [id number] [place] [address] [phone] Apr, COPD 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 [facility] [address] [facility] [id number] [place] [phone] Apr, Respiratory distress 786.09 [address] [id number] [place] [address] [id number] Mar, COPD 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 and Verruca 078.10 [facility] [place] [facility] [address]00565100[place] [address] Mar, [facility] [id number] [place] [address] [id number] Jan, Verruca 078.10 and [place] (actinic keratosis) 702.0 [facility] [id number] [place] [address] [id number] Jan, [facility] [id number] [place] [address] 29843- 3576 Jan, [facility] [id number] [place] [address] 01615- 4256 Jan, [facility] [address] [place] [address] [id number] Dec, [facility] [id number] [place] [address] 96189- 3056 Dec, [facility] [id number] [place] [address] [id number] Nov, [facility] [id number] [place] [address] 20378- 5286 Nov, [facility] [address]00565100[place] [address]- 8966 Nov, [facility] [id number] [place] [address] [id number] Oct, [facility] [address]00565100[place] [address]- 3736 Oct, [facility] [address] [place] [address] 32657- 9276 Oct, [facility] [id number] [id number] Oct, [facility] [address]00565100[place] [address]- 2586 Oct, [facility] [address] [id number] [place] [id number] Oct, [facility] [place] [facility] [address] [id number] [place] [address]- 7946 Oct, [facility] [address] [id number] [place] [id number] Sep, [facility] [place] [facility] [address] [facility] [id number] [address]- 4686 Sep, [facility] [address] [id number] [place] [id number] Aug, [facility] [address] [id number] [place] [id number] Aug, [facility] [place] [facility] [address] [facility] [id number] [place] [address]- 8546 Aug, [facility] [place] [facility] [address] [facility] [id number] [place] [address]- 0153 Aug, [facility] [address] [facility] [id number] [id number] Jul, [facility] [place] [facility] [address] [facility] [id number] [place] [address]- 2215 Jul, [facility] [address] [facility] [id number][place] [id number] Apr, [facility] [place] [facility] [address] [facility] [id number] [place] [address]- 7304 Apr, [facility] [place] [facility] [address] [facility] [id number] [place] [address]- 9816 Apr, [facility] [place] [facility] [address] [facility] [id number] [place] [address]- 8136 Apr, [facility] [address] [id number] [place] [id number] Apr, [facility] [address] [facility] [id number] [place] [id number] Mar, [facility] [place] [facility] [address] [facility] [id number] [place] [address]- 4608 Mar, [facility] [address] [id number] [place] [id number] February, [facility] [address] [id number] [place] [address]- 5206 February, [facility] [address] [id number] [id number] February, [facility] [address] [id number] [place] [address]- 1754 February, [facility] [address] [id number] [place] [id number] February, [facility] [place] [facility] [address] [id number] [place] [address]- 4589 February, [facility] [place] [facility] [address] [id number] [place] [address]- 9448 February, [facility] [place] [facility] [address] [id number] [place] [address]- 9856 February, [facility] [place] [facility] [address] [id number] [place] [address]- 6804 February, [facility] [place] [facility] [address] [id number] [place] [address]- 4057 February, [facility] [place] [facility] [address] [id number] [place] [address]- 0461 February, [facility] [place] [facility] [address] [id number] [place] [address]- 3305 February, [facility] [place] [facility] [address] [id number] [place] [address]- 2047 Jan, [facility] [place] [facility] [address] [id number] [place] [address]- 8595 Jan, [facility] [address] [id number] [place] [id number] Dec, [facility] [place] [facility] [address] [id number] [place] [address]- 6456 Dec, [facility] [address] [id number] [place] [id number] Dec, [facility] [address] [facility] [id number] [place] [address]- 1034 Dec, [facility] [address] [id number] [place] [id number] Nov, [facility] [address] [facility] [id number] [place] [address]- 8496 Nov, [facility] [address] [id number][place] [id number] Sep, [facility] [address] [facility] [id number] [place] [address]- 6469 Sep, [facility] [address] [id number][place] [id number] Sep, [facility] [address] [id number] [address]- 2232 Sep, [facility] [address] [id number], [place] [address] Jul, [facility] [address] [facility] [id number] [place] [address]- 5557 Jul, [facility] [address] [id number] [id number] Jul, [facility] [address] [facility] [id number] [place] [address]- 6452 Jul, [facility] [address] [id number], [place] [id number] May, [facility] [address] [id number] [place] [address] Apr, [facility] [address] [id number] [place] 43416[address] Apr, [facility] [address] [id number] [place] [id number] Mar, [facility] [address] [id number] [place] 855[place]443 Mar, [facility] [address] [id number] [place] 512[address]93[address] February, [facility] [address] [id number] [place] [address] Jan, [facility] [address] [id number] [place] 76[address]87[address] Dec, [facility] [address] [id number] [place] 6[place] Oct, [facility] [address] [id number] [place] [id number] Oct, [facility] [address] [id number] [place] [address]201594[address] Sep, [facility] [address] [facility] [id number] [place] [address]- 2546 Sep, [facility] [address] [id number] [place] [address]306[address] Aug, [facility] [place] [facility] [address]00565100[place] [address]- 3586 Aug, [facility] [address] [facility] [id number] Aug, [facility] [place] [facility] [address]00565100[place] [address]- 3322 Aug, [facility] [place] [facility] [address] [id number] [address]- 4826 May, [facility] [address] [facility] [id number], [place] [address] May, [facility] [place] [facility] [address] [facility] [id number] [place] [address]- 1637 Apr, [facility] [place] [facility] [address] [facility] [id number] [place] [address]- 6311 Mar, [facility] [place] [facility] [address] [facility] [id number] [place] [address]- 0976 Mar, [facility] [address] [id number], [place] 711447177 Mar, [facility] [address] [id number] [id number] Jan, [facility] [address] [id number] [place] 391650331 Dec, [facility] [address] [id number] [place] [address]- 2546 Nov, [facility] [address] [id number] [place] [id number] Nov, [facility] [place] [facility] [address] [id number] [place] [address]- 2546 Sep, [facility] [place] [facility] [address] [id number] [place] [address]- 2546 Sep, [facility] [place] [facility] [address] [id number] [place] [address]- 2084 Aug, [facility] [place] [facility] [address] [facility] [id number] [place] [address]- 0876 Jul, [facility] [place] [facility] [address] [facility] [id number] [place] [address]- 6213 Jul, [facility] [place] [facility] [address] [id number] [place] [address]- 8148 Jul, [facility] [place] [facility] [address] [id number] [place] [address]- 1156 Jul, [facility] [place] [facility] [address] [facility] [id number] [place] [address]- 8856 Jun, [facility] [place] [facility] [address] [id number] [place] [address]- 2546 May, [facility] [place] [facility] [address] [id number] [place] [address]- 2546 Apr, [facility] [place] [facility] [address] [id number] [place] [address]- 2546 February, [facility] [place] [facility] [address] [facility] [id number] [place] [address]- 2546 Dec, [facility] [place] [facility] [address] [id number] [place] [address]- 6727 Oct, [facility] [address] [id number]- 2710 Sep, [facility] [address]00565100[place] [address] Aug, [facility] [address]00565100[place]- 8727 Aug, [facility] [address]00565100[place] [address]- 0482 Sep, [facility] [address]00565100[place] [address]- 1806 Sep, [facility] [id number] [place] [address] 68274- 8579 Aug, [facility] [address]00565100[place] [address]- 9634 Aug, [facility] [address]00565100[place] [address]- 4453 Aug, [facility] [address] [id number] [address]- 3693 Aug, IMMUNIZATIONS No Known Immunizations SOCIAL HISTORY Never Assessed REASON FOR VISIT Oxygen Recertification [facility] PLAN OF CARE Activity Details Follow Up prn Reason: VITAL SIGNS Height 68 in 2018-03-03 Weight 149.2 lbs 2018-03-03 Temperature 98.8 degrees Fahrenheit 2018-03-03 Heart Rate 88 bpm 2018-03-03 Respiratory Rate 18 2018-03-03 Oximetry w/ oxygen:96 % 2018-03-03 BMI 22.68 kg/m2 2018-03-03 Blood pressure systolic 110 mmHg 2018-03-03 Blood pressure diastolic 68 mmHg 2018-03-03 MEDICATIONS Medication Instructions Dosage Frequency Start Date End Date Duration Status Advair Diskus 500-50 MCG/DOSE Inhalation Twice a day 1 puff 12h Mar, Active Seroquel 300 MG Orally twice a day 1/2 tab am 1 1/2 tab hs 12h Active Oxygen 3 by inhalation route 10/05 3 -4L w portable O2 and conserving device Jun, Active Ipratropium-Albuterol 0.5-2.5 (3) MG/3ML Inhalation Four times a day USE ONE VIAL VIA NEBULIZER 6h Active ZyrTEC 10 mg Orally Once a day 1 tablet 24h Jun, Active Traction Kit - 10 # 12h Dec, Active MiraLax - Orally Once a day 17 gm 24h Dec, Active Methocarbamol 500 mg Orally 3 times a day prn 1tablets Nov, Active Valium 5 mg Orally Once a day at night 2 tablet Active Zoloft 50 MG Orally Once a day 1 tablet 24h Active Primidone 50 mg Orally Once a day 1.5 tablet 24h Jan, 0 days Active ProAir HFA 108 (90 Base) MCG/ACT Inhalation every 4 hrs 2 puffs as needed 4h 08 Mar, 2015 Active Spiriva HandiHaler 18 MCG Inhalation Once a day as directed 24h Oct, Active Meclizine HCl 12.5 MG Orally twice a day 1 tablets as needed for dizzinenss 12h Nov, Active Loperamide HCl 2 MG Orally 2 times a day 1 tablet as needed 12h Active RESULTS No Results PROCEDURES Procedure Date Ordered Result Body Site [facility] VISIT ESTABLISHED PATIENT March 03, 2018 INSTRUCTIONS MEDICATIONS ADMINISTERED No Known Medications [...] L4 and L5 1986 Hospitalization History Syncope ([facility]) 02/2014 Hospitalization History was at [facility] for falling and confusion/ then [facility] 04/2017
--- OUTSIDE RECORDS SUMMARY | 2019-02-13 09:43 | XMS REPORT ---
Author Author MEGHAN QUAN Organization [facility] Address [address] [place] [address] Care Team Providers Care Drilling Assistant Name Role Phone MEGHAN QUAN Unavailable PROBLEMS Type Condition ICD9-CM Code ZQV66-VF Code Onset Dates Condition Status SNOMED Code Problem Pain in right shoulder M25.511 Active 92563783 Problem Actinic keratosis L57.0 Active 225147441 Problem Chronic hepatitis C without hepatic coma B18.2 Active 559988322 Problem Irritable bowel syndrome with both constipation and diarrhea K58.2 Active 28407206 Problem Cervicalgia M54.2 Active 69839668 Problem Inflammatory polyneuropathy, unspecified G61.9 Active 12424227 Problem 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 008569237 Problem Bipolar depression F31.30 Active 57456612 Problem 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 Active 189437084 Problem Personal history of colonic polyps V12.72 Active 922027655 Problem Dependence on machine for supplemental oxygen V46.2 Active 458615375763 Problem Chronic obstructive pulmonary disease, unspecified J44.9 Active 338981924 Problem Tremor, unspecified R25.1 Active 62226519 Problem Orthostatic hypotension 458.0 Active 95333505 Problem Impingement syndrome of left shoulder M75.42 Active 385112552 Problem Bipolar depression 296.50 Active 21333196 Problem Hep C w/o coma, chronic B18.2 Active 526816316 ALLERGIES Substance Reaction Event Type Date Status Spiriva HandiHaler dec urination Drug Allergy February, Active Lomotil nausea Drug Allergy February, Active ENCOUNTERS Encounter Location Date Diagnosis [facility] [address] [facility] [id number] [id number] February, Chronic obstructive pulmonary disease, unspecified J44.9 [facility] [address] [facility] [id number] [id number] February, Tremor, unspecified R25.1 ; Chronic obstructive pulmonary disease, unspecified J44.9 ; Cervicalgia M54.2 and Irritable bowel syndrome with both constipation and diarrhea K58.2 [facility] [id number] [place] [address] [id number] Dec, Chronic obstructive pulmonary disease, unspecified J44.9 ; Cervicalgia M54.2 and Irritable bowel syndrome with both constipation and diarrhea K58.2 [facility] [id number] [place] [address] [id number] Nov, Chronic obstructive pulmonary disease, unspecified J44.9 and Cervicalgia M54.2 [facility] [id number] [place] [address] [id number] Jul, Chronic obstructive pulmonary disease, unspecified J44.9 ; Impingement syndrome of left shoulder M75.42 and Tremor, unspecified R25.1 [address] [id number] Jun, Diarrhea, unspecified type R19.7 [facility] [id number] [place] [address] [id number] Jun, Chronic obstructive pulmonary disease, unspecified J44.9 ; Encounter for immunization Z23 ; Tremor, unspecified R25.1 ; Diarrhea, unspecified type R19.7 ; Acute seasonal allergic rhinitis due to pollen J30.1 and Urinary frequency R35.0 [facility] [id number] [place] [address] [id number] Jun, [place] [id number] [place] [address] [id number] Jun, [facility] [id number] [place] [address] [id number] May, Chronic obstructive pulmonary disease, unspecified J44.9 ; Tremor, unspecified R25.1 ; Hep C w/o coma, chronic B18.2 ; Bipolar depression F31.30 and 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 [facility] [address] [place] [address] [id number] May, [facility] [id number] [place] [address]- 3572 Apr, Hep C w/o coma, chronic B18.2 [facility] [place] [address] [id number] [id number] Jan, Chronic obstructive pulmonary disease, unspecified J44.9 ; 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 ; Tremor, unspecified R25.1 and 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 [facility] [address] [id number] [id number] Jan, [facility] [place] [address] [id number] [id number] Dec, Chronic obstructive pulmonary disease, unspecified J44.9 [facility] [place] [address] [facility] [address] [id number] [place] [id number] Dec, Hep C w/o coma, chronic B18.2 ; Chronic obstructive pulmonary disease, unspecified J44.9 ; Muscle weakness (generalized) M62.81 ; Inflammatory polyneuropathy, unspecified G61.9 and 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 [facility] [address] [id number] [id number] Dec, Chronic hepatitis C without hepatic coma B18.2 [facility] [id number] [place] [address] [id number] Nov, [facility] [address]00565[address] [id number] Oct, Actinic keratosis L57.0 [facility] [address]00565[address] [id number] Oct, [facility] [place] [id number] [id number] Oct, Chronic obstructive pulmonary disease, unspecified J44.9 and Chronic hepatitis C without hepatic coma B18.2 [facility] [place] [address] [id number] [place] [id number] Oct, Hep C w/o coma, chronic B18.2 [facility] [address] [id number] [address] Sep, Hep C w/o coma, chronic B18.2 [facility] [address]00565100[place], [place] [address] Sep, [facility] [id number] [place] [address] 76199- 1225 Sep, [facility] [place] [address] [place] [address] AVE [id number] [place] [id number] Sep, Chronic hepatitis C without hepatic coma B18.2 and Encounter for immunization Z23 [facility] [address]00565100[place], [place] [address] Aug, [facility] [place] [address] [id number] [place] [address] [id number] Aug, Hep C w/o coma, chronic B18.2 [facility] [address] [place] [address] 45961- 4583 Aug, Chronic hepatitis C without hepatic coma B18.2 [facility] [address] [place] [address] 95123- 3548 Jul, [facility] [id number] [place] [address] 64680- 3035 Jul, [address] [place] [address] [id number] Jul, Hep C w/o coma, chronic B18.2 ; Chronic obstructive pulmonary disease, unspecified J44.9 and Pain in right shoulder M25.511 [facility] [id number] [place] [address] [id number] Jun, Chronic obstructive pulmonary disease, unspecified J44.9 [id number] [place] [address] [id number] Mar, Hep C w/o coma, chronic B18.2 and Chronic obstructive pulmonary disease, unspecified J44.9 [place] [id number] [place] [address] [id number] Mar, Chronic obstructive pulmonary disease, unspecified J44.9 ; Impingement syndrome of left shoulder M75.42 and Hep C w/o coma, chronic B18.2 [facility] [id number] [place] [address] [id number] Dec, Chronic obstructive pulmonary disease, unspecified J44.9 and Impingement syndrome of left shoulder M75.42 [facility] [id number] [place] [address] [id number] Sep, Chronic obstructive pulmonary disease, unspecified J44.9 ; Encounter for immunization Z23 and Tremor, unspecified R25.1 [facility] [id number] [place] [address] [id number] Aug, Tremor, unspecified R25.1 and Chronic obstructive pulmonary disease, unspecified J44.9 [id number] [place] [address] [id number] Jul, Tremor 781.0 and COPD 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 [place] [address] [id number] Jun, COPD 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 and Tremor 781.0 [id number] [place] [address] [id number] May, [id number] [place] [address] [id number] May, Sinusitis 473.9 [place] [address] [place] [address] [id number] May, Sinusitis 473.9 ; Tobacco abuse 305.1 ; Irregular heart rhythm 427.9 and Cough 786.2 [address] [id number] May, [address] [place] [address] [id number] Apr, [id number] [place] [address] [id number] Apr, COPD 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 [facility] [address] [facility] [id number] [place] [id number] Apr, Respiratory distress 786.09 [id number] [place] [address] [id number] Mar, COPD 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 and Verruca 078.10 [facility] [address]00565100[place], [place] [address] Mar, [facility] [id number] [place] [address] [id number] Jan, Verruca 078.10 and [place] (actinic keratosis) 702.0 [facility] [id number] [place] [address] [id number] Jan, [facility] [id number] [place] [address] 31732- 0716 Jan, [facility] [id number] [place] [address] 92587- 2066 Jan, [facility] [place] [address] [place] [address] [id number] Dec, [facility] [id number] [place] [address] 64460- 4286 Dec, [facility] [id number] [place] [address] [id number] Nov, [facility] [id number] [place] [address] 50183- 2766 Nov, [facility] [address]00565100[place], [place] [address]- 79[address] Nov, [facility] [id number] [place] [address] [id number] Oct, [facility] [address]00565100[place], [place] [address]- 2506 Oct, [facility] [address] [place] [address] 88692- 2976 Oct, [facility] [id number] [id number] Oct, [facility] [address]00565100[place], [place] [address]- [address] Oct, [facility] [address] [id number] [place] [id number] Oct, [facility] [place] [facility] [address] [id number] [place] [address]- 5[address] Oct, [facility] [address] [id number] [place] [id number] Sep, [facility] [place] [facility] [address] [facility] [id number], [place] [address]- 8[address] Sep, [facility] [address] [id number] [place] [id number] Aug, [facility] [address] [id number] [place] [id number] Aug, [facility] [place] [facility] [address] [facility] [id number] [place] [address]- 4786 Aug, [facility] [place] [facility] [address] [facility] [id number], [place] [address] Aug, [facility] [address] [facility] [id number], [place] [id number] Jul, [facility] [place] [facility] [address] [facility] [id number], [place] [address]- 69[address] Jul, [facility] [address] [facility] [id number], [place] [id number] Apr, [facility] [place] [facility] [address] [facility] [id number], [place] [address]- 8222 Apr, [facility] [place] [facility] [address] [facility] [id number], [place] [address]- 9786 Apr, [facility] [place] [facility] [address] [facility] [id number] [place] [address]- 4452 Apr, [facility] [address] [id number] [place] [id number] Apr, [facility] [address] [facility] [id number] [place] [id number] Mar, [facility] [place] [facility] [address] [facility] [id number], [place] [address] 8107 Mar, [facility] [address] [id number] [place] [id number] February, [facility] [address] [id number] [place] [address]- 6666 February, [facility] [address] [id number] [place] [id number] February, [facility] [address] [id number] [place] [address]- 5610 February, [facility] [address] [id number] [place] [id number] February, [facility] [place] [facility] [address] [id number] [place] [address]- 8164 February, [facility] [place] [facility] [address] [id number] [place] [address]- 9074 February, [facility] [place] [facility] [address] [id number] [place] [address]- 2931 February, [facility] [place] [facility] [address] [id number] [place] [address]- 6051 February, [facility] [place] [facility] [address] [id number] [place] [address]- 7698 February, [facility] [place] [facility] [address] [id number] [place] [address]- 6677 February, [facility] [place] [facility] [address] [id number] [place] [address]- 5304 February, [facility] [place] [facility] [address] [id number] [place] [address]- 5756 Jan, [facility] [place] [facility] [address] [id number] [place] [address]- 8861 Jan, [facility] [address] [id number] [place] [id number] Dec, [facility] [place] [facility] [address] [id number] [place] [address]- 9556 Dec, [facility] [address] [id number] [place] [id number] Dec, [facility] [address] [facility] [id number], [place] [address]- 9320 Dec, [facility] [address] [id number] [place] [id number] Nov, [facility] [address] [facility] [id number], [place] [address]- 2910 Nov, [facility] [address] [id number] [id number] Sep, [facility] [address] [facility] [id number], [place] [address]- 4321 Sep, [facility] [address] [id number], [place] [id number] Sep, [facility] [address] [id number], [place] [address]- 1165 Sep, [facility] [address] [id number], [place] [id number] Jul, [facility] [address] [facility] [id number], [place] [address]- 4051 Jul, [facility] [address] [id number], [place] [id number] Jul, [facility] [address] [facility] [id number], [place] [address]- 8592 Jul, [facility] [address] [id number], [place] [id number] May, [facility] [address] [id number] [place] [id number] Apr, [facility] [address] [id number] [place] [id number] Apr, [facility] [address] [id number] [place] [id number] Mar, [facility] [address] [id number] [place] [id number] Mar, [facility] [address] [id number] [place] [id number] February, [facility] [address] [id number] [place] [id number] Jan, [facility] [address] [id number] [place] [id number] Dec, [facility] [address] [id number] [place] [id number] Oct, [facility] [address] [id number] [place] [id number] Oct, [facility] [address] [id number] [place] [id number] Sep, [facility] [address] [facility] [id number], [place] [address]- 2546 Sep, [facility] [address] [id number] [place] [id number] Aug, [facility] [place] [facility] [address]00565100[place], [place] [address]- 6576 Aug, [facility] [address] [facility] [id number], [place] [id number] Aug, [facility] [place] [facility] [address]00565100[place], [place] [address]- 1927 Aug, [facility] [place] [facility] [address] [id number], [place] [address]- 9066 May, [facility] [address] [facility] [id number], [place] [id number] May, [facility] [place] [facility] [address] [facility] [id number], [place] [address]- 9150 Apr, [facility] [place] [facility] [address] [facility] [id number], [place] [address]- 1194 Mar, [facility] [place] [facility] [address] [facility] [id number], [place] [address]- 6966 Mar, [facility] [address] [id number], [place] [id number] Mar, [facility] [address] [id number], [place] [id number] Jan, [facility] [address] [id number] [place] [id number] Dec, [facility] [address] [id number] [place] [address]- 2546 Nov, [facility] [address] [id number] [place] [id number] Nov, [facility] [place] [facility] [address] [id number] [place] [address]- 2546 Sep, [facility] [place] [facility] [address] [id number] [place] [address]- 2546 Sep, [facility] [place] [facility] [address] [id number] [place] [address]- 9545 Aug, [facility] [place] [facility] [address] [facility] [id number] [place] [address]- 6916 Jul, [facility] [place] [facility] [address] [facility] [id number] [place] [address]- 7278 Jul, [facility] [place] [facility] [address] [id number] [place] [address]- 2207 Jul, [facility] [place] [facility] [address] [id number], [place] [address]- 9596 Jul, [facility] [place] [facility] [address] [facility] [id number], [place] [address]- 0256 Jun, [facility] [place] [facility] [address] [id number], [place] [address]- 2546 May, [facility] [place] [facility] [address] [id number], [place] [address]- 2546 Apr, [facility] [place] [facility] [address] [id number] [place] [address]- 2546 February, [facility] [place] [facility] [address] [facility] [id number], [place] [address]- 2546 Dec, [facility] [place] [facility] [address] [id number], [place] [address]- 0177 Oct, [facility] [address]00565100[place], [place] [address]- 3125 Sep, [facility] [address]00565100[place], [place] [address]- 0389 Aug, [facility] [address] [place] [address] 03326- 2193 Aug, [facility] [id number] [place] [address] 55230- 2410 Sep, [facility] [id number] [place] [address] 11623- 0305 Sep, [facility] [id number] [place] [address] 96718- 8938 Aug, [facility] [address] [place] [address] 02188- 5807 Aug, [facility] [address] [place] [address] 78902- 1527 Aug, [facility] [address]00565100[place], [place] [address]- 7805 Aug, IMMUNIZATIONS No Known Immunizations SOCIAL HISTORY Never Assessed REASON FOR VISIT ibs/diarrhea [facility] PLAN OF CARE Activity Details Follow Up prn Reason: VITAL SIGNS Height 68 in 2018-02-17 Weight 144.2 lbs 2018-02-17 Temperature 98.2 degrees Fahrenheit 2018-02-17 Heart Rate 98 bpm 2018-02-17 Respiratory Rate 22 2018-02-17 BMI 21.92 kg/m2 2018-02-17 Blood pressure systolic 108 mmHg 2018-02-17 Blood pressure diastolic 62 mmHg 2018-02-17 MEDICATIONS Medication Instructions Dosage Frequency Start Date End Date Duration Status Loperamide HCl 2 MG Orally 2 times a day 1 tablet as needed 12h Active Ipratropium-Albuterol 0.5-2.5 (3) MG/3ML Inhalation Four times a day USE ONE VIAL VIA NEBULIZER 6h Active Spiriva HandiHaler 18 MCG Inhalation Once a day as directed 24h Oct, Active MiraLax - Orally Once a day 17 gm 24h Dec, Active Seroquel 300 MG Orally twice a day 1/2 tab am 1 1/2 tab hs 12h Active Methocarbamol 500 mg Orally 3 times a day prn 1tablets Nov, Active Traction Kit - 10 # 12h Dec, Active Valium 5 mg Orally Once a day at night 2 tablet Active Zoloft 50 MG Orally Once a day 1 tablet 24h Active Meclizine HCl 12.5 MG Orally twice a day 1 tablets as needed for dizzinenss 12h Nov, Active Primidone 50 mg Orally Once a day 1.5 tablet 24h Jan, 0 days Active Oxygen 3 3 1/2-4L Jun, Active ProAir HFA 108 (90 Base) MCG/ACT Inhalation every 4 hrs 2 puffs as needed 4h Mar, Active ZyrTEC 10 mg Orally Once a day 1 tablet 24h Jun, Active Advair Diskus 500-50 MCG/DOSE Inhalation Twice a day 1 puff 12h Mar, Active RESULTS No Results PROCEDURES Procedure Date Ordered Result Body Site [facility] VISIT ESTABLISHED PATIENT February 17, 2018 INSTRUCTIONS MEDICATIONS ADMINISTERED No Known Medications [...] L4 and L5 1986 Hospitalization History [facility] ([facility]) 02/2014 Hospitalization History [facility] for [facility] and confusion/ then went to a long term for 21days 04/2017
--- OUTSIDE RECORDS SUMMARY | 2019-02-13 09:44 | XMS REPORT ---
Author Author MEGHAN QUAN Organization [facility] Address [address] [place] [address] Care Team Providers Care Injection Molding Machine Offbearer Name Role Phone MEGHAN QUAN Unavailable PROBLEMS Type Condition ICD9-CM Code IRO08-LU Code Onset Dates Condition Status SNOMED Code Problem Pain in right shoulder M25.511 Active 89573688 Problem Actinic keratosis L57.0 Active 215977543 Problem Chronic hepatitis C without hepatic coma B18.2 Active 554554882 Problem Irritable bowel syndrome with both constipation and diarrhea K58.2 Active 72548033 Problem Cervicalgia M54.2 Active 77483829 Problem Inflammatory polyneuropathy, unspecified G61.9 Active 61865021 Problem 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 866794135 Problem Bipolar depression F31.30 Active 98895452 Problem 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 Active 474302929 Problem Personal history of colonic polyps V12.72 Active 950826090 Problem Dependence on machine for supplemental oxygen V46.2 Active 341088747289 Problem Chronic obstructive pulmonary disease, unspecified J44.9 Active 523781518 Problem Tremor, unspecified R25.1 Active 21945485 Problem Orthostatic hypotension 458.0 Active 96617266 Problem Impingement syndrome of left shoulder M75.42 Active 528198141 Problem Bipolar depression 296.50 Active 38894592 Problem Hep C w/o coma, chronic B18.2 Active 081582019 ALLERGIES Substance Reaction Event Type Date Status Spiriva HandiHaler dec urination Drug Allergy Dec, Active Lomotil nausea Drug Allergy Dec, Active ENCOUNTERS Encounter Location Date Diagnosis [facility] [address] [facility] [id number] [id number] February, Chronic obstructive pulmonary disease, unspecified J44.9 [facility] [address] [facility] [id number][place] [id number] February, Tremor, unspecified R25.1 ; Chronic obstructive pulmonary disease, unspecified J44.9 ; Cervicalgia M54.2 and Irritable bowel syndrome with both constipation and diarrhea K58.2 [facility] [id number] [place] [address] [id number] Dec, Chronic obstructive pulmonary disease, unspecified J44.9 ; Cervicalgia M54.2 and Irritable bowel syndrome with both constipation and diarrhea K58.2 [facility] [id number] [place] [address] [id number] Nov, Chronic obstructive pulmonary disease, unspecified J44.9 and Cervicalgia M54.2 [facility] [id number] [place] [address] [id number] Jul, Chronic obstructive pulmonary disease, unspecified J44.9 ; Impingement syndrome of left shoulder M75.42 and Tremor, unspecified R25.1 [address]00565[place] [id number] Jun, Diarrhea, unspecified type R19.7 [facility] [id number] [place] [address] [id number] Jun, Encounter for immunization Z23 ; Chronic obstructive pulmonary disease, unspecified J44.9 ; Tremor, unspecified R25.1 ; Diarrhea, unspecified type R19.7 ; Acute seasonal allergic rhinitis due to pollen J30.1 and Urinary frequency R35.0 [facility] [id number] [place] [address] [id number] Jun, [place] [id number] [place] [address] [id number] Jun, [facility] [id number] [place] [address] [id number] May, Chronic obstructive pulmonary disease, unspecified J44.9 ; Tremor, unspecified R25.1 ; Hep C w/o coma, chronic B18.2 ; Bipolar depression F31.30 and 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 [facility] [address] [place] [address] [id number] May, [facility] [id number] [place] [address]- 7569 Apr, Hep C w/o coma, chronic B18.2 [facility] [address] [id number] [id number] Jan, Chronic obstructive pulmonary disease, unspecified J44.9 ; 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 ; Tremor, unspecified R25.1 and 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 [facility] [address] [id number] [id number] Jan, [facility] [address] [id number][place] [id number] Dec, Chronic obstructive pulmonary disease, unspecified J44.9 [facility] [place] [address] [facility] [address] [id number][place] [id number] Dec, Hep C w/o coma, chronic B18.2 ; Chronic obstructive pulmonary disease, unspecified J44.9 ; Muscle weakness (generalized) M62.81 ; Inflammatory polyneuropathy, unspecified G61.9 and 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 [facility] [address] [id number][place] [id number] Dec, Chronic hepatitis C without hepatic coma B18.2 [facility] [id number] [place] [address] [id number] Nov, [facility] [address]00565[address] [id number] Oct, Actinic keratosis L57.0 [facility] [address]00565100[place] [id number] Oct, [facility] [place] [address] [id number] [id number] Oct, Chronic obstructive pulmonary disease, unspecified J44.9 and Chronic hepatitis C without hepatic coma B18.2 [facility] [place] [address] [facility] [address] [id number], [place] [id number] Oct, Hep C w/o coma, chronic B18.2 [facility] [address] [id number] [address] Sep, Hep C w/o coma, chronic B18.2 [facility] [address]00565100[place], [place] [address] Sep, [facility] [id number] [place] [address]- 6615 Sep, [facility] [address] [place] [address] AVE [id number][place] [id number] Sep, Chronic hepatitis C without hepatic coma B18.2 and Encounter for immunization Z23 [facility] [address]00565100[place], [place] [address] Aug, [facility] [place] [address] [facility] [id number] [place] [address] [id number] Aug, Hep C w/o coma, chronic B18.2 [facility] [address] [place] [address]45- 0761 Aug, Chronic hepatitis C without hepatic coma B18.2 [facility] [address] [place] [address] 645[address]- 8124 Jul, [facility] [id number] [place] [address]28- 6582 Jul, [address] [place] [address] [id number] Jul, Hep C w/o coma, chronic B18.2 ; Chronic obstructive pulmonary disease, unspecified J44.9 and Pain in right shoulder M25.511 [facility] [id number] [place] [address] [id number] Jun, Chronic obstructive pulmonary disease, unspecified J44.9 [place] [id number] [place] [address] [id number] Mar, Hep C w/o coma, chronic B18.2 and Chronic obstructive pulmonary disease, unspecified J44.9 [place] [id number] [place] [address] [id number] Mar, Chronic obstructive pulmonary disease, unspecified J44.9 ; Impingement syndrome of left shoulder M75.42 and Hep C w/o coma, chronic B18.2 [facility] [id number] [place] [address] [id number] Dec, Chronic obstructive pulmonary disease, unspecified J44.9 and Impingement syndrome of left shoulder M75.42 [facility] [id number] [place] [address] [id number] Sep, Chronic obstructive pulmonary disease, unspecified J44.9 ; Encounter for immunization Z23 and Tremor, unspecified R25.1 [facility] [id number] [place] [address] [id number] Aug, Tremor, unspecified R25.1 and Chronic obstructive pulmonary disease, unspecified J44.9 [address] [id number] [place] [address] [id number] Jul, Tremor 781.0 and COPD 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 [place] [address] [id number] Jun, COPD 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 and Tremor 781.0 [place] [id number] [place] [address] [id number] May, [place] [id number] [place] [address] [id number] May, Sinusitis 473.9 [place] [id number] [place] [address] [id number] May, Sinusitis 473.9 ; Tobacco abuse 305.1 ; Irregular heart rhythm 427.9 and Cough 786.[address]65[place] [id number] May, [address] [place] [address] [phone] Apr, [place] [id number] [place] [address] [id number] Apr, COPD 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 [facility] [address] [facility] [id number] [id number] Apr, Respiratory distress 786.09 [address] [id number] [place] [address] [id number] Mar, COPD 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 and Verruca 078.10 [facility] [place] [facility] [address]00565100[place] [address] Mar, [facility] [id number] [place] [address] [id number] Jan, Verruca 078.10 and [place] (actinic keratosis) 702.0 [facility] [id number] [place] [address] [id number] Jan, [facility] [id number] [place] [address] 56392- 6776 Jan, [facility] [id number] [place] [address] 74094- 3706 Jan, [facility] [address] [place] [address] [id number] Dec, [facility] [id number] [place] [address] 36331- 2666 Dec, [facility] [id number] [place] [address] [id number] Nov, [facility] [id number] [place] [address] 67244- 6796 Nov, [facility] [place] [address]00565100[place], [place] [address]- 7286 Nov, [facility] [id number] [place] [address] [id number] Oct, [facility] [address]00565100[place], [place] [address]- 4556 Oct, [facility] [address] [place] [address] 72769- 1416 Oct, [facility] [id number], [place] [id number] Oct, [facility] [address]00565100[place] [address]- 3[address] Oct, [facility] [address] [id number] [place] [id number] Oct, [facility] [place] [facility] [address] [id number] [place] [address]- 5846 Oct, [facility] [address] [id number] [place] [id number] Sep, [facility] [place] [facility] [address] [facility] [id number][place] [address]- 3096 Sep, [facility] [address] [id number] [place] [id number] Aug, [facility] [address] [id number] [place] [id number] Aug, [facility] [place] [facility] [address] [facility] [id number] [place] [address]- 9936 Aug, [facility] [place] [facility] [address] [facility] [id number][place] [address]- 0711 Aug, [facility] [address] [facility] [id number], [place] [id number] Jul, [facility] [place] [facility] [address] [facility] [id number][place] [address]- 7330 Jul, [facility] [address] [facility] [id number], [place] [id number] Apr, [facility] [place] [facility] [address] [facility] [id number], [place] [address]- 9264 Apr, [facility] [place] [facility] [address] [facility] [id number] [address]- 7156 Apr, [facility] [place] [facility] [address] [facility] [id number] [place] [address]- 3408 Apr, [facility] [address] [id number] [place] [id number] Apr, [facility] [address] [facility] [id number] [place] [id number] Mar, [facility] [place] [facility] [address] [facility] [id number], [place] [address]- 5268 Mar, [facility] [address] [id number] [place] [id number] February, [facility] [address] [id number] [place] [address]- 1836 February, [facility] [address] [id number] [place] [id number] February, [facility] [address] [id number] [place] [address]- 3865 February, [facility] [address] [id number] [place] [id number] February, [facility] [place] [facility] [address] [id number] [place] [address]- 2680 February, [facility] [place] [facility] [address] [id number] [place] [address]- 5243 February, [facility] [place] [facility] [address] [id number] [place] [address]- 8864 February, [facility] [place] [facility] [address] [id number] [place] [address]- 5918 February, [facility] [place] [facility] [address] [id number] [place] [address]- 6018 February, [facility] [place] [facility] [address] [id number] [place] [address]- 9474 February, [facility] [place] [facility] [address] [id number] [place] [address]- 4549 February, [facility] [place] [facility] [address] [id number] [place] [address]- 4695 Jan, [facility] [place] [facility] [address] [id number] [place] [address]- 3999 Jan, [facility] [address] [id number] [place] [id number] Dec, [facility] [place] [facility] [address] [id number] [place] [address]- 1486 Dec, [facility] [address] [id number] [place] [id number] Dec, [facility] [address] [facility] [id number][place] [address]- 4516 Dec, [facility] [address] [id number] [place] [id number] Nov, [facility] [address] [facility] [id number] [address]- 3536 Nov, [facility] [address] [id number], [place] [id number] Sep, [facility] [address] [facility] [id number], [place] [address]- 2409 Sep, [facility] [address] [id number], [place] [id number] Sep, [facility] [address] [id number], [place] [address]- 4438 Sep, [facility] [address] [id number], [place] [id number] Jul, [facility] [address] [facility] [id number], [place] [address]- 8902 Jul, [facility] [address] [id number], [place] [id number] Jul, [facility] [address] [facility] [id number], [place] [address]- 3495 Jul, [facility] [address] [id number], [place] [id number] May, [facility] [address] [id number] [place] [id number] Apr, [facility] [address] [id number] [place] [id number] Apr, [facility] [address] [id number] [place] [id number] Mar, [facility] [address] [id number] [place] [id number] Mar, [facility] [address] [id number] [place] [id number] February, [facility] [address] [id number] [place] [id number] Jan, [facility] [address] [id number] [place] [id number] Dec, [facility] [address] [id number] [place] [id number] Oct, [facility] [address] [id number] [place] [id number] Oct, [facility] [address] [id number] [place] 060732597 Sep, [facility] [address] [facility] [id number] [address]- 2546 Sep, [facility] [address] [id number] [place] [id number] Aug, [facility] [place] [facility] [address]00565100[place], [place] [address]- 3276 Aug, [facility] [address] [facility] [id number], [place] [id number] Aug, [facility] [place] [facility] [address]00565100[place], [place] [address]- 7108 Aug, [facility] [place] [facility] [address] [id number], [place] [address]- 5056 May, [facility] [address] [facility] [id number], [place] [id number] May, [facility] [place] [facility] [address] [facility] [id number], [place] [address]- 3049 Apr, [facility] [place] [facility] [address] [facility] [id number], [place] [address]- 2436 Mar, [facility] [place] [facility] [address] [facility] [id number], [place] [address]- 8156 Mar, [facility] [address] [id number], [place] [id number] Mar, [facility] [address] [id number], [place] 100822485 Jan, [facility] [address] [id number] [place] [id number] Dec, [facility] [address] [id number] [place] [address]- 2546 Nov, [facility] [address] [id number] [place] [id number] Nov, [facility] [place] [facility] [address] [id number] [place] [address]- 2546 Sep, [facility] [place] [facility] [address] [id number] [place] [address]- 2546 Sep, [facility] [place] [facility] [address] [id number] [place] [address]- 9788 Aug, [facility] [place] [facility] [address] [facility] [id number] [place] [address]- 5016 Jul, [facility] [place] [facility] [address] [facility] [id number] [place] [address]- 5620 Jul, [facility] [place] [facility] [address] [id number] [place] [address]- 2536 Jul, [facility] [place] [facility] [address] [id number], [place] [address]- 0946 Jul, [facility] [place] [facility] [address] [facility] [id number], [place] [address]- 6926 Jun, [facility] [place] [facility] [address] [id number], [place] [address]- 2546 May, [facility] [place] [facility] [address] [id number], [place] [address]- 2546 Apr, [facility] [place] [facility] [address] [id number] [place] [address]- 2546 February, [facility] [place] [facility] [address] [facility] [id number], [place] [address]- 2546 Dec, [facility] [place] [facility] [address] [id number], [place] [address]- 1304 Oct, [facility] [address] [id number] 379[place]- 0790 Sep, [facility] [address]00565100[place], [place] [address]267[address]- 4934 Aug, [facility] [address]00565100[place], [place] [address]- 8251 Aug, [facility] [address]00565100[place], [place] [address]- 1326 Sep, [facility] [address]00565100[place], [place] [address]- 4366 Sep, [facility] [address] [place] [address] 92218- 0888 Aug, [facility] [address]00565100[place], [place] [address]- 4653 Aug, [facility] [address]00565100[place], [place] [address]- 2834 Aug, [facility] [address] [id number], [place] [address]- 4281 Aug, IMMUNIZATIONS No Known Immunizations SOCIAL HISTORY Never Assessed REASON FOR VISIT neck pain, bowel issues going from consipation to diarrhea Gardenia RN PLAN OF CARE Activity Details Follow Up 4 Weeks Reason:ibs VITAL SIGNS Height 68 in 2018-01-11 Weight 143 lbs 2018-01-11 Temperature 97.4 degrees Fahrenheit 2018-01-11 Heart Rate 111 bpm 2018-01-11 Respiratory Rate 20 2018-01-11 Oximetry w/ oxygen:91 % 2018-01-11 BMI 21.74 kg/m2 2018-01-11 Blood pressure systolic 108 mmHg 2018-01-11 Blood pressure diastolic 70 mmHg 2018-01-11 MEDICATIONS Medication Instructions Dosage Frequency Start Date End Date Duration Status Advair Diskus 500-50 MCG/DOSE Inhalation Twice a day 1 puff 12h Mar, Active ProAir HFA 108 (90 Base) MCG/ACT Inhalation every 4 hrs 2 puffs as needed 4h Mar, Active Methocarbamol 500 mg Orally 3 times a day prn 1tablets Nov, Active Spiriva HandiHaler 18 MCG Inhalation Once a day as directed 24h 16 Oct, 2016 Active Oxygen 3 3 1/2-4L Jun, Active Traction Kit - 10 # 12h Dec, Active Meclizine HCl 12.5 MG Orally twice a day 1 tablets as needed for dizzinenss 12h Nov, Not-Taking Valium 5 mg Orally Once a day at night 2 tablet Active Primidone 50 mg Orally Once a day 1.5 tablet 24h Jan, 0 days Active Seroquel 300 MG Orally twice a day 1/2 tab am 1 1/2 tab hs 12h Active Ipratropium-Albuterol 0.5-2.5 (3) MG/3ML Inhalation Four times a day USE ONE VIAL VIA NEBULIZER 6h Active MiraLax - Orally Once a day 17 gm 24h Dec, Active ZyrTEC 10 mg Orally Once a day 1 tablet 24h Jun, Active Zoloft 50 MG Orally Once a day 1 tablet 24h Active RESULTS No Results PROCEDURES Procedure Date Ordered Result Body Site [facility] VISIT ESTABLISHED PATIENT January 11, 2018 INSTRUCTIONS MEDICATIONS ADMINISTERED No Known Medications [...] L4 and L5 1986 Hospitalization History Syncope ([facility]) 02/2014 Hospitalization History was at [facility] for falling and confusion/ then went to a snf for 21days 04/2017
--- OUTSIDE RECORDS SUMMARY | 2019-02-13 09:44 | XMS REPORT ---
Author Author MEGHAN QUAN Organization [employer] Address Unknown Phone Unavailable Care Team Providers Care Laundry Sorter Name Role Phone MEGHAN QUAN CP Unavailable Allergies No Known Allergies Problems Problem Type Condition Code Onset Dates Condition Status Problem AK (actinic keratosis) 702.0 Active Problem Bipolar depression 296.50 Active Problem COPD 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 Active Problem Hep C w/o coma, chronic B18.2 Active Problem Impingement syndrome of left shoulder M75.42 Active Problem Pain in right shoulder M25.511 Active Problem Tremor 781.0 Active Problem Hep C w/o coma, chronic 070.54 Active Problem Tremor, unspecified R25.1 Active Problem Chronic obstructive pulmonary disease, unspecified J44.9 Active Problem Dependence on machine for supplemental oxygen V46.2 Active Problem PPV23 (PNEUMOVAX) DX V03.82 Active Problem Personal history of colonic polyps V12.72 Active Problem Family history of malignant neoplasm of gastrointestinal tract V16.0 Active Problem Orthostatic hypotension 458.0 Active Problem Muscle weakness (generalized) 728.87 Active Problem Unspecified 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
--- OUTSIDE RECORDS SUMMARY | 2019-02-13 09:44 | XMS REPORT ---
Author Author MEGHAN QUAN [facility] eClinicalWorks Address Unknown Phone Unavailable Care Team Providers Care Director Learning Services Name Role Phone MEGHAN QUAN CP Unavailable Allergies No Known Allergies Problems Problem Type Condition Code Onset Dates Condition Status Problem COPD 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 Active Problem Hep C w/o coma, chronic 070.54 Active Problem Bipolar depression 296.50 Active Problem Pain in right shoulder M25.511 Active Problem Personal history of colonic polyps V12.72 Active Problem Hep C w/o coma, chronic B18.2 Active Assessment Hep C w/o coma, chronic B18.2 Active Problem Chronic hepatitis C without hepatic coma B18.2 Active Problem Chronic obstructive pulmonary disease, unspecified J44.9 Active Problem Tremor 781.0 Active Problem Impingement syndrome of left shoulder M75.42 Active Problem Tremor, unspecified R25.1 Active Problem PPV23 (PNEUMOVAX) DX V03.82 Active Problem Unspecified inflammatory and toxic neuropathy 357.9 Active Problem Family history of malignant neoplasm of gastrointestinal tract V16.0 Active Problem Dependence on machine for supplemental oxygen V46.2 Active Problem Muscle weakness (generalized) 728.87 Active Problem Unspecified peripheral vertigo 386.10 Active Problem Sciatica 724.3 Active Problem Lumbago 724.2 Active Problem Orthostatic hypotension 458.0 Active Problem AK (actinic keratosis) 702.0 Active Medications No Known Medications Procedures Procedure Coding System Code Date DRUG SCREEN NON TLC DEVICES CPT-4 29155 Sep 04, 2016 Results Name Result Date Reference Range Unit Abnormality Flag URINE DRUG SCREEN (IN HOUSE) ----MDMA neg 20160904 ----TCA pos [id number] ----BENZO pos [id number] ----OPIATE neg [id number] ----THC pos [id number] ----MTD neg [id number] ----AMPH neg [id number] ----BAR neg [id number] ----PCP neg [id number] ----MAMP neg 20160904 ----OXY neg [id number] ----Lot # [id number] ----Exp date [id number] ----Control pos [id number] ----COCAINE neg [id number] Summary Purpose eClinicalWorks Submission
--- OUTSIDE RECORDS SUMMARY | 2019-02-13 09:44 | XMS REPORT ---
Author Author MEGHAN QUAN [facility] Address [address] [place] [address] Care Team Providers Care Repair Armature Winder Helper Name Role Phone QUAN, MEGHAN Unavailable PROBLEMS Type Condition ICD9-CM Code [id number] Code Onset Dates Condition Status SNOMED Code Problem COPD 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 Active 87436428 Problem Hep C w/o coma, chronic 070.54 Active 195647926 Problem Bipolar depression 296.50 Active 75802289 Problem Pain in right shoulder M25.511 Active 95349572 Problem Personal history of colonic polyps V12.72 Active 921711902 Problem Hep C w/o coma, chronic B18.2 Active 663572912 Problem Chronic obstructive pulmonary disease, unspecified J44.9 Active 721770628 Problem Tremor 781.0 Active 37236068 Problem Impingement syndrome of left shoulder M75.42 Active 755886997 Problem Tremor, unspecified R25.1 Active 84280229 Problem PPV23 (PNEUMOVAX) DX V03.82 Active Problem Unspecified inflammatory and toxic neuropathy 357.9 Active 430239274 Problem Family history of malignant neoplasm of gastrointestinal tract V16.0 Active 129674791 Problem Dependence on machine for supplemental oxygen V46.2 Active 915189233125 Problem Muscle weakness (generalized) 728.87 Active 46470254 Problem Unspecified peripheral vertigo 386.10 Active 69749773 Problem Sciatica 724.3 Active 62996072 Problem Lumbago 724.2 Active 514088702 Problem Orthostatic hypotension 458.0 Active 96727232 Problem AK (actinic keratosis) 702.0 Active 459268021 ALLERGIES Unknown Allergies SOCIAL HISTORY No smoking Hx information available PLAN OF CARE VITAL SIGNS MEDICATIONS Medication Instructions Dosage Frequency Start Date End Date Duration Status DuoNeb 0.5 mg-3 mg(2.5 mg base)/3 mL by inhalation 4 times a day, DX: 469 3 mL Sep, Active RESULTS No Results PROCEDURES No Known procedures IMMUNIZATIONS No Known Immunizations
--- OUTSIDE RECORDS SUMMARY | 2019-02-13 09:44 | XMS REPORT ---
Author Author LAINEY GIBBONS Organization [facility] Address [address] [place] [address] Care Team Providers Care Senior Manufacturing Supervisor Name Role Phone LAINEY GIBBONS Unavailable PROBLEMS Type Condition ICD9-CM Code [id number] Code Onset Dates Condition Status SNOMED Code Problem Impingement syndrome of left shoulder M75.42 Active 429481263 Problem Pain in right shoulder M25.511 Active 15111188 Problem Hep C w/o coma, chronic B18.2 Active 624890246 Problem Bipolar depression F31.30 Active 61688414 Problem 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 Active 887318526 Problem Actinic keratosis L57.0 Active 264219369 Problem Chronic hepatitis C without hepatic coma B18.2 Active 767737956 Problem 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 044524431 Problem Inflammatory polyneuropathy, unspecified G61.9 Active 07142943 Problem Orthostatic hypotension 458.0 Active 41353283 Problem Bipolar depression 296.50 Active 24845119 Problem Personal history of colonic polyps V12.72 Active 513654787 Problem Chronic obstructive pulmonary disease, unspecified J44.9 Active 070915986 Problem Dependence on machine for supplemental oxygen V46.2 Active 276696029745 Problem Tremor, unspecified R25.1 Active 93398940 ALLERGIES Unknown Allergies SOCIAL HISTORY No smoking Hx information available PLAN OF CARE VITAL SIGNS MEDICATIONS Unknown Medications RESULTS No Results PROCEDURES No Known procedures IMMUNIZATIONS No Known Immunizations
--- OUTSIDE RECORDS SUMMARY | 2019-02-13 09:44 | XMS REPORT ---
Author Author MEGHAN QUAN [facility] Address [address] [place] [address] Care Team Providers Care Head Teacher Name Role Phone MEGHAN QUAN Unavailable PROBLEMS Type Condition ICD9-CM Code [id number] Code Onset Dates Condition Status SNOMED Code Problem Impingement syndrome of left shoulder M75.42 Active 174352093 Problem Pain in right shoulder M25.511 Active 11393717 Problem Hep C w/o coma, chronic B18.2 Active 294738013 Problem Bipolar depression F31.30 Active 32478949 Problem 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 Active 700152412 Problem Actinic keratosis L57.0 Active 652228497 Problem Chronic hepatitis C without hepatic coma B18.2 Active 207691303 Problem Inflammatory polyneuropathy, unspecified G61.9 Active 53116972 Problem 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 095551160 Problem Orthostatic hypotension 458.0 Active 53167378 Problem Bipolar depression 296.50 Active 30620984 Problem Personal history of colonic polyps V12.72 Active 887209522 Problem Chronic obstructive pulmonary disease, unspecified J44.9 Active 904514366 Problem Dependence on machine for supplemental oxygen V46.2 Active 342880913091 Problem Tremor, unspecified R25.1 Active 64325399 ALLERGIES No Information SOCIAL HISTORY Never Assessed PLAN OF CARE VITAL SIGNS MEDICATIONS Medication Instructions Dosage Frequency Start Date End Date Duration Status Ipratropium-Albuterol 0.5-2.5 (3) MG/3ML Inhalation Four times a day USE ONE VIAL VIA NEBULIZER 6h 30 days Active RESULTS No Results PROCEDURES No Known procedures IMMUNIZATIONS No Known Immunizations MEDICAL (GENERAL) HISTORY Type Description Date Medical [...] L4 and L5 1986 Hospitalization History [facility] ([facility]) 02/2014 Hospitalization History was at [facility] for falling and confusion/ then went to a intermediate for 21days 04/2017
--- OUTSIDE RECORDS SUMMARY | 2019-02-13 09:44 | XMS REPORT ---
Author Author MEGHAN QUAN Organization [employer] Address Unknown Phone Unavailable Care Team Providers Care Accounts Receivable Associate Name Role Phone MEGHAN QUAN CP Unavailable [...] keratosis) 702.0 Active Medications No Known Medications Results No Known Results Summary Purpose eClinicalWorks Submission
--- OUTSIDE RECORDS SUMMARY | 2019-02-13 09:44 | XMS REPORT ---
Author Author MEGHAN QUAN Organization [employer] Address Unknown Phone Unavailable Care Team Providers Care Respiratory Care Technician Name Role Phone MEGHAN QUAN CP Unavailable [...]
--- OUTSIDE RECORDS SUMMARY | 2019-02-13 09:44 | XMS REPORT ---
Author Author MEGHAN QUAN [facility] eClinicalWorks Address Unknown Phone Unavailable Care Team Providers Care Drill Foreman Name Role Phone MEGHAN QUAN CP Unavailable Allergies, Adverse Reactions, Alerts Substance Reaction Event Type Spiriva HandiHaler dec urination Drug Allergy Lomotil nausea Drug Allergy Problems Problem Type Condition Code Onset Dates Condition Status Problem Muscle weakness (generalized) 728.87 Active Problem Lumbago 724.2 Active Problem Unspecified peripheral vertigo 386.10 Active Problem Chronic obstructive pulmonary disease, unspecified J44.9 Active Problem Tremor 781.0 Active Problem Tremor, unspecified R25.1 Active Problem COPD 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 Active Problem AK (actinic keratosis) 702.0 Active Problem Hep C w/o coma, chronic 070.54 Active Problem Bipolar depression 296.50 Active Assessment Tremor, unspecified R25.1 Active Problem Personal history of colonic polyps V12.72 Active Assessment Chronic obstructive pulmonary disease, unspecified J44.9 Active Problem PPV23 (PNEUMOVAX) DX V03.82 Active Problem Unspecified inflammatory and toxic neuropathy 357.9 Active Problem Family history of malignant neoplasm of gastrointestinal tract V16.0 Active Problem Sciatica 724.3 Active Problem Dependence on machine for supplemental oxygen V46.2 Active Problem Orthostatic hypotension 458.0 Active Medications Medication Code System Code Instructions Start Date End Date Status Dosage Advair Diskus [facility] [address]-71 500-50 MCG/DOSE Inhalation Twice a day March 25, 2015 1 puff Wellbutrin SR [facility] [address]-84 100 MG Orally daily 1 tablet Claritin [facility] [address]-21 10 MG Orally Once a day at HS May 21, 2015 1 tablet Thioridazine HCl [facility] [address]-03 100 MG Orally 1 tablet in AM, 1 tablet at noon, 3 tabs at HS Loperamide HCl [facility] 96127994040 2 MG Orally 2 time(s) a day, PRN 1- 2 capsule Gabapentin [facility] [address]-51 400 mg 1 CAP orally 2 times a day Jul 19, 2014 1 Capsule 3 times per day DX: Neuropathy Viibryd [facility] [address]-42 40 mg March 23, 2012 take 1 tablet (40 mg ) by oral route once daily with food Flonase [facility] [address]-11 50 MCG/ACT Nasally 2 times a day May 21, 2015 1 spray in each nostril Oxygen ND 0 3 10/05Jul 04, 2015 3 l/nc Primidone [facility] [address]-28 50 MG Orally Once a day Aug 07, 2015 1 tablet Valium [facility] [address]-73 10 MG Orally three times a day, PRN 1 tablet ProAir HFA [facility] [address]-31 108 (90 Base) MCG/ACT Inhalation every 4 hrs March 25, 2015 2 puffs as needed DuoNeb NDC 0 0.5 mg-3 mg(2.5 mg base)/3 mL by inhalation 4 times a day, DX: 469 Oct 16, 2014 3 mL Zaditor [facility] [address]-46 0.025 % Ophthalmic Twice a day prn itchy eyes May 21, 2015 1 drop into affected eye Procedures Procedure Coding System Code Date Office Visit, Est Pt., Level 3 CPT-4 97014 Sep 04, 2015 [facility] VISIT ESTABLISHED PATIENT CPT-4 G0467 Sep 04, 2015 Vital Signs Date/Time: Sep 04, 2015 Temperature 98.0 F Weight 134.8 lbs Height 68 in BMI 20.49 Index Blood Pressure Diastolic 70 mmHg Blood Pressure Systolic 100 mmHg Cardiac Monitoring Heart Rate 92 bpm Results No Known Results Summary Purpose eClinicalWorks Submission
--- OUTSIDE RECORDS SUMMARY | 2019-02-13 09:44 | XMS REPORT ---
Author Author LAINEY GIBBONS Organization [facility] Address [address] [place] [address] Care Team Providers Care Membership Advisor Name Role Phone LAINEY GIBBONS Unavailable PROBLEMS Type Condition ICD9-CM Code LTB87-PA Code Onset Dates Condition Status SNOMED Code Problem Bipolar depression 296.50 Active 10511740 Problem Tremor 781.0 Active 76753348 Problem Hep C w/o coma, chronic 070.54 Active 615777199 Problem Chronic hepatitis C without hepatic coma B18.2 Active 541950365 Problem Family history of malignant neoplasm of gastrointestinal tract V16.0 Active 937728072 Problem Pain in right shoulder M25.511 Active 73303712 Problem Personal history of colonic polyps V12.72 Active 667681479 Assessment Chronic hepatitis C without hepatic coma B18.2 Sep, Active 064362296 Problem Tremor, unspecified R25.1 Active 68291595 Problem Chronic obstructive pulmonary disease, unspecified J44.9 Active 285399295 Problem Hep C w/o coma, chronic B18.2 Active 340900261 Problem Impingement syndrome of left shoulder M75.42 Active 051576266 Problem Unspecified inflammatory and toxic neuropathy 357.9 Active 939411603 Problem Sciatica 724.3 Active 77908253 Problem Dependence on machine for supplemental oxygen V46.2 Active 654450248267 Problem PPV23 (PNEUMOVAX) DX V03.82 Active Problem Unspecified peripheral vertigo 386.10 Active 81617612 Problem Lumbago 724.2 Active 427457153 Problem Orthostatic hypotension 458.0 Active 93816263 Problem AK (actinic keratosis) 702.0 Active 872102277 Assessment Encounter for immunization Z23 Sep, Active 899715603 Problem Muscle weakness (generalized) 728.87 Active 72330423 Problem COPD 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 Active 89389752 ALLERGIES Substance Reaction Event Type Date Status Spiriva HandiHaler dec urination Drug Allergy Sep, Active Lomotil nausea Drug Allergy Sep, Active SOCIAL HISTORY No smoking Hx information available PLAN OF CARE VITAL SIGNS Height 68 in 2016-09-21 Weight 142.9 lbs 2016-09-21 Heart Rate 104 bpm 2016-09-21 Respiratory Rate 22 2016-09-21 BMI 21.73 kg/m2 2016-09-21 Blood pressure systolic 118 mmHg 2016-09-21 Blood pressure diastolic 78 mmHg 2016-09-21 MEDICATIONS Medication Instructions Dosage Frequency Start Date End Date Duration Status Oxygen 3 3 l/nc Jun, Active Viibryd 40 mg take 1 tablet (40 mg) by oral route once daily with food Mar, Active Wellbutrin SR 100 MG Orally daily 1 tablet 24h Active Ipratropium-Albuterol 0.5-2.5 (3) MG/3ML Inhalation Four times a day USE ONE VIAL VIA NEBULIZER 6h 8 Active Harvoni 90-400 MG Orally Once a day 1 tablet 24h Sep, Nov, 12 weeks Active Thioridazine HCl 100 MG 1 tablet in AM, 1 tablet at noon, 3 tabs at HS Active Primidone 50 MG Orally Once a day 1 tablet 24h Jul, Active Loperamide HCl 2 MG Orally 2 time(s) a day, PRN 1-2 capsule Active Valium 10 MG Orally three times a day, PRN 1 tablet Active ProAir HFA 108 (90 Base) MCG/ACT Inhalation every 4 hrs 2 puffs as needed 4h Mar, Active Advair Diskus 500-50 MCG/DOSE Inhalation Twice a day 1 puff 12h Mar, Active RESULTS No Results PROCEDURES Procedure Date Ordered Related Diagnosis Body Site HEP A (ADULT) Sep 21, 2016 HEP B (ADULT) Sep 21, 2016 IMMUNIZATION ADMIN, EACH ADD (please include units) Sep 21, 2016 SINGLE IMMUNIZATION ADMIN Sep 21, 2016 Office Visit, Est Pt., Level 4 Sep 21, 2016 [facility] VISIT ESTABLISHED PATIENT Sep 21, 2016 IMMUNIZATIONS Vaccine Route Administration Date Status HEP B (ADULT) IM Intramuscular Sep 21, 2016 Administered HEP A (ADULT) IM Intramuscular Sep 21, 2016 Administered
--- OUTSIDE RECORDS SUMMARY | 2019-02-13 09:45 | XMS REPORT ---
Author Author MEGHAN QUAN [facility] Address [address] [place] [address] Care Team Providers Care Validation Leader Name Role Phone MEGHAN QUAN Unavailable PROBLEMS Type Condition ICD9-CM Code HFX03-JC Code Onset Dates Condition Status SNOMED Code Problem Impingement syndrome of left shoulder M75.42 Active 738025468 Problem Pain in right shoulder M25.511 Active 99989677 Problem Hep C w/o coma, chronic B18.2 Active 225605775 Problem Bipolar depression F31.30 Active 07400235 Problem 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 Active 967454729 Problem Actinic keratosis L57.0 Active 200262657 Problem Chronic hepatitis C without hepatic coma B18.2 Active 397842881 Problem Inflammatory polyneuropathy, unspecified G61.9 Active 66473838 Problem 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 516988308 Problem Orthostatic hypotension 458.0 Active 52532723 Problem Bipolar depression 296.50 Active 62517696 Problem Personal history of colonic polyps V12.72 Active 670638970 Problem Chronic obstructive pulmonary disease, unspecified J44.9 Active 330104463 Problem Dependence on machine for supplemental oxygen V46.2 Active 860930794164 Problem Tremor, unspecified R25.1 Active 31113002 ALLERGIES No Known Allergies SOCIAL HISTORY No smoking Hx information available PLAN OF CARE VITAL SIGNS MEDICATIONS No Known Medications RESULTS Name Result Date Reference Range HEP C PCR QUANT (Non-Graph)-APPROVAL REQUIRED 2016-10-29 Hepatitis C Quantitation HCV Not Detected HCV log10 Test Information: CBC 2016-10-29 WBC 4.9 3.4-10.8 RBC 3.43 3.77-5.28 Hemoglobin 10.9 11.1-15.9 Hematocrit 32.7 34.0-46.6 MCV 95 79-97 MCH 31.8 26.6-33.0 MCHC 33.3 31.5-35.7 RDW 14.1 12.3-15.4 Platelets 168 150-379 Neutrophils 63 Lymphs 26 Monocytes 8 Eos 3 Basos 0 Immature Cells Neutrophils (Absolute) 3.1 1.4-7.0 Lymphs (Absolute) 1.3 0.7-3.1 Monocytes(Absolute) 0.4 0.1-0.9 Eos (Absolute) 0.1 0.0-0.4 Baso (Absolute) 0.0 0.0-0.2 Immature Granulocytes 0 Immature Grans (Abs) 0.0 0.0-0.1 NRBC Hematology Comments: CMP 2016-10-29 Glucose, Serum 74 65-99 BUN 8 8-27 Creatinine, Serum 0.79 0.57-1.00 eGFR If NonAfricn Am 80 >59 eGFR If Africn Am 92 >59 BUN/Creatinine Ratio 10 11-26 Sodium, Serum 144 134-144 Potassium, Serum 3.7 3.5-5.2 Chloride, Serum 103 96-106 Carbon Dioxide, Total 24 18-29 Calcium, Serum 8.4 8.7-10.3 Protein, Total, Serum 6.0 6.0-8.5 Albumin, Serum 3.8 3.6-4.8 Globulin, Total 2.2 1.5-4.5 A/G Ratio 1.7 1.1-2.5 Bilirubin, Total <0.2 0.0-1.2 Alkaline Phosphatase, S 60 39-117 AST (SGOT) 14 0-40 ALT (SGPT) 13 0-32 PROCEDURES Procedure Date Ordered Related Diagnosis Body Site ROUTINE VENIPUNCTURE 2016-10-29 N/A LAB NOT BILLED BY [facility] Oct 29, 2016 VENIPUNCT, ROUTINE* Oct 29, 2016 IMMUNIZATIONS No Known Immunizations
--- OUTSIDE RECORDS SUMMARY | 2019-02-13 09:45 | XMS REPORT ---
Author Author MEGHAN QUAN Organization [employer] Address Unknown Phone Unavailable Care Team Providers Care Ehs Manager Name Role Phone MEGHAN QUAN CP Unavailable Allergies No Known Allergies Problems Problem Type Condition ICD-9 Code Onset Dates Condition Status Problem Unspecified inflammatory and toxic neuropathy 357.9 Active Problem Orthostatic hypotension 458.0 Active Problem Sciatica 724.3 Active Problem Bipolar depression 296.50 Active Problem COPD 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 Active Problem Hep C w/o coma, chronic 070.54 Active Problem Unspecified peripheral vertigo 386.10 Active Problem Muscle weakness (generalized) 728.87 Active Problem AK (actinic keratosis) 702.0 Active Problem Lumbago 724.2 Active Problem Personal history of colonic polyps V12.72 Active Problem Family history of malignant neoplasm of gastrointestinal tract V16.0 Active Problem Dependence on machine for supplemental oxygen V46.2 Active Problem PPV23 (PNEUMOVAX) DX V03.82 Active Medications Medication Code System Code Instructions Start Date End Date Status Dosage DuoNeb NDC 0 0.5 mg-3 mg(2.5 mg base)/3 mL by inhalation 4 times a day, DX: 469 Oct 16, 2014 3 mL vuak Results No Known Results Summary Purpose eClinicalWorks Submission
--- OUTSIDE RECORDS SUMMARY | 2019-02-13 09:45 | XMS REPORT ---
Author Author MEGHAN QUAN [facility] [employer]Clinical[employer] Address Unknown Phone Unavailable Care Team Providers Care Obstetrics Tech Name Role Phone MEGHAN QUAN CP Unavailable [...] Active Problem Bipolar depression 296.50 Active Assessment Chronic obstructive pulmonary disease, unspecified J44.9 Active Problem Personal history of colonic polyps V12.72 Active Assessment Tremor, unspecified R25.1 Active Assessment Encounter for immunization Z23 Active Problem PPV23 (PNEUMOVAX) DX V03.82 Active Problem Unspecified inflammatory and toxic neuropathy 357.9 Active Problem Family history of malignant neoplasm of gastrointestinal tract V16.0 Active Problem Sciatica 724.3 Active Problem Dependence on machine for supplemental oxygen V46.2 Active Problem Orthostatic hypotension 458.0 Active Medications Medication Code System Code Instructions Start Date End Date Status Dosage Advair Diskus [facility] [address]-78 500-50 MCG/DOSE Inhalation Twice a day March 25, 2015 1 puff Viibryd [facility] [address]-09 40 mg March 23, 2012 take 1 tablet (40 mg ) by oral route once daily with food Zaditor [facility] [address]-77 0.025 % Ophthalmic Twice a day prn itchy eyes May 21, 2015 1 drop into affected eye Gabapentin [facility] [address]-50 400 mg 1 CAP orally 2 times a day Jul 19, 2014 1 Capsule 3 times per day DX: Neuropathy ProAir HFA [facility] [address]-85 108 (90 Base) MCG/ACT Inhalation every 4 hrs March 25, 2015 2 puffs as needed Thioridazine HCl [facility] [address]-24 100 MG Orally 1 tablet in AM, 1 tablet at noon, 3 tabs at HS Wellbutrin SR [facility] [address]-83 100 MG Orally daily 1 tablet Oxygen [facility] 0 3 24/7 Jul 04, 2015 3 l/nc Primidone [facility] [address]-57 50 MG Orally Once a day Aug 07, 2015 1 tablet Claritin [facility] [address]-88 10 MG Orally Once a day at HS May 21, 2015 1 tablet Valium [facility] [address]-66 10 MG Orally three times a day, PRN 1 tablet Loperamide HCl [facility] 03232423923 2 MG Orally 2 time(s) a day, PRN 1- 2 capsule DuoNeb NDC 0 0.5 mg-3 mg(2.5 mg base)/3 mL by inhalation 4 times a day, DX: 469 Oct 16, 2014 3 mL Flonase [facility] [address]-87 50 MCG/ACT Nasally 2 times a day May 21, 2015 1 spray in each nostril Procedures Procedure Coding System Code Date [facility] VISIT ESTABLISHED PATIENT CPT-4 G0467 Oct 08, 2015 Office Visit, Est Pt., Level 3 CPT-4 58382 Oct 08, 2015 ADMN FLU VAC NO FEE SCHED SAME DAY CPT-4 G0008 Oct 08, 2015 PCV 13 CPT-4 88327 Oct 08, 2015 FLUARIX QUAD (3 & UP)-GSK-2014 CPT-4 90187 Oct 08, 2015 IMMUNIZATION ADMIN, EACH ADD (please include units) CPT-4 32997 Oct 08, 2015 SINGLE IMMUNIZATION ADMIN CPT-4 30073 Oct 08, 2015 Vital Signs Date/Time: Oct 08, 2015 Temperature 98 F Weight 132.4 lbs Height 68 in BMI 20.13 Index Blood Pressure Diastolic 68 mmHg Blood Pressure Systolic 100 mmHg Cardiac Monitoring Heart Rate 88 bpm Results No Known Results Immunizations Vaccine Administration Date FLUARIX QUAD (3 & UP)-GSK-2014Oct 08, 2015 PCV 13 Oct 08, 2015 Summary Purpose eClinicalWorks Submission
--- OUTSIDE RECORDS SUMMARY | 2019-02-13 09:45 | XMS REPORT ---
Author Author MEGHAN QUAN [facility] eClinicalWorks Address Unknown Phone Unavailable Care Team Providers Care Diploma Medical Assistant Name Role Phone MEGHAN QUAN CP Unavailable Allergies, Adverse Reactions, Alerts Substance Reaction Event Type Spiriva HandiHaler dec urination Drug Allergy Lomotil nausea Drug Allergy Problems Problem Type Condition ICD-9 Code Onset Dates Condition Status Problem Sciatica 724.3 Active Problem Muscle weakness (generalized) 728.87 Active Problem Orthostatic hypotension 458.0 Active Problem Hep C w/o coma, chronic 070.54 Active Problem Bipolar depression 296.50 Active Problem Tremor 781.0 Active Problem Lumbago 724.2 Active Problem Unspecified peripheral vertigo 386.10 Active Problem COPD 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 Active Problem AK (actinic keratosis) 702.0 Active Assessment Tremor 781.0 Active Problem Family history of malignant neoplasm of gastrointestinal tract V16.0 Active Problem Dependence on machine for supplemental oxygen V46.2 Active Assessment COPD 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 Active Problem PPV23 (PNEUMOVAX) DX V03.82 Active Problem Personal history of colonic polyps V12.72 Active Problem Unspecified inflammatory and toxic neuropathy 357.9 Active Medications Medication Code System Code Instructions Start Date End Date Status Dosage Loperamide HCl [facility] [address]-05 2 MG Orally 2 time(s) a day, PRN 1-2 capsule Claritin [facility] [address]-57 10 MG Orally Once a day at HS May 21, 2015 1 tablet Propranolol HCl [facility] [address]-68 10 MG Orally Once a day at hs Jul 04, 2015 1 tablet Advair Diskus [facility] [address]-01 500-50 MCG/DOSE Inhalation Twice a day March 25, 2015 1 puff Gabapentin [facility] [address]-32 400 mg 1 CAP orally 2 times a day Jul 19, 2014 1 Capsule 3 times per day DX: Neuropathy Flonase [facility] [address]-14 50 MCG/ACT Nasally 2 times a day May 21, 2015 1 spray in each nostril ProAir HFA [facility] [address]-42 108 (90 Base) MCG/ACT Inhalation every 4 hrs March 25, 2015 2 puffs as needed Viibryd [facility] [address]-77 40 mg March 23, 2012 take 1 tablet (40 mg ) by oral route once daily with food Thioridazine HCl [facility] [address]-12 100 MG Orally 1 tablet in AM, 1 tablet at noon, 3 tabs at HS DuoNeb NDC 0 0.5 mg-3 mg(2.5 mg base)/3 mL by inhalation 4 times a day, DX: 469 Oct 16, 2014 3 mL vuak Valium [facility] [address]-71 10 MG Orally three times a day, PRN 1 tablet Zaditor [facility] [address]-83 0.025 % Ophthalmic Twice a day prn itchy eyes May 21, 2015 1 drop into affected eye Oxygen NDC 0 3 24/7 Jul 04, 2015 3 l/nc Wellbutrin SR [facility] [address]-13 100 MG Orally daily 1 tablet Procedures Procedure Coding System Code Date [facility] VISIT ESTABLISHED PATIENT CPT-4 G0467 Jul 04, 2015 Office Visit, Est Pt., Level 3 CPT-4 77437 Jul 04, 2015 MEASURE BLOOD OXYGEN LEVEL CPT-4 49936 Jul 04, 2015 Vital Signs Date/Time: Jul 04, 2015 Temperature 99.4 F Weight 128.8 lbs Height 68 in Oximetry 97 % Blood Pressure Diastolic 78 mmHg Blood Pressure Systolic 102 mmHg Cardiac Monitoring Heart Rate 82 bpm BMI 19.58 Index Results No Known Results Summary Purpose eClinicalWorks Submission
--- OUTSIDE RECORDS SUMMARY | 2019-02-13 09:45 | XMS REPORT ---
Author Author LAINEY GIBBONS Organization [facility] Address [address] [place] [address] Care Team Providers Care Windows And Doors Installer Name Role Phone LAINEY GIBBONS Unavailable PROBLEMS Type Condition ICD9-CM Code [id number] Code Onset Dates Condition Status SNOMED Code Problem Impingement syndrome of left shoulder M75.42 Active 519189128 Problem Pain in right shoulder M25.511 Active 09278686 Problem Hep C w/o coma, chronic B18.2 Active 018875133 Problem Bipolar depression F31.30 Active 05815361 Problem 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 Active 769257522 Problem Actinic keratosis L57.0 Active 111220504 Problem Chronic hepatitis C without hepatic coma B18.2 Active 249457441 Problem Inflammatory polyneuropathy, unspecified G61.9 Active 51945973 Problem 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 230008610 Problem Orthostatic hypotension 458.0 Active 15845886 Problem Bipolar depression 296.50 Active 23552016 Problem Personal history of colonic polyps V12.72 Active 932941600 Problem Chronic obstructive pulmonary disease, unspecified J44.9 Active 355423524 Problem Dependence on machine for supplemental oxygen V46.2 Active 978482773029 Problem Tremor, unspecified R25.1 Active 30207069 ALLERGIES No Information SOCIAL HISTORY Never Assessed PLAN OF CARE VITAL SIGNS MEDICATIONS Unknown Medications RESULTS Name Result Date Reference Range HEP C PCR QUANT (Non-Graph)-APPROVAL REQUIRED 2016-12-24 Hepatitis C Quantitation HCV Not Detected HCV log10 Test Information: CBC 2016-12-24 WBC 4.6 3.4-10.8 RBC 3.75 3.77-5.28 Hemoglobin 11.9 11.1-15.9 Hematocrit 36.8 34.0-46.6 MCV 98 79-97 MCH 31.7 26.6-33.0 MCHC 32.3 31.5-35.7 RDW 14.2 12.3-15.4 Platelets 210 150-379 Neutrophils 45 Lymphs 42 Monocytes 8 Eos 4 Basos 1 Immature Cells Neutrophils (Absolute) 2.1 1.4-7.0 Lymphs (Absolute) 1.9 0.7-3.1 Monocytes(Absolute) 0.4 0.1-0.9 Eos (Absolute) 0.2 0.0-0.4 Baso (Absolute) 0.0 0.0-0.2 Immature Granulocytes 0 Immature Grans (Abs) 0.0 0.0-0.1 NRBC Hematology Comments: PT/INR 2016-12-24 INR 1.0 0.8-1.2 Prothrombin Time 10.1 9.1-12.0 CMP 2016-12-24 Glucose, Serum 105 65-99 BUN 11 8-27 Creatinine, Serum 0.86 0.57-1.00 eGFR If NonAfricn Am 72 >59 eGFR If Africn Am 83 >59 BUN/Creatinine Ratio 13 11-26 Sodium, Serum 144 134-144 Potassium, Serum 4.0 3.5-5.2 Chloride, Serum 102 96-106 Carbon Dioxide, Total 24 18-29 Calcium, Serum 8.7 8.7-10.3 Protein, Total, Serum 6.5 6.0-8.5 Albumin, Serum 4.0 3.6-4.8 Globulin, Total 2.5 1.5-4.5 A/G Ratio 1.6 1.1-2.5 Bilirubin, Total <0.2 0.0-1.2 Alkaline Phosphatase, S 105 39-117 AST (SGOT) 14 0-40 ALT (SGPT) 14 0-32 PROCEDURES Procedure Date Ordered Result Body Site LAB NOT BILLED BY [facility] December 24, 2016 PROTHROMBIN TIME December 24, 2016 VENIPUNCT, ROUTINE* December 24, 2016 IMMUNIZATIONS No Known Immunizations MEDICAL (GENERAL) HISTORY [...] L4 and L5 1986 Hospitalization History Syncope ([place]) 02/2014 Hospitalization History was at [place] for falling and confusion/ then went to a alf for 21days 04/2017
--- OUTSIDE RECORDS SUMMARY | 2019-02-13 09:45 | XMS REPORT ---
Author Author MEGHAN QUAN [facility] Address [address] [place] [address] Care Team Providers Care Social Work Professor Name Role Phone MEGHAN QUAN Unavailable PROBLEMS Type Condition ICD9-CM Code [id number] Code Onset Dates Condition Status SNOMED Code Problem Impingement syndrome of left shoulder M75.42 Active 514321308 Problem Pain in right shoulder M25.511 Active 02814171 Problem Hep C w/o coma, chronic B18.2 Active 547957194 Problem Bipolar depression F31.30 Active 17904188 Problem 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 Active 383609965 Problem Actinic keratosis L57.0 Active 770012616 Problem Chronic hepatitis C without hepatic coma B18.2 Active 665946918 Problem Inflammatory polyneuropathy, unspecified G61.9 Active 22580898 Problem 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 154562593 Problem Orthostatic hypotension 458.0 Active 72949204 Problem Bipolar depression 296.50 Active 87969423 Problem Personal history of colonic polyps V12.72 Active 365352245 Problem Chronic obstructive pulmonary disease, unspecified J44.9 Active 670472483 Problem Dependence on machine for supplemental oxygen V46.2 Active 207116997619 Problem Tremor, unspecified R25.1 Active 32911687 ALLERGIES Unknown Allergies SOCIAL HISTORY No smoking Hx information available PLAN OF CARE VITAL SIGNS MEDICATIONS Unknown Medications RESULTS No Results PROCEDURES No Known procedures IMMUNIZATIONS No Known Immunizations
--- OUTSIDE RECORDS SUMMARY | 2019-02-13 09:45 | XMS REPORT ---
Author Author MEGHAN QUAN [facility] Address [address] [place] [address] Care Team Providers Care Dental Instrument Maker Name Role Phone MEGHAN QUAN Unavailable PROBLEMS Type Condition ICD9-CM Code [id number] Code Onset Dates Condition Status SNOMED Code Problem Impingement syndrome of left shoulder M75.42 Active 114291212 Problem Pain in right shoulder M25.511 Active 50731948 Problem Hep C w/o coma, chronic B18.2 Active 977738291 Problem Bipolar depression F31.30 Active 24338604 Problem 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 Active 726338113 Problem Actinic keratosis L57.0 Active 698627342 Problem Chronic hepatitis C without hepatic coma B18.2 Active 265784501 Problem Inflammatory polyneuropathy, unspecified G61.9 Active 30769352 Problem 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 960557125 Problem Orthostatic hypotension 458.0 Active 10930814 Problem Bipolar depression 296.50 Active 04192743 Problem Personal history of colonic polyps V12.72 Active 270982798 Problem Chronic obstructive pulmonary disease, unspecified J44.9 Active 262244042 Problem Dependence on machine for supplemental oxygen V46.2 Active 290462705525 Problem Tremor, unspecified R25.1 Active 28452217 ALLERGIES No Information SOCIAL HISTORY Never Assessed PLAN OF CARE VITAL SIGNS MEDICATIONS Medication Instructions Dosage Frequency Start Date End Date Duration Status ProAir HFA 108 (90 Base) MCG/ACT Inhalation every 4 hrs 2 puffs as needed 4h Mar, Active RESULTS No Results PROCEDURES No Known [...] L4 and L5 1986 Hospitalization History Syncope ([place]) 02/2014 Hospitalization History was at [place] for falling and confusion/ then [facility]2017
--- OUTSIDE RECORDS SUMMARY | 2019-02-13 09:45 | XMS REPORT ---
Author Author MEGHAN QUAN [facility] eClinicalWorks Address Unknown Phone Unavailable Care Team Providers Care Quality Assurance Assessor Name Role Phone MEGHAN QUAN CP Unavailable Allergies, Adverse Reactions, Alerts Substance Reaction Event Type Spiriva HandiHaler dec urination Drug Allergy Lomotil nausea Drug Allergy Problems Problem Type Condition Code Onset Dates Condition Status Problem Sciatica 724.3 Active Problem Muscle weakness (generalized) 728.87 Active Problem Orthostatic hypotension 458.0 Active Problem Hep C w/o coma, chronic 070.54 Active Problem Bipolar depression 296.50 Active Problem Tremor 781.0 Active Problem Lumbago 724.2 Active Problem Unspecified peripheral vertigo 386.10 Active Problem COPD 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 Active Problem AK (actinic keratosis) 702.0 Active Assessment COPD 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 Active Problem Family history of malignant neoplasm of gastrointestinal tract V16.0 Active Problem Dependence on machine for supplemental oxygen V46.2 Active Assessment Tremor 781.0 Active Problem PPV23 (PNEUMOVAX) DX V03.82 Active Problem Personal history of colonic polyps V12.72 Active Problem 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 [address]-58 50 MCG/ACT Nasally 2 times a day May 21, 2015 1 spray in each nostril Zaditor [facility] [address]-60 0.025 % Ophthalmic Twice a day prn itchy eyes May 21, 2015 1 drop into affected eye DuoNeb [facility] 0 0.5 mg-3 mg(2.5 mg base)/3 mL by inhalation 4 times a day, DX: 469 Oct 16, 2014 3 mL vuak Thioridazine HCl [facility] [address]-65 100 MG Orally 1 tablet in AM, 1 tablet at noon, 3 tabs at HS Advair Diskus [facility] [address]-22 500-50 MCG/DOSE Inhalation Twice a day March 25, 2015 1 puff Loperamide HCl [facility] [address]-06 2 MG Orally 2 time(s) a day, PRN 1-2 capsule Oxygen ND 0 3 10/05Jul 04, 2015 3 l/nc ProAir HFA [facility] [address]-62 108 (90 Base) MCG/ACT Inhalation every 4 hrs March 25, 2015 2 puffs as needed Wellbutrin SR [facility] [address]-59 100 MG Orally daily 1 tablet Valium [facility] [address]-35 10 MG Orally three times a day, PRN 1 tablet Gabapentin [facility] [address]-44 400 mg 1 CAP orally 2 times a day Jul 19, 2014 1 Capsule 3 times per day DX: Neuropathy Claritin [facility] [address]-98 10 MG Orally Once a day at HS May 21, 2015 1 tablet Primidone [facility] [address]-61 50 MG Orally Aug 07, 2015 .25 tab q d x 1 wk then 1/2 tab qd Viibryd [facility] [address]-91 40 mg March 23, 2012 take 1 tablet (40 mg ) by oral route once daily with food Procedures Procedure Coding System Code Date Office Visit, Est Pt., Level 3 CPT-4 43954 Aug 07, 2015 [facility] VISIT ESTABLISHED PATIENT CPT-4 G0467 Aug 07, 2015 Vital Signs Date/Time: Aug 07, 2015 Temperature 99.1 F Weight 127.2 lbs Height 68 in BMI 19.34 Index Blood Pressure Diastolic 60 mmHg Blood Pressure Systolic 88 mmHg Cardiac Monitoring Heart Rate 102 bpm Results No Known Results Summary Purpose eClinicalWorks Submission
--- OUTSIDE RECORDS SUMMARY | 2019-02-13 09:46 | XMS REPORT ---
Author Author MEGHAN QUAN [facility] Address [address] [place] [address] Care Team Providers Care Dispatcher Relay Name Role Phone MEGHAN QUAN Unavailable PROBLEMS Type Condition ICD9-CM Code [id number] Code Onset Dates Condition Status SNOMED Code Problem Impingement syndrome of left shoulder M75.42 Active 283737318 Problem Pain in right shoulder M25.511 Active 00186841 Problem Hep C w/o coma, chronic B18.2 Active 789172752 Problem Bipolar depression F31.30 Active 38490573 Problem 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 Active 774318646 Problem Actinic keratosis L57.0 Active 109544728 Problem Chronic hepatitis C without hepatic coma B18.2 Active 277578579 Problem Inflammatory polyneuropathy, unspecified G61.9 Active 25039392 Problem 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 629911611 Problem Orthostatic hypotension 458.0 Active 96477437 Problem Bipolar depression 296.50 Active 44064476 Problem Personal history of colonic polyps V12.72 Active 233384934 Problem Chronic obstructive pulmonary disease, unspecified J44.9 Active 452984463 Problem Dependence on machine for supplemental oxygen V46.2 Active 902867491558 Problem Tremor, unspecified R25.1 Active 67574882 ALLERGIES Unknown Allergies SOCIAL HISTORY No smoking Hx information available PLAN OF CARE VITAL SIGNS MEDICATIONS Medication Instructions Dosage Frequency Start Date End Date Duration Status Fluorouracil 2 % Externally Twice a day 1 drop to affected area 12h 23 Oct 0 days Active Loperamide HCl 2 MG Orally 2 time(s) a day, PRN 1-2 capsule Active RESULTS No Results PROCEDURES No Known procedures IMMUNIZATIONS No Known Immunizations
--- OUTSIDE RECORDS SUMMARY | 2019-02-13 09:46 | XMS REPORT ---
Author Author MEGHAN QUAN Organization [facility] Address [address] [place] [address] Care Team Providers Care Gunstock Spray Unit Feeder Name Role Phone MEGHAN QUAN Unavailable PROBLEMS Type Condition ICD9-CM Code [id number] Code Onset Dates Condition Status SNOMED Code Problem Pain in right shoulder M25.511 Active 06062345 Problem Actinic keratosis L57.0 Active 572563281 Problem Chronic hepatitis C without hepatic coma B18.2 Active 339467462 Problem Irritable bowel syndrome with both constipation and diarrhea K58.2 Active 38883746 Problem Cervicalgia M54.2 Active 73443254 Problem Inflammatory polyneuropathy, unspecified G61.9 Active 55206737 Problem 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 340555928 Problem Bipolar depression F31.30 Active 85006794 Problem 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 Active 338918295 Problem Personal history of colonic polyps V12.72 Active 895917121 Problem Dependence on machine for supplemental oxygen V46.2 Active 900196695311 Problem Chronic obstructive pulmonary disease, unspecified J44.9 Active 651886653 Problem Tremor, unspecified R25.1 Active 87383797 Problem Orthostatic hypotension 458.0 Active 83278644 Problem Impingement syndrome of left shoulder M75.42 Active 218124368 Problem Bipolar depression 296.50 Active 93632119 Problem Hep C w/o coma, chronic B18.2 Active 304136271 ALLERGIES No Information ENCOUNTERS Encounter Location Date Diagnosis [facility] [address] [facility] [id number] [id number] Jan, [address] [place] [address] [id number] Dec, Chronic obstructive pulmonary disease, unspecified J44.9 ; Cervicalgia M54.2 and Irritable bowel syndrome with both constipation and diarrhea K58.2 [place] [id number] [place] [address] [id number] Nov, Chronic obstructive pulmonary disease, unspecified J44.9 and Cervicalgia M54.2 [address] [place] [address] [id number] Jul, Chronic obstructive pulmonary disease, unspecified J44.9 ; Impingement syndrome of left shoulder M75.42 and Tremor, unspecified R25.1 [facility] [address] [id number] [id number] Jun, Diarrhea, unspecified type R19.7 [address] [place] [address] [id number] Jun, Encounter for immunization Z23 ; Chronic obstructive pulmonary disease, unspecified J44.9 ; Tremor, unspecified R25.1 ; Diarrhea, unspecified type R19.7 ; Acute seasonal allergic rhinitis due to pollen J30.1 and Urinary frequency R35.0 [address] [place] [address] [id number] Jun, [place] [id number] [place] [address] [id number] Jun, [address] [place] [address] [id number] May, Chronic obstructive pulmonary disease, unspecified J44.9 ; Tremor, unspecified R25.1 ; Hep C w/o coma, chronic B18.2 ; Bipolar depression F31.30 and 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 [address] [id number] May, [facility] [address]00565100[place] [address] Apr, Hep C w/o coma, chronic B18.2 [address] [place] [address] [id number] Jan, Chronic obstructive pulmonary disease, unspecified J44.9 ; 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 [facility] [place] [id number][place] [id number] Dec, Chronic hepatitis C without hepatic coma B18.2 [facility] [id number], [place] [id number] Nov, [facility] [id number], [place] [id number] Oct, Actinic keratosis L57.0 [facility] [place] [id number], [place] [id number] Oct, [facility] [place] [id number], [place] [id number] Oct, Chronic obstructive pulmonary disease, unspecified J44.9 and Chronic hepatitis C without hepatic coma B18.[address] [facility] [address] [facility] [facility] [address] [id number][place] [id number] Oct, Hep C w/o coma, chronic B18.2 [facility] [address]00565100[place] [address] Sep, Hep C w/o coma, chronic B18.2 [facility] [address]00565100[place] [address] Sep, [facility] [address] [place] [address]- [address]15 Sep, [facility] [address] [facility] [facility] [address] [id number][place] [id number] Sep, Chronic hepatitis C without hepatic coma B18.2 and Encounter for immunization Z23 [facility] [address]00565100[place] [address] Aug, [facility] [address] [id number], [place] [id number] Aug, Hep C w/o coma, chronic B18.2 [facility] [address] [place] [id number] [place] [address] Aug, Chronic hepatitis C without hepatic coma B18.2 [facility] [address]00565100[place] [address] Jul, [facility] [address] [place] [id number] [place] [address] Jul, [place] [id number] [place] [address] [id number] Jul, Hep C w/o coma, chronic B18.2 ; Chronic obstructive pulmonary disease, unspecified J44.9 and Pain in right shoulder M25.511 [place] [id number] [place] [address] [id number] Jun, Chronic obstructive pulmonary disease, unspecified J44.[address] [id number] Mar, Hep C w/o coma, chronic B18.2 and Chronic obstructive pulmonary disease, unspecified J44.[address] [id number] Mar, Chronic obstructive pulmonary disease, unspecified J44.9 ; Impingement syndrome of left shoulder M75.42 and Hep C w/o coma, chronic B18.2 [place] [id number] [place] [address] [id number] Dec, Chronic obstructive pulmonary disease, unspecified J44.9 and Impingement syndrome of left shoulder M75.[address] [id number] Sep, Chronic obstructive pulmonary disease, unspecified J44.9 ; Encounter for immunization Z23 and Tremor, unspecified R25.1 [facility] [place] [address]00565100[place] [address] Aug, Tremor, unspecified R25.1 and Chronic obstructive pulmonary disease, unspecified J44.9 [facility] [place] [address] [place] [address] [id number] Jul, Tremor 781.0 and COPD 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 [facility] [place] [id number] [place] [address] [id number] Jun, COPD 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 and Tremor 781.0 [facility] [place] [id number] [place] [address] [id number] May, [facility] [place] [id number] [place] [address] [id number] May, Sinusitis 473.9 [facility] [address] [place] [address] [id number] May, Sinusitis 473.9 ; Tobacco abuse 305.1 ; Irregular heart rhythm 427.9 and Cough 786.2 [facility] [place] [address]00565100[place] [id number] May, [facility] [address] [place] [address] [id number] Apr, [facility] [address] [place] [address] [id number] Apr, COPD 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 [facility] [address] [address] [id number] [place] [address] [id number] Apr, Respiratory distress 786.09 [facility] [place] [address]005[address] [address] Mar, COPD 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 and Verruca 078.10 [facility] [address]00565100[place] [address] Mar, [facility] [address] [place] [address] [id number] Jan, Verruca 078.10 and [place] (actinic keratosis) 702.0 [facility] [address]00565100[place] [phone] Jan, [facility] [place] [facility] [address] [facility] [id number] [place] [address] Jan, [facility] [place] [facility] [address] [facility] [id number] [address] Jan, [facility] [address] [facility] [id number], [place] [address] Dec, [facility] [place] [facility] [address] [facility] [id number] [address] Dec, [facility] [address] [facility] [id number], [place] [address] Nov, [facility] [place] [facility] [address] [facility] [id number] [place] [address]- [address] Nov, [facility] [place] [facility] [address]00565100[place] [address]- 69[address] Nov, [facility] [address] [facility] [id number], [place] [id number] Oct, [facility] [place] [facility] [address]00565100[place] [address]- 112[address] Oct, [facility] [place] [facility] [address]00565100[place] [address]- [address] Oct, [facility] [address] [facility] [id number][place] [id number] Oct, [facility] [place] [facility] [address] [facility] [id number] [place] [address]- 69[address] Oct, [facility] [address] [facility] [id number], [place] [id number] Oct, [facility] [place] [facility] [address] [facility] [id number] [place] [address]- 34[address] Oct, [facility] [address] [facility] [id number], [place] [id number] Sep, [facility] [place] [facility] [address]00565100[place] [address]- 9656 Sep, [facility] [address] [id number] [place] [id number] Aug, [facility] [address] [id number] [place] [id number] Aug, [facility] [place] [facility] [address] [id number] [address]- 2546 Aug, [facility] [place] [facility] [address] [facility] [id number] [place] [address] Aug, [facility] [address] [id number] [place] [address] Jul, [facility] [place] [facility] [address] [facility] [id number] [place] [address]- 2546 Jul, [facility] [address] [facility] [id number] [place] [id number] Apr, [facility] [place] [facility] [address] [facility] [id number] [place] [address]- 77[address] Apr, [facility] [place] [facility] [address] [facility] [id number] [place] [address]- 9636 Apr, [facility] [place] [facility] [address] [facility] [id number] [place] [address]- 4096 Apr, [facility] [address] [facility] [id number], [place] [id number] Apr, [facility] [address] [facility] [id number], [place] [id number] Mar, [facility] [place] [facility] [address] [facility] [id number] [place] [address]- [address] Mar, [facility] [address] [id number] [place] [id number] February, [facility] [place] [facility] [address] [facility] [id number] [place] [address]- 7[address] February, [facility] [address] [facility] [id number] [place] [id number] February, [facility] [place] [facility] [address] [facility] [id number] [place] [address]- [address] February, [facility] [address] [id number] [place] [id number] February, [facility] [place] [facility] [address] [id number] [place]- [address] February, [facility] [place] [facility] [address] [id number] [place] [address]- 5749 February, [facility] [place] [facility] [address] [id number] [place] [address]- 8474 February, [facility] [place] [facility] [address] [id number] [place]- [address]63 February, [facility] [place] [facility] [address] [id number] [place] [address]- 9954 February, [facility] [place] [facility] [address] [id number] [place] [address]- 7427 February, [facility] [place] [facility] [address] [id number] [place] [address]- 6962 February, [facility] [place] [facility] [address] [id number] [place] [address]- 0504 Jan, [facility] [place] [facility] [address] [id number] [place] [address]- 4606 Jan, [facility] [address] [facility] [id number] [place] [id number] Dec, [facility] [place] [facility] [address] [id number] [address]- 2516 Dec, [facility] [address] [facility] [id number] [place] [id number] Dec, [facility] [place] [facility] [address] [id number] [place] [address]- 7346 Dec, [facility] [address] [facility] [id number] [place] [id number] Nov, [facility] [place] [facility] [address] [id number] [place] [address]- 4828 Nov, [facility] [address] [id number] [place] 3[place]247[address] Sep, [facility] [address] [facility] [id number] [address]- 2546 Sep, [facility] [address] [id number] [place] [id number] Sep, [facility] [address] [facility] [id number] [place] [address]- 2546 Sep, [facility] [address] [id number] [place] [id number] Jul, [facility] [address] [facility] [id number] [address]- 2546 Jul, [facility] [address] [id number] [place] [id number] Jul, [facility] [address] [facility] [id number] [place] [address]- 2546 Jul, [facility] [address] [id number] [place] [id number] May, [facility] [address] [id number] [place] [id number] Apr, [facility] [address] [id number] [place] 70[address] Apr, [facility] [address] [id number] [place] 9[place] Mar, [facility] [address] [id number] [place] [id number] Mar, [facility] [address] [id number] [place] [address] February, [facility] [address] [id number] [place] 142335029 Jan, [facility] [address] [id number] [place] 173478996 Dec, [facility] [address] [id number] [place] 724788222 Oct, [facility] [address] [id number], [place] 880291060 Oct, [facility] [address] [facility] [id number], [place] [address]75937 Sep, [facility] [address] [facility] [id number] [place] [address]- 2546 Sep, [facility] [address] [facility] [id number], [place] 539581347 Aug, [facility] [place] [facility] [address]00565100[place] [address]- 2546 Aug, [facility] [address] [facility] [id number], [place] 50[address]22660 Aug, [facility] [place] [facility] [address] [place] [id number] [address]- 9916 Aug, [facility] [place] [facility] [address]00565100[place] [address]- 6706 May, [facility] [id number], [place] 330[address] May, [facility] [place] [facility] [address]00565100[place] [address]- 9098 Apr, [facility] [place] [facility] [address]00565100[place] [address]- 0301 Mar, [facility] [place] [facility] [address]00565100[place] [address]- 9716 Mar, [facility] [address] [facility] [id number], [place] [id number] Mar, [facility] [address] [facility] [id number], [place] 25[place]0123 Jan, [facility] [address] [facility] [id number], [place] 240921189 Dec, [facility] [place] [facility] [address] [facility] [id number] [place] [address]- 9896 Nov, [facility] [address] [facility] [id number], [place] 705739237 Nov, [facility] [place] [facility] [address]005[address]100[place] [address]- 8504 Sep, [facility] [place] [facility] [address] [id number] [place] [address]- 0111 Sep, [facility] [place] [facility] [address] [id number] [place] [address]- 8666 Aug, [facility] [place] [facility] [address] [id number] [place] [address]- 5578 19 Jul, 2011 [facility] [place] [facility] [address] [id number] [place] [address]- 5338 19 Jul, 2011 [facility] [place] [facility] [address] [id number] [place] [address]- 7199 17 Jul, 2011 [facility] [place] [facility] [address] [id number] [place] [address]- 2973 17 Jul, 2011 [facility] [place] [facility] [address] [id number] [place] [address]- 4214 14 Jun, 2011 [facility] [place] [facility] [address] [id number] [place] [address]- 9698 May, [facility] [place] [facility] [address] [id number] [place] [address]- 7495 Apr, [facility] [place] [facility] [address] [id number] [place] [address]- 2231 February, [facility] [place] [facility] [address] [id number] [place] [address]- 0467 Dec, [facility] [place] [facility] [address] [id number] [place] [address]- 9862 Oct, [facility] [place] [facility] [address] [id number] [place] [address]- 8216 Sep, [facility] [place] [facility] [address] [id number] [place] [address]- 4787 15 Aug, 2010 [facility] [place] [facility] [address] [facility] [id number] [place] [address]- 7610 Aug, [facility] [place] [facility] [address] [facility] [id number] [place] [address]- 8956 Sep, [facility] [address] [place] [id number] [address]- 4165 Sep, [facility] [address] [place] [id number] [address]- 3516 Aug, [facility] [address] [place] [id number] [address]- 4229 Aug, [facility] [address] [place] [id number] [address]- 3785 Aug, [facility] [address]00565100[place] [address]- 1002 Aug, IMMUNIZATIONS No Known Immunizations SOCIAL HISTORY Never Assessed REASON FOR VISIT Med Refill PLAN OF CARE VITAL SIGNS MEDICATIONS Medication Instructions Dosage Frequency Start Date End Date Duration Status Loperamide HCl 2 MG TAKE ONE TO TWO CAPSULES BY MOUTH TWICE DAILY NEEDED Active RESULTS No Results PROCEDURES No Known [...] L4 and L5 1986 Hospitalization History Syncope ([place]) 02/2014 Hospitalization History was at [place] for falling and confusion/ then went to a care home for 21days 04/2017
--- OUTSIDE RECORDS SUMMARY | 2019-02-13 09:46 | XMS REPORT ---
Author Author MEGHAN QUAN [facility] Address [address] [place] [address] Care Team Providers Care Sterile Processing Manager Name Role Phone MEGHAN QUAN Unavailable PROBLEMS Type Condition ICD9-CM Code TKE61-BM Code Onset Dates Condition Status SNOMED Code Problem Impingement syndrome of left shoulder M75.42 Active 925030545 Problem Pain in right shoulder M25.511 Active 45293723 Problem Hep C w/o coma, chronic B18.2 Active 700416175 Problem Bipolar depression F31.30 Active 40882355 Problem 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 Active 871946309 Problem Actinic keratosis L57.0 Active 807125000 Problem Chronic hepatitis C without hepatic coma B18.2 Active 162013675 Problem Inflammatory polyneuropathy, unspecified G61.9 Active 13984396 Problem 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 164912096 Problem Orthostatic hypotension 458.0 Active 02053841 Problem Bipolar depression 296.50 Active 82143703 Problem Personal history of colonic polyps V12.72 Active 358868958 Problem Chronic obstructive pulmonary disease, unspecified J44.9 Active 404074257 Problem Dependence on machine for supplemental oxygen V46.2 Active 127276200842 Problem Tremor, unspecified R25.1 Active 79632995 ALLERGIES No Known Allergies SOCIAL HISTORY No smoking Hx information available PLAN OF CARE VITAL SIGNS MEDICATIONS No Known Medications RESULTS No Results PROCEDURES No Known procedures IMMUNIZATIONS No Known Immunizations
--- OUTSIDE RECORDS SUMMARY | 2019-02-13 09:46 | XMS REPORT ---
Author Author MEGHAN QUAN Organization [employer] Address Unknown Phone Unavailable Care Team Providers Care Cast Shell Grinder Name Role Phone MEGHAN QUAN CP Unavailable Allergies No Known Allergies Problems Problem Type Condition Code Onset Dates Condition Status Problem COPD 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 Active Problem Hep C w/o coma, chronic 070.54 Active Problem Bipolar depression 296.50 Active Problem Pain in right shoulder M25.511 Active Problem Personal history of colonic polyps V12.72 Active Problem Hep C w/o coma, chronic B18.2 Active Assessment Chronic hepatitis C without hepatic coma B18.2 Active Problem Chronic hepatitis C without [...]
--- OUTSIDE RECORDS SUMMARY | 2019-02-13 09:46 | XMS REPORT ---
Author Author MEGHAN QUAN Organization [facility] Address [address] [place] [address] Care Team Providers Care Battery Tester Name Role Phone MEGHAN QUAN Unavailable PROBLEMS Type Condition ICD9-CM Code VXW20-PN Code Onset Dates Condition Status SNOMED Code Problem Pain in right shoulder M25.511 Active 57632995 Problem Actinic keratosis L57.0 Active 983031971 Problem Chronic hepatitis C without hepatic coma B18.2 Active 774700003 Problem Irritable bowel syndrome with both constipation and diarrhea K58.2 Active 45540409 Problem Cervicalgia M54.2 Active 80181978 Problem Inflammatory polyneuropathy, unspecified G61.9 Active 11408881 Problem 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 686023596 Problem Bipolar depression F31.30 Active 52896679 Problem 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 Active 824304223 Problem Personal history of colonic polyps V12.72 Active 965933441 Problem Dependence on machine for supplemental oxygen V46.2 Active 312380758022 Problem Chronic obstructive pulmonary disease, unspecified J44.9 Active 549289883 Problem Tremor, unspecified R25.1 Active 28585679 Problem Orthostatic hypotension 458.0 Active 91000151 Problem Impingement syndrome of left shoulder M75.42 Active 924631614 Problem Bipolar depression 296.50 Active 83160729 Problem Hep C w/o coma, chronic B18.2 Active 281673955 ALLERGIES No Information ENCOUNTERS Encounter Location Date Diagnosis [facility] [address] [facility] [id number] [id number] Jan, [address] [place] [address] [id number] Dec, Chronic obstructive pulmonary disease, unspecified J44.9 ; Cervicalgia M54.2 and Irritable bowel syndrome with both constipation and diarrhea K58.2 [place] [id number] [place] [address] [id number] Nov, Chronic obstructive pulmonary disease, unspecified J44.9 and Cervicalgia M54.2 [address] [place] [address] [id number] Jul, Chronic obstructive pulmonary disease, unspecified J44.9 ; Impingement syndrome of left shoulder M75.42 and Tremor, unspecified R25.1 [facility] [address] [id number] [id number] Jun, Diarrhea, unspecified type R19.7 [address] [place] [address] [id number] Jun, Encounter for immunization Z23 ; Chronic obstructive pulmonary disease, unspecified J44.9 ; Tremor, unspecified R25.1 ; Diarrhea, unspecified type R19.7 ; Acute seasonal allergic rhinitis due to pollen J30.1 and Urinary frequency R35.0 [address] [place] [address] [id number] Jun, [place] [id number] [place] [address] [id number] Jun, [address] [place] [address] [id number] May, Chronic obstructive pulmonary disease, unspecified J44.9 ; Tremor, unspecified R25.1 ; Hep C w/o coma, chronic B18.2 ; Bipolar depression F31.30 and 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 [address] [id number] May, [facility] [address]00565100[place] [address] Apr, Hep C w/o coma, chronic B18.2 [address] [place] [address] [id number] Jan, Chronic obstructive pulmonary disease, unspecified J44.9 ; 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 ; Tremor, unspecified R25.1 and 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 [id number][place] [id number] Jan, [facility] [address] [facility][1] [id number][place] [id number] Dec, Chronic obstructive pulmonary disease, unspecified J44.9 [facility] [place] [address] [facility] [id number], [place] [address] Dec, Hep C w/o coma, chronic B18.2 ; Chronic obstructive pulmonary disease, unspecified J44.9 ; Muscle weakness (generalized) M62.81 ; Inflammatory polyneuropathy, unspecified G61.9 and 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 [facility] [place] [id number], [place] [id number] Dec, Chronic hepatitis C without hepatic coma B18.2 [facility] [id number], [place] [id number] Nov, [facility] [id number], [place] [id number] Oct, Actinic keratosis L57.0 [facility] [place] [id number], [place] [id number] Oct, [facility] [place] [id number], [place] [id number] Oct, Chronic obstructive pulmonary disease, unspecified J44.9 and Chronic hepatitis C without hepatic coma B18.2 [facility] [address] [facility] [id number][place] [id number] Oct, Hep C w/o coma, chronic B18.2 [facility] [address]005[address]100[place], [place] [address] Sep, Hep C w/o coma, chronic B18.2 [facility] [address]00565100[place], [place] [address] Sep, [facility] [id number] [place] [address] Sep, [facility] [place] [address] [facility] [id number], [place] [id number] Sep, Chronic hepatitis C without hepatic coma B18.2 and Encounter for immunization Z23 [facility] [address], [place] [address] Aug, [facility] [address] [id number][place] [id number] Aug, Hep C w/o coma, chronic B18.2 [facility] [address] [place] [id number] [place] [address] Aug, Chronic hepatitis C without hepatic coma B18.2 [facility] [address]00565100[place], [place] [address] Jul, [facility] [address] [place] [id number] [place] [address]- [address]707 Jul, [place] [id number] [place] [address] [id number] Jul, Hep C w/o coma, chronic B18.2 ; Chronic obstructive pulmonary disease, unspecified J44.9 and Pain in right shoulder M25.511 [place] [id number] [place] [address] [id number] Jun, Chronic obstructive pulmonary disease, unspecified J44.[address] [id number] Mar, Hep C w/o coma, chronic B18.2 and Chronic obstructive pulmonary disease, unspecified J44.[address] [id number] Mar, Chronic obstructive pulmonary disease, unspecified J44.9 ; Impingement syndrome of left shoulder M75.42 and Hep C w/o coma, chronic B18.2 [place] [id number] [place] [address] [id number] Dec, Chronic obstructive pulmonary disease, unspecified J44.9 and Impingement syndrome of left shoulder M75.[address] [id number] Sep, Chronic obstructive pulmonary disease, unspecified J44.9 ; Encounter for immunization Z23 and Tremor, unspecified R25.1 [facility] [place] [address]65[address] [id number] Aug, Tremor, unspecified R25.1 and Chronic obstructive pulmonary disease, unspecified J44.9 [facility] [place] [address] [place] [address] [id number] Jul, Tremor 781.0 and COPD 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 [facility] [place] [id number] [place] [address] [id number] Jun, COPD 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 and Tremor 781.0 [facility] [place] [id number] [place] [address] [id number] May, [facility] [place] [id number] [place] [address] [id number] May, Sinusitis 473.9 [facility] [address] [place] [address] [id number] May, Sinusitis 473.9 ; Tobacco abuse 305.1 ; Irregular heart rhythm 427.9 and Cough 786.2 [facility] [place] [address]00565100[place] [id number] May, [facility] [address] [place] [address] [id number] Apr, [facility] [address] [place] [address] [id number] Apr, COPD 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 [facility] [place] [address] [facility] AV[id number] [place] [address] [id number] Apr, Respiratory distress 786.09 [facility] [place] [address]00565100[place] [id number] Mar, COPD 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 and Verruca 078.10 [facility] [address]00565100[place], [place] [address] Mar, [facility] [address] [place] [address] [id number] Jan, Verruca 078.10 and [place] (actinic keratosis) 702.0 [facility] [address]00565100[place] [id number] Jan, [facility] [place] [facility] [address] [facility] [id number], [place] [address] Jan, [facility] [place] [facility] [address] [facility] [id number], [place] [address] 4[address] Jan, [facility] [address] [facility][1] [id number], [place] [address]76 Dec, [facility] [place] [facility] [address] [facility] [id number], [place] [address] Dec, [facility] [address] [facility][1] [id number], [place] [id number] Nov, [facility] [place] [facility] [address] [facility] [id number], [place] [address]- 2[address] Nov, [facility] [place] [facility] [address]00565100[place], [place] [address] 25[address] Nov, [facility] [address] [facility][1] [id number], [place] [id number] Oct, [facility] [place] [facility] [address]00565100[place], [place] [address]- 8[address] Oct, [facility] [place] [facility] [address]00565100[place], [place] [address]- 57[address] Oct, [facility] [address] [facility][1] [id number], [place] [id number] Oct, [facility] [place] [facility] [address] [facility] [id number], [place] [address]- 4[address] Oct, [facility] [address] [facility][1] [id number], [place] 446[address]251 Oct, [facility] [place] [facility] [address] [facility] [id number], [place] [address]- 2956 Oct, [facility] [address] [facility][1] [id number], [place] [id number] Sep, [facility] [place] [facility] [address]00565100[place], [place] [address]- [address] Sep, [facility] [address] [id number] [place] [id number] Aug, [facility] [address] [id number] [place] [id number] Aug, [facility] [place] [facility] [address] [id number] [place] [address]- 2546 Aug, [facility] [place] [facility] [address] [facility] [id number] [place] [address]- 6[address] Aug, [facility] [address] [id number] [place] [id number] Jul, [facility] [place] [facility] [address] [facility] [id number] [place] [address]- 2546 Jul, [facility] [address] [facility][1] [id number] [place] [id number] Apr, [facility] [place] [facility] [address] [facility] [id number], [place] [address]- 28[address] Apr, [facility] [place] [facility] [address] [facility] [id number], [place] [address]- 6036 Apr, [facility] [place] [facility] [address] [facility] [id number], [place] [address]- 8106 Apr, [facility] [address] [facility][1] [id number], [place] [id number] Apr, [facility] [address] [facility][1] [id number], [place] [id number] Mar, [facility] [place] [facility] [address] [facility] [id number], [place] [address]- 265[address] Mar, [facility] [address] [id number] [place] [id number] February, [facility] [place] [facility] [address] [facility] [id number], [place] [address]- [address] February, [facility] [address] [facility][1] [id number] [place] [id number] February, [facility] [place] [facility] [address] [facility] [id number], [place] [address]- 3585 February, [facility] [address] [id number] [place] [id number] February, [facility] [place] [facility] [address] [id number] [place]- 6560 February, [facility] [place] [facility] [address] [id number] [place] [address]- 4435 February, [facility] [place] [facility] [address] [id number] [place] [address]- 2367 February, [facility] [place] [facility] [address] [id number] [place]- [address]83 February, [facility] [place] [facility] [address] [id number] [place] [address]- 1129 February, [facility] [place] [facility] [address] [id number] [place] [address]- 3983 February, [facility] [place] [facility] [address] [id number] [place] [address]- 6798 February, [facility] [place] [facility] [address] [id number] [place] [address]- 4314 Jan, [facility] [place] [facility] [address] [id number] [place] [address]- 9756 Jan, [facility] [address] [facility][1] [id number] [place] [id number] Dec, [facility] [place] [facility] [address] [id number], [place] [address]- 6196 Dec, [facility] [address] [facility][1] [id number] [place] [id number] Dec, [facility] [place] [facility] [address] [id number] [place] [address]- 1166 Dec, [facility] [address] [facility][1] [id number] [place] [id number] Nov, [facility] [place] [facility] [address] [id number] [place] [address]- 6793 Nov, [facility] [address] [id number] [place] [id number] Sep, [facility] [address] [facility] [id number], [place] [address]- 2546 Sep, [facility] [address] [id number] [place] 6408[address]237 Sep, [facility] [address] [facility] [id number], [place] [address]- 2546 Sep, [facility] [address] [id number] [place] [id number] Jul, [facility] [address] [facility] [id number], [place] [address]- 2546 Jul, [facility] [address] [id number] [place] [id number] Jul, [facility] [address] [facility] [id number], [place] [address]- 2546 Jul, [facility] [address] [id number] [place] [id number] May, [facility] [address] [id number] [place] 936365932 Apr, [facility] [address] [id number] [place] [id number] Apr, [facility] [address] [id number] [place] [id number] Mar, [facility] [address] [id number] [place] 923809829 Mar, [facility] [address] [id number] [place] [id number] February, [facility] [address] [id number] [place] 935223119 Jan, [facility] [address] [id number] [place] 127554146 Dec, [facility] [address] [id number] [place] [id number] Oct, [facility] [address] [id number], [place] 563932068 Oct, [facility] [address] [facility][1] [id number], [place] [id number] Sep, [facility] [address] [facility] [id number], [place] [address]- 2546 Sep, [facility] [address] [facility][1] [id number], [place] 371864111 Aug, [facility] [place] [facility] [address]00565[address], [place] [address]- 2546 Aug, [facility] [address] [facility][1] [id number], [place] [id number] Aug, [facility] [place] [facility] [address] [place] [id number], [place] [address]- 1366 Aug, [facility] [place] [facility] [address]00565100[place], [place] [address]- 6346 May, [facility] [id number], [place] 58[address]226 May, [facility] [place] [facility] [address]00565100[place], [place] [address]- 3838 Apr, [facility] [place] [facility] [address]00565100[place], [place] [address]- 5819 Mar, [facility] [place] [facility] [address]00565100[place], [place] [address]- 6736 Mar, [facility] [address] [facility][1] [id number], [place] [id number] Mar, [facility] [address] [facility][1] [id number], [place] 433804962 Jan, [facility] [address] [facility][1] [id number], [place] 093687537 Dec, [facility] [place] [facility] [address] [facility] [id number], [place] [address]- 4396 Nov, [facility] [address] [facility][1] [id number], [place] 138115458 Nov, [facility] [place] [facility] [address]00565100[place], [place] [address]- 7781 Sep, [facility] [place] [facility] [address] [id number] [place] [address]- 5582 Sep, [facility] [place] [facility] [address] [id number] [place] [address]- 4116 Aug, [facility] [place] [facility] [address] [id number] [place] [address]- 3888 19 Jul, 2011 [facility] [place] [facility] [address] [id number] [place] [address]- 9243 19 Jul, 2011 [facility] [place] [facility] [address] [id number] [place] [address]- 2600 17 Jul, 2011 [facility] [place] [facility] [address] [id number] [place] [address]- 8896 17 Jul, 2011 [facility] [place] [facility] [address] [id number] [place] [address]- 8707 14 Jun, 2011 [facility] [place] [facility] [address] [id number] [place] [address]- 4696 May, [facility] [place] [facility] [address] [id number] [place] [address]- 7213 Apr, [facility] [place] [facility] [address] [id number] [place] [address]- 2661 February, [facility] [place] [facility] [address] [id number] [place] [address]- 8021 Dec, [facility] [place] [facility] [address] [id number] [place] [address]- 8561 Oct, [facility] [place] [facility] [address] [id number] [place] [address]- 3268 Sep, [facility] [place] [facility] [address] [id number] [place] [address]- 0393 15 Aug, 2010 [facility] [place] [facility] [address] [facility] [id number] [place] [address]- 3491 Aug, [facility] [place] [facility] [address] [facility] [id number], [place] [address]- 9766 Sep, [facility] [address] [place] [id number], [place] [address]- 9316 Sep, [facility] [address] [place] [id number], [place] [address]- 9797 Aug, [facility] [address] [place] [id number], [place] [address]- 0294 Aug, [facility] [address] [place] [id number], [place] [address]- 0799 Aug, [facility] [address], [place] [address]- 8888 Aug, IMMUNIZATIONS No Known Immunizations SOCIAL HISTORY Never Assessed REASON FOR VISIT Resend Rx PLAN OF CARE VITAL SIGNS MEDICATIONS Medication [...] L4 and L5 1986 Hospitalization History Syncope ([facility]) 02/2014 Hospitalization History was at [place] for falling and confusion/ then went [facility] a penit[facility] for 21days 04/2017
--- OUTSIDE RECORDS SUMMARY | 2019-02-13 09:46 | XMS REPORT ---
Author Author MEGHAN QUAN [facility] Address [address] [place] [address] Care Team Providers Care Family Nurse Name Role Phone MGEHAN QUAN Unavailable PROBLEMS Type Condition ICD9-CM Code NPD75-RO Code Onset Dates Condition Status SNOMED Code Problem Impingement syndrome of left shoulder M75.42 Active 766349060 Problem Pain in right shoulder M25.511 Active 89562809 Problem Hep C w/o coma, chronic B18.2 Active 402940661 Problem Bipolar depression F31.30 Active 23687178 Problem 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 Active 433809832 Problem Actinic keratosis L57.0 Active 017631661 Problem Chronic hepatitis C without hepatic coma B18.2 Active 766326399 Problem Inflammatory polyneuropathy, unspecified G61.9 Active 72811225 Problem 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 450414887 Problem Orthostatic hypotension 458.0 Active 32514767 Problem Bipolar depression 296.50 Active 84878101 Problem Personal history of colonic polyps V12.72 Active 985599052 Problem Chronic obstructive pulmonary disease, unspecified J44.9 Active 590713355 Problem Dependence on machine for supplemental oxygen V46.2 Active 369707428959 Problem Tremor, unspecified R25.1 Active 26602419 ALLERGIES No Known Allergies SOCIAL HISTORY No smoking Hx information available PLAN OF CARE VITAL SIGNS MEDICATIONS No Known Medications RESULTS No Results PROCEDURES No Known procedures IMMUNIZATIONS No Known Immunizations
--- OUTSIDE RECORDS SUMMARY | 2019-02-13 09:48 | XMS REPORT | Continuity of Care Document ---
Author Organization Unknown Address Unknown Allergies Active Description Code Type Severity Reaction Onset Reported/Identified Relationship to Patient Clinical Status Yes Lomotil Drug Allergy 08/29/2009 Yes Lomotil Drug Allergy N/A N/A 08/29/2009 Yes atropine sulfate [id number] Drug Allergy Unknown N/A 03/16/2014 Yes Diphenoxylate HCl [id number] Drug Allergy Unknown N/A 03/16/2014 Medications There is no data. Problems Date Dx Coded Attending Type Code Diagnosis Diagnosed By 08/29/2009 YVONNE NORTON MD 070.70 UNSPECIFIED VIRAL HEPATITIS C WITHOUT HEPATIC COMA 08/29/2009 YVONNE NORTON MD 296.80 BIPOLAR DISORDER, UNSPECIFIED 08/29/2009 YVONNE NORTON MD 496 CHRONIC OBSTRUCTIVE PULMONARY DISEASE 08/29/2009 070.70 UNSPECIFIED VIRAL HEPATITIS C WITHOUT HEPATIC COMA 08/29/2009 296.80 BIPOLAR DISORDER, UNSPECIFIED 08/29/2009 496 CHRONIC OBSTRUCTIVE PULMONARY DISEASE 08/29/2009 MEGHAN QUAN APRN 070.70 UNSPECIFIED VIRAL HEPATITIS C WITHOUT HEPATIC COMA 08/29/2009 MEGHAN QUAN APRN 296.80 BIPOLAR DISORDER, UNSPECIFIED 08/29/2009 MEGHAN QUAN APRN 496 CHRONIC OBSTRUCTIVE PULMONARY DISEASE 08/29/2009 070.70 UNSPECIFIED VIRAL HEPATITIS C WITHOUT HEPATIC COMA 08/29/2009 296.80 BIPOLAR DISORDER, UNSPECIFIED 08/29/2009 496 CHRONIC OBSTRUCTIVE PULMONARY DISEASE 08/29/2009 MEGHAN QUAN APRN 070.70 UNSPECIFIED VIRAL HEPATITIS C WITHOUT HEPATIC COMA 08/29/2009 MEGHAN QUAN APRN 296.80 BIPOLAR DISORDER, UNSPECIFIED 08/29/2009 MEGHAN QUAN APRN 496 CHRONIC OBSTRUCTIVE PULMONARY DISEASE 08/29/2009 MEGHAN QUAN APRN 070.70 UNSPECIFIED VIRAL HEPATITIS C WITHOUT HEPATIC COMA 08/29/2009 MEGHAN QUAN APRN 296.80 BIPOLAR DISORDER, UNSPECIFIED 08/29/2009 QUAN MEGHAN REZA 496 CHRONIC OBSTRUCTIVE PULMONARY DISEASE 08/29/2009 NULL DO, WILFRIDO K 070.70 UNSPECIFIED VIRAL HEPATITIS C WITHOUT HEPATIC COMA 08/29/2009 NULL DO, WILFRIDO K 296.80 BIPOLAR DISORDER, UNSPECIFIED 08/29/2009 NULL DO, WILFRIDO K 496 CHRONIC OBSTRUCTIVE PULMONARY DISEASE 08/29/2009 NULL DO, WILFRIDO K 070.70 UNSPECIFIED VIRAL HEPATITIS C WITHOUT HEPATIC COMA 08/29/2009 NULL DO, WILFRIDO K 296.80 BIPOLAR DISORDER, UNSPECIFIED 08/29/2009 NULL DO, WILFRIDO K 496 CHRONIC OBSTRUCTIVE PULMONARY DISEASE 08/29/2009 QUAN MEGHAN REZA 070.70 UNSPECIFIED VIRAL HEPATITIS C WITHOUT HEPATIC COMA 08/29/2009 QUAN MEGHAN REZA 296.80 BIPOLAR DISORDER, UNSPECIFIED 08/29/2009 QUAN MEGHAN REZA 496 CHRONIC OBSTRUCTIVE PULMONARY DISEASE 08/29/2009 NULL DO, WILFRIDO K 070.70 UNSPECIFIED VIRAL HEPATITIS C WITHOUT HEPATIC COMA 08/29/2009 NULL DO, WILFRIDO K 296.80 BIPOLAR DISORDER, UNSPECIFIED 08/29/2009 NULL DO, WILFRIDO K 496 CHRONIC OBSTRUCTIVE PULMONARY DISEASE 08/29/2009 RAYA MONTANO APRN 070.70 UNSPECIFIED VIRAL HEPATITIS C WITHOUT HEPATIC COMA 08/29/2009 RAYA MONTANO APRN 296.80 BIPOLAR DISORDER, UNSPECIFIED 08/29/2009 RAYA MONTANO APRN 496 CHRONIC OBSTRUCTIVE PULMONARY DISEASE 08/29/2009 NULL DO, WILFRIDO K 070.70 UNSPECIFIED VIRAL HEPATITIS C WITHOUT HEPATIC COMA 08/29/2009 NULL DO, WILFRIDO K 296.80 BIPOLAR DISORDER, UNSPECIFIED 08/29/2009 NULL DO, WILFRIDO K 496 CHRONIC OBSTRUCTIVE PULMONARY DISEASE 08/29/2009 NULL DO, WILFRIDO K 070.70 UNSPECIFIED VIRAL HEPATITIS C WITHOUT HEPATIC COMA 08/29/2009 NULL DO, WILFRIDO K 296.80 BIPOLAR DISORDER, UNSPECIFIED 08/29/2009 NULL DO, WILFRIDO K 496 CHRONIC OBSTRUCTIVE PULMONARY DISEASE 08/29/2009 NULL DO, WILFRIDO K 070.70 UNSPECIFIED VIRAL HEPATITIS C WITHOUT HEPATIC COMA 08/29/2009 NULL DO, WILFRIDO K 296.80 BIPOLAR DISORDER, UNSPECIFIED 08/29/2009 NULL DO, WILFRIDO K 496 CHRONIC OBSTRUCTIVE PULMONARY DISEASE 08/29/2009 AIMEE SANTOS MD 070.70 UNSPECIFIED VIRAL HEPATITIS C WITHOUT HEPATIC COMA 08/29/2009 AIMEE SANTOS MD 296.80 BIPOLAR DISORDER, UNSPECIFIED 08/29/2009 AIMEE SANTOS MD 496 CHRONIC OBSTRUCTIVE PULMONARY DISEASE 08/29/2009 QUNAMEGHAN MALLORY APRN R 070.70 UNSPECIFIED VIRAL HEPATITIS C WITHOUT HEPATIC COMA 08/29/2009 MEGHAN UQAN APRN R 296.80 BIPOLAR DISORDER, UNSPECIFIED 08/29/2009 MEGHAN QUAN APRN R 496 CHRONIC OBSTRUCTIVE PULMONARY DISEASE 08/29/2009 NULL DO WILFRIDO K 070.70 UNSPECIFIED VIRAL HEPATITIS C WITHOUT HEPATIC COMA 08/29/2009 TENNILLE POMPA WILFRIDO K 296.80 BIPOLAR DISORDER, UNSPECIFIED 08/29/2009 TENNILLE POMPA WILFRIDO K 496 CHRONIC OBSTRUCTIVE PULMONARY DISEASE 08/29/2009 MEGHAN QUAN APRN R 070.70 UNSPECIFIED VIRAL HEPATITIS C WITHOUT HEPATIC COMA 08/29/2009 MEGHAN QUAN APRN 296.80 BIPOLAR DISORDER, UNSPECIFIED 08/29/2009 MEGHAN QUAN APRN R 496 CHRONIC OBSTRUCTIVE PULMONARY DISEASE 08/29/2009 TENNILLE POMPA WILFRIDO K 070.70 UNSPECIFIED VIRAL HEPATITIS C WITHOUT HEPATIC COMA 08/29/2009 TENNILLE POMPA WILFRIDO K 296.80 BIPOLAR DISORDER, UNSPECIFIED 08/29/2009 TENNILLE POMPA WILFRIDO K 496 CHRONIC OBSTRUCTIVE PULMONARY DISEASE 09/10/2009 YVONNE NORTON MD 070.54 HEPATITIS, C VIRUS - CHRONIC 09/10/2009 YVONNE NORTON MD 304.10 BENZODIAZEPINE DEPENDENCE 09/10/2009 070.54 HEPATITIS, C VIRUS - CHRONIC 09/10/2009 304.10 BENZODIAZEPINE DEPENDENCE 09/10/2009 MEGHAN QUAN APRN R 070.54 HEPATITIS, C VIRUS - CHRONIC 09/10/2009 MEGHAN QUAN APRN 304.10 BENZODIAZEPINE DEPENDENCE 09/10/2009 070.54 HEPATITIS, C VIRUS - CHRONIC 09/10/2009 304.10 BENZODIAZEPINE DEPENDENCE 09/10/2009 MEGHAN QUAN APRN R 070.54 HEPATITIS, C VIRUS - CHRONIC 09/10/2009 MEGHAN QUAN APRN R 304.10 BENZODIAZEPINE DEPENDENCE 09/10/2009 QUAN LACING PRESSER, MEGHAN R 070.54 HEPATITIS, C VIRUS - CHRONIC 09/10/2009 MEGHAN QUAN APRN R 304.10 BENZODIAZEPINE DEPENDENCE 09/10/2009 NULL DO, WILFRIDO K 070.54 HEPATITIS, C VIRUS - CHRONIC 09/10/2009 NULL DO, WILFRIDO K 304.10 BENZODIAZEPINE DEPENDENCE 09/10/2009 NULL DO, WILFRIDO K 070.54 HEPATITIS, C VIRUS - CHRONIC 09/10/2009 NULL DO, WILFRIDO K 304.10 BENZODIAZEPINE DEPENDENCE 09/10/2009 MEGHAN QUAN APRN R 070.54 HEPATITIS, C VIRUS - CHRONIC 09/10/2009 QUANMEGHAN MALLORY APRN R 304.10 BENZODIAZEPINE DEPENDENCE 09/10/2009 NULL DO, WILFRIDO K 070.54 HEPATITIS, C VIRUS - CHRONIC 09/10/2009 NULL DO, WILFRIDO K 304.10 BENZODIAZEPINE DEPENDENCE 09/10/2009 RAYA MONTANO APRN 070.54 HEPATITIS, C VIRUS - CHRONIC 09/10/2009 RAYA MONTANO APRN 304.10 BENZODIAZEPINE DEPENDENCE 09/10/2009 NULL DO, WILFRIDO K 070.54 HEPATITIS, C VIRUS - CHRONIC 09/10/2009 NULL DO, WILFRIDO K 304.10 BENZODIAZEPINE DEPENDENCE 09/10/2009 NULL DO, WILFRIDO K 070.54 HEPATITIS, C VIRUS - CHRONIC 09/10/2009 NULL DO, WILFRIDO K 304.10 BENZODIAZEPINE DEPENDENCE 09/10/2009 NULL DO, WILFRIDO K 070.54 HEPATITIS, C VIRUS - CHRONIC 09/10/2009 NULL DO, WILFRIDO K 304.10 BENZODIAZEPINE DEPENDENCE 09/10/2009 AIMEE SANTOS MD 070.54 HEPATITIS, C VIRUS - CHRONIC 09/10/2009 AIMEE SANTOS MD 304.10 BENZODIAZEPINE DEPENDENCE 09/10/2009 MEGHAN QUAN APRN R 070.54 HEPATITIS, C VIRUS - CHRONIC 09/10/2009 MEGHAN QUAN APRN R 304.10 BENZODIAZEPINE DEPENDENCE 09/10/2009 NULL DO, WILFRIDO K 070.54 HEPATITIS, C VIRUS - CHRONIC 09/10/2009 NULL DO, WILFRIDO K 304.10 BENZODIAZEPINE DEPENDENCE 09/10/2009 MEGHAN QUAN APRN R 070.54 HEPATITIS, C VIRUS - CHRONIC 09/10/2009 MEGHAN QUAN APRN R 304.10 BENZODIAZEPINE DEPENDENCE 09/10/2009 NULL DO, WILFRIDO K 070.54 HEPATITIS, C VIRUS - CHRONIC 09/10/2009 TENNILLE POMPA, WILFRIDO K 304.10 BENZODIAZEPINE DEPENDENCE 09/19/2009 YVONNE NORTON MD 276.50 VOLUME DEPLETION, UNSPECIFIED 09/19/2009 276.50 VOLUME DEPLETION, UNSPECIFIED 09/19/2009 MEGHAN QUAN APRN 276.50 VOLUME DEPLETION, UNSPECIFIED 09/19/2009 276.50 VOLUME DEPLETION, UNSPECIFIED 09/19/2009 MEGHAN QUAN APRN 276.50 VOLUME DEPLETION, UNSPECIFIED 09/19/2009 MEGHAN QUAN APRN 276.50 VOLUME DEPLETION, UNSPECIFIED 09/19/2009 NULL DO, WILFRIDO K 276.50 VOLUME DEPLETION, UNSPECIFIED 09/19/2009 NULL DO, WILFRIDO K 276.50 VOLUME DEPLETION, UNSPECIFIED 09/19/2009 MEGHAN QUAN APRN 276.50 VOLUME DEPLETION, UNSPECIFIED 09/19/2009 NULL DO, WILFRIDO K 276.50 VOLUME DEPLETION, UNSPECIFIED 09/19/2009 RAYA MONTANO APRN 276.50 VOLUME DEPLETION, UNSPECIFIED 09/19/2009 NULL DO, WILFRIDO K 276.50 VOLUME DEPLETION, UNSPECIFIED 09/19/2009 NULL DO, WILFRIDO K 276.50 VOLUME DEPLETION, UNSPECIFIED 09/19/2009 NULL DO, WILFRIDO K 276.50 VOLUME DEPLETION, UNSPECIFIED 09/19/2009 AIMEE SANTOS MD 276.50 VOLUME DEPLETION, UNSPECIFIED 09/19/2009 MEGHAN QUAN APRN 276.50 VOLUME DEPLETION, UNSPECIFIED 09/19/2009 TENNILLE DO WILFRIDO K 276.50 VOLUME DEPLETION, UNSPECIFIED 09/19/2009 MEGHAN QUAN APRN 276.50 VOLUME DEPLETION, UNSPECIFIED 09/19/2009 NULL DO, WILFRIDO K 276.50 VOLUME DEPLETION, UNSPECIFIED 10/23/2009 YVONNE NORTON MD 719.41 PAIN IN JOINT, SHOULDER REGION 10/23/2009 719.41 PAIN IN JOINT , SHOULDER REGION 10/23/2009 MEGHAN QUAN APRN 719.41 PAIN IN JOINT, SHOULDER REGION 10/23/2009 719.41 PAIN IN JOINT , SHOULDER REGION 10/23/2009 MEGHAN QUAN APRN 719.41 PAIN IN JOINT, SHOULDER REGION 10/23/2009 MEGHAN QUAN APRN 719.41 PAIN IN JOINT, SHOULDER REGION 10/23/2009 NULL DO, WILFRIDO K 719.41 PAIN IN JOINT, SHOULDER REGION 10/23/2009 NULL DO, WILFRIDO K 719.41 PAIN IN JOINT, SHOULDER REGION 10/23/2009 MEGHAN QUAN APRN 719.41 PAIN IN JOINT, SHOULDER REGION 10/23/2009 NULL DO, WILFRIDO K 719.41 PAIN IN JOINT, SHOULDER REGION 10/23/2009 RAYA MONTANO APRN 719.41 PAIN IN JOINT, SHOULDER REGION 10/23/2009 NULL DO, WILFRIDO K 719.41 PAIN IN JOINT, SHOULDER REGION 10/23/2009 NULL DO, WILFRIDO K 719.41 PAIN IN JOINT, SHOULDER REGION 10/23/2009 NULL DO, WILFRIDO K 719.41 PAIN IN JOINT, SHOULDER REGION 10/23/2009 AIMEE SANTOS MD 719.41 PAIN IN JOINT, SHOULDER REGION 10/23/2009 MEGHAN QUAN APRN 719.41 PAIN IN JOINT, SHOULDER REGION 10/23/2009 TENNILLE DO, WILFRIDO K 719.41 PAIN IN JOINT, SHOULDER REGION 10/23/2009 MEGHAN QUAN APRN 719.41 PAIN IN JOINT, SHOULDER REGION 10/23/2009 NULL DO, WILFRIDO K 719.41 PAIN IN JOINT, SHOULDER REGION 02/17/2010 YVONNE NORTON MD 702.0 ACTINIC KERATOSIS 02/17/2010 702.0 ACTINIC KERATOSIS 02/17/2010 MEGHAN QUAN APRN 702.0 ACTINIC KERATOSIS 02/17/2010 702.0 ACTINIC KERATOSIS 02/17/2010 MEGHAN QUAN APRN 702.0 ACTINIC KERATOSIS 02/17/2010 MEGHAN QUAN APRN 702.0 ACTINIC KERATOSIS 02/17/2010 TENNILLE POMPA WILFRIDO K 702.0 ACTINIC KERATOSIS 02/17/2010 NULL DO, WILFRIDO K 702.0 ACTINIC KERATOSIS 02/17/2010 MEGHAN QUAN APRN 702.0 ACTINIC KERATOSIS 02/17/2010 NULL DO WILFRIDO K 702.0 ACTINIC KERATOSIS 02/17/2010 RAYA MONTANO APRN 702.0 ACTINIC KERATOSIS 02/17/2010 NULL DO, WILFRIDO K 702.0 ACTINIC KERATOSIS 02/17/2010 NULL DO, WILFRIDO K 702.0 ACTINIC KERATOSIS 02/17/2010 NULL DO, WILFRIDO K 702.0 ACTINIC KERATOSIS 02/17/2010 AIMEE SANTOS MD 702.0 ACTINIC KERATOSIS 02/17/2010 MEGHAN QUAN APRN 702.0 ACTINIC KERATOSIS 02/17/2010 NULL DO, WILFRIDO K 702.0 ACTINIC KERATOSIS 02/17/2010 QUAN MEGHAN REZA 702.0 ACTINIC KERATOSIS 02/17/2010 NULL DO, WILFRIDO K 702.0 ACTINIC KERATOSIS 03/20/2010 YVONNE NORTON MD 702.8 OTHER SPECIFIED DERMATOSES 03/20/2010 702.8 OTHER SPECIFIED DERMATOSES 03/20/2010 MEGHAN QUAN APRN 702.8 OTHER SPECIFIED DERMATOSES 03/20/2010 702.8 OTHER SPECIFIED DERMATOSES 03/20/2010 MEGHAN QUAN APRN 702.8 OTHER SPECIFIED DERMATOSES 03/20/2010 MEGHAN QUAN APRN 702.8 OTHER SPECIFIED DERMATOSES 03/20/2010 TENNILLE DO WILFRIDO K 702.8 OTHER SPECIFIED DERMATOSES 03/20/2010 TENNILLE DO WILFRIDO K 702.8 OTHER SPECIFIED DERMATOSES 03/20/2010 MEGHAN QUAN APRN 702.8 OTHER SPECIFIED DERMATOSES 03/20/2010 NULL DO WILFRIDO K 702.8 OTHER SPECIFIED DERMATOSES 03/20/2010 RAYA MONTANO APRN 702.8 OTHER SPECIFIED DERMATOSES 03/20/2010 NULL DO WILFRIDO K 702.8 OTHER SPECIFIED DERMATOSES 03/20/2010 NULL DO, WILFRIDO K 702.8 OTHER SPECIFIED DERMATOSES 03/20/2010 NULL DO WILFRIDO K 702.8 OTHER SPECIFIED DERMATOSES 03/20/2010 AIMEE SANTOS MD 702.8 OTHER SPECIFIED DERMATOSES 03/20/2010 MEGHAN QUAN APRN 702.8 OTHER SPECIFIED DERMATOSES 03/20/2010 NULL DO WILFRIDO K 702.8 OTHER SPECIFIED DERMATOSES 03/20/2010 QUAN MEGHAN REZA 702.8 OTHER SPECIFIED DERMATOSES 03/20/2010 NULL DO, WILFRIDO K 702.8 OTHER SPECIFIED DERMATOSES 05/22/2010 YVONNE NORTON MD 300.00 ANXIETY STATE, UNSPECIFIED 05/22/2010 YVONNE NORTON MD V58.69 MEDICATION HIGH RISK 05/22/2010 300.00 ANXIETY STATE , UNSPECIFIED 05/22/2010 V58.69 MEDICATION HIGH RISK 05/22/2010 QUANMEGHAN MALLORY APRN R 300.00 ANXIETY STATE, UNSPECIFIED 05/22/2010 QUAN MEGHAN REZA V58.69 MEDICATION HIGH RISK 05/22/2010 300.00 ANXIETY STATE , UNSPECIFIED 05/22/2010 V58.69 MEDICATION HIGH RISK 05/22/2010 QUAN MEGHAN REZA 300.00 ANXIETY STATE, UNSPECIFIED 05/22/2010 QUAN MGEHAN REZA V58.69 MEDICATION HIGH RISK 05/22/2010 QUAN MEGHAN REZA 300.00 ANXIETY STATE, UNSPECIFIED 05/22/2010 QUAN MEGHAN REZA V58.69 MEDICATION HIGH RISK 05/22/2010 NULL DO, WILFRIDO K 300.00 ANXIETY STATE, UNSPECIFIED 05/22/2010 NULL DO, WILFRIDO K V58.69 MEDICATION HIGH RISK 05/22/2010 NULL DO, WILFRIDO K 300.00 ANXIETY STATE, UNSPECIFIED 05/22/2010 NULL DO, WILFRIDO K V58.69 MEDICATION HIGH RISK 05/22/2010 QUAN MEGHAN REZA R 300.00 ANXIETY STATE, UNSPECIFIED 05/22/2010 QUAN MEGHAN REZA V58.69 MEDICATION HIGH RISK 05/22/2010 NULL DO, WILFRIDO K 300.00 ANXIETY STATE, UNSPECIFIED 05/22/2010 NULL DO, WILFRIDO K V58.69 MEDICATION HIGH RISK 05/22/2010 MONTANO LACING PRESSERRAYA Manzano 300.00 ANXIETY STATE, UNSPECIFIED 05/22/2010 MONTANO LACING PRESSERRAYA Manzano V58.69 MEDICATION HIGH RISK 05/22/2010 NULL DO, WILFRIDO K 300.00 ANXIETY STATE, UNSPECIFIED 05/22/2010 NULL DO, WILFRIDO K V58.69 MEDICATION HIGH RISK 05/22/2010 NULL DO, WILFRIDO K 300.00 ANXIETY STATE, UNSPECIFIED 05/22/2010 NULL DO, WILFRIDO K V58.69 MEDICATION HIGH RISK 05/22/2010 NULL DO, WILFRIDO K 300.00 ANXIETY STATE, UNSPECIFIED 05/22/2010 NULL DO, WILFRIDO K V58.69 MEDICATION HIGH RISK 05/22/2010 DANIELLE WEBB, AIMEE 300.00 ANXIETY STATE, UNSPECIFIED 05/22/2010 AIMEE SANTOS MD V58.69 MEDICATION HIGH RISK 05/22/2010 QUAN LACING PRESSER, MEGHAN R 300.00 ANXIETY STATE, UNSPECIFIED 05/22/2010 QUAN LACING PRESSER, MEGHAN R V58.69 MEDICATION HIGH RISK 05/22/2010 NULL DO, WILFRIDO K 300.00 ANXIETY STATE, UNSPECIFIED 05/22/2010 NULL DO, WILFRIDO K V58.69 MEDICATION HIGH RISK 05/22/2010 QUAN LACING PRESSER, MEGHAN R 300.00 ANXIETY STATE, UNSPECIFIED 05/22/2010 QUAN LACING PRESSER, MEGHAN R V58.69 MEDICATION HIGH RISK 05/22/2010 NULL DO, WILFRIDO K 300.00 ANXIETY STATE, UNSPECIFIED 05/22/2010 NULL DO, WILFRIDO K V58.69 MEDICATION HIGH RISK 01/01/2011 YVONNE NORTON MD 786.50 UNSPECIFIED CHEST PAIN 01/01/2011 786.50 UNSPECIFIED CHEST PAIN 01/01/2011 QUAN LACING PRESSERMEGHAN 786.50 UNSPECIFIED CHEST PAIN 01/01/2011 786.50 UNSPECIFIED CHEST PAIN 01/01/2011 QUAN LACING PRESSERMEGHAN 786.50 UNSPECIFIED CHEST PAIN 01/01/2011 QUAN LACING PRESSERMEGHAN 786.50 UNSPECIFIED CHEST PAIN 01/01/2011 NULL DO, WILFRIDO K 786.50 UNSPECIFIED CHEST PAIN 01/01/2011 NULL DO, WILFRIDO K 786.50 UNSPECIFIED CHEST PAIN 01/01/2011 QUAN LACING PRESSER, MEGHAN R 786.50 UNSPECIFIED CHEST PAIN 01/01/2011 NULL DO, WILFRIDO K 786.50 UNSPECIFIED CHEST PAIN 01/01/2011 RAYA MONTANO APRN 786.50 UNSPECIFIED CHEST PAIN 01/01/2011 NULL DO, WILFRIDO K 786.50 UNSPECIFIED CHEST PAIN 01/01/2011 NULL DO, WILFRIDO K 786.50 UNSPECIFIED CHEST PAIN 01/01/2011 NULL DO, WILFRIDO K 786.50 UNSPECIFIED CHEST PAIN 01/01/2011 AIMEE SANTOS MD 786.50 UNSPECIFIED CHEST PAIN 01/01/2011 QUANMEGHAN MALLORY APRN 786.50 UNSPECIFIED CHEST PAIN 01/01/2011 NULL DO, WILFRIDO K 786.50 UNSPECIFIED CHEST PAIN 01/01/2011 QUANMEGHAN MALLORY APRN 786.50 UNSPECIFIED CHEST PAIN 01/01/2011 NULL DO, WILFRIDO K 786.50 UNSPECIFIED CHEST PAIN 02/26/2011 YVONNE NORTON MD 698.8 OTHER SPECIFIED PRURITIC CONDITIONS 02/26/2011 698.8 OTHER SPECIFIED PRURITIC CONDITIONS 02/26/2011 QUANMEGHAN MALLORY APRN 698.8 OTHER SPECIFIED PRURITIC CONDITIONS 02/26/2011 698.8 OTHER SPECIFIED PRURITIC CONDITIONS 02/26/2011 QUANMEGHAN MALLORY APRN 698.8 OTHER SPECIFIED PRURITIC CONDITIONS 02/26/2011 MEGHAN QUAN APRN 698.8 OTHER SPECIFIED PRURITIC CONDITIONS 02/26/2011 NULL DO, WILFRIDO K 698.8 OTHER SPECIFIED PRURITIC CONDITIONS 02/26/2011 NULL DO, WILFRIDO K 698.8 OTHER SPECIFIED PRURITIC CONDITIONS 02/26/2011 MEGHAN QUAN APRN 698.8 OTHER SPECIFIED PRURITIC CONDITIONS 02/26/2011 NULL DO, WILFRIDO K 698.8 OTHER SPECIFIED PRURITIC CONDITIONS 02/26/2011 RAYA MONTANO APRN 698.8 OTHER SPECIFIED PRURITIC CONDITIONS 02/26/2011 NULL DO, WILFRIDO K 698.8 OTHER SPECIFIED PRURITIC CONDITIONS 02/26/2011 NULL DO, WILFRIDO K 698.8 OTHER SPECIFIED PRURITIC CONDITIONS 02/26/2011 NULL DO, WILFRIDO K 698.8 OTHER SPECIFIED PRURITIC CONDITIONS 02/26/2011 AIMEE SANTOS MD 698.8 OTHER SPECIFIED PRURITIC CONDITIONS 02/26/2011 QUANMEGHAN MALLORY APRN 698.8 OTHER SPECIFIED PRURITIC CONDITIONS 02/26/2011 NULL DO, WILFRIDO K 698.8 OTHER SPECIFIED PRURITIC CONDITIONS 02/26/2011 QUANMEGHAN MALLORY APRN 698.8 OTHER SPECIFIED PRURITIC CONDITIONS 02/26/2011 NULL DO, WILFRIDO K 698.8 OTHER SPECIFIED PRURITIC CONDITIONS 04/29/2011 YVONNE NORTON MD 780.2 fainting (syncope) 04/29/2011 780.2 fainting ( syncope) 04/29/2011 MEGHAN QUAN APRN 780.2 fainting (syncope) 04/29/2011 780.2 fainting ( syncope) 04/29/2011 MEGHAN QUAN APRN 780.2 fainting (syncope) 04/29/2011 MEGHAN QUAN APRN 780.2 fainting (syncope) 04/29/2011 NULL DO WILFRIDO K 780.2 fainting (syncope) 04/29/2011 NULL DO, WILFRIDO K 780.2 fainting (syncope) 04/29/2011 MEGHAN QUAN APRN 780.2 fainting (syncope) 04/29/2011 NULL DO WILFRIDO K 780.2 fainting (syncope) 04/29/2011 RAYA MONTANO APRN 780.2 fainting (syncope) 04/29/2011 NULL DO, WILFRIDO K 780.2 fainting (syncope) 04/29/2011 NULL DO WILFRIDO K 780.2 fainting (syncope) 04/29/2011 NULL DO WILFRIDO K 780.2 fainting (syncope) 04/29/2011 AIMEE SANTOS MD 780.2 fainting (syncope) 04/29/2011 MEGHAN QUAN APRN 780.2 fainting (syncope) 04/29/2011 NULL SOFIA POMPAA K 780.2 fainting (syncope) 04/29/2011 MEGHAN QUAN APRN 780.2 fainting (syncope) 04/29/2011 NULL DO WILFRIDO K 780.2 fainting (syncope) 05/27/2011 ERROL WEBB, YVONNE Suarez 305.1 NONDEPENDENT TOBACCO USE DISORDER 05/27/2011 305.1 NONDEPENDENT TOBACCO USE DISORDER 05/27/2011 MEGHAN QUAN APRN 305.1 NONDEPENDENT TOBACCO USE DISORDER 05/27/2011 305.1 NONDEPENDENT TOBACCO USE DISORDER 05/27/2011 MEGHAN QUAN APRN 305.1 NONDEPENDENT TOBACCO USE DISORDER 05/27/2011 MEGHAN QUAN APRN 305.1 NONDEPENDENT TOBACCO USE DISORDER 05/27/2011 SOFIA NULL DOA K 305.1 NONDEPENDENT TOBACCO USE DISORDER 05/27/2011 SOFIA NULL DOA K 305.1 NONDEPENDENT TOBACCO USE DISORDER 05/27/2011 MEGHAN QUAN APRN 305.1 NONDEPENDENT TOBACCO USE DISORDER 05/27/2011 TENNILLE POMPA WILFRIDO K 305.1 NONDEPENDENT TOBACCO USE DISORDER 05/27/2011 RAYA MONTANO APRN 305.1 NICOTINE DEPENDENCE 05/27/2011 NULL DO, WILFRIDO K 305.1 NICOTINE DEPENDENCE 05/27/2011 NULL DO, WILFRIDO K 305.1 NICOTINE DEPENDENCE 05/27/2011 NULL DO WILFRIDO K 305.1 NICOTINE DEPENDENCE 05/27/2011 AIMEE SANTOS MD 305.1 NICOTINE DEPENDENCE 05/27/2011 MEGHAN QUAN APRN 305.1 NICOTINE DEPENDENCE 05/27/2011 TENNILLE POMPA WILFRIDO K 305.1 NICOTINE DEPENDENCE 05/27/2011 MEGHAN QUAN APRN 305.1 NICOTINE DEPENDENCE 05/27/2011 TENNILLE POMPA WILFRIDO K 305.1 NICOTINE DEPENDENCE 06/19/2011 YVONNE NORTON MD 702.19 OTHER SEBORRHEIC KERATOSIS 06/19/2011 YVONNE NORTON MD 709.9 SKIN LESIONS 06/19/2011 702.19 OTHER SEBORRHEIC KERATOSIS 06/19/2011 709.9 SKIN LESIONS 06/19/2011 MEGHAN QUAN APRN 702.19 OTHER SEBORRHEIC KERATOSIS 06/19/2011 MEGHAN QUAN APRN 709.9 SKIN LESIONS 06/19/2011 702.19 OTHER SEBORRHEIC KERATOSIS 06/19/2011 709.9 SKIN LESIONS 06/19/2011 MEGHAN QUAN APRN 702.19 OTHER SEBORRHEIC KERATOSIS 06/19/2011 MEGHAN QUAN APRN 709.9 SKIN LESIONS 06/19/2011 MEGHAN QUAN APRN 702.19 OTHER SEBORRHEIC KERATOSIS 06/19/2011 MEGHAN QUAN APRN 709.9 SKIN LESIONS 06/19/2011 SOFIA NULL DOA K 702.19 OTHER SEBORRHEIC KERATOSIS 06/19/2011 SOFIA NULL DOA K 709.9 SKIN LESIONS 06/19/2011 NULL DO WILFRIDO K 702.19 OTHER SEBORRHEIC KERATOSIS 06/19/2011 TENNILLE POMPA WILFRIDO K 709.9 SKIN LESIONS 06/19/2011 MEGHAN QUAN APRN 702.19 OTHER SEBORRHEIC KERATOSIS 06/19/2011 MEGHAN QUAN APRN 709.9 SKIN LESIONS 06/19/2011 NULL DO WILFRIDO K 702.19 OTHER SEBORRHEIC KERATOSIS 06/19/2011 NULL DO, WILFRIDO K 709.9 SKIN LESIONS 06/19/2011 RAYA MONTANO APRN 702.19 OTHER SEBORRHEIC KERATOSIS 06/19/2011 MONTANO RAYA REZA 709.9 SKIN LESIONS 06/19/2011 NULL DO WILFRIDO K 702.19 OTHER SEBORRHEIC KERATOSIS 06/19/2011 NULL DO, WILFRIDO K 709.9 SKIN LESIONS 06/19/2011 NULL DO, WILFRIDO K 702.19 OTHER SEBORRHEIC KERATOSIS 06/19/2011 NULL DOSOFIAA K 709.9 SKIN LESIONS 06/19/2011 NULL DO WILFRIDO K 702.19 OTHER SEBORRHEIC KERATOSIS 06/19/2011 SOFIA NULL DOA K 709.9 SKIN LESIONS 06/19/2011 AIMEE SANTOS MD 702.19 OTHER SEBORRHEIC KERATOSIS 06/19/2011 AIMEE SANTOS MD 709.9 SKIN LESIONS 06/19/2011 MEGHAN QUAN APRN 702.19 OTHER SEBORRHEIC KERATOSIS 06/19/2011 MEGHAN QUAN APRN 709.9 SKIN LESIONS 06/19/2011 WILFRIDO NULL DO K 702.19 OTHER SEBORRHEIC KERATOSIS 06/19/2011 WILFRIDO NULL DO 709.9 SKIN LESIONS 06/19/2011 MEGHAN UQAN APRN 702.19 OTHER SEBORRHEIC KERATOSIS 06/19/2011 MEGHAN QUAN APRN 709.9 SKIN LESIONS 06/19/2011 TENNILLE POMPA WILFRIDO K 702.19 OTHER SEBORRHEIC KERATOSIS 06/19/2011 SOFIA NULL DOA K 709.9 SKIN LESIONS 08/05/2011 YVONNE NORTON MD 373.11 STYE (HORDEOLUM EXTERNUM) 08/05/2011 373.11 STYE ( HORDEOLUM EXTERNUM) 08/05/2011 MEGHAN QUAN APRN 373.11 STYE (HORDEOLUM EXTERNUM) 08/05/2011 373.11 STYE ( HORDEOLUM EXTERNUM) 08/05/2011 MEGHAN QUAN APRN 373.11 STYE (HORDEOLUM EXTERNUM) 08/05/2011 MEGHAN QUAN APRN 373.11 STYE (HORDEOLUM EXTERNUM) 08/05/2011 NULL DOWILFRIDO K 373.11 STYE (HORDEOLUM EXTERNUM) 08/05/2011 TENNILLE DOWILFRIDO K 373.11 STYE (HORDEOLUM EXTERNUM) 08/05/2011 MEGHAN QUAN APRN 373.11 STYE (HORDEOLUM EXTERNUM) 08/05/2011 NULL DOWILFRIDO K 373.11 STYE (HORDEOLUM EXTERNUM) 08/05/2011 RAYA MONTANO APRN 373.11 STYE (HORDEOLUM EXTERNUM) 08/05/2011 NULL DO, WILFRIDO K 373.11 STYE (HORDEOLUM EXTERNUM) 08/05/2011 NULL DO, WILFRIDO K 373.11 STYE (HORDEOLUM EXTERNUM) 08/05/2011 NULL DO, WILFRIDO K 373.11 STYE (HORDEOLUM EXTERNUM) 08/05/2011 AIMEE SANTOS MD 373.11 STYE (HORDEOLUM EXTERNUM) 08/05/2011 MEGHAN QUAN APRN 373.11 STYE (HORDEOLUM EXTERNUM) 08/05/2011 NULL , WILFRIDO K 373.11 STYE (HORDEOLUM EXTERNUM) 08/05/2011 MEGHAN QUAN APRN 373.11 STYE (HORDEOLUM EXTERNUM) 08/05/2011 NULL DO, WILFRIDO K 373.11 STYE (HORDEOLUM EXTERNUM) 01/06/2012 YVONNE NORTON MD 564.00 CONSTIPATION 01/06/2012 564.00 CONSTIPATION 01/06/2012 MEGHAN QUAN APRN 564.00 CONSTIPATION 01/06/2012 564.00 CONSTIPATION 01/06/2012 MEGHAN QUAN APRN 564.00 CONSTIPATION 01/06/2012 MEGHAN QUAN APRN 564.00 CONSTIPATION 01/06/2012 NULL WILFRIDO POMPA 564.00 CONSTIPATION 01/06/2012 NULL , WILFRIDO K 564.00 CONSTIPATION 01/06/2012 MEGHAN QUAN APRN 564.00 CONSTIPATION 01/06/2012 NULL , WILFRIDO K 564.00 CONSTIPATION 01/06/2012 RAYA MONTANO APRN 564.00 CONSTIPATION 01/06/2012 NULL DO, WILFRIDO K 564.00 CONSTIPATION 01/06/2012 NULL DO, WILFRIDO K 564.00 CONSTIPATION 01/06/2012 NULL DO, WILFRIDO K 564.00 CONSTIPATION 01/06/2012 AIMEE SANTOS MD 564.00 CONSTIPATION 01/06/2012 MEGHAN QUAN APRN 564.00 CONSTIPATION 01/06/2012 NULL , WILFRIDO K 564.00 CONSTIPATION 01/06/2012 MEGHAN QUAN APRN 564.00 CONSTIPATION 01/06/2012 NULL , WILFRIDO K 564.00 CONSTIPATION 05/16/2012 YVONNE NORTON MD 787.91 DIARRHEA 05/16/2012 YVONNE NORTON MD V12.72 PERSONAL HISTORY OF COLONIC POLYPS 05/16/2012 YVONNE NORTON MD V16.0 FAMILY HISTORY OF MALIGNANT 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/16/2012 787.91 DIARRHEA 05/16/2012 V12.72 PERSONAL HISTORY OF COLONIC POLYPS 05/16/2012 V16.0 FAMILY HISTORY OF MALIGNANT 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/16/2012 MEGHAN QUAN APRN 787.91 DIARRHEA 05/16/2012 MEGHAN QUAN APRN V12.72 PERSONAL HISTORY OF COLONIC POLYPS 05/16/2012 MEGHAN QUAN APRN V16.0 FAMILY HISTORY OF MALIGNANT 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/16/2012 787.91 DIARRHEA 05/16/2012 V12.72 PERSONAL HISTORY OF COLONIC POLYPS 05/16/2012 V16.0 FAMILY HISTORY OF MALIGNANT 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/16/2012 MEGHAN QUAN APRN 787.91 DIARRHEA 05/16/2012 MEGHAN QUAN APRN V12.72 PERSONAL HISTORY OF COLONIC POLYPS 05/16/2012 MEGHAN QUAN APRN V16.0 FAMILY HISTORY OF MALIGNANT 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/16/2012 MEGHAN QUAN APRN 787.91 DIARRHEA 05/16/2012 MEGHAN QUAN APRN V12.72 PERSONAL HISTORY OF COLONIC POLYPS 05/16/2012 MEGHAN QUAN APRN V16.0 FAMILY HISTORY OF MALIGNANT 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/16/2012 NULL DO WILFRIDO K 787.91 DIARRHEA 05/16/2012 NULL DO WILFRIDO K V12.72 PERSONAL HISTORY OF COLONIC POLYPS 05/16/2012 NULL DO WILFRIDO K V16.0 FAMILY HISTORY OF MALIGNANT 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/16/2012 NULL DO WILFRIDO K 787.91 DIARRHEA 05/16/2012 TENNILLE OPMPA WILFRIDO K V12.72 PERSONAL HISTORY OF COLONIC POLYPS 05/16/2012 NULL DO WILFRIDO K V16.0 FAMILY HISTORY OF MALIGNANT 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/16/2012 MEGHAN QUAN APRN 787.91 DIARRHEA 05/16/2012 MEGHAN QUAN APRN V12.72 PERSONAL HISTORY OF COLONIC POLYPS 05/16/2012 MEGHAN QUAN APRN V16.0 FAMILY HISTORY OF MALIGNANT 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/16/2012 TENNILLE POMPA WILFRIDO K 787.91 DIARRHEA 05/16/2012 TENNILLE POMPA WILFRIDO K V12.72 PERSONAL HISTORY OF COLONIC POLYPS 05/16/2012 NULL DO WILFRIDO K V16.0 FAMILY HISTORY OF MALIGNANT 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/16/2012 RAYA MONTANO APRN 787.91 DIARRHEA 05/16/2012 RAYA MONTANO APRN V12.72 PERSONAL HISTORY OF COLONIC POLYPS 05/16/2012 RAYA MONTANO APRN V16.0 FAMILY HISTORY OF MALIGNANT 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/16/2012 NULL DO WILFRIDO K 787.91 DIARRHEA 05/16/2012 NULL DO WILFRIDO K V12.72 PERSONAL HISTORY OF COLONIC POLYPS 05/16/2012 NULL DO WILFRIDO K V16.0 FAMILY HISTORY OF MALIGNANT 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/16/2012 NULL DO, WILFRIDO K 787.91 DIARRHEA 05/16/2012 NULL DO WILFRIDO K V12.72 PERSONAL HISTORY OF COLONIC POLYPS 05/16/2012 NULL DO, WILFRIDO K V16.0 FAMILY HISTORY OF MALIGNANT 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/16/2012 NULL DO WILFRIDO K 787.91 DIARRHEA 05/16/2012 NULL DO WILFRIDO K V12.72 PERSONAL HISTORY OF COLONIC POLYPS 05/16/2012 WILFRIDO NULL DO V16.0 FAMILY HISTORY OF MALIGNANT 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/16/2012 AIMEE SANTOS MD 787.91 DIARRHEA 05/16/2012 AIMEE SANTOS MD V12.72 PERSONAL HISTORY OF COLONIC POLYPS 05/16/2012 AIMEE SANTOS MD V16.0 FAMILY HISTORY OF MALIGNANT 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/16/2012 MEGHAN QUAN APRN 787.91 DIARRHEA 05/16/2012 MEGHAN QUAN APRN V12.72 PERSONAL HISTORY OF COLONIC POLYPS 05/16/2012 MEGHAN QUAN APRN V16.0 FAMILY HISTORY OF MALIGNANT 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/16/2012 WILFRIDO NULL DO 787.91 DIARRHEA 05/16/2012 WILFRIDO NULL DO V12.72 PERSONAL HISTORY OF COLONIC POLYPS 05/16/2012 WILFRIDO NULL DO V16.0 FAMILY HISTORY OF MALIGNANT 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/16/2012 MEGHAN QUAN APRN 787.91 DIARRHEA 05/16/2012 MEGHAN QUAN APRN V12.72 PERSONAL HISTORY OF COLONIC POLYPS 05/16/2012 MEGHAN QUAN APRN R V16.0 FAMILY HISTORY OF MALIGNANT 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/16/2012 WILFRIDO NULL DO 787.91 DIARRHEA 05/16/2012 WILFRIDO NULL DO V12.72 PERSONAL HISTORY OF COLONIC POLYPS 05/16/2012 WILFRIDO NULL DO V16.0 FAMILY HISTORY OF MALIGNANT NEOPLASM OF GASTROINTESTINAL TRACT 07/11/2012 Ot 070.70 07/11/2012 Ot 211.3 07/11/2012 Ot 296.80 07/11/2012 Ot 305.1 07/11/2012 Ot 305.20 07/11/2012 Ot 496 07/11/2012 Ot 716.90 07/11/2012 Ot V16.0 08/22/2012 YVONNE NORTON MD 372.30 CONJUNCTIVITIS UNSPECIFIED 08/22/2012 372.30 CONJUNCTIVITIS UNSPECIFIED 08/22/2012 MEGHAN QUAN APRN 372.30 CONJUNCTIVITIS UNSPECIFIED 08/22/2012 372.30 CONJUNCTIVITIS UNSPECIFIED 08/22/2012 MEGHAN QUAN APRN 372.30 CONJUNCTIVITIS UNSPECIFIED 08/22/2012 MEGHAN QUAN APRN 372.30 CONJUNCTIVITIS UNSPECIFIED 08/22/2012 NULL DO, WILFRIDO K 372.30 CONJUNCTIVITIS UNSPECIFIED 08/22/2012 NULL DO, WILFRIDO K 372.30 CONJUNCTIVITIS UNSPECIFIED 08/22/2012 MEGHAN QUAN APRN R 372.30 CONJUNCTIVITIS UNSPECIFIED 08/22/2012 NULL DO, WILFRIDO K 372.30 CONJUNCTIVITIS UNSPECIFIED 08/22/2012 RAYA MONTANO APRN 372.30 CONJUNCTIVITIS UNSPECIFIED 08/22/2012 NULL DO, WILFRIDO K 372.30 CONJUNCTIVITIS UNSPECIFIED 08/22/2012 NULL DO, WILFRIDO K 372.30 CONJUNCTIVITIS UNSPECIFIED 08/22/2012 NULL DO, WILFRIDO K 372.30 CONJUNCTIVITIS UNSPECIFIED 08/22/2012 AIMEE SANTOS MD 372.30 CONJUNCTIVITIS UNSPECIFIED 08/22/2012 MEGHAN QUAN APRN 372.30 CONJUNCTIVITIS UNSPECIFIED 08/22/2012 NULL DO, WILFRIDO K 372.30 CONJUNCTIVITIS UNSPECIFIED 08/22/2012 MEGHAN QUAN APRN 372.30 CONJUNCTIVITIS UNSPECIFIED 08/22/2012 NULL DO, WILFRIDO K 372.30 CONJUNCTIVITIS UNSPECIFIED 12/30/2012 MEGHAN QUAN APRN 386.10 VERTIGO, PERIPHERAL UNSPECIFIED 12/30/2012 386.10 VERTIGO, PERIPHERAL UNSPECIFIED 12/30/2012 MEGHAN QUAN APRN 386.10 VERTIGO, PERIPHERAL UNSPECIFIED 12/30/2012 NULL DO, WILFRIDO K 386.10 VERTIGO, PERIPHERAL UNSPECIFIED 12/30/2012 NULL DO, WILFRIDO K 386.10 VERTIGO, PERIPHERAL UNSPECIFIED 12/30/2012 MEGHAN QUAN APRN 386.10 VERTIGO, PERIPHERAL UNSPECIFIED 12/30/2012 NULL DO, WILFRIDO K 386.10 VERTIGO, PERIPHERAL UNSPECIFIED 12/30/2012 RAYA MONTANO APRN 386.10 VERTIGO, PERIPHERAL UNSPECIFIED 12/30/2012 NULL DO, WILFRIDO K 386.10 VERTIGO, PERIPHERAL UNSPECIFIED 12/30/2012 NULL DO, WILFRIDO K 386.10 VERTIGO, PERIPHERAL UNSPECIFIED 12/30/2012 NULL DO, WILFRIDO K 386.10 VERTIGO, PERIPHERAL UNSPECIFIED 12/30/2012 AIMEE SANTOS MD 386.10 VERTIGO, PERIPHERAL UNSPECIFIED 12/30/2012 MEGHAN QUAN APRN 386.10 VERTIGO, PERIPHERAL UNSPECIFIED 12/30/2012 WILFRIDO NULL DO 386.10 VERTIGO, PERIPHERAL UNSPECIFIED 12/30/2012 MEGHAN QUAN APRN 386.10 VERTIGO, PERIPHERAL UNSPECIFIED 12/30/2012 WILFRIDO NULL DO 386.10 VERTIGO, PERIPHERAL UNSPECIFIED 03/03/2013 724.3 SCIATICA 03/03/2013 MEGHAN QUAN APRN 724.3 SCIATICA 03/03/2013 TENNILLE POMPA, WILFRIDO K 724.3 SCIATICA 03/03/2013 TENNILLE POMPA, WILFRIDO K 724.3 SCIATICA 03/03/2013 MEGHAN QUAN APRN 724.3 SCIATICA 03/03/2013 NULL , WILFRIDO K 724.3 SCIATICA 03/03/2013 RAYA MONTANO APRN 724.3 SCIATICA 03/03/2013 NULL , WILFRIDO K 724.3 SCIATICA 03/03/2013 NULL , WILFRIDO K 724.3 SCIATICA 03/03/2013 NULL , WILFRIDO K 724.3 SCIATICA 03/03/2013 DANIELLE WEBB, AIMEE 724.3 SCIATICA 03/03/2013 MEGHAN QUAN APRN 724.3 SCIATICA 03/03/2013 TENNILLE POMPA, WILFRIDO K 724.3 SCIATICA 03/03/2013 MEGHAN QUAN APRN 724.3 SCIATICA 03/03/2013 NULL , WILFRIDO K 724.3 SCIATICA 04/03/2013 516.30 IDIOPATHIC INTERSTITIAL PNEUMONIA NOT OTHERWISE SPECIFIED 04/03/2013 MEGHAN QUAN APRN 516.30 IDIOPATHIC INTERSTITIAL PNEUMONIA NOT OTHERWISE SPECIFIED 04/03/2013 WILFRIDO NULL DO 516.30 IDIOPATHIC INTERSTITIAL PNEUMONIA NOT OTHERWISE SPECIFIED 04/03/2013 WILFRIDO NULL DO 516.30 IDIOPATHIC INTERSTITIAL PNEUMONIA NOT OTHERWISE SPECIFIED 04/03/2013 MEGHAN QUAN APRN 516.30 IDIOPATHIC INTERSTITIAL PNEUMONIA NOT OTHERWISE SPECIFIED 04/03/2013 WILFRIDO NULL DO 516.30 IDIOPATHIC INTERSTITIAL PNEUMONIA NOT OTHERWISE SPECIFIED 04/03/2013 RAYA MONTANO APRN 516.30 IDIOPATHIC INTERSTITIAL PNEUMONIA NOT OTHERWISE SPECIFIED 04/03/2013 WILFRIDO NULL DO 516.30 IDIOPATHIC INTERSTITIAL PNEUMONIA NOT OTHERWISE SPECIFIED 04/03/2013 NULL DO, WILFRIDO K 516.30 IDIOPATHIC INTERSTITIAL PNEUMONIA NOT OTHERWISE SPECIFIED 04/03/2013 NULL DO, WILFRIDO K 516.30 IDIOPATHIC INTERSTITIAL PNEUMONIA NOT OTHERWISE SPECIFIED 04/03/2013 AIMEE SANTOS MD 516.30 IDIOPATHIC INTERSTITIAL PNEUMONIA NOT OTHERWISE SPECIFIED 04/03/2013 MEGHAN QUAN APRN 516.30 IDIOPATHIC INTERSTITIAL PNEUMONIA NOT OTHERWISE SPECIFIED 04/03/2013 NULL DOSOFIAA K 516.30 IDIOPATHIC INTERSTITIAL PNEUMONIA NOT OTHERWISE SPECIFIED 04/03/2013 MEGHAN QUAN APRN 516.30 IDIOPATHIC INTERSTITIAL PNEUMONIA NOT OTHERWISE SPECIFIED 04/03/2013 NULL , WILFRIDO K 516.30 IDIOPATHIC INTERSTITIAL PNEUMONIA NOT OTHERWISE SPECIFIED 04/20/2013 DANIELLE WEBB, AIMEE Nation Ot 070.54 04/20/2013 DANIELLE WEBB, AIMEE Nation Ot 296.80 04/20/2013 DANIELLE WEBB, AIMEE Nation Ot 300.00 04/20/2013 DANIELLE WEBB, AIMEE Nation Ot 355.9 04/20/2013 DANIELLE WEBB, AIMEE Nation Ot 458.9 04/20/2013 DANIELLE WEBB, AIMEE Nation Ot 491.21 04/20/2013 DANIELLE WEBB, AIMEE Nation Ot 715.90 04/20/2013 DANIELLE WEBB, AIMEE Nation Ot 799.02 04/20/2013 DANIELLE WEBB, AIMEE Nation Ot V15.82 04/20/2013 DANIELLE WEBB, AIMEE Nation Ot V46.2 05/03/2013 MEGHAN QUAN APRN 458.0 ORTHOSTATIC HYPOTENSION 05/03/2013 NULL DO, WILFRIDO K 458.0 ORTHOSTATIC HYPOTENSION 05/03/2013 NULL DO, WILFRIDO K 458.0 ORTHOSTATIC HYPOTENSION 05/03/2013 MEGHAN QUAN APRN R 458.0 ORTHOSTATIC HYPOTENSION 05/03/2013 NULL DO, WILFRIDO K 458.0 ORTHOSTATIC HYPOTENSION 05/03/2013 RAYA MONTANO APRN 458.0 ORTHOSTATIC HYPOTENSION 05/03/2013 NULL DO, WILFRIDO K 458.0 ORTHOSTATIC HYPOTENSION 05/03/2013 NULL DO, WILFRIDO K 458.0 ORTHOSTATIC HYPOTENSION 05/03/2013 NULL DO, WILFRIDO K 458.0 ORTHOSTATIC HYPOTENSION 05/03/2013 AIMEE SANTOS MD 458.0 ORTHOSTATIC HYPOTENSION 05/03/2013 KADEEM WEBBMEGHAN Manzano 458.0 ORTHOSTATIC HYPOTENSION 05/03/2013 NULL DO, WILFRIDO De 458.0 ORTHOSTATIC HYPOTENSION 05/03/2013 KADEEM WEBBMEGHAN Manzano 458.0 ORTHOSTATIC HYPOTENSION 05/03/2013 NULL DO, WILFRIDO K 458.0 ORTHOSTATIC HYPOTENSION 06/07/2013 QUANMEGHAN Arredondo APRN V03.82 PPV23 (PNEUMOVAX) DX 06/07/2013 NULL DO, WILFRIDO De V03.82 PPV23 (PNEUMOVAX) DX 06/07/2013 NULL DO, WILFRIDO K V03.82 PPV23 (PNEUMOVAX) DX 06/07/2013 KADEEM WEBBMEGHAN aMnzano V03.82 PPV23 (PNEUMOVAX) DX 06/07/2013 NULL DO, WILFRIDO K V03.82 PPV23 (PNEUMOVAX) DX 06/07/2013 RAYA MONTANO APRN V03.82 PPV23 (PNEUMOVAX) DX 06/07/2013 NULL DO, WILFRIDO De V03.82 PPV23 (PNEUMOVAX) DX 06/07/2013 NULL DO, WILFRIDO K V03.82 PPV23 (PNEUMOVAX) DX 06/07/2013 NULL DO, WILFRIDO K V03.82 PPV23 (PNEUMOVAX) DX 06/07/2013 AIMEE SANTOS MD V03.82 PPV23 (PNEUMOVAX) DX 06/07/2013 QUAN LACING PRESSERMEGHAN Manzano V03.82 PPV23 (PNEUMOVAX) DX 06/07/2013 NULL DO, WILFRIDO De V03.82 PPV23 (PNEUMOVAX) DX 06/07/2013 KADEEM WEBBMEGHAN Manzano V03.82 PPV23 (PNEUMOVAX) DX 06/07/2013 NULL DO, WILFRIDO K V03.82 PPV23 (PNEUMOVAX) DX 09/19/2013 NULL DO, WILFRIDO K 724.2 BACK PAIN, LOWER 09/19/2013 MEGHAN QUAN APRN 724.2 BACK PAIN, LOWER 09/19/2013 NULL DO, WILFRIDO K 724.2 BACK PAIN, LOWER 09/19/2013 RAYA MONTANO APRN 724.2 BACK PAIN, LOWER 09/19/2013 NULL DO, WILFRIDO K 724.2 BACK PAIN, LOWER 09/19/2013 NULL DO, WILFRIDO K 724.2 BACK PAIN, LOWER 09/19/2013 NULL DO, WILFRIDO K 724.2 BACK PAIN, LOWER 09/19/2013 AIMEE SANTOS MD 724.2 BACK PAIN, LOWER 09/19/2013 MGEHAN QUAN APRN 724.2 BACK PAIN, LOWER 09/19/2013 NULL DO, WILFRIDO K 724.2 BACK PAIN, LOWER 09/19/2013 MEGHAN QUAN APRN 724.2 BACK PAIN, LOWER 09/19/2013 NULL DO, WILFRIDO K 724.2 BACK PAIN, LOWER 01/04/2014 NULL DO, WILFRIDO K 357.9 NEUROPATHY UNSP 01/04/2014 RAYA MONTANO APRN 357.9 NEUROPATHY UNSP 01/04/2014 NULL DO, WILFRIDO K 357.9 NEUROPATHY UNSP 01/04/2014 NULL DO, WILFRIDO K 357.9 NEUROPATHY UNSP 01/04/2014 NULL DO, WILFRIDO K 357.9 NEUROPATHY UNSP 01/04/2014 AIMEE SANTOS MD 357.9 NEUROPATHY UNSP 01/04/2014 MEGHAN QUAN APRN 357.9 NEUROPATHY UNSP 01/04/2014 NULL DO, WILFRIDO K 357.9 NEUROPATHY UNSP 01/04/2014 MEGHAN QUAN APRN 357.9 NEUROPATHY UNSP 01/04/2014 NULL DO, WILFRIDO K 357.9 NEUROPATHY UNSP 02/12/2014 RAYA MONTANO APRN 491.21 OBSTRUCTIVE CHRONIC BRONCHITIS WITH ACUTE EXACERBATION 02/12/2014 RAYA MONTANO APRN V46.2 DEPENDENCE ON SUPPLEMENTAL OXYGEN 02/12/2014 NULL DO, WILFRIDO K 491.21 OBSTRUCTIVE CHRONIC BRONCHITIS WITH ACUTE EXACERBATION 02/12/2014 NULL DO, WILFRIDO K V46.2 DEPENDENCE ON SUPPLEMENTAL OXYGEN 02/12/2014 NULL DO, WILFRIDO K 491.21 OBSTRUCTIVE CHRONIC BRONCHITIS WITH ACUTE EXACERBATION 02/12/2014 NULL DO, WILFRIDO K V46.2 DEPENDENCE ON SUPPLEMENTAL OXYGEN 02/12/2014 NULL DO, WILFRIDO K 491.21 OBSTRUCTIVE CHRONIC BRONCHITIS WITH ACUTE EXACERBATION 02/12/2014 NULL DO, WILFRIDO K V46.2 DEPENDENCE ON SUPPLEMENTAL OXYGEN 02/12/2014 AIMEE SANTOS MD 491.21 OBSTRUCTIVE CHRONIC BRONCHITIS WITH ACUTE EXACERBATION 02/12/2014 AIMEE SANTOS MD V46.2 DEPENDENCE ON SUPPLEMENTAL OXYGEN 02/12/2014 MEGHAN QUAN APRN 491.21 OBSTRUCTIVE CHRONIC BRONCHITIS WITH ACUTE EXACERBATION 02/12/2014 MEGHAN QUAN APRN V46.2 DEPENDENCE ON SUPPLEMENTAL OXYGEN 02/12/2014 NULL DO WILFRIDO K 491.21 OBSTRUCTIVE CHRONIC BRONCHITIS WITH ACUTE EXACERBATION 02/12/2014 NULL DO WILFRIDO K V46.2 DEPENDENCE ON SUPPLEMENTAL OXYGEN 02/12/2014 MEGHAN QUAN APRN 491.21 OBSTRUCTIVE CHRONIC BRONCHITIS WITH ACUTE EXACERBATION 02/12/2014 MEGHAN QUAN APRN V46.2 DEPENDENCE ON SUPPLEMENTAL OXYGEN 02/12/2014 NULL DO, WILFRIDO K 491.21 OBSTRUCTIVE CHRONIC BRONCHITIS WITH ACUTE EXACERBATION 02/12/2014 NULL DO WILFRIDO K V46.2 DEPENDENCE ON SUPPLEMENTAL OXYGEN 02/24/2014 NULL DO, WILFRIDO K 338.19 ACUTE PAIN 02/24/2014 NULL DO, WILFRIDO K 338.19 ACUTE PAIN 02/24/2014 NULL DO, WILFRIDO K 338.19 ACUTE PAIN 02/24/2014 AIMEE SANTOS MD 338.19 ACUTE PAIN 02/24/2014 MEGHAN QUAN APRN 338.19 ACUTE PAIN 02/24/2014 NULL DO WILFRIDO K 338.19 ACUTE PAIN 02/24/2014 MEGHAN QUAN APRN 338.19 ACUTE PAIN 02/24/2014 NULL DO WILFRIDO K 338.19 ACUTE PAIN 03/18/2014 DANIELLE WEBB, AIMEE Nation Ot 070.54 03/18/2014 DANIELLE WEBB, AIMEE Nation Ot 275.2 03/18/2014 DANIELLE WEBB, AIMEE Nation Ot 276.8 03/18/2014 DANIELLE WEBB, AIMEE Nation Ot 296.80 03/18/2014 DANIELLE WEBB, AIMEE Nation Ot 305.1 03/18/2014 DANIELLE WEBB, AIMEE Nation Ot 486 03/18/2014 DANIELLE WEBB, AIMEE Nation Ot 496 03/18/2014 DANIELLE WEBB, AIMEE Nation Ot V15.88 03/18/2014 AIMEE SANTOS MD Ot V46.2 04/02/2014 NULL DO WILFRIDO K 728.87 MUSCLE WEAKNESS (GENERALIZED) 04/02/2014 AIMEE SANTOS MD.87 MUSCLE WEAKNESS (GENERALIZED) 04/02/2014 MEGHAN QUAN APRN 728.87 MUSCLE WEAKNESS (GENERALIZED) 04/02/2014 WIFLRIDO NULL DO 728.87 MUSCLE WEAKNESS (GENERALIZED) 04/02/2014 MEGHAN QUAN APRN 728.87 MUSCLE WEAKNESS (GENERALIZED) 04/02/2014 WILFRIDO NULL DO 728.87 MUSCLE WEAKNESS (GENERALIZED) 10/16/2014 Ot 780.2 10/16/2014 Ot 070.54 10/16/2014 Ot 305.1 10/16/2014 Ot 564.00 10/16/2014 Ot V72.84 11/17/2014 MEGHAN QUAN CFNP Ot 070.54 11/17/2014 MEGHAN QUAN CFNP Ot 458.0 11/17/2014 MEGHAN QUAN CFNP Ot 491.21 11/17/2014 MEGHAN QUAN CFNP Ot V46.2 01/29/2015 WILFRIDO NULL DO 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 Procedures Code Description [place] [address] OXIMETRY 10/28/2012 77506 OXIMETRY 02/12/2014 55059 THERAPUTIC INJ SQ/IM 02/24/2014 J1885 TORADOL INJ 02/24/2014 19532 OXIMETRY 02/24/2014 28703 THERAPUTIC INJ SQ/IM 02/24/2014 J1030 DEPO MEDROL 40 MG INJ 02/24/2014 87780 ROUTINE VENIPUNCTURE 02/27/2014 91435 CBC 02/27/2014 12565 RENAL PROFILE 02/27/2014 0081893 GFR CALC (RESULT ONLY) 02/27/2014 70896 CMP 02/27/2014 71986 CPK 02/27/2014 06118 XRAY CHEST 2 VIEW 02/28/2014 56255 THERAPUTIC INJ SQ/IM 03/01/2014 J0696 ROCEPHIN INJ 1 g 03/01/2014 90450 HEMOGLOBIN (IN-HOUSE) 04/02/2014 64489 ROUTINE VENIPUNCTURE 04/19/2014 25375 CBC 04/19/2014 [id number] GFR CALC (RESULT ONLY) 04/19/2014 25563 CMP 04/19/2014 70604 CMP 10/16/2014 29670 CBC 10/16/2014 20280 PT/INR 10/16/2014 67566 HIV ANTIBODIES (RML) 10/16/2014 30028 HEP B CORE ANTIBODY, IGM 10/16/2014 33211 HEP A ANTIBODY, IGM (RML) 10/16/2014 78863 HEP C PCR QUANT W/NIKOLAS 10/16/2014 Gastroent MechelleAimee seaman 11/13/2014 Infectiou Sweet, [facility] 11/13/2014 49740 BIOPSY SKIN LESION (SINGLE) 01/31/2015 Results Test Result Range CULTURE, STOOL - 07/15/17 16:57 SALMONELLA AND SHIGELLA, CULTURE SEE NOTE NRG STOOL (C-DIFF) - 07/15/17 16:57 CLOSTRIDIUM DIFFICILE TOXIN/GDH W/REFL TO PCR SEE NOTE NRG Encounters ACCT No. Visit Date/Time Discharge Status Pt. Type Provider Facility Loc./Unit Complaint [id number] 01/28/2019 11:00:00 01/28/2019 23:59:59 CLS Outpatient [facility]GH[id number] 07/15/2017 16:20:00 Document Registration [id number] 01/29/2015 09:35:00 01/29/2015 23:59:59 CLS Outpatient WILFRIDO NULL DO [id number] 11/13/2014 10:59:00 11/13/2014 23:59:59 CLS Outpatient MEGHAN QUAN APRN [id number] 10/16/2014 10:44:00 10/16/2014 23:59:59 CLS Outpatient WILFRIDO NULL DO [id number] 05/07/2014 11:06:00 05/07/2014 23:59:59 CLS Outpatient MEGHAN QUAN APRN [id number] 04/26/2014 03:55:00 04/26/2014 23:59:59 CLS Outpatient AIMEE SANTOS MD [id number] 04/02/2014 12:07:00 04/02/2014 23:59:59 CLS Outpatient WILFRIDO NULL DO [id number] 03/06/2014 10:20:00 03/06/2014 23:59:59 CLS Outpatient WILFRIDO NULL DO [id number] 02/24/2014 09:36:00 02/24/2014 23:59:59 CLS Outpatient WILFRIDO NULL DO [id number] 02/12/2014 15:44:00 02/12/2014 23:59:59 CLS Outpatient RAYA MONTANO APRN [id number] 01/04/2014 11:21:00 01/04/2014 23:59:59 CLS Outpatient WILFRIDO NULL DO Kenisha [id number] 10/03/2013 10:08:00 10/03/2013 23:59:59 CLS Outpatient QUAN MEGHAN REZA [id number] 09/19/2013 15:26:00 09/19/2013 23:59:59 CLS Outpatient WILFRIDO NULL DO Kenisha [id number] 08/08/2013 10:29:00 08/08/2013 23:59:59 CLS Outpatient WILFRIDO NULL DO Kenisha [id number] 06/07/2013 10:32:00 06/07/2013 23:59:59 CLS Outpatient QUANMEGHAN MALLORY APRN [id number] 12/30/2012 11:09:00 12/30/2012 23:59:59 CLS Outpatient MEGHAN QUAN APRN [id number] 10/28/2012 09:30:00 10/28/2012 23:59:59 CLS Outpatient [id number] 09/14/2012 12:09:00 09/14/2012 23:59:59 [place] [id number] 08/22/2012 14:00:02 08/22/2012 23:59:59 CLS Outpatient MEGHAN QUAN APRN [id number] 04/03/2013 11:16:00 Document Registration [id number] 09/09/2018 11:38:00 09/09/2018 23:59:59 CLS Preadmit MEGHAN QUAN Via [facility] RAD R10.84 GENERALIZED ABD PAIN [id number] 10/16/2014 13:35:00 10/16/2014 23:59:59 CLS Outpatient MEGHAN QUAN [facility] LAB [id number] 2014 12:20:00 03/18/2014 11:26:00 DIS Inpatient AIMEE SANTOS MD Via [address] [id number] 04/17/2013 15:37:00 04/20/2013 10:50:00 DIS Inpatient AIMEE SANTOS MD Via [address] [id number] 07/11/2012 06:08:00 Document Registration [id number] 07/08/2012 08:15:00 Document Registration [id number] 12/23/2011 09:10:00 Document Registration [id number] 04/30/2011 10:11:00 Document Registration
[2019-02-13] MEDS ORDERED: methylPREDNISolone 125 MG (Solu-MEDROL) VIAL IV NR (09:58)
[2019-02-13] MEDS ORDERED: RT-ALBUTEROL/IPRATROPIUM 3 ML (DUONEB) VIAL IH PRN (10:00)
--- NOTE | 2019-02-13 10:14 | Diagnostic Imaging Report ---
INDICATION: Dyspnea. Comparison made with prior examination 03/17/2014. FINDINGS: There is air-trapping compatible with COPD. Heart size is normal. There is no pleural effusion, pneumothorax or pneumonia. Mediastinum is unremarkable. IMPRESSION: No acute cardiopulmonary abnormality. COPD. Dictated by: Dictated on workstation # [id number]
[2019-02-13 10:27] LABS: ABG BASE EXCESS 6.6 MMOL/L (-2.5-2.5); ABG OXYGEN SATURATION 49 % (94-100); ABG PCO2 54 MMHG (35-45); ABG PH 7.38 (7.37-7.43); ABG TCO2 33.5 MMOL/L (21.0-31.0)
[2019-02-13 10:29] LABS: ABG PO2 29 MMHG (79-93); ALLENS TEST YES-POS; PATIENT TEMP 97.3; VENTILATOR NO
[2019-02-13 10:30] LABS: INSPIRED O2 4 L NASAL CANNULA
[2019-02-13] MEDS ORDERED: BISA5TAB49 PO (10:37)
[2019-02-13] MEDS ORDERED: DIAZ5TAB3 PO (10:37)
[2019-02-13] MEDS ORDERED: TIZA4TAB3 PO (10:37)
[2019-02-13] MEDS ORDERED: SODI30SP2 NS (10:37)
[2019-02-13] MEDS ORDERED: NA P133E2 RC (10:37)
[2019-02-13] MEDS ORDERED: UMEC1BLS INH (10:37)
[2019-02-13] MEDS ORDERED: QUET300T44 PO (10:37)
[2019-02-13] MEDS ORDERED: SERT50TA9 PO (10:37)
[2019-02-13] MEDS ORDERED: QUET300T2 PO (10:37)
[2019-02-13] MEDS ORDERED: RT-ALBUINH INH (10:37)
[2019-02-13] MEDS ORDERED: ALBU2.5V4 NEB (10:37)
[2019-02-13] MEDS ORDERED: PRIM50TA33 PO (10:37)
--- NOTE | 2019-02-13 10:40 | NUR ---
SPOKE WITH THE PATIENT ABOUT HER MEDICATIONS. SHE HAD A DETAILED LIST OF HER PRESCRIPTIONS AND I COMPARED IT WITH THE EXT MED HX. SHE ALSO TAKES THE FOLLOWING OTC: LAXATIVE 7 TABS DAILY ENEMA TWICE WEEK SALINE NASAL SPRAY PRN DRY NOSE
[2019-02-13] MEDS ORDERED: HOLD METFORMIN - RECEIVED CONTRAST 20 ML VIAL IV SCH ×2 (10:45→11:00)
[2019-02-13] MEDS ORDERED: IOHEXOL 350 MG/ML 150 ML (OMNIPAQUE 350) VIAL IV ONE ×2 (10:45→11:00)
[2019-02-13] MEDS: LACTATED RINGERS 1,000 ML IV SCH (11:22)
[2019-02-13] MEDS: FAMOTIDINE 20 MG (PEPCID) TABLET PO SCH (11:23)
[2019-02-13] MEDS: ENOXAPARIN 40 MG/0.4 ML (LOVENOX) SYR SC SCH (11:23)
--- NOTE | 2019-02-13 11:28 | Diagnostic Imaging Report ---
PROCEDURE: CT angiography of the chest with contrast. TECHNIQUE: Multiple contiguous axial images were obtained through the chest after uneventful bolus administration of intravenous contrast. 2D reconstructed CTA MIP acquisitions were also performed. Auto Exposure Controls were utilized during the CT exam to meet ALARA standards for radiation dose reduction. INDICATION: Difficulty breathing. No previous for direct comparison. Correlation limited to a comparison with overlapped images obtained during the abdominal CT 12/23/2011. There are no intraluminal pulmonary arterial filling defects. There were no findings of pulmonary arterial embolus. Aorta is patent and nonaneurysmal. No acute chest wall pathology. No effusion or pneumothorax. Some subsegmental atelectasis joaquin fissural in the lingula. The lungs reveal changes of centrilobular emphysema but no acute pneumonia. No mass or adenopathy. The upper abdomen appeared nonacute. There is likely air within the lumen of the colon interposed between the abdominal wall and the left hepatic lobe anteriorly. Impression: Negative for PE or acute aortic disease, centrilobular emphysema. Minimal zones of atelectasis and some apical scarring. No acute abnormality identified. Dictated by: Dictated on workstation # [id number]
[2019-02-13 12:05] LABS: BASOPHILS % (AUTO) 1 % (0-10); EOSINOPHILS # (AUTO) 0.1 10^3/uL (0.0-0.3); EOSINOPHILS % (AUTO) 1 % (0-10); HEMATOCRIT 34 % (35-52); LYMPHOCYTES # (AUTO) 1.5 X 10^3 (1.0-4.0); LYMPHOCYTES % (AUTO) 19 % (12-44); MEAN CORPUSCULAR HEMOGLOBIN 32 PG (25-34); MEAN CORPUSCULAR HGB CONC 33 G/DL (32-36); MEAN CORPUSCULAR VOLUME 98 FL (80-99); MEAN PLATELET VOLUME 10.9 FL (7.4-10.4); MONOCYTES # (AUTO) 0.5 X 10^3 (0.0-1.0); MONOCYTES % (AUTO) 6 % (0-12); NEUTROPHILS # (AUTO) 5.8 X 10^3 (1.8-7.8); NEUTROPHILS % (AUTO) 74 % (42-75); PLATELET COUNT 207 10^3/uL (130-400); RED CELL DISTRIBUTION WIDTH 12.6 % (10.0-14.5); WHITE BLOOD COUNT 7.9 10^3/uL (4.3-11.0)
[2019-02-13 12:23] LABS: ABG OXYGEN SATURATION 64 % (94-100); ABG PCO2 54 MMHG (35-45); ABG PH 7.36 (7.37-7.43); ABG TCO2 31.9 MMOL/L (21.0-31.0)
[2019-02-13 12:25] LABS: ALLENS TEST POSITIVE; INSPIRED O2 4 L; PATIENT TEMP 97.8; VENTILATOR NO
[2019-02-13 12:26] LABS: ABG PO2 36 MMHG (79-93)
[2019-02-13 12:26] LABS: ALANINE AMINOTRANSFERASE 16 U/L (0-55); ALBUMIN 3.8 GM/DL (3.2-4.5); ALKALINE PHOSPHATASE 64 U/L (40-136); BILIRUBIN,TOTAL 0.3 MG/DL (0.1-1.0); BUN/CREATININE RATIO 9; CALCIUM 8.6 MG/DL (8.5-10.1); CARBON DIOXIDE 25 MMOL/L (21-32); CHLORIDE 102 MMOL/L (98-107); GFR ESTIMATED > 60; GLUCOSE 95 MG/DL (70-105); PHOSPHORUS 2.5 MG/DL (2.3-4.7); POTASSIUM 3.6 MMOL/L (3.6-5.0); SODIUM 138 MMOL/L (135-145); TOTAL PROTEIN 6.4 GM/DL (6.4-8.2)
[2019-02-13 12:53] LABS: ABG BASE EXCESS 5.1 MMOL/L (-2.5-2.5); ABG OXYGEN SATURATION 99 % (94-100); ABG PCO2 42 MMHG (35-45); ABG PH 7.45 (7.37-7.43); ABG PO2 115 MMHG (79-93); ABG TCO2 30.4 MMOL/L (21.0-31.0)
[2019-02-13 12:57] LABS: ALLENS TEST YES-POS; INSPIRED O2 4 L; PATIENT TEMP 97.5; VENTILATOR NO
--- NOTE | 2019-02-13 13:47 | History & Physicial (CHS) ---
HPI History of Present Illness: 63 yo female sent to ICU from Dr. Perera's office where she went for a routine Pulmonology visit and was found to have extremely increased work of breathing on her baseline 4 lpm without hypoxia noted on SpO2. She states she has had worsening shortness of breath for about 2 months, but significantly worse in last 2 weeks. She was treated with steroids by her primary provider Micah Alexander in [place] and she states she did get better, but when she got down to the lowest dose on steroid she started feeling bad again. She has had cough and feels like she has mucous that is too thick to cough up. No hematemesis. No fever, but she has felt chilled. She has severe constipation, which she reports has been going on for about a year. She is taking up to 7 doses of laxatives per day and states she has a BM only twice per week when she uses an enema. She has family history of colon cancer and has had polyps personally, believes her last colonoscopy was 5-7 years ago. She has also had pain in her neck and right shoulder for about 2 weeks and is on a muscle relaxer but still has so much pain she has a hard time lifting her arms. Date seen by provider: Feb 13, 2019 Time Seen by Provider: 11:15 Attending Physician Naya Monge MD PCP [facility] [place] [facility] Consult Date of Admission Feb 13, 2019 at 09:25 Home Medications Home Medications Reviewed patient Home Medication Reconciliation performed by pharmacy medication reconciliations hazardous material technician and/or nursing. Patients Allergies have been reviewed. Allergies Coded Allergies: Diphenoxylate HCl (Verified Allergy, Unknown, 03/16/14) delerium atropine sulfate (Verified Allergy, Unknown, 03/16/14) delerium RWY-Cpjdxz-Kpifwt Hx Patient Social History Alcohol Use: Denies Use Recreational Drug Use: No Recent Foreign Travel: No Contact w/other who traveled: No Recent Hopitalizations: No Physical Abuse Screen: No Sexual Abuse: No Immunizations Up To Date Date of Pneumonia Vaccine: Aug 10, 2010 Date of Influenza Vaccine: Aug 10, 2011 Past Medical History PMHx: COPD Hepatits C s/p treatment 2016 Bipolar disorder Social anxiety SurgHx: Back surgery for ruptured disc BTL Tonsillectomy Family Medical History Significant Family History: Heart Disease, Cancer (colon, breast), Hypertension Family History: Cancer Cancer of colon Family history: Arthritis Family history: Cardiovascular disease Family history: Hypertension Heart disease Kidney disease Myocardial infarction No Family History of: Abdominal aortic aneurysm Lukas's disease Alcoholism Aphasia Cataract Chest pain Congenital heart disease Congestive heart failure Cystic fibrosis Dementia Dysphagia Family history: Allergy Family history: Alzheimer's disease Family history: Asthma Family history: Breast disease Family history: Coronary thrombosis Family history: Diabetes mellitus Family history: Gastrointestinal disease Family history: Glaucoma Family history: Osteoporosis Family history: Thyroid disorder Headache Hearing loss Hereditary disease History of - anemia History of - disorder History of - respiratory disease History of drug abuse Human immunodeficiency virus (HIV) seropositivity Hypercholesterolemia Infertile Malignant neoplasm of lung Parkinson's disease Prostate cancer Psychotic disorder Seizure disorder Stroke Tuberculosis Visual impairment Review of Systems (CHC) Constitutional: chills; No fever; weight loss (3.5 lbs last week due to not being able to eat with SOA) EENTM: No blurred vision, No double vision Respiratory: see HPI Cardiovascular: No chest pain Gastrointestinal: No abdominal pain; constipation; No diarrhea, No nausea, No vomiting Genitourinary: no symptoms reported Musculoskeletal: neck pain Skin: No rash Psychiatric/Neurological: Anxiety Reviewed Test Results Reviewed Test Results Lab Laboratory Tests Test 02/13/19 10:17 02/13/19 11:55 02/13/19 12:15 02/13/19 12:45 Range/Units Blood Gas Puncture Site L RAD RIGHT RADIAL R RAD Blood Gas Patient Temperature 97.3 97.8 97.5 Arterial Blood pH 7.38 7.36 L 7.45 H 7.37-7.43 Arterial Blood Partial Pressure CO2 54 H 54 H 42 35-45 MMHG Arterial Blood Partial Pressure O2 29 *L 36 *L 115 H 79-93 MMHG Arterial Blood HCO3 32 H 30 H 29 H 23-27 MMOL/L Arterial Blood Total CO2 33.5 H 31.9 H 30.4 21.0-31.0 MMOL/L Arterial Blood Oxygen Saturation 49 L 64 L 99 94-100 % Arterial Blood Base Excess 6.6 H 5.0 H 5.1 H -2.5-2.5 MMOL/L Nicolás Test YES-POS POSITIVE YES-POS Blood Gas Ventilator Setting NO NO NO Blood Gas Inspired Oxygen 4 L NASAL CANNULA 4 L 4 L White Blood Count 7.9 4.3-11.0 10^3/uL Red Blood Count 3.43 L 4.35-5.85 10^6/uL Hemoglobin 11.0 L 11.5-16.0 G/DL Hematocrit 34 L 35-52 % Mean Corpuscular Volume 98 80-99 FL Mean Corpuscular Hemoglobin 32 25-34 PG Mean Corpuscular Hemoglobin Concent 33 32-36 G/DL Red Cell Distribution Width 12.6 10.0-14.5 % Platelet Count 207 130-400 10^3/uL Mean Platelet Volume 10.9 H 7.4-10.4 FL Neutrophils (%) (Auto) 74 42-75 % Lymphocytes (%) (Auto) 19 12-44 % Monocytes (%) (Auto) 6 0-12 % Eosinophils (%) (Auto) 1 0-10 % Basophils (%) (Auto) 1 0-10 % Neutrophils # (Auto) 5.8 1.8-7.8 X 10^3 Lymphocytes # (Auto) 1.5 1.0-4.0 X 10^3 Monocytes # (Auto) 0.5 0.0-1.0 X 10^3 Eosinophils # (Auto) 0.1 0.0-0.3 10^3/uL Basophils # (Auto) 0.0 0.0-0.1 10^3/uL Sodium Level 138 135-145 MMOL/L Potassium Level 3.6 3.6-5.0 MMOL/L Chloride Level 102 98-107 MMOL/L Carbon Dioxide Level 25 21-32 MMOL/L Anion Gap 11 5-14 MMOL/L Blood Urea Nitrogen 6 L 7-18 MG/DL Creatinine 0.70 0.60-1.30 MG/DL Estimat Glomerular Filtration Rate > 60 BUN/Creatinine Ratio 9 Glucose Level 95 70-105 MG/DL Lactic Acid Level 0.74 0.50-2.00 MMOL/L Calcium Level 8.6 8.5-10.1 MG/DL Corrected Calcium 8.8 8.5-10.1 MG/DL Phosphorus Level 2.5 2.3-4.7 MG/DL Magnesium Level 2.0 1.8-2.4 MG/DL Total Bilirubin 0.3 0.1-1.0 MG/DL Aspartate Amino Transf (AST/SGOT) 17 5-34 U/L Alanine Aminotransferase (ALT/SGPT) 16 0-55 U/L Alkaline Phosphatase 64 40-136 U/L B-Type Natriuretic Peptide 130.9 H <100.0 PG/ML Total Protein 6.4 6.4-8.2 GM/DL Albumin 3.8 3.2-4.5 GM/DL Radiology 02/13 CT chest: Impression: Negative for PE or acute aortic disease, centrilobular emphysema. Minimal zones of atelectasis and some apical scarring. No acute abnormality identified. Physical Exam-([facility]) Physical Exam Vital Signs VS - Last 72 Hours, by Label 02/13/19 02/13/19 02/13/19 02/13/19 09:45 09:58 10:00 11:00 Pulse 93 90 89 92 Resp 18 25 12 B/P (MAP) 156/104 (121) 133/101 (112) Pulse Ox 100 100 O2 Delivery Nasal Cannula Nasal Cannula Nasal Cannula O2 Flow Rate 4.00 4.00 4.00 02/13/19 02/13/19 12:00 13:00 Pulse 94 98 Resp 25 B/P (MAP) 163/106 (125) O2 Delivery Nasal Cannula O2 Flow Rate 4.00 Capillary Refill : General Appearance: moderate distress Neck: full range of motion Respiratory: lungs clear, decreased breath sounds, accessory muscle use Cardiovascular: regular rate, rhythm, no edema, no murmur Peripheral Pulses: 2+ Dorsalis Pedis (R), 2+ Left Dors-Pedis (L) Gastrointestinal: normal bowel sounds, non tender, soft Extremities: no pedal edema Neurologic/Psychiatric: 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 (1) COPD exacerbation Status: Acute Assessment & Plan: Management per Dr. Perera. Started on IV solumedrol, duonebs and inhaled steroid. CT chest without mass or PE. (2) Respiratory failure Status: Acute Assessment & Plan: On chronic O2 therapy at home. Management per Dr. Perera. Qualifiers: Qualified Codes: J96.21 - Acute and chronic respiratory failure with hypoxia (3) Constipation Status: Chronic Assessment & Plan: Severe with history of diarrhea until a year ago as well as family history of colon ca. Her last colonoscopy was in 2011 and she did have polyps then, recommend outpatient repeat. (4) Neck pain Status: Acute Assessment & Plan: Suspected to be muscle spasm, continue tizanidine. Check xray. (5) Bipolar disorder Status: Chronic (6) Elevated blood pressure reading Status: Acute Assessment & Plan: Hydralazine prn (7) DVT prophylaxis Status: Acute Assessment & Plan: Enoxaparin Clinical Quality Measures DVT/VTE Risk/Contraindication: Risk Factor Score Per Nursin RFS Level Per Nursing on Admit: 4+=Very High NAYA MONGE MD Feb 13, 2019 13:47
[2019-02-13] MEDS ORDERED: ENOXAPARIN 40 MG/0.4 ML (LOVENOX) SYR SC SCH (14:15)
[2019-02-13] MEDS ORDERED: hydrALAZINE (APRESOLINE) 25 MG TAB PO PRN (14:15)
[2019-02-13 14:29] LABS: BILIRUBIN,URINE NEGATIVE (NEGATIVE); CLARITY,URINE SLIGHTLY CLOUDY; COLOR,URINE YELLOW; GLUCOSE, URINE (UA) NEGATIVE (NEGATIVE); KETONES,URINE 1+ (NEGATIVE); LEUKOCYTE ESTERASE ,URINE NEGATIVE (NEGATIVE); NITRITE,URINE NEGATIVE (NEGATIVE); PH,URINE 8 (5-9); PROTEIN,URINE NEGATIVE (NEGATIVE); UROBILINOGEN,URINE NORMAL (NORMAL)
[2019-02-13 14:57] LABS: BACTERIA,URINE NEGATIVE /HPF
[2019-02-13 15:04] LABS: AMPHETAMINE SCREEN, URINE NEGATIVE (NEGATIVE); BARBITURATE SCREEN URINE POSITIVE (NEGATIVE); BENZODIAZEPINES SCREEN URINE POSITIVE (NEGATIVE); CANNABINOID SCREEN, URINE POSITIVE (NEGATIVE); COCAINE SCREEN URINE NEGATIVE (NEGATIVE); METHADONE STAT POSITIVE (NEGATIVE); METHAMPHETAMINE SCREEN URINE S NEGATIVE (NEGATIVE); OPIATE SCREEN URINE POSITIVE (NEGATIVE); OXYCODONE STAT NEGATIVE (NEGATIVE); PROPOXYPHENE STAT NEGATIVE (NEGATIVE); TRICYCLIC ANTIDEPRESSANTS SCRE POSITIVE (NEGATIVE)
--- NOTE | 2019-02-13 15:31 | Diagnostic Imaging Report ---
INDICATION: Neck pain. COMPARISON: None. FINDINGS: Frontal, lateral, swimmers and odontoid views of the cervical spine were submitted. The cervical spine is visualized up to the C6-C7 level on the lateral projection. Evaluation below this is obscured by overlying osseous and soft tissue structures. Evaluation of the static alignment demonstrates slight grade 1 anterolisthesis at C3-C4 and C4-C5. There is also slight grade 1 retrolisthesis at C5-C6. Vertebral body heights are maintained. There is no evidence of fracture or bone destruction. No prevertebral soft tissue swelling is seen. Moderate multilevel degenerative changes are also noted. The open-mouth view demonstrates normal C1/C2 alignment. IMPRESSION: 1. No evidence of acute fracture or dislocation of the cervical spine at the C6-C7 level. 2. Background moderate multilevel degenerative changes. Dictated by: Dictated on workstation # [id number]
[2019-02-13] MEDS: RT-ALBUTEROL/IPRATROPIUM 3 ML (DUONEB) VIAL IH SCH ×3 (15:51→21:22)
[2019-02-13] MEDS: RT-BUDESONIDE NEBS 0.5 MG/2ML (PULMICORT) AMP INH SCH ×2 (15:51→18:30)
--- NOTE | 2019-02-13 16:16 | NUR ---
REPORT CALLED TO CHAD CHURCH ON MEDICAL SURGICAL AT THIS TIME.
[2019-02-13] MEDS: IBUPROFEN TABLET 200 MG TAB PO PRN ×2 (16:27→23:07)
--- NOTE | 2019-02-13 16:40 | NUR ---
PATIENT TRANSFERRED TO ROOM 416 AT THIS TIME. PERSONAL BELONGINGS SENT WITH PATIENT. CHAD CHURCH TO TAKE OVER CARE FOR PATIENT.
--- NOTE | 2019-02-13 16:40 | NUR ---
TRANSFERRED FROM ICU PER W/C TO ROOM 416. ALERT AND COOPERATIVE. O2 ON AT 3 L PER MIN. PER N/C. SALINE LOCK PER LEFT F/A WITH LR AT 50 CC/HR. IV SITE CLEAR. TELEMETRY IN PLACE. NO C/O OF SOA AT THIS TIME. RESP. SL SHALLOW.
[2019-02-13] MEDS: methylPREDNISolone 40 MG/ML (Solu-MEDROL) VIAL IV SCH ×2 (18:19→23:07)
[2019-02-13] MEDS: ACETAMINOPHEN 325 MG TABLET PO PRN (18:26)
[2019-02-13] MEDS: DIAZEPAM 5 MG (VALIUM) TABLET PO SCH (21:46)
[2019-02-13] MEDS: QUEtiapine 200 MG (SEROquel) TAB IMMEDIATE RELEASE PO SCH (21:47)
[2019-02-13] MEDS: QUEtiapine 25 MG (SEROquel) TAB IMMEDIATE RELEASE PO SCH (21:47)
[2019-02-14] MEDS: RT-ALBUTEROL/IPRATROPIUM 3 ML (DUONEB) VIAL IH SCH ×6 (02:14→22:33)
[2019-02-14] MEDS: ACETAMINOPHEN 325 MG TABLET PO PRN ×3 (03:16→16:32)
[2019-02-14 04:54] VITALS: BP 110/72
[2019-02-14 05:12] LABS: BASOPHILS % (AUTO) 0 % (0-10); EOSINOPHILS % (AUTO) 0 % (0-10); HEMATOCRIT 32 % (35-52); HEMOGLOBIN 10.4 G/DL (11.5-16.0); LYMPHOCYTES # (AUTO) 0.9 X 10^3 (1.0-4.0); LYMPHOCYTES % (AUTO) 17 % (12-44); MEAN CORPUSCULAR HEMOGLOBIN 31 PG (25-34); MEAN CORPUSCULAR HGB CONC 32 G/DL (32-36); MEAN CORPUSCULAR VOLUME 98 FL (80-99); MEAN PLATELET VOLUME 11.1 FL (7.4-10.4); MONOCYTES # (AUTO) 0.2 X 10^3 (0.0-1.0); MONOCYTES % (AUTO) 3 % (0-12); NEUTROPHILS # (AUTO) 4.1 X 10^3 (1.8-7.8); NEUTROPHILS % (AUTO) 80 % (42-75); PLATELET COUNT 184 10^3/uL (130-400); RED CELL DISTRIBUTION WIDTH 12.7 % (10.0-14.5); WHITE BLOOD COUNT 5.2 10^3/uL (4.3-11.0)
[2019-02-14 05:36] LABS: BUN/CREATININE RATIO 11; CALCIUM 8.8 MG/DL (8.5-10.1); CARBON DIOXIDE 25 MMOL/L (21-32); CHLORIDE 105 MMOL/L (98-107); CREATININE SERUM 0.72 MG/DL (0.60-1.30); GFR ESTIMATED > 60; GLUCOSE 131 MG/DL (70-105); MAGNESIUM 2.2 MG/DL (1.8-2.4); PHOSPHORUS 2.2 MG/DL (2.3-4.7); POTASSIUM 3.6 MMOL/L (3.6-5.0); SODIUM 141 MMOL/L (135-145)
[2019-02-14] MEDS: methylPREDNISolone 40 MG/ML (Solu-MEDROL) VIAL IV SCH ×3 (05:36→17:34)
[2019-02-14] MEDS: IBUPROFEN TABLET 200 MG TAB PO PRN (05:36)
[2019-02-14] MEDS: LACTATED RINGERS 1,000 ML IV SCH (06:26)
[2019-02-14] MEDS: RT-BUDESONIDE NEBS 0.5 MG/2ML (PULMICORT) AMP INH SCH ×2 (06:32→19:23)
--- NOTE | 2019-02-14 06:50 | Pulmonary Consultation ---
History of Present Illness History of Present Illness Date of Consultation 02/14/19 06:50 Time Seen by Provider: 14:54 Date of Admission History of Present Illness 63yo with hx oxygen dependent 4 liters/min COPD and current smoker admitted to ICU from my office secondary to worsening SOB, and wheezing. SOB has been angela worse over the last 2 wks. She has been on out patient steroids prior to seeing me in the office. Denies productive cough, hemoptysis, fever, NS chiils. She has been waking up SOB and coughing. SHe has had episodes of SOB in the past however it is worse this time. I am consulted for pulmonary management. Allergies and Home Medications Allergies Coded Allergies: Diphenoxylate HCl (Verified Allergy, Unknown, 03/16/14) delerium atropine sulfate (Verified Allergy, Unknown, 03/16/14) delerium Home Medications Albuterol Sulfate 1 Puff Puff, 2 PUFF INH Q4H PRN for SHORTNESS OF BREATH, ( Reported) Albuterol Sulfate 2.5 Mg/3 Ml Vial.neb, 2.5 MG NEB QID, (Reported) Bisacodyl 5 Mg Tablet, 35 MG PO DAILY, (Reported) TAKES 7 (5MG) TABLETS Diazepam 5 Mg Tablet, 5 MG PO BID, (Reported) Fluticasone Propionate 100 Mcg Blst.w.dev, 100 MCG IH BID Prescribed by: OLIVERIO BETHEA on 02/15/19937 Na Phos,M-B/Na Phos,Di-Ba 133 Ml Enema, 133 ML RC MoFr, (Reported) Prednisone 10 Mg Tab, 0 PO UD Take 6 tabs(60mg)daily, decrease by 1 tab(10mg) every other day. Prescribed by: OLIVERIO BETHEA on 02/15/19937 Primidone 50 Mg Tablet, 50 MG PO DAILY, (Reported) Quetiapine Fumarate 300 Mg Tablet, 150 MG PO DAILY, (Reported) TAKES 1/2 (300MG) TABLET Quetiapine Fumarate 300 Mg Tablet, 450 MG PO HS, (Reported) TAKES 1 & 1/2 (300MG) TABLET Sertraline HCl 50 Mg Tablet, 75 MG PO DAILY, (Reported) TAKES 1 & 1/2 (50MG) TABLET Sodium Chloride 30 Ml [place], 2 SPRAYS NS BID PRN for DRY NOSE, (Reported) Tizanidine HCl 4 Mg Tablet, 4 MG PO TID PRN for MUSCLE SPASMS, (Reported) Umeclidinium Brm/Vilanterol Tr 1 Each Blst.w.dev, 1 PUFF INH DAILY, (Reported) Past Wxyuzmc-Gjgmhc-Ponbvl Hx Patient Social History Alcohol Use: Denies Use Recreational Drug Use: No Recent Foreign Travel: No Contact w/Someone Who Travel: No Recent Hopitalizations: No Immunizations Up To Date PED Vaccines UTD: Yes Date of Pneumonia Vaccine: Aug 10, 2010 Date of Influenza Vaccine: Aug 10, 2011 Seasonal Allergies Seasonal Allergies: Yes Past Medical History Surgeries: Yes Respiratory: Yes COPD, Emphysema Currently Using CPAP: No Currently Using BIPAP: No Cardiac: No Neurological: No Reproductive Disorders: No Sexually Transmitted Disease: No HIV/AIDS: No Genitourinary: No Gastrointestinal: Yes Abdominal Hernia, Chronic Constipation Musculoskeletal: No Endocrine: No HEENT: No Cataract Cancer: Yes Skin Did You Recieve Any Treatments: Yes What Type of Treatment Did You: Surgical Intervention HAS AREAS BURNED OR FROZEN OFF Psychosocial: No Anxiety, Depression Integumentary: Yes (SKIN CANCER, NO TREATMENT, FREEZES OFF.) Blood Disorders: No Adverse Reaction/Blood Tranf: No Family Medical History Cancer Cancer of colon Family history: Arthritis Family history: Cardiovascular disease Family history: Hypertension Heart disease Kidney disease Myocardial infarction No Family History of: Abdominal aortic aneurysm Champion's disease Alcoholism Aphasia Cataract Chest pain Congenital heart disease Congestive heart failure Cystic fibrosis Dementia Dysphagia Family history: Allergy Family history: Alzheimer's disease Family history: Asthma Family history: Breast disease Family history: Coronary thrombosis Family history: Diabetes mellitus Family history: Gastrointestinal disease Family history: Glaucoma Family history: Osteoporosis Family history: Thyroid disorder Headache Hearing loss Hereditary disease History of - anemia History of - disorder History of - respiratory disease History of drug abuse Human immunodeficiency virus (HIV) seropositivity Hypercholesterolemia Infertile Malignant neoplasm of lung Parkinson's disease Prostate cancer Psychotic disorder Seizure disorder Stroke Tuberculosis Visual impairment Heart Disease, Cancer (colon, breast), Hypertension Review of Systems Time Seen by Provider: 14:44 Constitutional: Weakness, Malaise; No: Fever, Chills, Sweats, Other Eyes: No: Pain, Vision change, Conjunctivae inflammation, Eyelid inflammation, Other, Redness ENT: Nose congestion; No: Ear pain, Ear discharge, Nose pain, Nose discharge, Mouth pain, Mouth swelling, Throat pain, Throat swelling, Other Respiratory: Cough, Dry, Shortness of breath, SOB with excertion, Wheezing; No : Hemoptysis, Pleuritic Pain Cardiovascular: Palpitations, Paroxysmal Noc. Dyspnea, Lt Headedness; No: Chest Pain, Orthopnea, Edema, Other Gastrointestinal: Constipation; No: Nausea, Vomiting, Abdominal Pain, Diarrhea , Melena, Hematochezia, Other Genitourinary: No Dysuria, No Frequency, No Incontinence, No Hematuria, No Retention, No Other Sepsis Event Evaluation Height, Weight, BMI Height: 5'7.00" Weight: 141lbs. 3.0oz. 63.593075lw; 22.9 BMI Method:Stated Exam Exam Vital Signs Date Time Temp Pulse Resp B/P (MAP) Pulse Ox O2 Delivery O2 Flow Rate FiO2 02/14/19 06:34 95 High Flow N/C 3.00 02/14/19 06:32 95 High Flow N/C 3.00 02/14/19 04:54 97.4 89 20 110/72 (85) 99 Nasal Cannula 3.00 02/14/19 01:00 74 02/13/19 23:48 98.1 85 20 107/56 (73) 98 Nasal Cannula 3.00 02/13/19 21:22 95 High Flow N/C 3.00 02/13/19 21:00 Nasal Cannula 3.00 02/13/19 20:00 98.2 95 20 130/78 (95) 92 Nasal Cannula 3.00 02/13/19 19:00 91 02/13/19 18:34 95 High Flow N/C 3.00 02/13/19 18:31 94 High Flow N/C 3.00 02/13/19 16:33 97.7 100 20 152/73 (99) 97 Nasal Cannula 3.00 02/13/19 16:00 98 17 Nasal Cannula 4.00 02/13/19 15:00 96 29 Nasal Cannula 4.00 02/13/19 14:58 96 Nasal Cannula 4.00 02/13/19 14:00 85 15 149/98 (115) Nasal Cannula 4.00 02/13/19 13:00 90 21 145/99 (114) Nasal Cannula 4.00 02/13/19 13:00 98 02/13/19 12:00 94 25 163/106 (125) Nasal Cannula 4.00 02/13/19 11:00 92 12 Nasal Cannula 4.00 02/13/19 10:00 89 25 133/101 (112) 100 Nasal Cannula 4.00 02/13/19 09:58 90 02/13/19 09:45 93 18 156/104 (121) 100 Nasal Cannula 4.00 I & O 02/14/19 07:00 Intake Total 1800 ml Output Total 350 ml Balance 1450 ml Height & Weight Height: 5'7.00" Weight: 141lbs. 3.0oz. 63.865421sd; 22.9 BMI Method:Stated General Appearance: Anxious, Chronically ill, Moderate Distress, Thin HEENT: PERRL/EOMI, Normal ENT Inspection, Pharynx Normal Neck: Full Range of Motion, Normal Inspection, Non Tender, Supple Respiratory: Accessory Muscle Use, Decreased Breath Sounds, Respiratory Distress, Wheezing Cardiovascular: Regular Rate, Rhythm, No Edema, No Gallop Capillary Refill: Less Than 3 Seconds Peripheral Pulses: 2+ Dorsalis Pedis (R), 2+ Left Dors-Pedis (L) Gastrointestinal: normal bowel sounds, non tender, soft Extremity: Normal Capillary Refill, Normal Inspection, No Pedal Edema Neurologic/Psychiatric: Alert, Oriented x3 Skin: Normal Color, Warm/Dry Lymphatic: No Adenopathy Results Lab Laboratory Tests 02/13/19 11:55 02/14/19 04:45 02/14/19 04:55 Assessment/Plan Assessment/Plan Acute on chronic respiratory failure COPDAE -Solumedrol -SVNs/pulmicort and duoneb -Oxygen Anxiety/BiPolar Severe COPD DAIN VERMA DO Feb 14, 2019 06:50
[2019-02-14 08:00] VITALS: BP 149/89
--- NOTE | 2019-02-14 08:27 | Diagnostic Imaging Report ---
PATIENT HISTORY: COPD, respiratory failure. TECHNIQUE: Frontal view of the chest. COMPARISON: 02/13/2019 and priors. FINDINGS: Lung volumes are large. There are bibasilar interstitial opacities, likely chronic scarring. These appear similar to the prior examinations. No new consolidation is seen. The cardiac silhouette is normal in size. There is aortic atherosclerosis. IMPRESSION: Large lung volumes and chronic bibasilar scarring with no new consolidation seen. Dictated by: Dictated on workstation # [id number]
[2019-02-14] MEDS: FAMOTIDINE 20 MG (PEPCID) TABLET PO SCH (09:14)
[2019-02-14] MEDS: PRIMIDONE 50 MG TAB (MYSOLINE) PO SCH (09:14)
[2019-02-14] MEDS: DIAZEPAM 5 MG (VALIUM) TABLET PO SCH ×2 (09:14→20:17)
[2019-02-14] MEDS: QUEtiapine 100 MG (SEROquel) TAB IMMEDIATE RELEASE PO SCH ×2 (09:15→20:16)
[2019-02-14] MEDS: FLUTICASONE NASAL SPRAY (FLONASE) 16 GM BTL NS SCH (09:15)
[2019-02-14] MEDS: SERTRALINE 50 MG (ZOLOFT) TABLET PO SCH (09:15)
[2019-02-14] MEDS: SALINE NASAL SPRAY (OCEAN) 45 ML BTL SCH ×2 (09:16→20:16)
[2019-02-14] MEDS: ENOXAPARIN 40 MG/0.4 ML (LOVENOX) SYR SC SCH (11:04)
[2019-02-14 12:00] VITALS: BP 130/62
--- NOTE | 2019-02-14 12:53 | Progress Note (SOAP) ---
Subjective Subjective/Events-last exam Afebrile, no acute events. Is a little less short of breath. Review of Systems Date Seen by Provider: Feb 14, 2019 Time Seen by Provider: 10:05 Focused Exam Lactate Level 02/13/19 11:55: Lactic Acid Level 0.74 Objective Exam Last Set of Vital Signs Vital Signs Date Time Temp Pulse Resp B/P (MAP) Pulse Ox O2 Delivery O2 Flow Rate FiO2 02/14/19 12:35 101 02/14/19 10:51 96 High Flow N/C 3.00 02/14/19 08:00 98.2 18 149/89 (109) Capillary Refill : Less Than 3 Seconds I&O Intake and Output 02/14/19 00:00 Intake Total 1000 ml Output Total 350 ml Balance 650 ml Intake Oral 1000 ml Output Urine Total 350 ml # Voids 3 Daily Weight Change Yes, 2-13 lbs General: Alert, No Acute Distress Lungs: Other (decreased air movement, no wheezing) Heart: Regular Rate, No Murmurs Abdomen: Normal Bowel Sounds, Soft Psych/Mental Status: Mental Status NL Results/Procedures Lab Laboratory Tests 02/13/19 14:15: Urine Color YELLOW, Urine Clarity SLIGHTLY CLOUDY, Urine pH 8, Urine Specific [place] 1.010L, Urine Protein NEGATIVE, Urine Glucose (UA) NEGATIVE, Urine Ketones 1+H, Urine Nitrite NEGATIVE, Urine Bilirubin NEGATIVE, Urine Urobilinogen NORMAL, Urine Leukocyte Esterase NEGATIVE, Urine RBC (Auto) NEGATIVE, Urine RBC NONE, Urine WBC NONE, Urine Squamous Epithelial Cells 2-5, Urine Crystals NONE, Urine Bacteria NEGATIVE, Urine Casts NONE, Urine Mucus NEGATIVE, Urine Culture Indicated NO, Urine Opiates Screen POSITIVEH, Urine Oxycodone Screen NEGATIVE, Urine Methadone Screen POSITIVEH, Urine Propoxyphene Screen NEGATIVE, Urine Barbiturates Screen POSITIVEH, Ur Tricyclic Antidepressants Screen POSITIVEH, Urine Phencyclidine Screen NEGATIVE, Urine Amphetamines Screen NEGATIVE, Urine Methamphetamines Screen NEGATIVE, Urine Benzodiazepines Screen POSITIVEH, Urine Cocaine Screen NEGATIVE, Urine Cannabinoids Screen POSITIVEH 02/14/19 04:45: Sodium Level 141, Potassium Level 3.6, Chloride Level 105, Carbon Dioxide Level 25, Anion Gap 11, Blood Urea Nitrogen 8, Creatinine 0.72, Estimat Glomerular Filtration Rate > 60, BUN/Creatinine Ratio 11, Glucose Level 131H, Calcium Level 8.8, Phosphorus Level 2.2L, Magnesium Level 2.2 02/14/19 04:55: White Blood Count 5.2, Red Blood Count 3.32L, Hemoglobin 10.4L, Hematocrit 32L, Mean Corpuscular Volume 98, Mean Corpuscular Hemoglobin 31, Mean Corpuscular Hemoglobin Concent 32, Red Cell Distribution Width 12.7, Platelet Count 184, Mean Platelet Volume 11.1H, Neutrophils (%) (Auto) 80H, Lymphocytes (%) (Auto) 17, Monocytes (%) (Auto) 3, Eosinophils (%) (Auto) 0, Basophils (%) (Auto) 0, Neutrophils # (Auto) 4.1, Lymphocytes # (Auto) 0.9L, Monocytes # (Auto) 0.2, Eosinophils # (Auto) 0.0, Basophils # (Auto) 0.0 Radiology 02/13 CT chest: Impression: Negative for PE or acute aortic disease, centrilobular emphysema. Minimal zones of atelectasis and some apical scarring. No acute abnormality identified. Assessment/Plan Assessment/Plan (1) COPD exacerbation Status: Acute Assessment & Plan: Management per Dr. Perera. Started on IV solumedrol, duonebs and inhaled steroid. CT chest without mass or PE. (2) Respiratory failure Status: Acute Assessment & Plan: On chronic O2 therapy at home. Management per Dr. Perera. Qualifiers: Qualified Codes: J96.21 - Acute and chronic respiratory failure with hypoxia (3) Constipation Status: Chronic Assessment & Plan: Severe with history of diarrhea until a year ago as well as family history of colon ca. Her last colonoscopy was in 2011 and she did have polyps then, recommend outpatient repeat. (4) Neck pain Status: Acute Assessment & Plan: Suspected to be muscle spasm, continue tizanidine. Check xray. 02/14 xray with moderate deg changes, no fracture (5) Bipolar disorder Status: Chronic (6) Elevated blood pressure reading Status: Acute Assessment & Plan: Hydralazine prn (7) DVT prophylaxis Status: Acute Assessment & Plan: Enoxaparin Clinical Quality Measures DVT/VTE Risk/Contraindication: Risk Factor Score Per Nursin RFS Level Per Nursing on Admit: 4+=Very High OLIVERIO BETHEA MD Feb 14, 2019 12:53
[2019-02-14 16:00] VITALS: BP 151/87
[2019-02-14 19:44] VITALS: BP 157/84
[2019-02-14] MEDS: QUEtiapine 200 MG (SEROquel) TAB IMMEDIATE RELEASE PO SCH (20:17)
[2019-02-14] MEDS: QUEtiapine 25 MG (SEROquel) TAB IMMEDIATE RELEASE PO SCH (20:24)
[2019-02-15] MEDS: methylPREDNISolone 40 MG/ML (Solu-MEDROL) VIAL IV SCH ×2 (00:33→05:29)
[2019-02-15 00:54] VITALS: BP 124/69
[2019-02-15] MEDS: LACTATED RINGERS 1,000 ML IV SCH (01:08)
[2019-02-15 01:53] VITALS: BP 124/69
[2019-02-15] MEDS: RT-ALBUTEROL/IPRATROPIUM 3 ML (DUONEB) VIAL IH SCH ×3 (03:16→10:59)
[2019-02-15 04:54] VITALS: BP 132/89
[2019-02-15 07:07] LABS: HEMOGLOBIN 10.6 G/DL (11.5-16.0); MEAN PLATELET VOLUME 11.1 FL (7.4-10.4); RED CELL DISTRIBUTION WIDTH 12.8 % (10.0-14.5); WHITE BLOOD COUNT 8.9 10^3/uL (4.3-11.0)
[2019-02-15 07:27] LABS: BUN/CREATININE RATIO 12; CALCIUM 8.7 MG/DL (8.5-10.1); CARBON DIOXIDE 26 MMOL/L (21-32); CHLORIDE 110 MMOL/L (98-107); CREATININE SERUM 0.74 MG/DL (0.60-1.30); GFR ESTIMATED > 60; GLUCOSE 110 MG/DL (70-105); SODIUM 145 MMOL/L (135-145)
[2019-02-15 08:00] VITALS: BP 154/97
[2019-02-15] MEDS ORDERED: predniSONE 10 MG TAB PO SCH (09:00)
[2019-02-15] MEDS ORDERED: FLUT100D2 IH (09:38)
[2019-02-15] MEDS ORDERED: PRD10T PO (09:38)
--- NOTE | 2019-02-15 09:41 | Discharge Instructions ---
Discharge Inst-[facility] Discharge Medications New, Converted or Re-Newed RX: Transmitted to Pharmacy New Medications: Fluticasone Propionate (Flovent Diskus 100 mcg) 100 Mcg Blst.w.dev 100 MCG IH BID, #1 INHALER 0 Refills Prednisone (Prednisone) 10 Mg Tab 0 PO UD, #42 TAB 0 Refills Take 6 tabs(60mg)daily, decrease by 1 tab(10mg) every other day. Continued Medications: Albuterol Sulfate (Proair Hfa) 1 Puff Puff 2 PUFF INH Q4H PRN for SHORTNESS OF BREATH, INHALER Albuterol Sulfate (Albuterol Sulfate) 2.5 Mg/3 Ml Vial.neb 2.5 MG NEB QID, EA Bisacodyl (Laxative) 5 Mg Tablet 35 MG PO DAILY, TAB TAKES 7 (5MG) TABLETS Diazepam (Diazepam) 5 Mg Tablet 5 MG PO BID, TAB Na Phos,M-B/Na Phos,Di-Ba (Enema) 133 Ml Enema 133 ML RC MoFr, EA Primidone (Mysoline) 50 Mg Tablet 50 MG PO DAILY, TAB Quetiapine Fumarate (Quetiapine Fumarate) 300 Mg Tablet 150 MG PO DAILY, TAB TAKES 1/2 (300MG) TABLET Quetiapine Fumarate (Seroquel) 300 Mg Tablet 450 MG PO HS, TAB TAKES 1 & 1/2 (300MG) TABLET Sertraline HCl (Sertraline HCl) 50 Mg Tablet 75 MG PO DAILY, TAB TAKES 1 & 1/2 (50MG) TABLET Sodium Chloride (Saline Nasal [place]) 30 Ml [place] 2 SPRAYS NS BID PRN for DRY NOSE, SPRAY Tizanidine HCl (Tizanidine HCl) 4 Mg Tablet 4 MG PO TID PRN for MUSCLE SPASMS, TAB Umeclidinium Brm/Vilanterol Tr (Anoro Ellipta 62.5-25 Mcg INH) 1 Each Blst.w.dev 1 PUFF INH DAILY, INHALER Patient Instructions Goal/Follow Up Appt: Follow up with Micah Alexander at [facility] in [place] on February 20 at 1040 am. Return to The Hospital For: Worsening shortness of breath, fever Activity & Diet Discharge Diet: Regular Diet Activity as Tolerated: Yes Copy Copies To 1: Micah Alexander, OLIVERIO RAY MD February 15, 2019 09:41
--- NOTE | 2019-02-15 09:42 | Discharge Summary ---
Diagnosis/Chief Complaint Date of Admission Feb 13, 2019 at 09:25 Date of Discharge February 15, 2019 Admission Diagnosis Admission Diagnosis COPD exacerbation Discharge Diagnosis See problem list Problems/Diagnosis: (1) COPD exacerbation Assessment & Plan: Management per Dr. Perera. Started on IV solumedrol, duonebs and inhaled steroid. CT chest without mass or PE. Discharged with script for inhaled steroid in addition to [employer] inhalers, and prednisone taper. Status: Acute (2) Respiratory failure Assessment & Plan: On chronic O2 therapy at home. Management per Dr. Perera. Discharged on home O2. Qualifiers: Qualified Codes: J96.21 - Acute and chronic respiratory failure with hypoxia Status: Acute (3) Constipation Assessment & Plan: Severe with history of diarrhea until a year ago as well as family history of colon ca. Her last colonoscopy was in 2011 and she did have polyps then, recommend outpatient repeat. Status: Chronic (4) Neck pain Assessment & Plan: Suspected to be muscle spasm, continue tizanidine. Check xray. 02/14 xray with moderate deg changes, no fracture Status: Acute (5) Bipolar disorder Status: Chronic (6) Elevated blood pressure reading Assessment & Plan: Hydralazine prn Status: Acute (7) Positive urine drug screen Assessment & Plan: Positive for opiates, methadone, barbiturates, TCA, THC. She reports using dilaudid, but has not been prescribed dilaudid. Status: Acute Chief Complaint/HPI Chief Complaint/HPI 63 yo female sent to ICU from Dr. Perera's office where she went for a routine Pulmonology visit and was found to have extremely increased work of breathing on her baseline 4 lpm without hypoxia noted on SpO2. She states she has had worsening shortness of breath for about 2 months, but significantly worse in last 2 weeks. She was treated with steroids by her primary provider Micah Alexander in [place] [employer] and she states she did get better, but when she got down to the lowest dose on steroid she started feeling bad again. She has had cough and feels like she has mucous that is too thick to cough up. No hematemesis. No fever, but she has felt chilled. She has severe constipation, which she reports has been going on for about a year. She is taking up to 7 doses of laxatives per day and states she has a BM only twice per week when she uses an enema. She has family history of colon cancer and has had polyps personally, believes her last colonoscopy was 5-7 years ago. She has also had pain in her neck and right shoulder for about 2 weeks and is on a muscle relaxer but still has so much pain she has a hard time lifting her arms. Discharge Summary-Simple/Stand Consultations Discharge Physical Examination Allergies: Coded Allergies: Diphenoxylate HCl (Verified Allergy, Unknown, 03/16/14) delerium atropine sulfate (Verified Allergy, Unknown, 03/16/14) delerium Vitals & I&Os Vital Sign - Last 12Hours Date Time Temp Pulse Resp B/P (MAP) Pulse Ox O2 Delivery O2 Flow Rate FiO2 02/15/19 05:10 95 High Flow N/C 2.50 02/15/19 04:54 98.6 93 16 132/89 (103) Intake and Output 02/15/19 00:00 Intake Total 1360 ml Output Total 1400 ml Balance -40 ml General Appearance: Alert, No Acute Distress Respiratory: Other (decreased air movement) Cardiovascular: Regular Rate, No Murmurs Neuro: Normal Speech Psych/Mental Status: Mood NL Hospital Course See final discharge diagnosis. Radiology Reviewed 02/13 CT chest: Impression: Negative for PE or acute aortic disease, centrilobular emphysema. Minimal zones of atelectasis and some apical scarring. No acute abnormality identified. Discharge Instructions to patient/family Please see electronic discharge instructions given to patient. Discharge Medications Reviewed and agree with Discharge Medication list on patient's Discharge Instruction sheet Clinical Quality Measures DVT/VTE Risk/Contraindication: Risk Factor Score Per Nursin RFS Level Per Nursing on Admit: 4+=Very High Copy Copies To 1: JUAQUIN Ruffin BETHANY N MD February 15, 2019 09:42
[2019-02-15] MEDS: FLUTICASONE NASAL SPRAY (FLONASE) 16 GM BTL NS SCH (10:23)
[2019-02-15] MEDS: QUEtiapine 100 MG (SEROquel) TAB IMMEDIATE RELEASE PO SCH (10:23)
[2019-02-15] MEDS: PRIMIDONE 50 MG TAB (MYSOLINE) PO SCH (10:24)
[2019-02-15] MEDS: DIAZEPAM 5 MG (VALIUM) TABLET PO SCH (10:24)
[2019-02-15] MEDS: SALINE NASAL SPRAY (OCEAN) 45 ML BTL SCH (10:24)
[2019-02-15] MEDS: FAMOTIDINE 20 MG (PEPCID) TABLET PO SCH (10:24)
[2019-02-15] MEDS: SERTRALINE 50 MG (ZOLOFT) TABLET PO SCH (10:24)
[2019-02-15] MEDS: ENOXAPARIN 40 MG/0.4 ML (LOVENOX) SYR SC SCH (10:34)
[2019-02-15] MEDS: RT-BUDESONIDE NEBS 0.5 MG/2ML (PULMICORT) AMP INH SCH (10:59)
--- NOTE | 2019-02-15 14:47 | Pulmonary Progress Note ---
Subjective Time Seen by a Provider: 09:00 Subjective/Events-last exam Pt appears to be doing better. Sepsis Event Evaluation Height, Weight, BMI Height: 5'7.00" Weight: 143lbs. 6.0oz. 65.911686ef; 22.9 BMI Method:Stated Focused Exam Lactate Level 02/13/19 11:55: Lactic Acid Level 0.74 Exam Exam Vital Signs Date Time Temp Pulse Resp B/P (MAP) Pulse Ox O2 Delivery O2 Flow Rate FiO2 02/15/19 12:01 98.8 16 96 Nasal Cannula 2.00 02/15/19 10:59 99 High Flow N/C 2.50 02/15/19 08:00 99.0 97 18 154/97 (116) 97 Nasal Cannula 2.00 02/15/19 05:10 95 High Flow N/C 2.50 02/15/19 04:54 98.6 93 16 132/89 (103) 95 Nasal Cannula 2.00 02/15/19 01:00 86 02/15/19 00:54 98.8 87 18 124/69 (87) 98 Nasal Cannula 2.00 02/14/19 21:00 Nasal Cannula 3.00 02/14/19 19:44 98.9 101 22 157/84 (108) 98 Nasal Cannula 2.50 02/14/19 19:25 97 High Flow N/C 2.50 02/14/19 19:00 101 02/14/19 16:00 98.8 103 20 151/87 (108) 96 Nasal Cannula 2.00 02/14/19 14:52 94 High Flow N/C 3.00 I & O 02/15/19 07:00 Intake Total 2410 ml Output Total 1400 ml Balance 1010 ml Height & Weight Height: 5'7.00" Weight: 143lbs. 6.0oz. 65.243820ms; 22.9 BMI Method:Stated General Appearance: No Apparent Distress, Anxious, Chronically ill, Thin HEENT: PERRL/EOMI, Normal ENT Inspection, Pharynx Normal Neck: Full Range of Motion, Normal Inspection, Non Tender, Supple Respiratory: Accessory Muscle Use, Decreased Breath Sounds Cardiovascular: Regular Rate, Rhythm, No Edema, No Gallop Capillary Refill: Less Than 3 Seconds Peripheral Pulses: 2+ Dorsalis Pedis (R), 2+ Left Dors-Pedis (L) Gastrointestinal: normal bowel sounds, non tender, soft Extremity: Normal Capillary Refill, Normal Inspection, No Pedal Edema Neurologic/Psychiatric: Alert, Oriented x3 Skin: Normal Color, Warm/Dry Lymphatic: No Adenopathy Results Lab Laboratory Tests 02/14/19 04:45 02/14/19 04:55 02/15/19 06:30 Assessment/Plan Assessment/Plan Acute on chronic respiratory failure COPDAE - improving -Solumedrol - change to prednisone taper. Pt lost her IV and does not want another one placed. -SVNs/pulmicort and duoneb -Oxygen Anxiety/BiPolar Severe COPD Pt is ok for discharge from pulmonary standpoint. I believe pt is at her baseline. SHe asked me about home hospice and I believe this would probably be a good choice for her. DAIN VERMA DO February 15, 2019 14:47
== END 2019-02-15 14:30 | disposition home or self-care (01) | DRG 189 ==
LOC: ICU 09:25 → 4TH 16:31
PROVIDERS: ADMIT Family Medicine; ATTEND Family Medicine
DX: J96.21 Acute and chronic respiratory failure with hypoxia (principal); J43.9 Emphysema, unspecified; J30.2 Other seasonal allergic rhinitis; R03.0 Elevated blood-pressure reading, without diagnosis of hypertension; K59.09 Other constipation; M54.2 Cervicalgia; M25.511 Pain in right shoulder; F31.9 Bipolar disorder, unspecified; F41.8 Other specified anxiety disorders; Z80.0 Family history of malignant neoplasm of digestive organs; Z86.19 Personal history of other infectious and parasitic diseases; Z86.010 Personal history of colon polyps; Z85.828 Personal history of other malignant neoplasm of skin
CPT/HCPCS: 36415; 71045; 71275; 72040; 80048; 80053; 80306; 81000; 82805; 83605; 83735; 83880; 84100; 85025; 85027; 87081; 94640; 94760